=== PATIENT | female | born 1935 | race American Indian/Alaskan Native ===

== ENCOUNTER 2016-10-02 15:18 | Inpatient (IN) | payer MEDICARE ==
[2016-10-02 15:18] VITALS: BMI 16.4
--- NOTE | 2016-10-02 15:56 | ED PDOC ---
HPI: General Adult Time Seen by Provider: 10/02/16 15:35 Chief Complaint (Nursing): Trauma History Per: Patient Additional Complaint(s): Pt. presents with her daughter to ED and states she found her mother on the floor lying flat on her back at approximately 1400 today. As per pt. she fell down attempting to get out of her wheelchair at 1000. Pt. is not complaining of any pain. Denies head injury, abdominal pain, fever, back pain, neck pain, hip pain, chest pain, fever, headache. Past Medical History Vital Signs: Last Vital Signs Temp 98.1 F 10/02/16 16:28 Pulse 93 H 10/02/16 15:22 Resp 16 10/02/16 15:22 BP 127/67 10/02/16 15:22 Pulse Ox 98 10/02/16 15:58 - Medical History PMH: HTN, Hypothyroidism Denies: Arthritis, CHF, COPD, HIV, Hypercholesterolemia, Chronic Kidney Disease, Rheumatoid Arthritis - Family History Family History: States: No Known Family Hx - Immunization History Hx Tetanus Toxoid Vaccination: No Hx Influenza Vaccination: Yes Hx Pneumococcal Vaccination: No - Home Medications Home Medications: Ambulatory Orders Medication Instructions Recorded Atorvastatin Calcium [Lipitor] 20 mg PO HS #30 tab 06/04/15 Calcium Carbonate/Vitamin D 1 tab PO DAILY #30 tab 06/04/15 [Oyster Shell Calcium/Vitamin D 250 MG-125 Iu] Carvedilol [Coreg] 3.125 mg PO DAILY #0 tab 06/04/15 Ferrous Sulfate [Feosol] 325 mg PO BID #60 tab 06/04/15 Lisinopril [Zestril] 5 mg PO DAILY #0 tab 06/04/15 Alendronate [Fosamax] 70 mg PO QWK 10/02/16 Aspirin [Adult Low Dose Aspirin EC] 81 mg PO DAILY 10/02/16 Famotidine [Pepcid] 20 mg PO DAILY 10/02/16 Furosemide [Lasix] 20 mg PO DAILY 10/02/16 Levocetirizine Dihydrochloride 5 mg PO DAILY 10/02/16 [Xyzal] - Allergies Allergies/Adverse Reactions: Allergies Allergy/AdvReac Type Severity Reaction Status Date / Time sweet peas Allergy SWELLING Uncoded 05/28/15 12:44 Review of Systems ROS Statement: Except As Marked, All Systems Reviewed And Found Negative Physical Exam - Reviewed Nursing Documentation Reviewed: Yes Vital Signs Reviewed: Yes - Physical Exam Appears: Positive for: Well, Non-toxic, No Acute Distress Head Exam: Positive for: ATRAUMATIC, NORMAL INSPECTION, NORMOCEPHALIC Skin: Positive for: Normal Color, Warm. Negative for: Rash Eye Exam: Positive for: EOMI, Normal appearance, PERRL ENT: Positive for: Normal ENT Inspection Neck: Positive for: Normal, Painless ROM Cardiovascular/Chest: Positive for: Regular Rate, Rhythm Respiratory: Positive for: CNT, Normal Breath Sounds Gastrointestinal/Abdominal: Positive for: Normal Exam, Bowel Sounds, Soft. Negative for: Tenderness Back: Positive for: Normal Inspection Extremity: Positive for: Normal ROM, Other (R hip internally rotated (chronic as per pt. and pt's daughter); no hip or pelvic tenderness). Negative for: Pedal Edema, Calf Tenderness, Swelling Neurologic/Psych: Positive for: Alert, Oriented (x 2). Negative for: Aphasia, Facial Droop - Laboratory Results Result Diagrams: 10/02/16 17:15 10/02/16 17:15 - ECG ECG: Positive for: Interpreted By Me O2 Sat by Pulse Oximetry: 98 - Radiology X-Ray: Interpreted by Me (CXR) X-Ray Interpretation: Other (hardware in place; no acute fx) - Progress ED Course And Treament: Labs ordered. CT head, c-spine, and R hip/pelvic x-rays ordered. CT head and c-spine w/o contrast: negative IV NS bolus given. Kayexalate given. Case d/w Dr. Hernandez. Case d/w Dr. Quintana, pt.'s PMD is estevan juan, and arrangements made for 23 hr observation. Disposition - Clinical Impression Clinical Impression: Unwitnessed fall, Rhabdomyolysis - Patient ED Disposition Is Patient to be Admitted: Yes - Disposition Disposition Time: 19:00 Condition: STABLE
--- NOTE | 2016-10-02 16:57 | RAD ---
PROCEDURE: Right Hip Radiographs. HISTORY: trauma COMPARISON: Comparison is made to the previous study dated 05/28/2015 FINDINGS: BONES: Internal fixation at the right femur and hip are again seen. No evidence of acute fracture. JOINTS: No evidence of dislocation. SOFT TISSUES: Normal. OTHER FINDINGS: None. IMPRESSION: No evidence of acute fracture or dislocation.
--- NOTE | 2016-10-02 16:58 | RAD ---
HISTORY: fall COMPARISON: Comparison is made to the previous study dated 06/03/2015 FINDINGS: LUNGS: No evidence of focal infiltrate or consolidation in the lungs. Hyperinflation of the lungs is again noted. PLEURA: No significant pleural effusion identified, no pneumothorax apparent. CARDIOVASCULAR: Normal. OSSEOUS STRUCTURES: No significant abnormalities. VISUALIZED UPPER ABDOMEN: Normal. OTHER FINDINGS: None. IMPRESSION: No evidence of acute pulmonary disease. Hyperinflation of the lungs suspicious for COPD.
[2016-10-02 17:35] LABS: BASO % 0.4 % (0.0-2.0); EOS % 0.1 % (0.0-4.0); HEMATOCRIT 46.5 % (34.0-47.0); LYMPH # 0.4 K/uL (1.0-4.3); LYMPH % 6.1 % (20.0-40.0); MEAN CELL VOLUME 89.5 fl (81.0-99.0); MEAN CORPUSCULAR HEMOGLOBIN 29.6 pg (27.0-31.0); MEAN CORPUSCULAR HGB CONC 33.1 g/dL (33.0-37.0); MEAN PLATELET VOLUME 8.9 fl (7.2-11.7); MONO # 0.4 K/uL (0.0-0.8); MONO % 6.5 % (0.0-10.0); NEUT # 5.9 K/uL (1.8-7.0); NEUT % 86.9 % (50.0-75.0); NRBC % 0.1 % (0.0-0.0); PLATELET COUNT 161 K/uL (130-400); RED CELL DISTRIBUTION WIDTH 14.1 % (11.5-14.5); WHITE BLOOD COUNT 6.8 K/uL (4.8-10.8)
[2016-10-02 17:41] LABS: ALB/GLOB RATIO 1.2 (1.0-2.1); ALKALINE PHOSPHATASE 79 U/L (38-126); ALT/SGPT 53 U/L (9-52); AST/SGOT 70 U/L (14-36); BLOOD UREA NITROGEN 37 mg/dl (7-17); CALCIUM 9.5 mg/dL (8.4-10.2); CARBON DIOXIDE 24 mmol/L (22-30); CHLORIDE 86 mmol/L (98-107); GFR AFRICAN-AMERICAN > 60; GLUCOSE,RANDOM 102 mg/dL (65-105); SODIUM 124 mmol/l (132-148); TOTAL PROTEIN 7.4 G/DL (6.3-8.2)
[2016-10-02 17:42] LABS: POTASSIUM 5.4 MMOL/L (3.6-5.0)
[2016-10-02] MEDS ORDERED: Sodium Chloride 0.9% 1,000 ML IV STA (17:50)
--- NOTE | 2016-10-02 18:00 | CT ---
PROCEDURE: CT HEAD WITHOUT CONTRAST. HISTORY: trauma COMPARISON: None available. TECHNIQUE: Axial computed tomography images were obtained through the head/brain without intravenous contrast. Radiation dose: Total exam DLP = 816 mGy-cm. This CT exam was performed using one or more of the following dose reduction techniques: Automated exposure control, adjustment of the mA and/or kV according to patient size, and/or use of iterative reconstruction technique. FINDINGS: HEMORRHAGE: No intracranial hemorrhage. BRAIN: No mass effect or edema. Mild atrophy and chronic periventricular white matter ischemic disease. VENTRICLES: Unremarkable. No hydrocephalus. CALVARIUM: Unremarkable. PARANASAL SINUSES: Unremarkable as visualized. No significant inflammatory changes. MASTOID AIR CELLS: Unremarkable as visualized. No inflammatory changes. OTHER FINDINGS: None. IMPRESSION: No acute intracranial hemorrhage.
--- NOTE | 2016-10-02 18:06 | CT ---
PROCEDURE: CT Cervical Spine without contrast HISTORY: <trauma> COMPARISON: None available. TECHNIQUE: Axial computed tomography images were obtained of the cervical spine without the use of intravenous contrast. Coronal and sagittal reformatted images were created and reviewed. Radiation dose: Total exam DLP = 224 mGy-cm. This CT exam was performed using one or more of the following dose reduction techniques: Automated exposure control, adjustment of the mA and/or kV according to patient size, and/or use of iterative reconstruction technique. FINDINGS: VERTEBRAE: No fracture. Normal alignment. No destructive bony lesion. DISCS/SPINAL CANAL/NEURAL FORAMINA: No significant central canal or neural foraminal stenosis. Disc space narrowing at C5-6 and C6-7 with spur formation. PARASPINAL SOFT TISSUES: Unremarkable. OTHER FINDINGS: None. IMPRESSION: Disc space narrowing at C5-6 and C6-7 with spur formation. No fracture.
[2016-10-02] MEDS ORDERED: Sod Polystyrene Sulf 15 gm/60 ml Oral Susp PO ONE (18:54)
[2016-10-02 19:16] LABS: NEUTROPHIL 90 % (42-75); TOTAL CELLS COUNTED 100
[2016-10-02 19:18] LABS: LARGE PLATELETS PRESENT
[2016-10-02] MEDS ORDERED: Sod Polystyrene Sulf 15 gm/60 ml Oral Susp ONE (20:36)
[2016-10-02] MEDS: Sodium Chloride 0.9% 1,000 ML IV SCH (23:20)
[2016-10-03 06:35] LABS: HEMATOCRIT 36.1 % (34.0-47.0); MEAN CELL VOLUME 88.5 fl (81.0-99.0); MEAN CORPUSCULAR HEMOGLOBIN 29.1 pg (27.0-31.0); MEAN CORPUSCULAR HGB CONC 32.9 g/dL (33.0-37.0); RED CELL DISTRIBUTION WIDTH 13.9 % (11.5-14.5); WHITE BLOOD COUNT 6.2 K/uL (4.8-10.8)
[2016-10-03 06:54] LABS: BLOOD UREA NITROGEN 33 mg/dl (7-17); CARBON DIOXIDE 29 mmol/L (22-30); CHLORIDE 92 mmol/L (98-107); GFR AFRICAN-AMERICAN > 60; GLUCOSE,RANDOM 102 mg/dL (65-105); POTASSIUM 4.1 MMOL/L (3.6-5.0); SODIUM 127 mmol/l (132-148)
--- NOTE | 2016-10-03 07:18 | CARD ---
APPROVED REPORT EKG Measurement Heart [id number] [place] [id number] <Conclusion> Sinus rhythm with premature atrial complexes Right atrial enlargement Pulmonary disease pattern Left anterior fascicular block Abnormal ECG
--- NOTE | 2016-10-03 07:22 | CARD ---
APPROVED REPORT EKG Measurement Heart [id number] [place] [id number] <Conclusion> Normal sinus rhythm Left axis deviation Abnormal ECG
[2016-10-03] MEDS: Sodium Chloride 0.9% 1,000 ML IV SCH ×2 (08:47→13:45)
[2016-10-03] MEDS: Enoxaparin 40 mg Syringe SC SCH (08:50)
[2016-10-03] MEDS: Calcium-Vit D 250 mg-125 Units Tab UD PO SCH (08:50)
--- NOTE | 2016-10-03 10:42 | CARD ---
APPROVED REPORT EXAM: Two-dimensional and M-mode echocardiogram with Doppler and color Doppler. Other Information Quality : GoodRhythm : Atrial Fibrillation INDICATION LV Function:SystolicDiastolic 2D DIMENSIONS IVSd0.83 (0.7-1.1cm)LVDd3.89 (3.9-5.9cm) LVOT Diameter1.84 (1.8-2.4cm)PWd0.85 (0.7-1.1cm) IVSs1.37 (0.8-1.2cm)LVDs2.02 (2.5-4.0cm) FS (%) 48.0 %PWs1.64 (0.8-1.2cm) M-Mode DIMENSIONS Left Atrium (MM)3.62 (2.5-4.0cm)IVSd1.09 (0.7-1.1cm) Aortic Root3.18 (2.2-3.7cm)LVDd5.00 (4.0-5.6cm) Aortic Cusp Exc.1.68 (1.5-2.0cm)PWd1.09 (0.7-1.1cm) IVSs1.71 cmFS (%) 51 % LVDs2.47 (2.0-3.8cm)PWs1.65 cm Mitral Valve E/A ratio0.0 TDI E/Lateral E'0.0E/Medial E'0.0 Tricuspid Valve TR Peak [id number] [id number] Peak Gr.28mmHg [id number] LEFT VENTRICLE The left ventricle is normal size. There is normal left ventricular wall thickness. The left ventricular function is normal. The left ventricular ejection fraction is within the normal range. The Ejection Fraction is 60-65%. There is normal LV segmental wall motion. The left ventricular diastolic function is normal. No left ventricle thrombus noted on this study. RIGHT VENTRICLE The right ventricle is normal size. There is normal right ventricular wall thickness. The right ventricular systolic function is normal. ATRIA The left atrium size is normal. The right atrium size is normal. The interatrial septum is intact with no evidence for an atrial septal defect. AORTIC VALVE The aortic valve is normal in structure and function. No aortic regurgitation is present. There is no aortic valvular stenosis. There is no aortic valvular vegetation. MITRAL VALVE The mitral valve is normal in structure and function. There is no evidence of mitral valve prolapse. There is no mitral valve stenosis. There is no mitral valve regurgitation noted. TRICUSPID VALVE The tricuspid valve is normal in structure and function. There is mild tricuspid regurgitation. There is no tricuspid valve prolapse or vegetation. There is no tricuspid valve stenosis. PULMONIC VALVE The pulmonary valve is normal in structure and function. There is no pulmonic valvular regurgitation. There is no pulmonic valvular stenosis. GREAT VESSELS The aortic root is normal in size. The IVC is normal in size and collapses >50% with inspiration. PERICARDIAL EFFUSION The pericardium appears normal. There is no pleural effusion. <Conclusion> The left ventricle is normal size. The left ventricular function is normal. The left ventricular ejection fraction is within the normal range. The Ejection Fraction is 60-65%. There is mild tricuspid regurgitation.
[2016-10-03] MEDS: Sodium Chloride 0.9% 250 ML IV SCH ×2 (11:31→15:30)
[2016-10-03] MEDS ORDERED: Sodium Chloride 0.9% 500 ML IV ONE (14:50)
--- NOTE | 2016-10-03 14:52 | CP.PCM.PCO ---
Assessment/Plan - Assessment and Plan (Free Text) Plan: Paged by KALIE Hand for hypotension, bp 76/50 Patient seen and examined, alert awake, no complaints of dizziness. Manual bp taken 88/50 IVF started NS bolus 500ml to be given. Will check repeat bp, discussed with Dr Quintana.
--- NOTE | 2016-10-03 17:56 | CP.PCM.CON ---
History of Present Illness - History of Present Illness History of Present Illness: I was asked to see patient by Dr. Quintana. Patient is a 81 year old female with a PMH HTN, previous aortic regurgitation who presents with fall. The patient was found on the floor at her home. She had fallen out of her wheelchair. The patient had full consciousness. She denies chest pain or palpitations. Review of Systems - Constitutional Constitutional: absent: As Per HPI, Anorexia, Chills, Daytime Sleepiness, Excessive Sweating, Fatigue, Fever, Frequent Falls, Headache, Increased Appetite , Lethargy, Malaise, Night Sweats, Snoring, Sleep Apnea, Weight Gain, Weight Loss, Weakness, Other - EENT Eyes: absent: As Per HPI, Blind Spots, Blurred Vision, Change in Vision, Decreased Night Vision, Diplopia, Discharge, Dry Eye, Exophthalmos, Floaters, Irritation, Itchy Eyes, Loss of Peripheral Vision, Pain, Photophobia, Requires Corrective Lenses, Sees Flashes, Spots in Vision, Tunnel Vision, Other Visual Disturbances, Loss of Vision, Other Ears: absent: As Per HPI, Decreased Hearing, Ear Discharge, Ear Pain, Tinnitus, Abnormal Hearing, Disequilibrium, Dizziness, Other Nose/Mouth/Throat: absent: As Per HPI, Epistaxis, Nasal Congestion, Nasal Discharge, Nasal Obstruction, Nasal Trauma, Nose Pain, Post Nasal Drip, Sinus Pain, Sinus Pressure, Bleeding Gums, Change in Voice, Dental Pain, Dry Mouth, Dysphagia, Halitosis, Hoarsness, Lip Swelling, Mouth Lesions, Mouth Pain, Odynophagia, Sore Throat, Throat Swelling, Tongue Swelling, Facial Pain, Neck Pain, Neck Mass, Other - Cardiovascular Cardiovascular: absent: As Per HPI, Acrocyanosis, Chest Pain, Chest Pain at Rest , Chest Pain with Activity, Claudication, Diaphoresis, Dyspnea, Dyspnea on Exertion, Edema, Irregular Heart Rhythm, Pain Radiating to Arm/Neck/Jaw, Leg Edema, Leg Ulcers, Lightheadedness, Orthopnea, Palpitations, Paroxysmal Nocturnal Dyspnea, Pedal Edema, Radiating Pain, Rapid Heart Rate, Slow Heart Rate, Syncope, Other - Respiratory Respiratory: absent: As Per HPI, Cough, Dyspnea, Hemoptysis, Dyspnea on Exertion , Wheezing, Snoring, Stridor, Pain on Inspiration, Chest Congestion, Excessive Mucous Production, Change in Mucous Color, Pain with Coughing, Other - Gastrointestinal Gastrointestinal: absent: As Per HPI, Abdominal Pain, Belching, Bloating, Change in Bowel Habits, Change in Stool Character, Coffee Ground Emesis, Constipation, Cramping, Diarrhea, Dyspepsia, Dysphagia, Early Satiety, Excessive Flatus, Fecal Incontinence, Heartburn, Hematemesis, Hematochezia, Loose Stools, Melena, Nausea, Odynophagia, Temesmus, Vomiting, Other - Genitourinary Genitourinary: absent: As Per HPI, Change in Urinary Stream, Difficulty Urinating, Dysuria, Flank Pain, Hematuria, Pyuria, Nocturia, Urinary Incontinence, Urinary Frequency, Urinary Hesitance, Urinary Urgency, Voiding Freq/Small Amts, Freq UTI, Hx Renal/Bladder Calculi, Hx /Renal Surgery, Bladder Distension, Other - Musculoskeletal Musculoskeletal: absent: As Per HPI, Abnormal Gait, Arthralgias, Atrophy, Back Pain, Deformity, Joint Swelling, Limited Range of Motion, Loss of Height, Muscle Cramps, Muscle Weakness, Myalgias, Neck Pain, Numbness, Radiating Pain into Limb, Stiffness, Tingling, Other - Integumentary Integumentary: absent: As Per HPI, Acne, Alopecia, Bleeding Lesions, Change in Hair, Change in Nails, Change in Pigmentation, Changing Lesions, Dry Skin, Erythema, Furuncle, Hirsutism, Lesions, New Lesions, Non-Healing Lesions, Photosensitivity, Pruritus, Rash, Skin Pain, Skin Ulcer, Sores, Striae, Swelling , Unusual Bruising, Wounds, Jaundice, Other - Neurological Neurological: absent: As Per HPI, Abnormal Gait, Abnormal Hearing, Abnormal Movements, Abnormal Speech, Behavioral Changes, Burning Sensations, Confusion, Convulsions, Disequilibrium, Dizziness, Numbness, Focal Weakness, Frequent Falls , Headaches, Lack of Coordination, Loss of Vision, Memory Loss, Paresthesias, Radicular Pain, Restless Legs, Sensory Deficit, Syncope, Tingling, Tremor, Vertigo, Weakness, Other Visual Disturbances, Other - Psychiatric Psychiatric: absent: As Per HPI, Abnormal Sleep Pattern, Anhedonia, Anxiety, Auditory Hallucinations, Behavioral Changes, Change in Appetite, Change in Libido, Confusion, Depression, Difficulty Concentrating, Hallucinations, Homicidal Ideation, Hopelessness, Irritability, Memory Loss, Mood Swings, Panic Attacks, Paranoia, Suicidal Ideation, Visual Hallucinations, Tactile Hallucinations, Other - Endocrine Endocrine: absent: As Per HPI, Change in Body Appearance, Change in Libido, Cold Intolorance, Deepening of Voice, Excessive Sweating, Fatigue, Flushing, Heat Intolorance, Increase in Ring/Shoe/Hat Size, Palpitations, Polydipsia, Polyphagia, Polyuria, Other - Hematologic/Lymphatic Hematologic: absent: As Per HPI, Easy Bleeding, Easy Bruising, Lymphadenopathy, Other Past Patient History - Infectious Disease Hx of Infectious Diseases: None - Tetanus Immunizations Tetanus Immunization: Unknown - Past Medical History & Family History Past Medical History?: Yes - Past Social History Smoking Status: Never Smoked - CARDIAC Hx Cardiac Disorders: Yes Hx Hypercholesterolemia: Yes Hx Hypertension: Yes - PULMONARY Hx Respiratory Disorders: No - NEUROLOGICAL Hx Neurological Disorder: No - HEENT Hx HEENT Problems: No - RENAL Hx Chronic Kidney Disease: No - ENDOCRINE/METABOLIC Hx Endocrine Disorders: No - HEMATOLOGICAL/ONCOLOGICAL Hx Blood Disorders: No - INTEGUMENTARY Hx Dermatological Problems: No - MUSCULOSKELETAL/RHEUMATOLOGICAL Hx Musculoskeletal Disorders: Yes Hx Falls: Yes Hx Osteoporosis: Yes - GASTROINTESTINAL Hx Gastrointestinal Disorders: No - GENITOURINARY/GYNECOLOGICAL Hx Genitourinary Disorders: Yes Hx Incontinence: Yes - PSYCHIATRIC Hx Psychophysiologic Disorder: No Hx Substance Use: No - SURGICAL HISTORY Hx Surgeries: Yes Hx Orthopedic Surgery: Yes (Right THR, 2012) Hx Thyroidectomy: Yes (1989) - ANESTHESIA Hx Anesthesia: Yes Hx Anesthesia Reactions: No Meds Allergies/Adverse Reactions: Allergies Allergy/AdvReac Type Severity Reaction Status Date / Time sweet peas Allergy SWELLING Uncoded 05/28/15 12:44 - Medications Medications: Current Medications Acetaminophen (Tylenol 325mg Tab) 650 mg PO Q6 PRN PRN Reason: Pain, Mild (1-3) Aspirin (Ecotrin) 81 mg PO DAILY [facility] Last Admin: 10/03/16 08:49 Dose: 81 mg Atorvastatin Calcium (Lipitor) 20 mg PO HS [facility] Last Admin: 10/02/16 23:19 Dose: 20 mg Calcium/Vitamin D (Oscal-D 250 Mg-125 Units Tab) 1 tab PO DAILY [facility] Last Admin: 10/03/16 08:50 Dose: 1 tab Carvedilol (Coreg) 3.125 mg PO DAILY [facility] Last Admin: 10/03/16 08:49 Dose: 3.125 mg Enoxaparin Sodium (Lovenox) 40 mg SC DAILY [facility] PRN Reason: Protocol Last Admin: 10/03/16 08:50 Dose: 40 mg Famotidine (Pepcid) 20 mg PO DAILY [facility] Last Admin: 10/03/16 08:50 Dose: 20 mg Ferrous Sulfate (Feosol) 325 mg PO BID [facility] Last Admin: 10/03/16 17:32 Dose: 325 mg Home Med (Levocetirizine Dihydrochloride [Xyzal]) 5 mg PO DAILY [facility] Sodium Chloride (Sodium Chloride 0.9%) 1,000 mls @ 100 mls/hr IV .Q10H [facility] Stop: 10/04/16 13:45 Last Admin: 10/03/16 13:45 Dose: 100 mls/hr Lisinopril (Zestril) 2.5 mg PO DAILY [facility] Physical Exam - Constitutional Appears: Non-toxic - Head Exam Head Exam: NORMAL INSPECTION - Eye Exam Eye Exam: Normal appearance - ENT Exam ENT Exam: Mucous Membranes Moist - Neck Exam Neck exam: Positive for: Full Rom - Respiratory Exam Respiratory Exam: Decreased Breath Sounds - Cardiovascular Exam Cardiovascular Exam: REGULAR RHYTHM - GI/Abdominal Exam GI & Abdominal Exam: Normal Bowel Sounds - Rectal Exam Rectal Exam: Deferred - Extremities Exam Extremities exam: Negative for: pedal edema - Back Exam Back exam: NORMAL INSPECTION - Neurological Exam Neurological exam: Alert, Oriented x3 - Psychiatric Exam Psychiatric exam: Normal Affect - Skin Skin Exam: Normal Color Results - Vital Signs Recent Vital Signs: Last Vital Signs Temp 98.4 F 10/03/16 17:00 Pulse 85 10/03/16 17:00 Resp 18 10/03/16 17:00 BP 100/38 L 10/03/16 17:00 Pulse Ox 98 10/03/16 17:00 - Labs Result Diagrams: 10/03/16 05:10 10/03/16 05:10 Labs: Laboratory Results - last 24 hr 10/02/16 10/03/16 10/03/16 23:40 05:10 05:10 WBC 6.2 RBC 4.07 Hgb 11.9 L D Hct 36.1 MCV 88.5 MCH 29.1 MCHC 32.9 L RDW 13.9 Plt Count 135 Sodium 127 L Potassium 4.1 Chloride 92 L Carbon Dioxide 29 Anion Gap 10 BUN 33 H Creatinine 0.6 L Est GFR ( Amer) > 60 Est GFR (Non-Af Amer) > 60 Random Glucose 102 Calcium 8.0 L Total Creatine Kinase Troponin I 0.0670 0.0610 Vitamin B12 > 1000 H TSH 3rd Generation 1.40 RPR 10/03/16 10/03/16 05:10 12:20 WBC RBC Hgb Hct MCV MCH MCHC RDW Plt Count Sodium Potassium Chloride Carbon Dioxide Anion Gap BUN Creatinine Est GFR ( Amer) Est GFR (Non-Af Amer) Random Glucose Calcium Total Creatine Kinase 384 H Troponin I Vitamin B12 TSH 3rd Generation RPR Nonreactive - EKG Data EKG Interpreted by: Myself EKG shows normal: Sinus rhythm Assessment & Plan (1) Hypercholesterolemia Assessment and Plan: recommend statin therapy Status: Acute (2) Unwitnessed fall Assessment and Plan: patient has normal left ventricular function and previous no signifcant CAD. Unlikely cardiac cause of the patient's symptoms. telemetry monitoring for 24 hrs. Status: Acute (3) HTN (hypertension) Assessment and Plan: had an episode of hypotension, receiving IV fluids Status: Acute
[2016-10-03 20:42] LABS: RBC URINE 3 /hpf (0-3); URINE BACTERIA MANY (<OCC); URINE BILIRUBIN NEGATIVE (NEGATIVE); URINE BLOOD MODERATE (NEGATIVE); URINE COLOR YELLOW (YELLOW); URINE GLUCOSE (UA) NEG (Normal); URINE KETONE NEGATIVE (NEGATIVE); URINE LEUKOCYTE ESTERASE SMALL Leu/uL (Negative); URINE PROTEIN NEGATIVE (NEGATIVE); URINE UROBILINOGEN 0.2-1.0 mg/dL (0.2-1.0); WBC URINE 18 /hpf (0-5)
--- NOTE | 2016-10-03 23:50 | CP.PCM.HP ---
History of Present Illness - History of Present Illness History of Present Illness: CC: Fall History of Present Illness: 81yoF with H/O HTN,, Dyslipidemia and on Antidiuretic ?Etiology was found on the floor by her daughter.Pt. presents with her daughter to ED and states she found her mother on the floor lying flat on her back at approximately 1400 today. As per pt. she fell down attempting to get out of her wheelchair at 1000. Pt. is not complaining of any pain. Denies head injury, abdominal pain, fever, back pain, neck pain, hip pain, chest pain, fever, headache. Then patient became Hypotensive requiring IVF Bolus nd responded well. Present on Admission - Present on Admission Any Indicators Present on Admission: No History of DVT/PE: No History of Uncontrolled Diabetes: No Urinary Catheter: No Decubitus Ulcer Present: No Review of Systems - Review of Systems All systems: reviewed and no additional remarkable complaints except Past Patient History - Infectious Disease Hx of Infectious Diseases: None - Tetanus Immunizations Tetanus Immunization: Unknown - Past Medical History & Family History Past Medical History?: Yes Past Family History: Reviewed and not pertinent - Past Social History Smoking Status: Never Smoked Alcohol: None Drugs: Denies - CARDIAC Hx Cardiac Disorders: Yes Hx Hypercholesterolemia: Yes Hx Hypertension: Yes - PULMONARY Hx Respiratory Disorders: No - NEUROLOGICAL Hx Neurological Disorder: No - HEENT Hx HEENT Problems: No - RENAL Hx Chronic Kidney Disease: No - ENDOCRINE/METABOLIC Hx Endocrine Disorders: No - HEMATOLOGICAL/ONCOLOGICAL Hx Blood Disorders: No - INTEGUMENTARY Hx Dermatological Problems: No - MUSCULOSKELETAL/RHEUMATOLOGICAL Hx Musculoskeletal Disorders: Yes Hx Falls: Yes Hx Osteoporosis: Yes - GASTROINTESTINAL Hx Gastrointestinal Disorders: No - GENITOURINARY/GYNECOLOGICAL Hx Genitourinary Disorders: Yes Hx Incontinence: Yes - PSYCHIATRIC Hx Psychophysiologic Disorder: No Hx Substance Use: No - SURGICAL HISTORY Hx Surgeries: Yes Hx Orthopedic Surgery: Yes (Right THR, 2012) Hx Thyroidectomy: Yes (1989) - ANESTHESIA Hx Anesthesia: Yes Hx Anesthesia Reactions: No Meds Allergies/Adverse Reactions: Allergies Allergy/AdvReac Type Severity Reaction Status Date / Time sweet peas Allergy SWELLING Uncoded 05/28/15 12:44 Physical Exam - Constitutional Appears: Well, No Acute Distress - Head Exam Head Exam: ATRAUMATIC, NORMAL INSPECTION, NORMOCEPHALIC - Eye Exam Eye Exam: EOMI, Normal appearance, PERRL Pupil Exam: NORMAL ACCOMODATION, PERRL - ENT Exam ENT Exam: Mucous Membranes Moist, Normal Exam - Neck Exam Neck exam: Positive for: Full Rom, Normal Inspection - Respiratory Exam Respiratory Exam: Clear to Auscultation Bilateral, NORMAL BREATHING PATTERN - Cardiovascular Exam Cardiovascular Exam: REGULAR RHYTHM, +S1, +S2 - GI/Abdominal Exam GI & Abdominal Exam: Normal Bowel Sounds, Soft. absent: Tenderness - Extremities Exam Extremities exam: Positive for: normal inspection - Back Exam Back exam: NORMAL INSPECTION - Neurological Exam Neurological exam: Alert, CN II-XII Intact, Normal Gait, Oriented x3, Reflexes Normal - Psychiatric Exam Psychiatric exam: Normal Affect, Normal Mood - Skin Skin Exam: Dry, Intact, Normal Color, Warm Results - Vital Signs Recent Vital Signs: Last Vital Signs Temp 98.9 F 10/03/16 20:00 Pulse 87 10/03/16 20:00 Resp 20 10/03/16 20:00 BP 103/50 L 10/03/16 20:00 Pulse Ox 99 10/03/16 20:00 - Labs Result Diagrams: 10/03/16 05:10 10/04/16 09:40 Labs: Laboratory Results - last 24 hr 10/02/16 10/03/16 10/03/16 23:40 05:10 05:10 WBC 6.2 RBC 4.07 Hgb 11.9 L D Hct 36.1 MCV 88.5 MCH 29.1 MCHC 32.9 L RDW 13.9 Plt Count 135 Sodium 127 L Potassium 4.1 Chloride 92 L Carbon Dioxide 29 Anion Gap 10 BUN 33 H Creatinine 0.6 L Est GFR ( Amer) > 60 Est GFR (Non-Af Amer) > 60 Random Glucose 102 Calcium 8.0 L Total Creatine Kinase Troponin I 0.0670 0.0610 Vitamin B12 > 1000 H TSH 3rd Generation 1.40 Urine Color Urine Clarity Urine pH Ur Specific [place] Urine Protein Urine Glucose (UA) Urine Ketones Urine Blood Urine Nitrate Urine Bilirubin Urine Urobilinogen Ur Leukocyte Esterase Urine RBC (Auto) Urine Microscopic WBC Ur Squamous Epith Cells Urine Bacteria RPR 10/03/16 10/03/16 10/03/16 05:10 12:20 20:00 WBC RBC Hgb Hct MCV MCH MCHC RDW Plt Count Sodium Potassium Chloride Carbon Dioxide Anion Gap BUN Creatinine Est GFR ( Amer) Est GFR (Non-Af Amer) Random Glucose Calcium Total Creatine Kinase 384 H Troponin I Vitamin B12 TSH 3rd Generation Urine Color Yellow Urine Clarity Slighty-cloudy Urine pH 6.0 Ur Specific [place] 1.018 Urine Protein Negative Urine Glucose (UA) Neg Urine Ketones Negative Urine Blood Moderate Urine Nitrate Negative Urine Bilirubin Negative Urine Urobilinogen 0.2-1.0 Ur Leukocyte Esterase Small Urine RBC (Auto) 3 Urine Microscopic WBC 18 H Ur Squamous Epith Cells 18 H Urine Bacteria Many H RPR Nonreactive - Imaging and Cardiology CT scan - head Status: Report reviewed by me Additional comment: IMPRESSION: No acute intracranial hemorrhage CT C-spine: Status: Report reviewed by me Additional comment: IMPRESSION: Disc space narrowing at C5-6 and C6-7 with spur formation. No fracture. Assessment & Plan (1) Fall Assessment and Plan: Mechanical Vs Hypotension sec to Dehydration Vs Hyponatremia R/O Cardiac Arrhythmia Rhabdomyelysis H/O NSTEMI IVF 0.9NS Serum and Urine Osmolality Fall Precation Status: Acute (2) Hyponatremia Assessment and Plan: IVF 0.9NS Slow correction Status: Acute (3) HTN (hypertension) Status: Chronic
[2016-10-04] MEDS: Sodium Chloride 0.9% 1,000 ML IV SCH (03:03)
[2016-10-04] MEDS: Enoxaparin 40 mg Syringe SC SCH (10:03)
[2016-10-04] MEDS: Calcium-Vit D 250 mg-125 Units Tab UD PO SCH (10:04)
[2016-10-04 10:20] LABS: BLOOD UREA NITROGEN 16 mg/dl (7-17); CALCIUM 7.4 mg/dL (8.4-10.2); CARBON DIOXIDE 29 mmol/L (22-30); CHLORIDE 96 mmol/L (98-107); GFR AFRICAN-AMERICAN > 60; GLUCOSE,RANDOM 128 mg/dL (65-105); POTASSIUM 3.5 MMOL/L (3.6-5.0); SODIUM 130 mmol/l (132-148)
--- NOTE | 2016-10-04 11:06 | CP.PCM.PN ---
Subjective - Date & Time of Evaluation Date of Evaluation: 10/04/16 Time of Evaluation: 11:00 - Subjective Subjective: Seen and examined at the bed side. Still feeling weak. Denies fever or chills PT evaluated the patient and recommended SLY. Objective - Vital Signs/Intake and Output Vital Signs (last 24 hours): Temp Pulse Resp BP Pulse Ox 97.8 F 90 20 116/62 98 10/04/16 08:20 10/04/16 10:44 10/04/16 08:20 10/04/16 08:20 10/04/16 10:44 - Medications Medications: Current Medications Acetaminophen (Tylenol 325mg Tab) 650 mg PO Q6 PRN PRN Reason: Pain, Mild (1-3) Aspirin (Ecotrin) 81 mg PO DAILY [facility] Last Admin: 10/04/16 10:03 Dose: 81 mg Atorvastatin Calcium (Lipitor) 20 mg PO HS [facility] Last Admin: 10/03/16 21:32 Dose: Not Given Calcium/Vitamin D (Oscal-D 250 Mg-125 Units Tab) 1 tab PO DAILY [facility] Last Admin: 10/04/16 10:04 Dose: 1 tab Carvedilol (Coreg) 3.125 mg PO DAILY [facility] Last Admin: 10/04/16 10:02 Dose: 3.125 mg Enoxaparin Sodium (Lovenox) 40 mg SC DAILY [facility] PRN Reason: Protocol Last Admin: 10/04/16 10:03 Dose: 40 mg Famotidine (Pepcid) 20 mg PO DAILY [facility] Last Admin: 10/04/16 10:05 Dose: 20 mg Ferrous Sulfate (Feosol) 325 mg PO BID [facility] Last Admin: 10/04/16 10:03 Dose: 325 mg Home Med (Levocetirizine Dihydrochloride [Xyzal]) 5 mg PO DAILY [facility] Sodium Chloride (Sodium Chloride 0.9%) 1,000 mls @ 100 mls/hr IV .Q10H [facility] Stop: 10/04/16 13:45 Last Admin: 10/04/16 03:03 Dose: 100 mls/hr Lisinopril (Zestril) 2.5 mg PO DAILY [facility] Last Admin: 10/04/16 10:04 Dose: 2.5 mg Potassium Chloride (K-Dur 20 Meq Er Tab) 20 meq PO ONCE ONE Stop: 10/04/16 11:31 - Labs Labs: 05/02/17 05:10 10/04/16 09:40 - Constitutional Appears: No Acute Distress, Chronically Ill - Head Exam Head Exam: ATRAUMATIC, NORMAL INSPECTION, NORMOCEPHALIC - Eye Exam Eye Exam: EOMI, Normal appearance, PERRL Pupil Exam: NORMAL ACCOMODATION, PERRL - ENT Exam ENT Exam: Mucous Membranes Moist, Normal Exam - Neck Exam Neck Exam: Full ROM, Normal Inspection. absent: Lymphadenopathy - Respiratory Exam Respiratory Exam: Clear to Ausculation Bilateral, NORMAL BREATHING PATTERN - Cardiovascular Exam Cardiovascular Exam: REGULAR RHYTHM, +S1, +S2. absent: Murmur - GI/Abdominal Exam GI & Abdominal Exam: Soft, Normal Bowel Sounds. absent: Tenderness - Extremities Exam Extremities Exam: Full ROM, Normal Capillary Refill, Normal Inspection. absent : Joint Swelling, Pedal Edema - Back Exam Back Exam: NORMAL INSPECTION. absent: CVA tenderness (L), CVA tenderness (R) - Neurological Exam Neurological Exam: Abnormal Gait, Alert, Awake, CN II-XII Intact - Psychiatric Exam Psychiatric exam: Normal Affect, Normal Mood - Skin Skin Exam: Dry, Intact, Normal Color, Warm Assessment and Plan (1) Fall Assessment & Plan: Fall Precaution PT/OT Will need Rehab Status: Acute (2) Hyponatremia Assessment & Plan: Improving IVF 0.9NS@100cc/hr Repeat BMP Status: Acute (3) HTN (hypertension) Assessment & Plan: Continue Carvidelol and Lisinopril Status: Chronic (4) UTI (urinary tract infection) Assessment & Plan: Urine Cultures Ciprofloxacin 500mg BID X5days Status: Acute
[2016-10-04] MEDS ORDERED: Potassium Chloride 20 mEq ER Tab PO ONE ×2 (11:30→18:25)
--- NOTE | 2016-10-04 14:54 | PQF GENQUE ---
Dr. Quintana, 2 (two) queries as follows: (1)Agree with BMI 15.2? listed in the EMR :if agreed please include the BMI in your progress note or discharge summary (2) If agreed: Please provide an associated diagnosis, if known, related to the BMI:15.2 (5 ft 8in 100lb): i.e. Underweight, or Small frame etc. OR: Disagree OR: Unable to determine OR: Other explanation of clinical findings ER note: POA Present On Arrival: Pressure Ulcer (sacral) H and P:81 year old: was found on the floor by her daughter: lying flat on her back. As per pt. she fell down attempting to get out of her wheelchair. Assessment Plan : (1) Fall :Assessment and Plan: Mechanical Vs Hypotension sec to Dehydration Vs Hyponatremia R/O Cardiac Arrhythmia Rhabdomyolysis H/O NSTEMI IVF 0.9NS Serum and Urine Osmolality Fall Precation Status: Acute (2) Hyponatremia ;Assessment and Plan: IVF 0.9NS Slow correction Status: Acute (3) HTN (hypertension) Status: Chronic This form is a permanent part of the medical record Clarification of your documentation is requested to better reflect the severity of illness and intensity of treatment of your patient. Indicators present [] Specify: [X) Sacral decubitus Stage II [] Specify: [] [] Specify: [] [] Specify: [] Location in the medical record that reflects the above clinical findings: [] Treatment Provided: [X] Wound Care and Repositioning PHYSICIAN'S RESPONSE Based on your medical judgment of the clinical indicators outlined above please clarify the following: [X] Practitioner response Underweight [] If unable to determine, please check the box, sign and date. Present On Admission (POA) Indicator: [X] Present at the time of admission [] Not present at the time of admission [] Clinically Undetermined In responding to this query, please exercise your independent professional judgment. The fact that a question is asked does not imply that any particular answer is desired or expected. Thank you for your clarification on this documentation. If you have any questions please call. * Thank you, Jory Cisneros RN BSN ext. #[phone] MTDD
[2016-10-05 07:13] LABS: BASO % 0.3 % (0.0-2.0); EOS % 0.1 % (0.0-4.0); HEMATOCRIT 29.7 % (34.0-47.0); LYMPH % 19.9 % (20.0-40.0); MEAN CELL VOLUME 88.5 fl (81.0-99.0); MEAN CORPUSCULAR HGB CONC 33.8 g/dL (33.0-37.0); MEAN PLATELET VOLUME 9.2 fl (7.2-11.7); MONO # 0.4 K/uL (0.0-0.8); MONO % 8.7 % (0.0-10.0); NEUT # 3.6 K/uL (1.8-7.0); NRBC % 0.1 % (0.0-0.0); RED CELL DISTRIBUTION WIDTH 13.9 % (11.5-14.5)
[2016-10-05 07:23] LABS: BLOOD UREA NITROGEN 11 mg/dl (7-17); CALCIUM 7.5 mg/dL (8.4-10.2); CARBON DIOXIDE 30 mmol/L (22-30); CHLORIDE 97 mmol/L (98-107); GFR AFRICAN-AMERICAN > 60; GLUCOSE,RANDOM 71 mg/dL (65-105); POTASSIUM 3.7 MMOL/L (3.6-5.0); SODIUM 130 mmol/l (132-148)
--- NOTE | 2016-10-05 07:34 | PQF GENQUE ---
Dr. Quintana, In agreement with Pressure Ulcer(s): Present on Admission? If in agreement please list the following: --- (A) the site of the Pressure Ulcer(s) --- (B) the Stage(s) of the Pressure Ulcer(s) ---(C) if the Pressure Ulcer(s) are:Present on Admission ER note: Patient presents with her daughter to ED and states she found her mother on the floor lying flat on her back at approximately 1400 today. As per pt. she fell down attempting to get out of her wheelchair at 1000. Clinical Impression: Unwitnessed fall, Rhabdomyolysis Addendum note: Present On Arrival: Pressure Ulcer (sacral) Nursing Pressure Ulcer Assessment: Right Sacrum;partial thickness Loss of dermis presenting as a shallow ulcer and right heel purple or maroon localized area of discolored intact skin or blood 5/2: Wound RN:Patient Care tab in the EMR : Sacrum: DTI 5/2: Wound RN Notes tab in the EMR: Heels are clean and dry; Sacrum DTI This form is a permanent part of the medical record Clarification of your documentation is requested to better reflect the severity of illness and intensity of treatment of your patient. Indicators present [] Specify: [] [] Specify: [] [] Specify: [] [] Specify: [] Location in the medical record that reflects the above clinical findings: [] Treatment Provided: [] PHYSICIAN'S RESPONSE Based on your medical judgment of the clinical indicators outlined above please clarify the following: [X] Practitioner response stage II Scaral Decubitus Ulcer [] If unable to determine, please check the box, sign and date. Present On Admission (POA) Indicator: [X] Present at the time of admission [] Not present at the time of admission [] Clinically Undetermined In responding to this query, please exercise your independent professional judgment. The fact that a question is asked does not imply that any particular answer is desired or expected. Thank you for your clarification on this documentation. If you have any questions please call:[ ] * Thank you, [ ] tnt line supervisor DAVID
[2016-10-05] MEDS: Enoxaparin 40 mg Syringe SC SCH (08:26)
[2016-10-05] MEDS: Calcium-Vit D 250 mg-125 Units Tab UD PO SCH (08:30)
[2016-10-05 12:13] VITALS: RESP 20; O2SAT 95
[2016-10-05 15:47] VITALS: BP 151/71; PULSE 94; TEMP 97.8
--- NOTE | 2016-10-06 00:38 | CP.PCM.DIS ---
Provider - Provider Date of Admission: 10/02/16 18:37 Attending physician: Dewayne Quintana MD Time Spent in preparation of Discharge (in minutes): 28 Diagnosis - Discharge Diagnosis (1) Fall Status: Acute (2) Hyponatremia Status: Acute (3) HTN (hypertension) Status: Chronic (4) UTI (urinary tract infection) Status: Acute Hospital Course - Lab Results Lab Results: Micro Results 10/03/16 20:00 Urine,Catheterized Urine Culture - Preliminary Gram Negative Kiran Most Recent Lab Values WBC 5.0 K/uL (4.8-10.8) 10/05/16 05:15 RBC 3.35 Mil/uL (3.80-5.20) L 10/05/16 05:15 Hgb 10.0 g/dL (12.0-16.0) L 10/05/16 05:15 Hct 29.7 % (34.0-47.0) L 10/05/16 05:15 MCV 88.5 fl (81.0-99.0) 10/05/16 05:15 MCH 30.0 pg (27.0-31.0) 10/05/16 05:15 MCHC 33.8 g/dL (33.0-37.0) 10/05/16 05:15 RDW 13.9 % (11.5-14.5) 10/05/16 05:15 Plt Count 114 K/uL (130-400) L D 10/05/16 05:15 MPV 9.2 fl (7.2-11.7) 10/05/16 05:15 Neut % (Auto) 71.0 % (50.0-75.0) 10/05/16 05:15 Lymph % (Auto) 19.9 % (20.0-40.0) L 10/05/16 05:15 [place] % (Auto) 8.7 % (0.0-10.0) 10/05/16 05:15 Eos % (Auto) 0.1 % (0.0-4.0) 10/05/16 05:15 Baso % (Auto) 0.3 % (0.0-2.0) 10/05/16 05:15 Neut # 3.6 K/uL (1.8-7.0) 10/05/16 05:15 Lymph # 1.0 K/uL (1.0-4.3) 10/05/16 05:15 [place] # 0.4 K/uL (0.0-0.8) 10/05/16 05:15 Eos # 0.0 K/uL (0.0-0.7) 10/05/16 05:15 Baso # 0.0 K/uL (0.0-0.2) 10/05/16 05:15 Neutrophils % (Manual) 90 % (42-75) H 10/02/16 17:15 Lymphocytes % (Manual) 6 % (20-50) L 10/02/16 17:15 Monocytes % (Manual) 4 % (0-10) 10/02/16 17:15 Platelet Estimate Normal (NORMAL) 10/02/16 17:15 Large Platelets Present 10/02/16 17:15 Hypochromasia (manual) Slight 10/02/16 17:15 Anisocytosis (manual) Slight 10/02/16 17:15 Macrocytosis (manual) Slight 10/02/16 17:15 Tear Drop Cells Slight 10/02/16 17:15 Ovalocytes Moderate 10/02/16 17:15 Jessica Cells Slight 10/02/16 17:15 Sodium 130 mmol/l (132-148) L 10/05/16 05:15 Potassium 3.7 MMOL/L (3.6-5.0) 10/05/16 05:15 Chloride 97 mmol/L (98-107) L 10/05/16 05:15 Carbon Dioxide 30 mmol/L (22-30) 10/05/16 05:15 Anion Gap 7 (10-20) L 10/05/16 05:15 BUN 11 mg/dl (7-17) 10/05/16 05:15 Creatinine 0.5 mg/dL (0.7-1.2) L 10/05/16 05:15 Est GFR ( Amer) > 60 10/05/16 05:15 Est GFR (Non-Af Amer) > 60 10/05/16 05:15 Random Glucose 71 mg/dL (65-105) 10/05/16 05:15 Calcium 7.5 mg/dL (8.4-10.2) L 10/05/16 05:15 Total Bilirubin 1.0 mg/dl (0.2-1.3) 10/02/16 17:15 AST 70 U/L (14-36) H D 10/02/16 17:15 ALT 53 U/L (9-52) H 10/02/16 17:15 Alkaline Phosphatase 79 U/L (38-126) 10/02/16 17:15 Total Creatine Kinase 308 U/L (30-135) H 10/04/16 09:40 Troponin I 0.0610 ng/mL (0.00-0.120) 10/03/16 05:10 Total Protein 7.4 G/DL (6.3-8.2) 10/02/16 17:15 Albumin 4.1 g/dL (3.5-5.0) 10/02/16 17:15 Globulin 3.3 gm/dL (2.2-3.9) 10/02/16 17:15 Albumin/Globulin Ratio 1.2 (1.0-2.1) 10/02/16 17:15 Vitamin B12 > 1000 pg/mL (239-931) H 10/03/16 05:10 TSH 3rd Generation 1.40 mIU/ML (0.46-4.68) 10/03/16 05:10 Urine Color Yellow (YELLOW) 10/03/16 20:00 Urine Clarity Slighty-cloudy (Clear) 10/03/16 20:00 Urine pH 6.0 (5.0-8.0) 10/03/16 20:00 Ur Specific [place] 1.018 (1.003-1.030) 10/03/16 20:00 Urine Protein Negative mg/dL (NEGATIVE) 10/03/16 20:00 Urine Glucose (UA) Neg mg/dL (Normal) 10/03/16 20:00 Urine Ketones Negative mg/dL (NEGATIVE) 10/03/16 20:00 Urine Blood Moderate (NEGATIVE) 10/03/16 20:00 Urine Nitrate Negative (NEGATIVE) 10/03/16 20:00 Urine Bilirubin Negative (NEGATIVE) 10/03/16 20:00 Urine Urobilinogen 0.2-1.0 mg/dL (0.2-1.0) 10/03/16 20:00 Ur Leukocyte Esterase Small [place]/uL (Negative) 10/03/16 20:00 Urine RBC (Auto) 3 /hpf (0-3) 10/03/16 20:00 Urine Microscopic WBC 18 /hpf (0-5) H 10/03/16 20:00 Ur Squamous Epith Cells 18 /hpf (0-5) H 10/03/16 20:00 Urine Bacteria Many (<OCC) H 10/03/16 20:00 RPR Nonreactive (NONREACTIVE) 10/03/16 05:10 Discharge Exam - Head Exam Head Exam: ATRAUMATIC, NORMAL INSPECTION, NORMOCEPHALIC Discharge Plan - Discharge Medications Prescriptions: cefTRIAXone 1 gm [Rocephin 1 gram IVPB] 1 gm IVPB DAILY #7 bag - Follow Up Plan Condition: STABLE Disposition: REHAB FACILITY/REHAB UNIT Instructions: Rhabdomyolysis (DC), Fall Prevention (DC)
--- NOTE | 2016-10-06 12:12 | PQF GENQUE ---
Dr. Quintana was diagnosis of rhabdomyolysis ruled in or out? This form is a permanent part of the medical record Clarification of your documentation is requested to better reflect the severity of illness and intensity of treatment of your patient. Indicators present [] Specify: [] [] Specify: [] [] Specify: [] [] Specify: [] Location in the medical record that reflects the above clinical findings: [] Treatment Provided: [] PHYSICIAN'S RESPONSE Based on your medical judgment of the clinical indicators outlined above please clarify the following: [] Practitioner response [] If unable to determine, please check the box, sign and date. Present On Admission (POA) Indicator: [] Present at the time of admission [] Not present at the time of admission [] Clinically Undetermined In responding to this query, please exercise your independent professional judgment. The fact that a question is asked does not imply that any particular answer is desired or expected. Thank you for your clarification on this documentation. If you have any questions please call:[ ] * Thank you, [ ]Blanca PABON Coder DAVID
== END 2016-10-05 18:18 | DRG 565 ==
LOC: H.ER 15:18 → H.ERHOLD 18:37 → H.TEL 21:25
PROVIDERS: ADMIT Internal Medicine; ATTEND Internal Medicine
DX: T79.6XXA Traumatic ischemia of muscle, initial encounter (principal); N39.0 Urinary tract infection, site not specified; L89.152 Pressure ulcer of sacral region, stage 2; I95.9 Hypotension, unspecified; E87.1 Hypo-osmolality and hyponatremia; Z68.1 Body mass index [BMI] 19.9 or less, adult; W05.0XXA Fall from non-moving wheelchair, initial encounter; W19.XXXA Unspecified fall, initial encounter; I10 Essential (primary) hypertension; E03.9 Hypothyroidism, unspecified; E78.00 Pure hypercholesterolemia, unspecified; E78.5 Hyperlipidemia, unspecified; I25.2 Old myocardial infarction; Z91.018 Allergy to other foods; Z96.641 Presence of right artificial hip joint; R63.6 Underweight; Y93.9 Activity, unspecified; Y92.009 Unspecified place in unspecified non-institutional (private) residence as the place of occurrence of the external cause

== ENCOUNTER 2017-01-17 12:49 | Inpatient (IN) | payer MEDICARE ==
--- NOTE | 2017-01-17 13:34 | ED PDOC ---
HPI: General Adult Time Seen by Provider: 01/17/17 12:56 Chief Complaint (Nursing): Lower Extremity Problem/Injury History Per: Patient Additional Complaint(s): Pt. presents with daughter to ED and states yesterday she fell down trying to get to her wheelchair. As per daughter pt. lives on her own and when she came to visit her this morning at approximately 1130am she found pt. sitting up on the bathroom floor. She states pt. usually gets up from bed at approximately 1000am. Pt. currently c/o R knee pain. Denies head injury, neck pain, numbness, tingling, chest pain, abdominal pain, fever, hip pain. As per daughter pt. had hip fx and surgical repair 5 years ago and that she is wheelchair bound and normally does have her R hip internally rotated. Denies alteration in behavior. Past Medical History Reviewed: Historical Data, Nursing Documentation, Vital Signs Vital Signs: Last Vital Signs Temp 99.0 F 01/19/17 21:06 Pulse 97 H 01/19/17 19:11 Resp 18 01/19/17 19:11 BP 102/60 01/19/17 19:11 Pulse Ox 100 01/19/17 22:05 - Medical History PMH: HTN, Hypercholesterolemia, Hypothyroidism, Osteoporosis Denies: Arthritis, CHF, COPD, HIV, Chronic Kidney Disease, Rheumatoid Arthritis - Surgical History Other surgeries: R hip surgery (4-5 years ago) - Family History Family History: States: No Known Family Hx - Immunization History Hx Tetanus Toxoid Vaccination: No Hx Influenza Vaccination: Yes Hx Pneumococcal Vaccination: No - Home Medications Home Medications: Ambulatory Orders Medication Instructions Recorded Atorvastatin Calcium [Lipitor] 20 mg PO HS #30 tab 06/04/15 Ferrous Sulfate [Feosol] 325 mg PO BID #60 tab 06/04/15 Lisinopril [Zestril] 5 mg PO DAILY #0 tab 06/04/15 Aspirin [Adult Low Dose Aspirin EC] 81 mg PO DAILY 10/02/16 Famotidine [Pepcid] 20 mg PO DAILY 10/02/16 Furosemide [Lasix] 20 mg PO DAILY 10/02/16 Levocetirizine Dihydrochloride 5 mg PO DAILY 10/02/16 [Xyzal] Calcium Carbonate/Vitamin D3 1 tab PO DAILY 01/17/17 [Calcium 250+D Tablet] Carvedilol [Coreg] 3.125 mg PO DAILY 01/17/17 - Allergies Allergies/Adverse Reactions: Allergies Allergy/AdvReac Type Severity Reaction Status Date / Time banana Allergy RASH Verified 01/18/17 15:50 Penicillins Allergy RASH Verified 01/17/17 12:51 sweet peas Allergy SWELLING Uncoded 05/28/15 12:44 Review of Systems ROS Statement: Except As Marked, All Systems Reviewed And Found Negative Physical Exam - Reviewed Nursing Documentation Reviewed: Yes Vital Signs Reviewed: Yes - Physical Exam Appears: Positive for: Well, Non-toxic, No Acute Distress Head Exam: Positive for: ATRAUMATIC, NORMAL INSPECTION, NORMOCEPHALIC Skin: Positive for: Normal Color, Warm. Negative for: Rash Eye Exam: Positive for: EOMI, Normal appearance, PERRL ENT: Positive for: Normal ENT Inspection Neck: Positive for: Normal, Painless ROM Cardiovascular/Chest: Positive for: Regular Rate, Rhythm Respiratory: Positive for: CNT, Normal Breath Sounds Pulses-Dorsalis Pedis (L): 2+ Pulses-Dorsalis Pedis (R): 2+ Gastrointestinal/Abdominal: Positive for: Normal Exam, Soft. Negative for: Tenderness Back: Positive for: Normal Inspection. Negative for: L CVA Tenderness, R CVA Tenderness, Vertebral Tenderness (including cervical and LS spine x-ray) Extremity: Positive for: Normal ROM, Other (R hip internally rotated; no hip or pelvic tenderness; no knee tenderness or swelling). Negative for: Pedal Edema ( b/l), Calf Tenderness (b/l) Neurologic/Psych: Positive for: Alert, Oriented - Laboratory Results Result Diagrams: 01/18/17 05:00 01/18/17 05:00 - ECG O2 Sat by Pulse Oximetry: 100 ED OBSERVATION Date of observation admission: 01/17/17 Time of observation admission: 13:36 - Observation admission statement Patient is being placed in observation because:: s/p fall - Progress Note Progress Note: 01/17/17 13:36 Tylenol 650mg PO given. Labs ordered. EKG ordered. R hip/pelvic x-ray, CT head w/o contrast, CT cervical spine w/o contrast ordered. 01/17/17 15:22 No distress. Resting comfortably. 01/17/17 17:33 CT R hip w/o contrast: Soft tissue swelling (primarily gluteal muscles) without acute articular or osseous abnormality. No evidence of acute fracture, hardware failure. No evidence of subluxation, dislocation or protrusio. CT cervical spine w/o contrast: 1. No acute fracture or traumatic anterior listhesis. 2. Straightening of the cervical spine may be positional or related to muscle spasm. CT head w/o contrast: 1. No acute intracranial abnormality. 2. Mild chronic microangiopathic changes and moderate age-related global parenchymal volume loss. R Knee x-ray: no fx. 01/17/17 18:46 Case d/w Dr. Quintana, covering for Dr. Nicole Pizarro, and arrangements made for 23 hr observation. Repeat HR: 98. 01/17/17 18:59 CXR: small pneumo in L lung Case d/w Dr. Grover who viewed x-ray as well. CT chest w/o contrast ordered. Disposition - Clinical Impression Clinical Impression: Unwitnessed fall, Hip pain, Pneumothorax - Patient ED Disposition Is Patient to be Admitted: Transfer of Care (Signed out to Tom HUBER pending CT chest) - Disposition Disposition: Routine/Home Disposition Time: 20:00 Condition: FAIR - POA Present On Arrival: Pressure Ulcer (coccyx healing ulcer)
[2017-01-17 14:12] LABS: BASO % 0.4 % (0.0-2.0); EOS # 0.1 K/uL (0.0-0.7); EOS % 0.5 % (0.0-4.0); LYMPH # 0.7 K/uL (1.0-4.3); LYMPH % 5.4 % (20.0-40.0); MEAN CORPUSCULAR HEMOGLOBIN 28.9 pg (27.0-31.0); MEAN CORPUSCULAR HGB CONC 31.8 g/dL (33.0-37.0); MEAN PLATELET VOLUME 9.6 fl (7.2-11.7); MONO # 0.6 K/uL (0.0-0.8); MONO % 4.9 % (0.0-10.0); NEUT # 10.7 K/uL (1.8-7.0); NEUT % 88.8 % (50.0-75.0); PLATELET COUNT 156 K/uL (130-400); RBC 4.44 Mil/uL (3.80-5.20)
[2017-01-17 14:18] LABS: HEMOGLOBIN 12.8 g/dL (12.0-16.0); MEAN CELL VOLUME 90.9 fl (81.0-99.0)
[2017-01-17 14:21] LABS: ALB/GLOB RATIO 1.2 (1.0-2.1); ALBUMIN 4.6 g/dL (3.5-5.0); ALT/SGPT 44 U/L (9-52); AST/SGOT 41 U/L (14-36); BLOOD UREA NITROGEN 25 mg/dl (7-17); CALCIUM 9.8 mg/dL (8.4-10.2); GFR AFRICAN-AMERICAN > 60; GFR NON-AFRICAN AMERICAN > 60
[2017-01-17 14:31] LABS: INR 1.2 (0.9-1.2); PROTHROMBIN TIME 12.5 Seconds (9.8-13.1)
[2017-01-17 14:32] LABS: PARTIAL THROMBOPLASTIN TIME 27.7 Seconds (25.6-37.1)
--- NOTE | 2017-01-17 14:58 | RAD ---
PROCEDURE: Right Hip Radiographs. HISTORY: trauma COMPARISON: 10/02/2016. FINDINGS: BONES: Stable position of major fracture fragments, healed proximal right femoral fracture. No evidence of hardware migration or failure. Stable internal rotation. This was seen previously JOINTS: Degenerative changes, unchanged compared the prior study 10/02/2016 SOFT TISSUES: Normal. OTHER FINDINGS: None. IMPRESSION: No acute findings related to/accounting for the clinical presentation. No significant interval change compared to the prior examination(s).
--- NOTE | 2017-01-17 15:05 | CARD ---
APPROVED REPORT EKG Measurement Heart [id number] <Conclusion> Sinus tachycardia with premature atrial complexes Left axis deviation Nonspecific ST abnormality Abnormal ECG
[2017-01-17 15:18] LABS: EOSINOPHIL 1 % (0-7); LYMPHOCYTE 7 % (20-50); MONOCYTE 6 % (0-10); NEUTROPHIL 86 % (42-75); TOTAL CELLS COUNTED 100
[2017-01-17 15:19] LABS: PLATELET ESTIMATE NORMAL (NORMAL)
[2017-01-17] MEDS ORDERED: Sodium Chloride 0.9% 500 ML IV ONE (15:21)
--- NOTE | 2017-01-17 15:25 | RAD ---
HISTORY: fall COMPARISON: 10/02/2016 FINDINGS: LUNGS: The lungs are well inflated and clear. There is an artifact from fold in the left lung. PLEURA: No significant pleural effusion identified, no right pneumothorax apparent. CARDIOVASCULAR: There is mild cardiomegaly. Atherosclerotic aortic arch calcifications are present. OSSEOUS STRUCTURES: No significant abnormalities. VISUALIZED UPPER ABDOMEN: Normal. OTHER FINDINGS: None. IMPRESSION: Artifact from fold in the left lung limits evaluation of pneumothorax. Repeat chest PA and lateral radiographs are recommended.
--- NOTE | 2017-01-17 15:33 | CT ---
PROCEDURE: CT HEAD WITHOUT CONTRAST. HISTORY: Trauma COMPARISON: None available. TECHNIQUE: Axial computed tomography images were obtained through the head/brain without intravenous contrast. Radiation dose: Total exam DLP = 866.43 mGy-cm. This CT exam was performed using one or more of the following dose reduction techniques: Automated exposure control, adjustment of the mA and/or kV according to patient size, and/or use of iterative reconstruction technique. FINDINGS: HEMORRHAGE: No intracranial hemorrhage. BRAIN: There are mild chronic microangiopathic changes. There is no mass, mass effect or abnormal extra-axial fluid collection. VENTRICLES: There is moderate age-related global parenchymal volume loss and proportionate enlargement of the ventricles and cortical sulci. CALVARIUM: The skull base and calvarium are normal. PARANASAL SINUSES: Predominantly clear. MASTOID AIR CELLS: Predominantly clear. OTHER FINDINGS: None. IMPRESSION: 1. No acute intracranial abnormality. 2. Mild chronic microangiopathic changes and moderate age-related global parenchymal volume loss.
--- NOTE | 2017-01-17 15:40 | CT ---
PROCEDURE: CT Cervical Spine without contrast HISTORY: Trauma COMPARISON: None available. TECHNIQUE: Axial computed tomography images were obtained of the cervical spine without the use of intravenous contrast. Coronal and sagittal reformatted images were created and reviewed. Radiation dose: Total exam DLP = 262.40 mGy-cm. This CT exam was performed using one or more of the following dose reduction techniques: Automated exposure control, adjustment of the mA and/or kV according to patient size, and/or use of iterative reconstruction technique. FINDINGS: VERTEBRAE: There is normal alignment of the cervical vertebral bodies. There is straightening of the cervical spine with loss of normal cervical lordosis. There is diffuse bone demineralization. There is no acute fracture or traumatic anterior listhesis. DISCS/SPINAL CANAL/NEURAL FORAMINA: There is moderate degenerative disc disease at C5-6 and C6-7 with anterior osteophytes, reduced disc heights and mild facet arthropathy. The remaining disc heights are preserved. The spinal canal is patent. PARASPINAL SOFT TISSUES: There is no prevertebral soft tissue thickening. The paraspinous soft tissues are normal. OTHER FINDINGS: No apical pneumothorax. IMPRESSION: 1. No acute fracture or traumatic anterior listhesis. 2. Straightening of the cervical spine may be positional or related to muscle spasm.
--- NOTE | 2017-01-17 17:19 | RAD ---
PROCEDURE: Right Knee Radiographs. HISTORY: trauma COMPARISON: None. FINDINGS: BONES: There is no acute displaced fracture or bone destruction. Bone alignment is normal. There is diffuse bone demineralization. JOINTS: Normal. No osteoarthritis. JOINT EFFUSION: None. OTHER FINDINGS: None. IMPRESSION: No acute displaced fracture or dislocation.Please note occult fractures cannot be excluded on plain radiographs. If there is a persistent clinical concern, an MRI of the knee may be performed for further evaluation.
--- NOTE | 2017-01-17 17:19 | CT ---
PROCEDURE: CT right lower extremity. HISTORY: Trauma. COMPARISON: January 17, 2017. Plain film radiographs. This includes right hip and right knee. 10/12/2016 plain film radiographs right hip TECHNIQUE: 2.5 mm axial acquisition and display. Coronal and sagittal reconstructions. Dose report (mGy-cm): To 01.46 FINDINGS: Negative study for acute fracture. No evidence of subluxation or dislocation. No evidence of protrusio. Intact pelvic ring on the right. No abnormalities pubic symphysis. Soft tissue injury, soft tissue swelling primarily right gluteal muscles consistent with a recent traumatic event. IMPRESSION: Soft tissue swelling (primarily gluteal muscles) without acute articular or osseous abnormality. No evidence of acute fracture, hardware failure. No evidence of subluxation, dislocation or protrusio.
--- NOTE | 2017-01-17 21:05 | CT ---
EXAM: CT Chest Without Intravenous Contrast CLINICAL HISTORY: 81 years old, female; Injury or trauma; Fall; Initial encounter; Blunt trauma (contusions or hematomas); Additional info: S/P fall, l lung possible ptx. Sent phy. Doc. With request. Sent cxr from today with report TECHNIQUE: Axial computed tomography images of the chest without intravenous contrast. All CT scans at this facility use one or more dose reduction techniques, viz.: automated exposure control; ma/kV adjustment per patient size (including targeted exams where dose is matched to indication; i.e. head); or iterative reconstruction technique. Coronal and sagittal reformatted images were created and reviewed. COMPARISON: CT - CHEST W/CONTRAST 06/02/2015 1:06:56 PM FINDINGS: Limitations: Lack of intravenous contrast. Motion artifact - mild. Lungs: Mild peripheral atelectasis/scarring. No consolidation. Few scattered reticulonodular opacities within periphery of lungs, grossly stable. Pleural space: No pneumothorax. No significant effusion. Heart: No cardiomegaly. No significant pericardial effusion. Bones/joints: Probable misregistration of sternum related to motion. No displaced fracture. Soft tissues: Unremarkable. Vasculature: Moderate atherosclerotic disease of aorta. No aneurysm. Lymph nodes: No pathologically enlarged lymph nodes. IMPRESSION: 1. No definite noncontrast CT evidence of visceral injury. 2. Incidental/non-acute findings are described above.
--- NOTE | 2017-01-17 21:55 | ED PDOC ---
- Laboratory Results Result Diagrams: 01/17/17 13:40 01/17/17 13:40 - ECG O2 Sat by Pulse Oximetry: 99 - Progress ED Course And Treament: Case endorsed to chief underwriter from Selvin HUBER pending CT chest to rule out possible pneumothorax seen on chest xray EXAM: CT Chest Without Intravenous Contrast CLINICAL HISTORY: 81 years old, female; Injury or trauma; Fall; Initial encounter; Blunt trauma ( contusions or hematomas); Additional info: S/P fall, l lung possible ptx. Sent phy. Doc. With request. Sent cxr from today with report TECHNIQUE: Axial computed tomography images of the chest without intravenous contrast. All CT scans at this facility use one or more dose reduction techniques, viz.: automated exposure control; ma/kV adjustment per patient size (including targeted exams where dose is matched to indication; i.e. head); or iterative reconstruction technique. Coronal and sagittal reformatted images were created and reviewed. COMPARISON: CT - CHEST W/CONTRAST 06/02/2015 1:06:56 PM FINDINGS: Limitations: Lack of intravenous contrast. Motion artifact - mild. Lungs: Mild peripheral atelectasis/scarring. No consolidation. Few scattered reticulonodular opacities within periphery of lungs, grossly stable. Pleural space: No pneumothorax. No significant effusion. Heart: No cardiomegaly. No significant pericardial effusion. Bones/joints: Probable misregistration of sternum related to motion. No displaced fracture. Soft tissues: Unremarkable. Vasculature: Moderate atherosclerotic disease of aorta. No aneurysm. Lymph nodes: No pathologically enlarged lymph nodes. IMPRESSION: 1. No definite noncontrast CT evidence of visceral injury. 2. Incidental/non-acute findings are described above. Patient to be admitted to [facility] as per previously arranged Disposition - Clinical Impression Clinical Impression: Unwitnessed fall, Hip pain - POA Present On Arrival: Falls Or Trauma - Disposition Disposition: Hospitalized as Observation Patient Disposition Time: 21:55 Condition: FAIR
[2017-01-18 06:40] LABS: BASO % 0.5 % (0.0-2.0); EOS # 0.1 K/uL (0.0-0.7); EOS % 1.2 % (0.0-4.0); HEMOGLOBIN 11.7 g/dL (12.0-16.0); LYMPH # 0.7 K/uL (1.0-4.3); LYMPH % 7.9 % (20.0-40.0); MEAN CELL VOLUME 89.2 fl (81.0-99.0); MEAN CORPUSCULAR HEMOGLOBIN 29.6 pg (27.0-31.0); MEAN CORPUSCULAR HGB CONC 33.2 g/dL (33.0-37.0); MEAN PLATELET VOLUME 9.5 fl (7.2-11.7); MONO # 0.5 K/uL (0.0-0.8); NEUT # 7.8 K/uL (1.8-7.0); NEUT % 85.4 % (50.0-75.0); NRBC % 0.1 % (0.0-0.0); RBC 3.95 Mil/uL (3.80-5.20); RED CELL DISTRIBUTION WIDTH 13.7 % (11.5-14.5); WHITE BLOOD COUNT 9.1 K/uL (4.8-10.8)
[2017-01-18 06:44] LABS: BLOOD UREA NITROGEN 23 mg/dl (7-17); GFR AFRICAN-AMERICAN > 60; GFR NON-AFRICAN AMERICAN > 60
[2017-01-18] MEDS: Calcium-Vit D 250 mg-125 Units Tab UD PO SCH (10:08)
[2017-01-18] MEDS: Enoxaparin 40 mg Syringe SC SCH (10:10)
--- NOTE | 2017-01-18 15:20 | CP.PCM.HP ---
History of Present Illness - History of Present Illness History of Present Illness: CC: Fall and Unable to Move the Lower Extremities History of Present Illness: 82yoF known to me from prior hospitalization presented with daughter to ED and states she fell down trying to get to her wheelchair. As per daughter pt. lives on her own and when she came to visit her yesterday morning at approximately 1130am she found pt. sitting up on the bathroom floor. She states pt. usually gets up from bed at approximately 1000am. Pt. currently c/o R knee pain and unable to move the right Lower extremities.. Denies head injury, neck pain, numbness, tingling, chest pain, abdominal pain, fever, hip pain. As per daughter pt. had hip fx and surgical repair 5 years ago and that she is wheelchair bound. Hip and Knee X-Ray, CT of Head, C-spine, Chest and Lower Extremities were done in the ER with no acute finding. Present on Admission - Present on Admission Any Indicators Present on Admission: No History of DVT/PE: No History of Uncontrolled Diabetes: No Urinary Catheter: No Decubitus Ulcer Present: No Review of Systems - Review of Systems All systems: reviewed and no additional remarkable complaints except - Integumentary Integumentary: As Per HPI Past Patient History - Infectious Disease Hx of Infectious Diseases: None - Tetanus Immunizations Tetanus Immunization: Unknown - Past Medical History & Family History Past Medical History?: Yes Past Family History: Reviewed and not pertinent - Past Social History Smoking Status: Never Smoked Alcohol: None Drugs: Denies - CARDIAC Hx Cardiac Disorders: Yes Hx Hypercholesterolemia: Yes Hx Hypertension: Yes - PULMONARY Hx Chronic Obstructive Pulmonary Disease (COPD): No - NEUROLOGICAL Hx Neurological Disorder: No - HEENT Hx HEENT Problems: No - RENAL Hx Chronic Kidney Disease: No - ENDOCRINE/METABOLIC Hx Hypothyroidism: Yes - HEMATOLOGICAL/ONCOLOGICAL Hx Blood Disorders: No Hx AIDS: No Hx Human Immunodeficiency Virus (HIV): No - INTEGUMENTARY Hx Dermatological Problems: No - MUSCULOSKELETAL/RHEUMATOLOGICAL Hx Arthritis: No Hx Falls: Yes Hx Osteoporosis: Yes Hx Rheumatoid Arthritis: No - GASTROINTESTINAL Hx Gastrointestinal Disorders: No - GENITOURINARY/GYNECOLOGICAL Hx Genitourinary Disorders: Yes Hx Incontinence: Yes - PSYCHIATRIC Hx Psychophysiologic Disorder: No Hx Substance Use: No - SURGICAL HISTORY Hx Surgeries: Yes Hx Orthopedic Surgery: Yes (Right THR, 2012) Hx Thyroidectomy: Yes (1989) - ANESTHESIA Hx Anesthesia: Yes Hx Anesthesia Reactions: No Hx Malignant Hyperthermia: No Has any member of the family had a problem w/ anesthesia?: No Meds Allergies/Adverse Reactions: Allergies Allergy/AdvReac Type Severity Reaction Status Date / Time banana Allergy RASH Verified 01/18/17 15:50 Penicillins Allergy RASH Verified 01/17/17 12:51 sweet peas Allergy SWELLING Uncoded 05/28/15 12:44 Physical Exam - Constitutional Appears: No Acute Distress, Chronically Ill - Head Exam Head Exam: ATRAUMATIC, NORMAL INSPECTION, NORMOCEPHALIC - Eye Exam Eye Exam: EOMI, Normal appearance, PERRL Pupil Exam: NORMAL ACCOMODATION, PERRL - ENT Exam ENT Exam: Mucous Membranes Moist, Normal Exam - Neck Exam Neck exam: Positive for: Full Rom, Normal Inspection - Respiratory Exam Respiratory Exam: Clear to Auscultation Bilateral, NORMAL BREATHING PATTERN. absent: Rales, Wheezes - Cardiovascular Exam Cardiovascular Exam: REGULAR RHYTHM, +S1, +S2 - GI/Abdominal Exam GI & Abdominal Exam: Normal Bowel Sounds, Soft. absent: Tenderness - Extremities Exam Extremities exam: Positive for: normal capillary refill, pedal pulses present. Negative for: pedal edema - Back Exam Back exam: NORMAL INSPECTION. absent: CVA tenderness (L), CVA tenderness (R) - Neurological Exam Neurological exam: Alert, CN II-XII Intact, Normal Gait, Oriented x3, Reflexes Normal - Psychiatric Exam Psychiatric exam: Normal Affect, Normal Mood - Skin Skin Exam: Dry, Intact, Normal Color, Warm Results - Vital Signs Recent Vital Signs: Last Vital Signs Temp 98.9 F 01/18/17 13:59 Pulse 107 H 01/18/17 13:59 Resp 20 01/18/17 13:59 BP 112/61 01/18/17 13:59 Pulse Ox 100 01/18/17 13:59 - Labs Result Diagrams: 05/08/17 05:55 05/08/17 05:55 Labs: Laboratory Results - last 24 hr 01/18/17 01/18/17 05:00 05:00 WBC 9.1 RBC 3.95 Hgb 11.7 L Hct 35.2 MCV 89.2 MCH 29.6 MCHC 33.2 RDW 13.7 Plt Count 134 MPV 9.5 Neut % (Auto) 85.4 H Lymph % (Auto) 7.9 L Mcculloch % (Auto) 5.0 Eos % (Auto) 1.2 Baso % (Auto) 0.5 Neut # 7.8 H Lymph # 0.7 L Mcculloch # 0.5 Eos # 0.1 Baso # 0.0 Sodium 142 Potassium 4.4 Chloride 106 Carbon Dioxide 28 Anion Gap 13 BUN 23 H Creatinine 0.6 L Est GFR ( Amer) > 60 Est GFR (Non-Af Amer) > 60 Random Glucose 114 H Calcium 9.0 - Imaging and Cardiology CT scan - head Status: Report reviewed by me Additional comment: NO Acute finding X-ray of the Hip: Status: Report reviewed by me Additional comment: No Acute finding Assessment & Plan (1) Unwitnessed fall Assessment and Plan: Back Pain Ambulation Problem Right Foot Droop Frail Elderly Wheelchair Dependent Continue Pain Management MRI of L-SPine Status: Acute Priority: High (2) DVT prophylaxis Status: Acute (3) Hypercholesterolemia Status: Acute (4) Anemia Assessment and Plan: Normocytic Status: Chronic (5) HTN (hypertension) Status: Chronic (6) Hypothyroid Status: Chronic Priority: Low (7) CAD (coronary artery disease) Status: Chronic Priority: Low
--- NOTE | 2017-01-18 20:25 | CT ---
EXAM: CT Pelvis Without Intravenous Contrast CLINICAL HISTORY: 81 years old, female; Injury or trauma; Fall; Initial encounter; Blunt trauma (contusions or hematomas); Right; Pelvic region; Prior surgery; Surgery date: 6+ months; Surgery type: Prosthesis rt hip; Additional info: Unable to move the right le TECHNIQUE: Axial computed tomography images of the pelvis without intravenous contrast. All CT scans at this facility use one or more dose reduction techniques, viz.: automated exposure control; ma/kV adjustment per patient size (including targeted exams where dose is matched to indication; i.e. head); or iterative reconstruction technique. Coronal and sagittal reformatted images were created and reviewed. COMPARISON: CR - HIP RIGHT 2 VIEW 05/28/2015 2:18:26 PM FINDINGS: Atherosclerosis. Uterine calcifications. Rectal/perineal soft tissue prominence. Correlate clinically. Degenerative changes. Kiran and screw stabilizing the right femur. No acute fracture or subluxation noted. Evidence of osteoporosis. Right posterior soft tissue swelling/injury primarily involving the gluteal muscles. IMPRESSION: No acute fracture visualized. Right posterior soft tissue swelling/injury primarily involving the gluteal muscles. Kiran and screw stabilizing the right femur. Degenerative changes. Rectal/perineal soft tissue prominence. Correlate clinically. Additional details/findings as above. Correlate clinically. Followup as warranted.
--- NOTE | 2017-01-18 21:16 | CT ---
EXAM: CT Lumbar Spine Without Intravenous Contrast CLINICAL HISTORY: 81 years old, female; Injury or trauma; Fall; Initial encounter; Blunt trauma (contusions or hematomas); Additional info: S/P fall R/O FX TECHNIQUE: Axial computed tomography images of the lumbar spine without intravenous contrast. All CT scans at this facility use one or more dose reduction techniques, viz.: automated exposure control; ma/kV adjustment per patient size (including targeted exams where dose is matched to indication; i.e. head); or iterative reconstruction technique. Coronal and sagittal reformatted images were created and reviewed. COMPARISON: US - CAROTID VERTEBRAL DUPLEX 05/30/2015 11:15:32 AM FINDINGS: Degenerative changes. Mild vertebral body height loss, most notably involving L5 and superior endplate of L3. Evidence of acute fracture of the L5 vertebral body. Grade 1 anterolisthesis of L4 on L5. Facet arthropathy. Some associated impression on the central canal and neural foraminal narrowing. No severe spinal canal stenosis. Atherosclerosis. IMPRESSION: Evidence of acute fracture of the L5 vertebral body. Mild vertebral body height loss, most notably involving L5 and superior endplate of L3, age indeterminate. Additional details as above.
[2017-01-19 03:47] LABS: SQUAMOUS EPITHIAL 1 /hpf (0-5); URINE BILIRUBIN NEGATIVE (NEGATIVE); URINE BLOOD NEGATIVE (NEGATIVE); URINE CLARITY CLEAR (Clear); URINE COLOR YELLOW (YELLOW); URINE GLUCOSE (UA) NEG (Normal); URINE LEUKOCYTE ESTERASE NEG Leu/uL (Negative); URINE NITRATE NEGATIVE (NEGATIVE); URINE PROTEIN 30 mg/dL (NEGATIVE); URINE UROBILINOGEN 0.2-1.0 mg/dL (0.2-1.0)
[2017-01-19] MEDS: Enoxaparin 40 mg Syringe SC SCH (10:07)
--- NOTE | 2017-01-19 10:35 | CP.PCM.PN ---
Subjective - Date & Time of Evaluation Date of Evaluation: 01/19/17 Time of Evaluation: 10:35 - Subjective Subjective: Seen and examined at the bed side. +Lower back pain. Still unable to ambulate without assistance Objective - Vital Signs/Intake and Output Vital Signs (last 24 hours): Temp Pulse Resp BP Pulse Ox 98 F 81 20 111/65 97 01/19/17 08:00 01/19/17 10:08 01/19/17 08:00 01/19/17 10:08 01/19/17 08:00 - Medications Medications: Current Medications Acetaminophen (Tylenol 325mg Tab) 650 mg PO Q6 PRN PRN Reason: Pain, moderate (4-7) Last Admin: 01/18/17 16:17 Dose: 650 mg Aspirin (Ecotrin) 81 mg PO DAILY [facility] Last Admin: 01/19/17 10:07 Dose: 81 mg Atorvastatin Calcium (Lipitor) 20 mg PO HS [facility] Last Admin: 01/18/17 22:18 Dose: 20 mg Calcium/Vitamin D (Oscal-D 250 Mg-125 Units Tab) 1 tab PO DAILY [facility] Last Admin: 01/18/17 10:08 Dose: 1 tab Carvedilol (Coreg) 3.125 mg PO DAILY [facility] Last Admin: 01/19/17 10:08 Dose: 3.125 mg Docusate Sodium (Colace) 100 mg PO BID [facility] Last Admin: 01/19/17 10:07 Dose: 100 mg Enoxaparin Sodium (Lovenox) 40 mg SC DAILY [facility] PRN Reason: Protocol Last Admin: 01/19/17 10:07 Dose: 40 mg Famotidine (Pepcid) 20 mg PO DAILY [facility] Last Admin: 01/19/17 10:07 Dose: 20 mg Ferrous Sulfate (Feosol) 325 mg PO BID [facility] Last Admin: 01/19/17 10:08 Dose: 325 mg Furosemide (Lasix) 20 mg PO DAILY [facility] Last Admin: 01/19/17 10:07 Dose: 20 mg Sodium Chloride (Sodium Chloride 0.45%) 500 mls @ 50 mls/hr IV .Q10H [facility] Stop: 01/19/17 11:53 Last Admin: 01/19/17 10:09 Dose: 50 mls/hr Lisinopril (Zestril) 5 mg PO DAILY [facility] Last Admin: 01/19/17 10:08 Dose: 5 mg Loratadine (Claritin) 10 mg PO DAILY [facility] Last Admin: 01/19/17 10:09 Dose: 10 mg - Labs Labs: PT 12.5 Seconds (9.8-13.1) 01/17/17 13:40 INR 1.2 (0.9-1.2) 01/17/17 13:40 APTT 27.7 Seconds (25.6-37.1) 01/17/17 13:40 Assessment and Plan (1) Unwitnessed fall Assessment & Plan: Back Pain Ambulation Problem Right Foot Droop Frail Elderly Wheelchair Dependent Continue Pain Management MRI of L-SPine Status: Acute Priority: High (2) DVT prophylaxis Status: Acute (3) Hypercholesterolemia Status: Acute (4) Anemia Assessment and Plan: Normocytic Status: Chronic (5) HTN (hypertension) Status: Chronic (6) Hypothyroid Status: Chronic Priority: Low (7) CAD (coronary artery disease) Status: Chronic Priority: Low Status: Chronic
[2017-01-19] MEDS: Calcium-Vit D 250 mg-125 Units Tab UD PO SCH (13:40)
--- NOTE | 2017-01-19 16:06 | CP.PCM.CON ---
History of Present Illness - History of Present Illness History of Present Illness: SPINE CONSULT Pt seen and examined. Full consult dictated. Pt w apparent fx L5. Has some L5 root involvement. Don't know if either/both of these findings are new vs old. MRI of lumbar spine ordered, and scheduled for tomorrow morning. Will f/u after test. Thanks. Past Patient History - Infectious Disease Hx of Infectious Diseases: None - Tetanus Immunizations Tetanus Immunization: Unknown - Past Medical History & Family History Past Medical History?: Yes - Past Social History Smoking Status: Never Smoked - CARDIAC Hx Cardiac Disorders: Yes Hx Hypercholesterolemia: Yes Hx Hypertension: Yes - PULMONARY Hx Chronic Obstructive Pulmonary Disease (COPD): No - NEUROLOGICAL Hx Neurological Disorder: No - HEENT Hx HEENT Problems: No - RENAL Hx Chronic Kidney Disease: No - ENDOCRINE/METABOLIC Hx Hypothyroidism: Yes - HEMATOLOGICAL/ONCOLOGICAL Hx Blood Disorders: No Hx AIDS: No Hx Human Immunodeficiency Virus (HIV): No - INTEGUMENTARY Hx Dermatological Problems: No - MUSCULOSKELETAL/RHEUMATOLOGICAL Hx Arthritis: No Hx Falls: Yes Hx Osteoporosis: Yes Hx Rheumatoid Arthritis: No - GASTROINTESTINAL Hx Gastrointestinal Disorders: No - GENITOURINARY/GYNECOLOGICAL Hx Genitourinary Disorders: Yes Hx Incontinence: Yes - PSYCHIATRIC Hx Psychophysiologic Disorder: No Hx Substance Use: No - SURGICAL HISTORY Hx Surgeries: Yes Hx Orthopedic Surgery: Yes (Right THR, 2012) Hx Thyroidectomy: Yes (1989) - ANESTHESIA Hx Anesthesia: Yes Hx Anesthesia Reactions: No Hx Malignant Hyperthermia: No Has any member of the family had a problem w/ anesthesia?: No Meds Allergies/Adverse Reactions: Allergies Allergy/AdvReac Type Severity Reaction Status Date / Time banana Allergy RASH Verified 01/18/17 15:50 Penicillins Allergy RASH Verified 01/17/17 12:51 sweet peas Allergy SWELLING Uncoded 05/28/15 12:44 - Medications Medications: Current Medications Acetaminophen (Tylenol 325mg Tab) 650 mg PO Q6 PRN PRN Reason: Pain, moderate (4-7) Last Admin: 01/18/17 16:17 Dose: 650 mg Aspirin (Ecotrin) 81 mg PO DAILY [facility] Last Admin: 01/19/17 10:07 Dose: 81 mg Atorvastatin Calcium (Lipitor) 20 mg PO HS [facility] Last Admin: 01/18/17 22:18 Dose: 20 mg Calcium/Vitamin D (Oscal-D 250 Mg-125 Units Tab) 1 tab PO DAILY [facility] Last Admin: 01/19/17 13:40 Dose: Not Given Carvedilol (Coreg) 3.125 mg PO DAILY [facility] Last Admin: 01/19/17 10:08 Dose: 3.125 mg Docusate Sodium (Colace) 100 mg PO BID [facility] Last Admin: 01/19/17 10:07 Dose: 100 mg Enoxaparin Sodium (Lovenox) 40 mg SC DAILY [facility] PRN Reason: Protocol Last Admin: 01/19/17 10:07 Dose: 40 mg Famotidine (Pepcid) 20 mg PO DAILY [facility] Last Admin: 01/19/17 10:07 Dose: 20 mg Ferrous Sulfate (Feosol) 325 mg PO BID [facility] Last Admin: 01/19/17 10:08 Dose: 325 mg Furosemide (Lasix) 20 mg PO DAILY [facility] Last Admin: 01/19/17 10:07 Dose: 20 mg Lisinopril (Zestril) 5 mg PO DAILY [facility] Last Admin: 01/19/17 10:08 Dose: 5 mg Loratadine (Claritin) 10 mg PO DAILY [facility] Last Admin: 01/19/17 10:09 Dose: 10 mg Results - Vital Signs Recent Vital Signs: Last Vital Signs Temp 98.4 F 01/19/17 12:00 Pulse 90 01/19/17 12:00 Resp 18 01/19/17 12:00 BP 111/58 L 01/19/17 12:00 Pulse Ox 100 01/19/17 12:00 - Labs Result Diagrams: 01/18/17 05:00 01/18/17 05:00 Labs: Laboratory Results - last 24 hr 01/19/17 03:32 Urine Color Yellow Urine Clarity Clear Urine pH 6.0 Ur Specific [place] 1.017 Urine Protein 30 Urine Glucose (UA) Neg Urine Ketones Negative Urine Blood Negative Urine Nitrate Negative Urine Bilirubin Negative Urine Urobilinogen 0.2-1.0 Ur Leukocyte Esterase Neg Urine RBC (Auto) 2 Urine Microscopic WBC 3 Ur Squamous Epith Cells 1
--- NOTE | 2017-01-20 01:40 | CON ---
DATE: 01/19/2017 REASON FOR CONSULTATION: Fracture of L5. HISTORY OF PRESENT ILLNESS: The patient is an 81-year-old female apparently was just discharged from the rehab center last Sunday. She state she was on the toilet and trying to slide over on to her wheelchair yesterday when she fell in some manner, and she states she was stuck sitting on the floor for 24 hours. Evidently, the daughter mentioned that the her mother usually gets out of bed at 10 in the morning, and she came by 11:30 and found her on the floor. The patient denies any type of head injury or loss of consciousness. The patient has a walker, but after hip surgery 5 years ago, was essentially wheelchair bound. She denies any radicular type symptoms, but just keeps complaining about pain around the right knee. 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 MEDICATIONS: As listed on the medical chart. ALLERGIES: INCLUDE SWELLING IF SHE EATS SWEET PEAS AND A RASH FROM [place]. SURGICAL HISTORY: Again includes the right hip surgery done 4 years ago. PHYSICAL EXAMINATION: EXTREMITIES: She has some tenderness to palpation on the spinous process in the lower lumbar region. Her right lower extremity held internal rotation, but even according to the notes that is the way she normally has it. She is able to move both her ankles and her feet, although it appears much more so on the left side. Her sensory is intact to light touch throughout, although she states she feels better on the left foot than the right foot. She has some mild weakness of her anterior tib and EHL on the right ankle compared to the left side. I do not know if that is longstanding following her hip surgery, etc., or if that is something acute from this fall. She has excellent distal pulses. Babinski shows toes are downgoing bilaterally. She had a lumbar spine CAT scan done yesterday, which reportedly demonstrated superior endplate compression to L3, and a fracture in the body of L5. The axial section in the CAT scan when taken parallel to the endplate, so little did go to interpret for what appears to be a fracture across the body horizontally. No significant loss of height. No obvious retropulsion into the canal. IMPRESSION: Fracture of L5 as per CAT scan reading. I think it would be good to get an MRI of her lumbar spine to date this and make sure this is an acute injury. Clinically, it would seem to be given the L5 root involvement on her right leg as well as the area of tenderness to palpation. However, again, there is no bony retropulsion, so it was difficult to say why just the right L5 root was affected again unless this is something longer standing. A CAT scan of her right hip demonstrates a subtrochanteric fracture and short intramedullary device with a cross pin into the femoral neck and head and a locking screw distally that appears to be in good position. Again, we will await the MRI to date this fracture and make sure there is nothing in the canal or anything else that would be leading to her findings on exam of the right lower extremity. Otherwise, on the first glance, this appears to be a stable fracture and would just be a matter of mobilizing her as her pain allows. If she truly is wheelchair bound and is not really ambulatory, then we could get her a lower back brace such as ha brace to help support her lumbar region and just start working on right away getting her from bed to chair. I will followup once the MRI is done tomorrow morning. Thank you for allowing me to participate in the care of your patient. Melecio Guevara MD
[2017-01-20] MEDS: Calcium-Vit D 250 mg-125 Units Tab UD PO SCH (10:03)
[2017-01-20] MEDS: Enoxaparin 40 mg Syringe SC SCH (10:03)
--- NOTE | 2017-01-20 13:00 | CP.PCM.PN ---
Subjective - Date & Time of Evaluation Date of Evaluation: 01/20/17 Time of Evaluation: 12:57 - Subjective Subjective: SPINE Reviewed MRI. No official report available yet. Appears to show acute fx L5. No obvious root compression on R side. Will order Arnold brace and mobilize pt as pain allows. Would get re-check xray weekly for next few weeks to be certain no signif collapse occurs. Objective - Vital Signs/Intake and Output Vital Signs (last 24 hours): Temp Pulse Resp BP Pulse Ox 98.5 F 99 H 20 151/89 H 96 01/20/17 08:44 01/20/17 10:04 01/20/17 08:44 01/20/17 10:04 01/20/17 08:44 - Medications Medications: Current Medications Acetaminophen (Tylenol 325mg Tab) 650 mg PO Q6 PRN PRN Reason: Pain, moderate (4-7) Last Admin: 01/18/17 16:17 Dose: 650 mg Aspirin (Ecotrin) 81 mg PO DAILY [facility] Last Admin: 01/20/17 10:02 Dose: 81 mg Atorvastatin Calcium (Lipitor) 20 mg PO HS [facility] Last Admin: 01/19/17 21:29 Dose: 20 mg Calcium/Vitamin D (Oscal-D 250 Mg-125 Units Tab) 1 tab PO DAILY [facility] Last Admin: 01/20/17 10:03 Dose: 1 tab Carvedilol (Coreg) 3.125 mg PO DAILY [facility] Last Admin: 01/20/17 10:01 Dose: 3.125 mg Docusate Sodium (Colace) 100 mg PO BID [facility] Last Admin: 01/20/17 10:01 Dose: 100 mg Enoxaparin Sodium (Lovenox) 40 mg SC DAILY [facility] PRN Reason: Protocol Last Admin: 01/20/17 10:03 Dose: 40 mg Famotidine (Pepcid) 20 mg PO DAILY [facility] Last Admin: 01/20/17 10:03 Dose: 20 mg Ferrous Sulfate (Feosol) 325 mg PO BID [facility] Last Admin: 01/20/17 10:02 Dose: 325 mg Furosemide (Lasix) 20 mg PO DAILY [facility] Last Admin: 01/20/17 10:02 Dose: 20 mg Lisinopril (Zestril) 5 mg PO DAILY [facility] Last Admin: 01/20/17 10:04 Dose: 5 mg Loratadine (Claritin) 10 mg PO DAILY [facility] Last Admin: 01/20/17 10:01 Dose: 10 mg - Labs Labs: PT 12.5 Seconds (9.8-13.1) 01/17/17 13:40 INR 1.2 (0.9-1.2) 01/17/17 13:40 APTT 27.7 Seconds (25.6-37.1) 01/17/17 13:40
--- NOTE | 2017-01-20 19:04 | MRI ---
PROCEDURE: MRI of the lumbar spine 01/20/2017 HISTORY: L5 fx/ f/u. COMPARISON: Comparison made with prior CT scan lumbar spine 01/18/2017 TECHNIQUE: Multiecho multiplanar sequences were performed through the lumbar spine without the use of intravenous contrast. FINDINGS: Current study re- demonstrates mild anterior wedged deformity of the L5 vertebral body segment. Some minor residual edema acute/chronic compression fracture. No evidence of any significant retropulsed fragments. 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 Disc space heights maintained. Mild multilevel disc desiccation changes again noted. Minimal broad-based bulge of the posterior annulus noted at the L4-L5 level. Facets also hypertrophic and flavum buckled. There is resultant mild flattening of the ventral surface of the thecal sac and mild left lateral recess narrowing. The proximal exit foramina are narrowed bilaterally. . Proximal bilateral foraminal disc bulging changes seen at the L2-L3, L3-L4 as well as L5-S1 levels. Facets also hypertrophic. Central canal appears adequate at the L2-L3 level and mildly narrowed at the L3-L4 level on and adequate at the L5-S1 level. Exit foramina appear narrowed at the L5-S1 level and to a lesser degree remaining levels. Impression: Subacute chronic compression fracture L5 segment with no signet retropulsion of fragments. 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 Multilevel degenerative spondylosis as above
--- NOTE | 2017-01-20 23:30 | CP.PCM.PN ---
Subjective - Date & Time of Evaluation Date of Evaluation: 01/20/17 Time of Evaluation: 12:20 - Subjective Subjective: Seen and examined at the bed side. still unable to ambulate without assistance Objective - Vital Signs/Intake and Output Vital Signs (last 24 hours): Temp Pulse Resp BP Pulse Ox 99.1 F 110 H 20 139/69 100 01/20/17 21:38 01/20/17 21:38 01/20/17 21:38 01/20/17 21:38 01/20/17 21:38 Intake and Output: 01/20/17 01/21/17 18:59 06:59 Intake Total 400 Balance 400 - Medications Medications: Current Medications Acetaminophen (Tylenol 325mg Tab) 650 mg PO Q6 PRN PRN Reason: Pain, moderate (4-7) Last Admin: 01/18/17 16:17 Dose: 650 mg Aspirin (Ecotrin) 81 mg PO DAILY [facility] Last Admin: 01/20/17 10:02 Dose: 81 mg Atorvastatin Calcium (Lipitor) 20 mg PO [facility] Last Admin: 01/20/17 22:03 Dose: 20 mg Calcium/Vitamin D (Oscal-D 250 Mg-125 Units Tab) 1 tab PO DAILY [facility] Last Admin: 01/20/17 10:03 Dose: 1 tab Carvedilol (Coreg) 3.125 mg PO DAILY [facility] Last Admin: 01/20/17 10:01 Dose: 3.125 mg Docusate Sodium (Colace) 100 mg PO BID [facility] Last Admin: 01/20/17 17:47 Dose: 100 mg Enoxaparin Sodium (Lovenox) 40 mg SC DAILY [facility] PRN Reason: Protocol Last Admin: 01/20/17 10:03 Dose: 40 mg Famotidine (Pepcid) 20 mg PO DAILY [facility] Last Admin: 01/20/17 10:03 Dose: 20 mg Ferrous Sulfate (Feosol) 325 mg PO BID [facility] Last Admin: 01/20/17 17:47 Dose: 325 mg Furosemide (Lasix) 20 mg PO DAILY [facility] Last Admin: 01/20/17 10:02 Dose: 20 mg Lisinopril (Zestril) 5 mg PO DAILY [facility] Last Admin: 01/20/17 10:04 Dose: 5 mg Loratadine (Claritin) 10 mg PO DAILY [facility] Last Admin: 01/20/17 10:01 Dose: 10 mg - Labs Labs: PT 12.5 Seconds (9.8-13.1) 01/17/17 13:40 INR 1.2 (0.9-1.2) 01/17/17 13:40 APTT 27.7 Seconds (25.6-37.1) 01/17/17 13:40 Assessment and Plan (1) Unwitnessed fall Assessment & Plan: Back Pain Ambulation Problem Right Foot Droop Frail Elderly Wheelchair Dependent Continue Pain Management MRI of L-SPine Status: Acute Priority: High (2) DVT prophylaxis Status: Acute (3) Hypercholesterolemia Status: Acute (4) Anemia Assessment and Plan: Normocytic Status: Chronic (5) HTN (hypertension) Status: Chronic (6) Hypothyroid Status: Chronic Priority: Low (7) CAD (coronary artery disease) Status: Chronic Priority: Low Status: Chronic
[2017-01-21] MEDS: Enoxaparin 40 mg Syringe SC SCH (09:45)
[2017-01-21] MEDS: Calcium-Vit D 250 mg-125 Units Tab UD PO SCH (09:45)
--- NOTE | 2017-01-21 22:02 | CP.PCM.PN ---
Subjective - Date & Time of Evaluation Date of Evaluation: 01/21/17 Time of Evaluation: 22:05 - Subjective Subjective: Seen and examined at the bed side. still unable to ambulate without assistance Objective - Vital Signs/Intake and Output Vital Signs (last 24 hours): Temp Pulse Resp BP Pulse Ox 98.1 F 87 18 108/65 100 01/21/17 20:10 01/21/17 21:00 01/21/17 20:10 01/21/17 20:10 01/21/17 20:10 Intake and Output: 01/21/17 01/22/17 18:59 06:59 Intake Total 1600 Balance 1600 - Medications Medications: Current Medications Acetaminophen (Tylenol 325mg Tab) 650 mg PO Q6 PRN PRN Reason: Pain, moderate (4-7) Last Admin: 01/21/17 15:10 Dose: 650 mg Aspirin (Ecotrin) 81 mg PO DAILY [facility] Last Admin: 01/21/17 09:44 Dose: 81 mg Atorvastatin Calcium (Lipitor) 20 mg PO HS [facility] Last Admin: 01/21/17 21:37 Dose: 20 mg Calcium/Vitamin D (Oscal-D 250 Mg-125 Units Tab) 1 tab PO DAILY [facility] Last Admin: 01/21/17 09:45 Dose: 1 tab Carvedilol (Coreg) 3.125 mg PO DAILY [facility] Last Admin: 01/21/17 09:43 Dose: 3.125 mg Docusate Sodium (Colace) 100 mg PO BID [facility] Last Admin: 01/21/17 18:01 Dose: 100 mg Famotidine (Pepcid) 20 mg PO DAILY [facility] Last Admin: 01/21/17 09:46 Dose: 20 mg Ferrous Sulfate (Feosol) 325 mg PO BID [facility] Last Admin: 01/21/17 18:01 Dose: 325 mg Furosemide (Lasix) 20 mg PO DAILY [facility] Last Admin: 01/21/17 09:44 Dose: 20 mg Lisinopril (Zestril) 5 mg PO DAILY [facility] Last Admin: 01/21/17 09:46 Dose: 5 mg Loratadine (Claritin) 10 mg PO DAILY [facility] Last Admin: 01/21/17 09:43 Dose: 10 mg - Labs Labs: PT 12.5 Seconds (9.8-13.1) 01/17/17 13:40 INR 1.2 (0.9-1.2) 01/17/17 13:40 APTT 27.7 Seconds (25.6-37.1) 01/17/17 13:40 Assessment and Plan (1) Unwitnessed fall Assessment & Plan: Back Pain Ambulation Problem Right Foot Droop Frail Elderly Wheelchair Dependent Continue Pain Management MRI of L-SPine Status: Acute Priority: High (2) DVT prophylaxis Status: Acute (3) Hypercholesterolemia Status: Acute (4) Anemia Assessment and Plan: Normocytic Status: Chronic (5) HTN (hypertension) Status: Chronic (6) Hypothyroid Status: Chronic Priority: Low (7) CAD (coronary artery disease) Status: Chronic Priority: Low Status: Chronic
--- NOTE | 2017-01-21 22:02 | CP.PCM.PN ---
Subjective - Date & Time of Evaluation Date of Evaluation: 01/21/17 Time of Evaluation: 20:35 - Subjective Subjective: Seen and examined at the bed side. still unable to ambulate without assistance Objective - Vital Signs/Intake and Output Vital Signs (last 24 hours): Temp Pulse Resp BP Pulse Ox 98.1 F 87 18 108/65 100 01/21/17 20:10 01/21/17 21:00 01/21/17 20:10 01/21/17 20:10 01/21/17 20:10 Intake and Output: 01/21/17 01/22/17 18:59 06:59 Intake Total 1600 Balance 1600 - Medications Medications: Current Medications Acetaminophen (Tylenol 325mg Tab) 650 mg PO Q6 PRN PRN Reason: Pain, moderate (4-7) Last Admin: 01/21/17 15:10 Dose: 650 mg Aspirin (Ecotrin) 81 mg PO DAILY [facility] Last Admin: 01/21/17 09:44 Dose: 81 mg Atorvastatin Calcium (Lipitor) 20 mg PO HS [facility] Last Admin: 01/21/17 21:37 Dose: 20 mg Calcium/Vitamin D (Oscal-D 250 Mg-125 Units Tab) 1 tab PO DAILY [facility] Last Admin: 01/21/17 09:45 Dose: 1 tab Carvedilol (Coreg) 3.125 mg PO DAILY [facility] Last Admin: 01/21/17 09:43 Dose: 3.125 mg Docusate Sodium (Colace) 100 mg PO BID [facility] Last Admin: 01/21/17 18:01 Dose: 100 mg Famotidine (Pepcid) 20 mg PO DAILY [facility] Last Admin: 01/21/17 09:46 Dose: 20 mg Ferrous Sulfate (Feosol) 325 mg PO BID [facility] Last Admin: 01/21/17 18:01 Dose: 325 mg Furosemide (Lasix) 20 mg PO DAILY [facility] Last Admin: 01/21/17 09:44 Dose: 20 mg Lisinopril (Zestril) 5 mg PO DAILY [facility] Last Admin: 01/21/17 09:46 Dose: 5 mg Loratadine (Claritin) 10 mg PO DAILY [facility] Last Admin: 01/21/17 09:43 Dose: 10 mg - Labs Labs: PT 12.5 Seconds (9.8-13.1) 01/17/17 13:40 INR 1.2 (0.9-1.2) 01/17/17 13:40 APTT 27.7 Seconds (25.6-37.1) 01/17/17 13:40 Assessment and Plan (1) Unwitnessed fall Assessment & Plan: Back Pain Ambulation Problem Right Foot Droop Frail Elderly Wheelchair Dependent Continue Pain Management MRI of L-SPine Status: Acute Priority: High (2) DVT prophylaxis Status: Acute (3) Hypercholesterolemia Status: Acute (4) Anemia Assessment and Plan: Normocytic Status: Chronic (5) HTN (hypertension) Status: Chronic (6) Hypothyroid Status: Chronic Priority: Low (7) CAD (coronary artery disease) Status: Chronic Priority: Low Status: Chronic
[2017-01-22] MEDS: Calcium-Vit D 250 mg-125 Units Tab UD PO SCH (10:11)
--- NOTE | 2017-01-22 23:30 | CP.PCM.PN ---
Subjective - Date & Time of Evaluation Date of Evaluation: 01/22/17 Time of Evaluation: 07:15 - Subjective Subjective: Back Pain Ambulation Problem Right Foot Droop Frail Elderly Wheelchair Dependent Continue Pain Management Continue PT/OT, and Out of bed to Chair daily Waiting Medicaid Application approval [place] and her daughter with POA processing the Medicaid Application. 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 (5) DVT prophylaxis Status: Acute (6) Hypercholesterolemia Status: Chronic (7) Hypothyroid Status: Chronic (8) Pulmonary hypertension Status: Chronic (9) HTN (hypertension) Objective - Vital Signs/Intake and Output Vital Signs (last 24 hours): Temp Pulse Resp BP Pulse Ox 99.5 F 110 H 14 98/55 L 99 01/22/17 20:25 01/22/17 20:27 01/22/17 20:25 01/22/17 20:25 01/22/17 20:25 Intake and Output: 01/22/17 01/23/17 18:59 06:59 Intake Total 1200 Balance 1200 - Medications Medications: Current Medications Acetaminophen (Tylenol 325mg Tab) 650 mg PO Q6 PRN PRN Reason: Pain, moderate (4-7) Last Admin: 01/21/17 15:10 Dose: 650 mg Aspirin (Ecotrin) 81 mg PO DAILY [facility] Last Admin: 01/22/17 10:10 Dose: 81 mg Atorvastatin Calcium (Lipitor) 20 mg PO HS [facility] Last Admin: 01/22/17 21:38 Dose: 20 mg Calcium/Vitamin D (Oscal-D 250 Mg-125 Units Tab) 1 tab PO DAILY [facility] Last Admin: 01/22/17 10:11 Dose: 1 tab Carvedilol (Coreg) 3.125 mg PO DAILY [facility] Last Admin: 01/22/17 10:11 Dose: 3.125 mg Docusate Sodium (Colace) 100 mg PO BID [facility] Last Admin: 01/22/17 16:51 Dose: 100 mg Famotidine (Pepcid) 20 mg PO DAILY [facility] Last Admin: 01/22/17 10:10 Dose: 20 mg Ferrous Sulfate (Feosol) 325 mg PO BID [facility] Last Admin: 01/22/17 16:51 Dose: 325 mg Furosemide (Lasix) 20 mg PO DAILY [facility] Last Admin: 01/22/17 10:09 Dose: 20 mg Lisinopril (Zestril) 5 mg PO DAILY [facility] Last Admin: 01/22/17 10:10 Dose: 5 mg Loratadine (Claritin) 10 mg PO DAILY [facility] Last Admin: 01/22/17 10:10 Dose: 10 mg - Labs Labs: PT 12.5 Seconds (9.8-13.1) 01/17/17 13:40 INR 1.2 (0.9-1.2) 01/17/17 13:40 APTT 27.7 Seconds (25.6-37.1) 01/17/17 13:40 Assessment and Plan (1) Unwitnessed fall Assessment & Plan: Back Pain Ambulation Problem Right Foot Droop Frail Elderly Wheelchair Dependent Continue Pain Management MRI of L-SPine Status: Acute Priority: High (2) DVT prophylaxis Status: Acute (3) Hypercholesterolemia Status: Acute (4) Anemia Assessment and Plan: Normocytic Status: Chronic (5) HTN (hypertension) Status: Chronic (6) Hypothyroid Status: Chronic Priority: Low (7) CAD (coronary artery disease) Status: Chronic Priority: Low Status: Chronic
[2017-01-23] MEDS: Calcium-Vit D 250 mg-125 Units Tab UD PO SCH (09:05)
[2017-01-24] MEDS: Calcium-Vit D 250 mg-125 Units Tab UD PO SCH (10:01)
--- NOTE | 2017-01-24 11:02 | CP.PCM.PN ---
Subjective - Date & Time of Evaluation Date of Evaluation: 01/24/17 Time of Evaluation: 10:59 - Subjective Subjective: SPINE Pt resting in bed. Was OOB to chair with brace yesterday. States she feels better. Neuro remains grossly intact. Plan: Will get recheck xray of L spine to be certain fx does not show signs of collapse. Mobilize as tolerated with brace on when OOB. OK from our viewpoint for rehab transfer. Objective - Vital Signs/Intake and Output Vital Signs (last 24 hours): Temp Pulse Resp BP Pulse Ox 98.5 F 89 18 130/63 97 01/24/17 08:07 01/24/17 10:02 01/24/17 08:07 01/24/17 10:02 01/24/17 08:07 - Medications Medications: Current Medications Acetaminophen (Tylenol 325mg Tab) 650 mg PO Q6 PRN PRN Reason: Pain, moderate (4-7) Last Admin: 01/23/17 09:13 Dose: 650 mg Aspirin (Ecotrin) 81 mg PO DAILY [facility] Last Admin: 01/24/17 10:01 Dose: 81 mg Atorvastatin Calcium (Lipitor) 20 mg PO HS [facility] Last Admin: 01/23/17 21:28 Dose: 20 mg Calcium/Vitamin D (Oscal-D 250 Mg-125 Units Tab) 1 tab PO DAILY [facility] Last Admin: 01/24/17 10:01 Dose: 1 tab Carvedilol (Coreg) 3.125 mg PO DAILY [facility] Last Admin: 01/24/17 10:00 Dose: 3.125 mg Docusate Sodium (Colace) 100 mg PO BID [facility] Last Admin: 01/24/17 10:00 Dose: 100 mg Famotidine (Pepcid) 20 mg PO DAILY [facility] Last Admin: 01/24/17 10:02 Dose: 20 mg Ferrous Sulfate (Feosol) 325 mg PO BID [facility] Last Admin: 01/24/17 10:01 Dose: 325 mg Furosemide (Lasix) 20 mg PO DAILY [facility] Last Admin: 01/24/17 10:01 Dose: 20 mg Lisinopril (Zestril) 5 mg PO DAILY [facility] Last Admin: 01/24/17 10:02 Dose: 5 mg Loratadine (Claritin) 10 mg PO DAILY [facility] Last Admin: 01/24/17 10:00 Dose: 10 mg - Labs Labs: PT 12.5 Seconds (9.8-13.1) 01/17/17 13:40 INR 1.2 (0.9-1.2) 01/17/17 13:40 APTT 27.7 Seconds (25.6-37.1) 01/17/17 13:40
[2017-01-25] MEDS: Calcium-Vit D 250 mg-125 Units Tab UD PO SCH (09:39)
[2017-01-25] MEDS: Enoxaparin 40 mg Syringe SC SCH (14:04)
[2017-01-26] MEDS ORDERED: Iohexol 240 (50 ml) PO ONE (07:21)
[2017-01-26] MEDS: Enoxaparin 40 mg Syringe SC SCH (09:00)
[2017-01-26] MEDS: Calcium-Vit D 250 mg-125 Units Tab UD PO SCH (09:01)
[2017-01-27] MEDS: Enoxaparin 40 mg Syringe SC SCH (09:27)
[2017-01-27] MEDS: Calcium-Vit D 250 mg-125 Units Tab UD PO SCH (09:28)
[2017-01-27 19:25] LABS: URINE BACTERIA RARE (<OCC); URINE BILIRUBIN NEGATIVE (NEGATIVE); URINE BLOOD SMALL (NEGATIVE); URINE CLARITY CLEAR (Clear); URINE COLOR YELLOW (YELLOW); URINE GLUCOSE (UA) NEG (Normal); URINE LEUKOCYTE ESTERASE NEG Leu/uL (Negative); URINE NITRATE POSITIVE (NEGATIVE); URINE PROTEIN NEGATIVE (NEGATIVE); URINE UROBILINOGEN 0.2-1.0 mg/dL (0.2-1.0)
--- NOTE | 2017-01-28 08:01 | CP.PCM.PN ---
Subjective - Date & Time of Evaluation Date of Evaluation: 01/28/17 Time of Evaluation: 07:00 - Subjective Subjective: Seen and examined at the bed side. still unable to ambulate without assistance. PT/OT recommended SLY. Objective - Vital Signs/Intake and Output Vital Signs (last 24 hours): Temp Pulse Resp BP Pulse Ox 98.9 F 74 20 108/66 98 01/28/17 00:19 01/28/17 00:19 01/28/17 00:19 01/28/17 00:19 01/28/17 00:19 - Medications Medications: Current Medications Acetaminophen (Tylenol 325mg Tab) 650 mg PO Q6 PRN PRN Reason: Pain, moderate (4-7) Last Admin: 01/23/17 09:13 Dose: 650 mg Aspirin (Ecotrin) 81 mg PO DAILY [facility] Last Admin: 01/27/17 09:27 Dose: 81 mg Atorvastatin Calcium (Lipitor) 20 mg PO HS [facility] Last Admin: 01/27/17 21:07 Dose: 20 mg Calcium/Vitamin D (Oscal-D 250 Mg-125 Units Tab) 1 tab PO DAILY [facility] Last Admin: 01/27/17 09:28 Dose: 1 tab Carvedilol (Coreg) 3.125 mg PO DAILY [facility] Last Admin: 01/27/17 10:45 Dose: Not Given Docusate Sodium (Colace) 100 mg PO BID [facility] Last Admin: 01/27/17 16:51 Dose: 100 mg Enoxaparin Sodium (Lovenox) 40 mg SC DAILY [facility] PRN Reason: Protocol Last Admin: 01/27/17 09:27 Dose: 40 mg Famotidine (Pepcid) 20 mg PO DAILY [facility] Last Admin: 01/27/17 09:29 Dose: 20 mg Ferrous Sulfate (Feosol) 325 mg PO BID [facility] Last Admin: 01/27/17 16:50 Dose: 325 mg Furosemide (Lasix) 20 mg PO DAILY [facility] Last Admin: 01/27/17 10:46 Dose: Not Given Lisinopril (Zestril) 5 mg PO DAILY [facility] Last Admin: 01/27/17 10:46 Dose: Not Given Loratadine (Claritin) 10 mg PO DAILY [facility] Last Admin: 01/27/17 09:26 Dose: 10 mg - Labs Labs: PT 12.5 Seconds (9.8-13.1) 01/17/17 13:40 INR 1.2 (0.9-1.2) 01/17/17 13:40 APTT 27.7 Seconds (25.6-37.1) 01/17/17 13:40 - Constitutional Appears: Chronically Ill - Head Exam Head Exam: ATRAUMATIC, NORMAL INSPECTION, NORMOCEPHALIC - Eye Exam Eye Exam: EOMI, Normal appearance, PERRL Pupil Exam: NORMAL ACCOMODATION, PERRL - ENT Exam ENT Exam: Mucous Membranes Moist, Normal Exam - Neck Exam Neck Exam: Full ROM, Normal Inspection. absent: Lymphadenopathy - Respiratory Exam Respiratory Exam: Clear to Ausculation Bilateral, NORMAL BREATHING PATTERN - Cardiovascular Exam Cardiovascular Exam: REGULAR RHYTHM, +S1, +S2. absent: Murmur - GI/Abdominal Exam GI & Abdominal Exam: Soft, Normal Bowel Sounds. absent: Tenderness - Extremities Exam Extremities Exam: Full ROM, Normal Capillary Refill, Normal Inspection. absent : Joint Swelling, Pedal Edema - Back Exam Back Exam: NORMAL INSPECTION - Neurological Exam Neurological Exam: Abnormal Gait, Alert, Awake, CN II-XII Intact - Psychiatric Exam Psychiatric exam: Normal Affect, Normal Mood - Additional Findings Additional findings: MRI L-s spine: Impression: Subacute chronic compression fracture L5 segment with no signet retropulsion of fragments. 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 Multilevel degenerative spondylosis as above Assessment and Plan (1) Fall Assessment & Plan: L5 Fracture S/P Brace Generalized weakness HIP Pain Rhabdomyolysis Continue PT/OT Will need SLY Status: Acute
[2017-01-28] MEDS: Calcium-Vit D 250 mg-125 Units Tab UD PO SCH (10:21)
[2017-01-28] MEDS: Enoxaparin 40 mg Syringe SC SCH (10:22)
--- NOTE | 2017-01-28 10:56 | CP.PCM.PN ---
Subjective - Date & Time of Evaluation Date of Evaluation: 01/23/17 Time of Evaluation: 09:40 - Subjective Subjective: Patient remains stable Has no chest pain or SOB Afebrile Has improved appetite. Has minimal pain on the hip. Objective - Vital Signs/Intake and Output Vital Signs (last 24 hours): Temp Pulse Resp BP Pulse Ox 97.9 F 85 18 106/65 98 01/28/17 08:42 01/28/17 10:21 01/28/17 08:42 01/28/17 10:21 01/28/17 08:42 - Medications Medications: Current Medications Acetaminophen (Tylenol 325mg Tab) 650 mg PO Q6 PRN PRN Reason: Pain, moderate (4-7) Last Admin: 01/23/17 09:13 Dose: 650 mg Aspirin (Ecotrin) 81 mg PO DAILY [facility] Last Admin: 01/28/17 10:20 Dose: 81 mg Atorvastatin Calcium (Lipitor) 20 mg PO HS [facility] Last Admin: 01/27/17 21:07 Dose: 20 mg Calcium/Vitamin D (Oscal-D 250 Mg-125 Units Tab) 1 tab PO DAILY [facility] Last Admin: 01/28/17 10:21 Dose: 1 tab Carvedilol (Coreg) 3.125 mg PO DAILY [facility] Last Admin: 01/28/17 10:20 Dose: 3.125 mg Docusate Sodium (Colace) 100 mg PO BID [facility] Last Admin: 01/28/17 10:20 Dose: 100 mg Enoxaparin Sodium (Lovenox) 40 mg SC DAILY [facility] PRN Reason: Protocol Last Admin: 01/28/17 10:22 Dose: 40 mg Famotidine (Pepcid) 20 mg PO DAILY [facility] Last Admin: 01/28/17 10:21 Dose: 20 mg Ferrous Sulfate (Feosol) 325 mg PO BID [facility] Last Admin: 01/28/17 10:21 Dose: 325 mg Furosemide (Lasix) 20 mg PO DAILY [facility] Last Admin: 01/28/17 10:21 Dose: 20 mg Lisinopril (Zestril) 5 mg PO DAILY [facility] Last Admin: 01/28/17 10:21 Dose: 5 mg Loratadine (Claritin) 10 mg PO DAILY [facility] Last Admin: 01/28/17 10:20 Dose: 10 mg - Labs Labs: PT 12.5 Seconds (9.8-13.1) 01/17/17 13:40 INR 1.2 (0.9-1.2) 01/17/17 13:40 APTT 27.7 Seconds (25.6-37.1) 01/17/17 13:40 - Head Exam Head Exam: NORMAL INSPECTION - Eye Exam Eye Exam: Normal appearance - ENT Exam ENT Exam: Mucous Membranes Moist - Respiratory Exam Respiratory Exam: Clear to Ausculation Bilateral - Cardiovascular Exam Cardiovascular Exam: REGULAR RHYTHM - GI/Abdominal Exam GI & Abdominal Exam: Normal Bowel Sounds - Neurological Exam Neurological Exam: Awake, CN II-XII Intact - Psychiatric Exam Psychiatric exam: Normal Mood Assessment and Plan (1) Hip pain Status: Acute (2) Unwitnessed fall Status: Acute (3) Anemia Status: Acute (4) Hypercholesterolemia Status: Acute (5) HTN (hypertension) Status: Chronic - Assessment and Plan (Free Text) Plan: Cont meds Cont PT cont nursing care awaiting for further placement or rehab.
--- NOTE | 2017-01-28 11:00 | CP.PCM.PN ---
Subjective - Date & Time of Evaluation Date of Evaluation: 01/24/17 Time of Evaluation: 10:00 - Subjective Subjective: Patient remains stable Has no fever Noted improved appetite Has no chest pain or SOB. Objective - Vital Signs/Intake and Output Vital Signs (last 24 hours): Temp Pulse Resp BP Pulse Ox 97.9 F 85 18 106/65 98 01/28/17 08:42 01/28/17 10:21 01/28/17 08:42 01/28/17 10:21 01/28/17 08:42 - Medications Medications: Current Medications Acetaminophen (Tylenol 325mg Tab) 650 mg PO Q6 PRN PRN Reason: Pain, moderate (4-7) Last Admin: 01/23/17 09:13 Dose: 650 mg Aspirin (Ecotrin) 81 mg PO DAILY [facility] Last Admin: 01/28/17 10:20 Dose: 81 mg Atorvastatin Calcium (Lipitor) 20 mg PO HS [facility] Last Admin: 01/27/17 21:07 Dose: 20 mg Calcium/Vitamin D (Oscal-D 250 Mg-125 Units Tab) 1 tab PO DAILY [facility] Last Admin: 01/28/17 10:21 Dose: 1 tab Carvedilol (Coreg) 3.125 mg PO DAILY [facility] Last Admin: 01/28/17 10:20 Dose: 3.125 mg Docusate Sodium (Colace) 100 mg PO BID [facility] Last Admin: 01/28/17 10:20 Dose: 100 mg Enoxaparin Sodium (Lovenox) 40 mg SC DAILY [facility] PRN Reason: Protocol Last Admin: 01/28/17 10:22 Dose: 40 mg Famotidine (Pepcid) 20 mg PO DAILY [facility] Last Admin: 01/28/17 10:21 Dose: 20 mg Ferrous Sulfate (Feosol) 325 mg PO BID [facility] Last Admin: 01/28/17 10:21 Dose: 325 mg Furosemide (Lasix) 20 mg PO DAILY [facility] Last Admin: 01/28/17 10:21 Dose: 20 mg Lisinopril (Zestril) 5 mg PO DAILY [facility] Last Admin: 01/28/17 10:21 Dose: 5 mg Loratadine (Claritin) 10 mg PO DAILY [facility] Last Admin: 01/28/17 10:20 Dose: 10 mg - Labs Labs: PT 12.5 Seconds (9.8-13.1) 01/17/17 13:40 INR 1.2 (0.9-1.2) 01/17/17 13:40 APTT 27.7 Seconds (25.6-37.1) 01/17/17 13:40 - Head Exam Head Exam: NORMAL INSPECTION - Eye Exam Eye Exam: Normal appearance - ENT Exam ENT Exam: Mucous Membranes Moist - Respiratory Exam Respiratory Exam: Clear to Ausculation Bilateral - Cardiovascular Exam Cardiovascular Exam: REGULAR RHYTHM - GI/Abdominal Exam GI & Abdominal Exam: Normal Bowel Sounds - Neurological Exam Neurological Exam: Awake Assessment and Plan (1) Hip pain Status: Acute (2) Unwitnessed fall Status: Acute (3) Anemia Status: Acute (4) Hypercholesterolemia Status: Acute (5) HTN (hypertension) Status: Chronic - Assessment and Plan (Free Text) Plan: Cont meds Con ttx Cont PT regular floor.
--- NOTE | 2017-01-28 11:02 | CP.PCM.PN ---
Subjective - Date & Time of Evaluation Date of Evaluation: 01/25/17 Time of Evaluation: 09:30 - Subjective Subjective: Patient continues to do well Has no chest pain or SOB Afebrile. Denies any pain in the hip area. Objective - Vital Signs/Intake and Output Vital Signs (last 24 hours): Temp Pulse Resp BP Pulse Ox 97.9 F 85 18 106/65 98 01/28/17 08:42 01/28/17 10:21 01/28/17 08:42 01/28/17 10:21 01/28/17 08:42 - Medications Medications: Current Medications Acetaminophen (Tylenol 325mg Tab) 650 mg PO Q6 PRN PRN Reason: Pain, moderate (4-7) Last Admin: 01/23/17 09:13 Dose: 650 mg Aspirin (Ecotrin) 81 mg PO DAILY [facility] Last Admin: 01/28/17 10:20 Dose: 81 mg Atorvastatin Calcium (Lipitor) 20 mg PO HS [facility] Last Admin: 01/27/17 21:07 Dose: 20 mg Calcium/Vitamin D (Oscal-D 250 Mg-125 Units Tab) 1 tab PO DAILY [facility] Last Admin: 01/28/17 10:21 Dose: 1 tab Carvedilol (Coreg) 3.125 mg PO DAILY [facility] Last Admin: 01/28/17 10:20 Dose: 3.125 mg Docusate Sodium (Colace) 100 mg PO BID [facility] Last Admin: 01/28/17 10:20 Dose: 100 mg Enoxaparin Sodium (Lovenox) 40 mg SC DAILY [facility] PRN Reason: Protocol Last Admin: 01/28/17 10:22 Dose: 40 mg Famotidine (Pepcid) 20 mg PO DAILY [facility] Last Admin: 01/28/17 10:21 Dose: 20 mg Ferrous Sulfate (Feosol) 325 mg PO BID [facility] Last Admin: 01/28/17 10:21 Dose: 325 mg Furosemide (Lasix) 20 mg PO DAILY [facility] Last Admin: 01/28/17 10:21 Dose: 20 mg Lisinopril (Zestril) 5 mg PO DAILY [facility] Last Admin: 01/28/17 10:21 Dose: 5 mg Loratadine (Claritin) 10 mg PO DAILY [facility] Last Admin: 01/28/17 10:20 Dose: 10 mg - Labs Labs: PT 12.5 Seconds (9.8-13.1) 01/17/17 13:40 INR 1.2 (0.9-1.2) 01/17/17 13:40 APTT 27.7 Seconds (25.6-37.1) 01/17/17 13:40 - Head Exam Head Exam: NORMAL INSPECTION - Eye Exam Eye Exam: Normal appearance - ENT Exam ENT Exam: Mucous Membranes Moist - Respiratory Exam Respiratory Exam: Clear to Ausculation Bilateral - Cardiovascular Exam Cardiovascular Exam: REGULAR RHYTHM - GI/Abdominal Exam GI & Abdominal Exam: Normal Bowel Sounds - Neurological Exam Neurological Exam: Awake Assessment and Plan (1) Hip pain Status: Acute (2) Unwitnessed fall Status: Acute (3) Anemia Status: Acute (4) Hypercholesterolemia Status: Acute (5) HTN (hypertension) Status: Chronic - Assessment and Plan (Free Text) Plan: Cont meds Cont tx Cont PT Pain meds prn
--- NOTE | 2017-01-28 11:03 | CP.PCM.PN ---
Subjective - Date & Time of Evaluation Date of Evaluation: 01/26/17 Time of Evaluation: 10:00 - Subjective Subjective: Patient remains stable Has no fever Has good appetite Objective - Vital Signs/Intake and Output Vital Signs (last 24 hours): Temp Pulse Resp BP Pulse Ox 97.9 F 85 18 106/65 98 01/28/17 08:42 01/28/17 10:21 01/28/17 08:42 01/28/17 10:21 01/28/17 08:42 - Medications Medications: Current Medications Acetaminophen (Tylenol 325mg Tab) 650 mg PO Q6 PRN PRN Reason: Pain, moderate (4-7) Last Admin: 01/23/17 09:13 Dose: 650 mg Aspirin (Ecotrin) 81 mg PO DAILY [facility] Last Admin: 01/28/17 10:20 Dose: 81 mg Atorvastatin Calcium (Lipitor) 20 mg PO HS [facility] Last Admin: 01/27/17 21:07 Dose: 20 mg Calcium/Vitamin D (Oscal-D 250 Mg-125 Units Tab) 1 tab PO DAILY [facility] Last Admin: 01/28/17 10:21 Dose: 1 tab Carvedilol (Coreg) 3.125 mg PO DAILY [facility] Last Admin: 01/28/17 10:20 Dose: 3.125 mg Docusate Sodium (Colace) 100 mg PO BID [facility] Last Admin: 01/28/17 10:20 Dose: 100 mg Enoxaparin Sodium (Lovenox) 40 mg SC DAILY [facility] PRN Reason: Protocol Last Admin: 01/28/17 10:22 Dose: 40 mg Famotidine (Pepcid) 20 mg PO DAILY [facility] Last Admin: 01/28/17 10:21 Dose: 20 mg Ferrous Sulfate (Feosol) 325 mg PO BID [facility] Last Admin: 01/28/17 10:21 Dose: 325 mg Furosemide (Lasix) 20 mg PO DAILY [facility] Last Admin: 01/28/17 10:21 Dose: 20 mg Lisinopril (Zestril) 5 mg PO DAILY [facility] Last Admin: 01/28/17 10:21 Dose: 5 mg Loratadine (Claritin) 10 mg PO DAILY [facility] Last Admin: 01/28/17 10:20 Dose: 10 mg - Labs Labs: PT 12.5 Seconds (9.8-13.1) 01/17/17 13:40 INR 1.2 (0.9-1.2) 01/17/17 13:40 APTT 27.7 Seconds (25.6-37.1) 01/17/17 13:40 - Head Exam Head Exam: NORMAL INSPECTION - Eye Exam Eye Exam: Normal appearance - ENT Exam ENT Exam: Mucous Membranes Moist - Respiratory Exam Respiratory Exam: Clear to Ausculation Bilateral - Cardiovascular Exam Cardiovascular Exam: REGULAR RHYTHM - GI/Abdominal Exam GI & Abdominal Exam: Normal Bowel Sounds Assessment and Plan (1) Hip pain Status: Acute (2) Unwitnessed fall Status: Acute (3) Anemia Status: Acute (4) Hypercholesterolemia Status: Acute (5) HTN (hypertension) Status: Chronic - Assessment and Plan (Free Text) Plan: Con tmeds Cont tx Cont PT discharge plans.
--- NOTE | 2017-01-28 11:06 | CP.PCM.PN ---
Subjective - Date & Time of Evaluation Date of Evaluation: 01/27/17 Time of Evaluation: 09:40 - Subjective Subjective: Patient remains stable Has no fever Has no chest pain or SOB Objective - Vital Signs/Intake and Output Vital Signs (last 24 hours): Temp Pulse Resp BP Pulse Ox 97.9 F 85 18 106/65 98 01/28/17 08:42 01/28/17 10:21 01/28/17 08:42 01/28/17 10:21 01/28/17 08:42 - Medications Medications: Current Medications Acetaminophen (Tylenol 325mg Tab) 650 mg PO Q6 PRN PRN Reason: Pain, moderate (4-7) Last Admin: 01/23/17 09:13 Dose: 650 mg Aspirin (Ecotrin) 81 mg PO DAILY [facility] Last Admin: 01/28/17 10:20 Dose: 81 mg Atorvastatin Calcium (Lipitor) 20 mg PO HS [facility] Last Admin: 01/27/17 21:07 Dose: 20 mg Calcium/Vitamin D (Oscal-D 250 Mg-125 Units Tab) 1 tab PO DAILY [facility] Last Admin: 01/28/17 10:21 Dose: 1 tab Carvedilol (Coreg) 3.125 mg PO DAILY [facility] Last Admin: 01/28/17 10:20 Dose: 3.125 mg Docusate Sodium (Colace) 100 mg PO BID [facility] Last Admin: 01/28/17 10:20 Dose: 100 mg Enoxaparin Sodium (Lovenox) 40 mg SC DAILY [facility] PRN Reason: Protocol Last Admin: 01/28/17 10:22 Dose: 40 mg Famotidine (Pepcid) 20 mg PO DAILY [facility] Last Admin: 01/28/17 10:21 Dose: 20 mg Ferrous Sulfate (Feosol) 325 mg PO BID [facility] Last Admin: 01/28/17 10:21 Dose: 325 mg Furosemide (Lasix) 20 mg PO DAILY [facility] Last Admin: 01/28/17 10:21 Dose: 20 mg Lisinopril (Zestril) 5 mg PO DAILY [facility] Last Admin: 01/28/17 10:21 Dose: 5 mg Loratadine (Claritin) 10 mg PO DAILY [facility] Last Admin: 01/28/17 10:20 Dose: 10 mg - Labs Labs: PT 12.5 Seconds (9.8-13.1) 01/17/17 13:40 INR 1.2 (0.9-1.2) 01/17/17 13:40 APTT 27.7 Seconds (25.6-37.1) 01/17/17 13:40 - Head Exam Head Exam: NORMAL INSPECTION - Eye Exam Eye Exam: Normal appearance - ENT Exam ENT Exam: Mucous Membranes Moist - Respiratory Exam Respiratory Exam: Clear to Ausculation Bilateral - Cardiovascular Exam Cardiovascular Exam: REGULAR RHYTHM - GI/Abdominal Exam GI & Abdominal Exam: Normal Bowel Sounds - Neurological Exam Neurological Exam: Awake - Psychiatric Exam Psychiatric exam: Normal Mood Assessment and Plan (1) Hip pain Status: Acute (2) Unwitnessed fall Status: Acute (3) Anemia Status: Acute (4) Hypercholesterolemia Status: Acute (5) HTN (hypertension) Status: Chronic - Assessment and Plan (Free Text) Plan: Cont meds cont tx awaiting for discharge disposition. cont PT.
[2017-01-29 07:17] LABS: BASO # 0.1 K/uL (0.0-0.2); BASO % 0.9 % (0.0-2.0); EOS # 0.1 K/uL (0.0-0.7); EOS % 1.2 % (0.0-4.0); HEMOGLOBIN 10.4 g/dL (12.0-16.0); LYMPH # 1.3 K/uL (1.0-4.3); LYMPH % 21.3 % (20.0-40.0); MEAN CORPUSCULAR HEMOGLOBIN 28.8 pg (27.0-31.0); MEAN PLATELET VOLUME 8.8 fl (7.2-11.7); MONO # 0.6 K/uL (0.0-0.8); MONO % 9.1 % (0.0-10.0); NEUT # 4.1 K/uL (1.8-7.0); NEUT % 67.5 % (50.0-75.0); RBC 3.62 Mil/uL (3.80-5.20); RED CELL DISTRIBUTION WIDTH 14.1 % (11.5-14.5); WHITE BLOOD COUNT 6.1 K/uL (4.8-10.8)
[2017-01-29 07:33] LABS: BLOOD UREA NITROGEN 27 mg/dl (7-17); CALCIUM 8.8 mg/dL (8.4-10.2); GFR AFRICAN-AMERICAN > 60; GFR NON-AFRICAN AMERICAN > 60
[2017-01-29] MEDS: Calcium-Vit D 250 mg-125 Units Tab UD PO SCH (08:52)
--- NOTE | 2017-01-29 21:21 | CP.PCM.PN ---
Subjective - Date & Time of Evaluation Date of Evaluation: 01/29/17 Time of Evaluation: 12:00 - Subjective Subjective: Patient is seen and examined at the bed side. Patient states she is feeling better, and would like to go home. Marta the PT/OT recommended SLY but patient do not have Medicare time left for SLY. Objective - Vital Signs/Intake and Output Vital Signs (last 24 hours): Temp Pulse Resp BP Pulse Ox 98.7 F 115 H 18 103/64 100 01/29/17 15:56 01/29/17 15:56 01/29/17 15:56 01/29/17 15:56 01/29/17 15:56 - Medications Medications: Current Medications Acetaminophen (Tylenol 325mg Tab) 650 mg PO Q6 PRN PRN Reason: Pain, moderate (4-7) Last Admin: 01/23/17 09:13 Dose: 650 mg Aspirin (Ecotrin) 81 mg PO DAILY [facility] Last Admin: 01/29/17 08:50 Dose: 81 mg Atorvastatin Calcium (Lipitor) 20 mg PO HS [facility] Last Admin: 01/28/17 21:10 Dose: 20 mg Calcium/Vitamin D (Oscal-D 250 Mg-125 Units Tab) 1 tab PO DAILY [facility] Last Admin: 01/29/17 08:52 Dose: 1 tab Carvedilol (Coreg) 3.125 mg PO DAILY [facility] Last Admin: 01/29/17 08:50 Dose: Not Given Docusate Sodium (Colace) 100 mg PO BID [facility] Last Admin: 01/29/17 16:44 Dose: 100 mg Famotidine (Pepcid) 20 mg PO DAILY [facility] Last Admin: 01/29/17 08:52 Dose: 20 mg Ferrous Sulfate (Feosol) 325 mg PO BID [facility] Last Admin: 01/29/17 16:45 Dose: 325 mg Furosemide (Lasix) 20 mg PO DAILY [facility] Last Admin: 01/29/17 12:32 Dose: 20 mg Lisinopril (Zestril) 5 mg PO DAILY [facility] Last Admin: 01/29/17 08:52 Dose: Not Given Loratadine (Claritin) 10 mg PO DAILY [facility] Last Admin: 01/29/17 08:49 Dose: 10 mg - Labs Labs: 01/29/17 06:35 01/29/17 06:35 PT 12.5 Seconds (9.8-13.1) 01/17/17 13:40 INR 1.2 (0.9-1.2) 01/17/17 13:40 APTT 27.7 Seconds (25.6-37.1) 01/17/17 13:40 - Constitutional Appears: Well, Chronically Ill - Head Exam Head Exam: ATRAUMATIC, NORMAL INSPECTION, NORMOCEPHALIC - Eye Exam Eye Exam: EOMI, Normal appearance, PERRL Pupil Exam: NORMAL ACCOMODATION, PERRL - ENT Exam ENT Exam: Mucous Membranes Moist, Normal Exam - Neck Exam Neck Exam: Full ROM, Normal Inspection. absent: Lymphadenopathy - Respiratory Exam Respiratory Exam: Clear to Ausculation Bilateral, NORMAL BREATHING PATTERN - Cardiovascular Exam Cardiovascular Exam: REGULAR RHYTHM, +S1, +S2, Murmur - GI/Abdominal Exam GI & Abdominal Exam: Soft, Normal Bowel Sounds. absent: Tenderness - Extremities Exam Additional comments: unable to ambulate due to Limited ROM at the Right Hip and Knee. - Back Exam Back Exam: vertebral tenderness - Neurological Exam Neurological Exam: Abnormal Gait, Alert, Awake - Psychiatric Exam Psychiatric exam: Normal Affect, Normal Mood - Skin Skin Exam: Dry, Intact, Normal Color, Warm Assessment and Plan (1) Fall Assessment & Plan: L5 Fracture S/P Brace Generalized weakness HIP Pain Rhabdomyolysis-resolved Continue PT/OT Will need SLY Status: Acute
[2017-01-30] MEDS ORDERED: Ciprofloxacin 400mg/200ml D5W 400 MG/200 ML BAG IVPB SCH (09:00)
[2017-01-30] MEDS: Calcium-Vit D 250 mg-125 Units Tab UD PO SCH (09:54)
--- NOTE | 2017-01-30 11:36 | CP.PCM.CON ---
History of Present Illness - History of Present Illness History of Present Illness: s/p fall from wheelchair L 5 fx rx in progress ESBL + urine- contaminant ? will repeat Review of Systems - Review of Systems Systems not reviewed;Unavailable: Altered Mental Status All systems: reviewed and no additional remarkable complaints except - Constitutional Constitutional: As Per HPI - EENT Eyes: absent: As Per HPI, Blind Spots, Blurred Vision, Change in Vision, Decreased Night Vision, Diplopia, Discharge, Dry Eye, Exophthalmos, Floaters, Irritation, Itchy Eyes, Loss of Peripheral Vision, Pain, Photophobia, Requires Corrective Lenses, Sees Flashes, Spots in Vision, Tunnel Vision, Other Visual Disturbances, Loss of Vision, Other Ears: absent: As Per HPI, Decreased Hearing, Ear Discharge, Ear Pain, Tinnitus, Abnormal Hearing, Disequilibrium, Dizziness, Other Nose/Mouth/Throat: absent: As Per HPI, Epistaxis, Nasal Congestion, Nasal Discharge, Nasal Obstruction, Nasal Trauma, Nose Pain, Post Nasal Drip, Sinus Pain, Sinus Pressure, Bleeding Gums, Change in Voice, Dental Pain, Dry Mouth, Dysphagia, Halitosis, Hoarsness, Lip Swelling, Mouth Lesions, Mouth Pain, Odynophagia, Sore Throat, Throat Swelling, Tongue Swelling, Facial Pain, Neck Pain, Neck Mass, Other - Breasts Breasts: absent: As Per HPI, Change in Shape, Mass, Pain, Nipple Discharge, Nipple Inversion, Skin Changes, Swelling, Other - Cardiovascular Cardiovascular: absent: As Per HPI, Acrocyanosis, Chest Pain, Chest Pain at Rest , Chest Pain with Activity, Claudication, Diaphoresis, Dyspnea, Dyspnea on Exertion, Edema, Irregular Heart Rhythm, Pain Radiating to Arm/Neck/Jaw, Leg Edema, Leg Ulcers, Lightheadedness, Orthopnea, Palpitations, Paroxysmal Nocturnal Dyspnea, Pedal Edema, Radiating Pain, Rapid Heart Rate, Slow Heart Rate, Syncope, Other - Respiratory Respiratory: absent: As Per HPI, Cough, Dyspnea, Hemoptysis, Dyspnea on Exertion , Wheezing, Snoring, Stridor, Pain on Inspiration, Chest Congestion, Excessive Mucous Production, Change in Mucous Color, Pain with Coughing, Other - Gastrointestinal Gastrointestinal: absent: As Per HPI, Abdominal Pain, Belching, Bloating, Change in Bowel Habits, Change in Stool Character, Coffee Ground Emesis, Constipation, Cramping, Diarrhea, Dyspepsia, Dysphagia, Early Satiety, Excessive Flatus, Fecal Incontinence, Heartburn, Hematemesis, Hematochezia, Loose Stools, Melena, Nausea, Odynophagia, Temesmus, Vomiting, Other - Genitourinary Genitourinary: absent: As Per HPI, Change in Urinary Stream, Difficulty Urinating, Dysuria, Flank Pain, Hematuria, Pyuria, Nocturia, Urinary Incontinence, Urinary Frequency, Urinary Hesitance, Urinary Urgency, Voiding Freq/Small Amts, Freq UTI, Hx Renal/Bladder Calculi, Hx /Renal Surgery, Bladder Distension, Other - Reproductive: Female Reproductive:Female: absent: As Per HPI, Amenorrhea, Amenorrhea/ Control, Currently Menstual, Cycle <21 Days, Cycle >35 Days, Cycle Variable, Menses 1-7 Days, Menses >/= 8 Days, Menses Variable, Cycle > 4 Weeks Between, No Menses for 6 Months, Heavy Menses, Light Menses, Normal Menses, Spotting Between Cycles , S/P Hysterectomy, Menopausal, Post Menopausal, Premenarche, Abnormal Vaginal Bleeding, Dysmenorrhea, Dyspareunia, Genital Lesions, Genital Pruritis, Pelvic Pain, Prolapse Symptoms, Sexual Dysfunction, Vaginal Discharge, Vaginal Dryness , Vaginal Odor, Vaginal Pruritis, Other - Menstruation Menstruation: absent: As Per HPI, Amenorrhea, Amenorrhea/ Control, Currently Menstual, Cycle <21 Days, Cycle >35 Days, Cycle Variable, Menses 1-7 Days, Menses >/= 8 Days, Menses Variable, Cycle > 4 Weeks Between, No Menses for 6 Months, Heavy Menses, Light Menses, Normal Menses, Spotting Between Cycles , S/P Hysterectomy, Menopausal, Post Menopausal, Premenarche, Abnormal Vaginal Bleeding, Dysmenorrhea, Other Past Patient History - Infectious Disease Hx of Infectious Diseases: None - Tetanus Immunizations Tetanus Immunization: Unknown - Past Medical History & Family History Past Medical History?: Yes - Past Social History Smoking Status: Never Smoked - CARDIAC Hx Congestive Heart Failure: No Hx Hypercholesterolemia: Yes Hx Hypertension: Yes - PULMONARY Hx Chronic Obstructive Pulmonary Disease (COPD): No - NEUROLOGICAL Hx Neurological Disorder: No - HEENT Hx HEENT Problems: No - RENAL Hx Chronic Kidney Disease: No - ENDOCRINE/METABOLIC Hx Hypothyroidism: Yes - HEMATOLOGICAL/ONCOLOGICAL Hx Human Immunodeficiency Virus (HIV): No - INTEGUMENTARY Hx Dermatological Problems: No - MUSCULOSKELETAL/RHEUMATOLOGICAL Hx Arthritis: No Hx Osteoporosis: Yes Hx Rheumatoid Arthritis: No - GASTROINTESTINAL Hx Gastrointestinal Disorders: No - GENITOURINARY/GYNECOLOGICAL Hx Genitourinary Disorders: Yes Hx Incontinence: Yes - PSYCHIATRIC Hx Psychophysiologic Disorder: No Hx Substance Use: No - SURGICAL HISTORY Hx Surgeries: Yes Hx Orthopedic Surgery: Yes (Right THR, 2013) Hx Thyroidectomy: Yes (1989) - ANESTHESIA Hx Anesthesia: Yes Hx Anesthesia Reactions: No Hx Malignant Hyperthermia: No Has any member of the family had a problem w/ anesthesia?: No Meds Allergies/Adverse Reactions: Allergies Allergy/AdvReac Type Severity Reaction Status Date / Time banana Allergy RASH Verified 01/18/17 15:50 Penicillins Allergy RASH Verified 01/17/17 12:51 sweet peas Allergy SWELLING Uncoded 05/28/15 12:44 - Medications Medications: Current Medications Acetaminophen (Tylenol 325mg Tab) 650 mg PO Q6 PRN PRN Reason: Pain, moderate (4-7) Last Admin: 01/23/17 09:13 Dose: 650 mg Aspirin (Ecotrin) 81 mg PO DAILY [facility] Last Admin: 01/30/17 09:53 Dose: 81 mg Atorvastatin Calcium (Lipitor) 20 mg PO HS [facility] Last Admin: 01/29/17 22:01 Dose: 20 mg Calcium/Vitamin D (Oscal-D 250 Mg-125 Units Tab) 1 tab PO DAILY [facility] Last Admin: 01/30/17 09:54 Dose: 1 tab Carvedilol (Coreg) 3.125 mg PO DAILY [facility] Last Admin: 01/30/17 09:53 Dose: 3.125 mg Docusate Sodium (Colace) 100 mg PO BID [facility] Last Admin: 01/30/17 09:53 Dose: 100 mg Famotidine (Pepcid) 20 mg PO DAILY [facility] Last Admin: 01/30/17 09:54 Dose: 20 mg Ferrous Sulfate (Feosol) 325 mg PO BID [facility] Last Admin: 01/30/17 09:54 Dose: 325 mg Furosemide (Lasix) 20 mg PO DAILY [facility] Last Admin: 01/30/17 09:54 Dose: 20 mg Lisinopril (Zestril) 5 mg PO DAILY [facility] Last Admin: 01/30/17 09:55 Dose: 5 mg Loratadine (Claritin) 10 mg PO DAILY [facility] Last Admin: 01/30/17 09:52 Dose: 10 mg Physical Exam - Constitutional Appears: Non-toxic, Cachectic, Chronically Ill - Head Exam Head Exam: NORMOCEPHALIC - Eye Exam Eye Exam: PERRL. absent: Scleral icterus - ENT Exam ENT Exam: Mucous Membranes Dry, Normal External Ear Exam - Neck Exam Neck exam: Negative for: Lymphadenopathy - Respiratory Exam Respiratory Exam: Decreased Breath Sounds, Rhonchi - Cardiovascular Exam Cardiovascular Exam: REGULAR RHYTHM, +S1, +S2 - GI/Abdominal Exam GI & Abdominal Exam: Diminished Bowel Sounds, Soft. absent: Tenderness - Rectal Exam Rectal Exam: Deferred - Exam Exam: NORMAL INSPECTION - Extremities Exam Extremities exam: Positive for: pedal pulses present. Negative for: calf tenderness, pedal edema, tenderness - Back Exam Back exam: absent: CVA tenderness (L), CVA tenderness (R) - Neurological Exam Neurological exam: Alert, Altered, CN II-XII Intact, Reflexes Normal - Psychiatric Exam Psychiatric exam: Depressed - Skin Skin Exam: Dry, Intact Results - Vital Signs Recent Vital Signs: Last Vital Signs Temp 97.8 F 01/30/17 08:33 Pulse 80 01/30/17 09:55 Resp 20 01/30/17 08:33 BP 125/79 01/30/17 09:55 Pulse Ox 97 01/30/17 08:33 - Labs Result Diagrams: 01/29/17 06:35 01/31/17 08:00 Assessment & Plan (1) Hip pain Status: Acute (2) Anemia Status: Acute (3) Fall Status: Acute (4) UTI (urinary tract infection) Status: Acute - Assessment and Plan (Free Text) Assessment: check cultures of blood r/o bacteremia icv antibiotics ordered
[2017-01-30 15:48] LABS: SQUAMOUS EPITHIAL 3 /hpf (0-5); URINE BACTERIA MANY (<OCC); URINE BILIRUBIN NEGATIVE (NEGATIVE); URINE BLOOD SMALL (NEGATIVE); URINE CLARITY SLIGHTY-CLOUDY (Clear); URINE COLOR YELLOW (YELLOW); URINE GLUCOSE (UA) NEG (Normal); URINE LEUKOCYTE ESTERASE SMALL Leu/uL (Negative); URINE NITRATE POSITIVE (NEGATIVE); URINE PROTEIN NEGATIVE (NEGATIVE); URINE UROBILINOGEN 0.2-1.0 mg/dL (0.2-1.0)
[2017-01-30] MEDS: Tmp-Smz 800 mg-160 mg DS Tab PO SCH ×2 (16:52→21:36)
[2017-01-31 09:01] LABS: BLOOD UREA NITROGEN 24 mg/dl (7-17); CALCIUM 8.9 mg/dL (8.4-10.2); GFR AFRICAN-AMERICAN > 60; GFR NON-AFRICAN AMERICAN > 60
[2017-01-31] MEDS: Tmp-Smz 800 mg-160 mg DS Tab PO SCH ×2 (09:45→21:33)
[2017-01-31] MEDS: Calcium-Vit D 250 mg-125 Units Tab UD PO SCH (09:47)
--- NOTE | 2017-01-31 12:35 | CP.PCM.PN ---
Subjective - Date & Time of Evaluation Date of Evaluation: 01/31/17 Time of Evaluation: 08:00 - Subjective Subjective: no fever on bactrim Objective - Vital Signs/Intake and Output Vital Signs (last 24 hours): Temp Pulse Resp BP Pulse Ox 97.4 F L 75 18 125/75 98 01/31/17 07:39 01/31/17 07:39 01/31/17 07:39 01/31/17 09:46 01/31/17 07:39 - Medications Medications: Current Medications Acetaminophen (Tylenol 325mg Tab) 650 mg PO Q6 PRN PRN Reason: Pain, moderate (4-7) Last Admin: 01/23/17 09:13 Dose: 650 mg Aspirin (Ecotrin) 81 mg PO DAILY [facility] Last Admin: 01/31/17 09:46 Dose: 81 mg Atorvastatin Calcium (Lipitor) 20 mg PO HS [facility] Last Admin: 01/30/17 21:36 Dose: 20 mg Calcium/Vitamin D (Oscal-D 250 Mg-125 Units Tab) 1 tab PO DAILY [facility] Last Admin: 01/31/17 09:47 Dose: 1 tab Carvedilol (Coreg) 3.125 mg PO DAILY [facility] Last Admin: 01/31/17 09:45 Dose: 3.125 mg Docusate Sodium (Colace) 100 mg PO BID [facility] Last Admin: 01/31/17 09:45 Dose: 100 mg Famotidine (Pepcid) 20 mg PO DAILY [facility] Last Admin: 01/31/17 09:47 Dose: 20 mg Ferrous Sulfate (Feosol) 325 mg PO BID [facility] Last Admin: 01/31/17 09:46 Dose: 325 mg Furosemide (Lasix) 20 mg PO DAILY [facility] Last Admin: 01/31/17 09:46 Dose: 20 mg Lisinopril (Zestril) 5 mg PO DAILY [facility] Last Admin: 01/31/17 09:47 Dose: 5 mg Loratadine (Claritin) 10 mg PO DAILY [facility] Last Admin: 01/31/17 09:45 Dose: 10 mg Trimethoprim/Sulfamethoxazole (Bactrim Ds Tab) 1 tab PO Q12 [facility] Stop: 02/05/17 21:00 Last Admin: 01/31/17 09:45 Dose: 1 tab - Labs Labs: 01/29/17 06:35 01/31/17 08:00 PT 12.5 Seconds (9.8-13.1) 01/17/17 13:40 INR 1.2 (0.9-1.2) 01/17/17 13:40 APTT 27.7 Seconds (25.6-37.1) 01/17/17 13:40 - Constitutional Appears: Non-toxic, Chronically Ill - Head Exam Head Exam: NORMOCEPHALIC - Eye Exam Eye Exam: PERRL - ENT Exam ENT Exam: Mucous Membranes Dry - Neck Exam Neck Exam: absent: Lymphadenopathy - Respiratory Exam Respiratory Exam: Decreased Breath Sounds - Cardiovascular Exam Cardiovascular Exam: REGULAR RHYTHM - GI/Abdominal Exam GI & Abdominal Exam: Distended Assessment and Plan - Assessment and Plan (Free Text) Plan: cont rx 7 days
--- NOTE | 2017-01-31 19:21 | CP.PCM.PN ---
Subjective - Date & Time of Evaluation Date of Evaluation: 01/31/17 Time of Evaluation: 19:10 - Subjective Subjective: Patient is seen and examined at the bed side. Patient states she is feeling better, and would like to go home. Marta the PT/OT recommended SLY but patient do not have Medicare time left for SLY. Objective - Vital Signs/Intake and Output Vital Signs (last 24 hours): Temp Pulse Resp BP Pulse Ox 98.4 F 73 20 112/63 98 01/31/17 16:17 01/31/17 16:17 01/31/17 16:17 01/31/17 16:17 01/31/17 16:17 - Medications Medications: Current Medications Acetaminophen (Tylenol 325mg Tab) 650 mg PO Q6 PRN PRN Reason: Pain, moderate (4-7) Last Admin: 01/23/17 09:13 Dose: 650 mg Aspirin (Ecotrin) 81 mg PO DAILY [facility] Last Admin: 01/31/17 09:46 Dose: 81 mg Atorvastatin Calcium (Lipitor) 20 mg PO HS [facility] Last Admin: 01/30/17 21:36 Dose: 20 mg Calcium/Vitamin D (Oscal-D 250 Mg-125 Units Tab) 1 tab PO DAILY [facility] Last Admin: 01/31/17 09:47 Dose: 1 tab Carvedilol (Coreg) 3.125 mg PO DAILY [facility] Last Admin: 01/31/17 09:45 Dose: 3.125 mg Docusate Sodium (Colace) 100 mg PO BID [facility] Last Admin: 01/31/17 16:11 Dose: 100 mg Famotidine (Pepcid) 20 mg PO DAILY [facility] Last Admin: 01/31/17 09:47 Dose: 20 mg Ferrous Sulfate (Feosol) 325 mg PO BID [facility] Last Admin: 01/31/17 16:11 Dose: 325 mg Furosemide (Lasix) 20 mg PO DAILY [facility] Last Admin: 01/31/17 09:46 Dose: 20 mg Lisinopril (Zestril) 5 mg PO DAILY [facility] Last Admin: 01/31/17 09:47 Dose: 5 mg Loratadine (Claritin) 10 mg PO DAILY [facility] Last Admin: 01/31/17 09:45 Dose: 10 mg Trimethoprim/Sulfamethoxazole (Bactrim Ds Tab) 1 tab PO Q12 [facility] Stop: 02/05/17 21:00 Last Admin: 01/31/17 09:45 Dose: 1 tab - Labs Labs: 01/29/17 06:35 01/31/17 08:00 PT 12.5 Seconds (9.8-13.1) 01/17/17 13:40 INR 1.2 (0.9-1.2) 01/17/17 13:40 APTT 27.7 Seconds (25.6-37.1) 01/17/17 13:40 Assessment and Plan (1) Fall Assessment & Plan: L5 Fracture S/P Brace Generalized weakness HIP Pain Rhabdomyolysis Continue PT/OT Will need SLY 2. Social Hold due to Placement issues Status: Acute
[2017-02-01] MEDS: Tmp-Smz 800 mg-160 mg DS Tab PO SCH ×2 (09:35→20:08)
[2017-02-01] MEDS: Calcium-Vit D 250 mg-125 Units Tab UD PO SCH (09:37)
--- NOTE | 2017-02-01 11:38 | CP.PCM.PN ---
Subjective - Date & Time of Evaluation Date of Evaluation: 02/01/17 Time of Evaluation: 11:15 - Subjective Subjective: Patient is seen and examined at the bed side. Patient states she is feeling better, and would like to go home. Marta the PT/OT recommended SLY but patient do not have Medicare time left for SLY. 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 Will not be able to pay privately. Objective - Vital Signs/Intake and Output Vital Signs (last 24 hours): Temp Pulse Resp BP Pulse Ox 97.6 F 74 20 109/60 99 02/01/17 08:15 02/01/17 08:15 02/01/17 08:15 02/01/17 09:36 02/01/17 08:15 - Medications Medications: Current Medications Acetaminophen (Tylenol 325mg Tab) 650 mg PO Q6 PRN PRN Reason: Pain, moderate (4-7) Last Admin: 01/23/17 09:13 Dose: 650 mg Aspirin (Ecotrin) 81 mg PO DAILY [facility] Last Admin: 02/01/17 09:36 Dose: 81 mg Atorvastatin Calcium (Lipitor) 20 mg PO HS [facility] Last Admin: 01/31/17 21:33 Dose: 20 mg Calcium/Vitamin D (Oscal-D 250 Mg-125 Units Tab) 1 tab PO DAILY [facility] Last Admin: 02/01/17 09:37 Dose: 1 tab Carvedilol (Coreg) 3.125 mg PO DAILY [facility] Last Admin: 02/01/17 09:36 Dose: 3.125 mg Docusate Sodium (Colace) 100 mg PO BID [facility] Last Admin: 02/01/17 09:35 Dose: 100 mg Famotidine (Pepcid) 20 mg PO DAILY [facility] Last Admin: 02/01/17 09:38 Dose: 20 mg Ferrous Sulfate (Feosol) 325 mg PO BID [facility] Last Admin: 02/01/17 09:36 Dose: 325 mg Furosemide (Lasix) 20 mg PO DAILY [facility] Last Admin: 02/01/17 09:36 Dose: 20 mg Lisinopril (Zestril) 5 mg PO DAILY [facility] Last Admin: 02/01/17 09:38 Dose: 5 mg Loratadine (Claritin) 10 mg PO DAILY [facility] Last Admin: 02/01/17 09:35 Dose: 10 mg Trimethoprim/Sulfamethoxazole (Bactrim Ds Tab) 1 tab PO Q12 [facility] Stop: 02/05/17 21:00 Last Admin: 02/01/17 09:35 Dose: 1 tab - Labs Labs: 01/29/17 06:35 01/31/17 08:00 PT 12.5 Seconds (9.8-13.1) 01/17/17 13:40 INR 1.2 (0.9-1.2) 01/17/17 13:40 APTT 27.7 Seconds (25.6-37.1) 01/17/17 13:40 Assessment and Plan (1) Fall Assessment & Plan: L5 Fracture S/P Brace Generalized weakness HIP Pain Rhabdomyolysis Continue PT/OT Will need SLY 2. Social Hold due to Placement issues Status: Acute
[2017-02-02] MEDS: Tmp-Smz 800 mg-160 mg DS Tab PO SCH ×2 (09:33→21:22)
[2017-02-02] MEDS: Calcium-Vit D 250 mg-125 Units Tab UD PO SCH (09:35)
--- NOTE | 2017-02-02 11:49 | CP.PCM.PN ---
Subjective - Date & Time of Evaluation Date of Evaluation: 02/02/17 Time of Evaluation: 09:00 - Subjective Subjective: afebrile alert iv rx renewed cont rx Objective - Vital Signs/Intake and Output Vital Signs (last 24 hours): Temp Pulse Resp BP Pulse Ox 97.7 F 77 20 99/52 L 99 02/02/17 09:00 02/02/17 09:35 02/02/17 09:00 02/02/17 09:35 02/02/17 09:00 - Medications Medications: Current Medications Acetaminophen (Tylenol 325mg Tab) 650 mg PO Q6 PRN PRN Reason: Pain, moderate (4-7) Last Admin: 01/23/17 09:13 Dose: 650 mg Aspirin (Ecotrin) 81 mg PO DAILY [facility] Last Admin: 02/02/17 09:34 Dose: 81 mg Atorvastatin Calcium (Lipitor) 20 mg PO HS [facility] Last Admin: 02/01/17 21:17 Dose: 20 mg Calcium/Vitamin D (Oscal-D 250 Mg-125 Units Tab) 1 tab PO DAILY [facility] Last Admin: 02/02/17 09:35 Dose: 1 tab Carvedilol (Coreg) 3.125 mg PO DAILY [facility] Last Admin: 02/02/17 09:34 Dose: Not Given Docusate Sodium (Colace) 100 mg PO BID [facility] Last Admin: 02/02/17 09:34 Dose: 100 mg Famotidine (Pepcid) 20 mg PO DAILY [facility] Last Admin: 02/02/17 09:35 Dose: 20 mg Ferrous Sulfate (Feosol) 325 mg PO BID [facility] Last Admin: 02/02/17 09:34 Dose: 325 mg Furosemide (Lasix) 20 mg PO DAILY [facility] Last Admin: 02/02/17 09:35 Dose: Not Given Lisinopril (Zestril) 5 mg PO DAILY [facility] Last Admin: 02/02/17 09:35 Dose: Not Given Loratadine (Claritin) 10 mg PO DAILY [facility] Last Admin: 02/02/17 09:34 Dose: 10 mg Trimethoprim/Sulfamethoxazole (Bactrim Ds Tab) 1 tab PO Q12 [facility] Stop: 02/05/17 21:00 Last Admin: 02/02/17 09:33 Dose: 1 tab - Labs Labs: 01/29/17 06:35 01/31/17 08:00 PT 12.5 Seconds (9.8-13.1) 01/17/17 13:40 INR 1.2 (0.9-1.2) 01/17/17 13:40 APTT 27.7 Seconds (25.6-37.1) 01/17/17 13:40 - Constitutional Appears: Non-toxic, Cachectic, Chronically Ill - Head Exam Head Exam: NORMOCEPHALIC - Eye Exam Eye Exam: PERRL. absent: Scleral icterus - ENT Exam ENT Exam: Mucous Membranes Dry, Normal External Ear Exam - Neck Exam Neck Exam: absent: Lymphadenopathy - Respiratory Exam Respiratory Exam: Decreased Breath Sounds - Cardiovascular Exam Cardiovascular Exam: REGULAR RHYTHM, +S1, +S2 - GI/Abdominal Exam GI & Abdominal Exam: Distended, Soft. absent: Tenderness - Rectal Exam Rectal Exam: Deferred - Exam Exam: NORMAL INSPECTION - Extremities Exam Extremities Exam: absent: Pedal Edema - Back Exam Back Exam: absent: CVA tenderness (L), CVA tenderness (R) - Neurological Exam Neurological Exam: Alert, Awake, Oriented x3 - Psychiatric Exam Psychiatric exam: Normal Mood - Skin Skin Exam: Dry Assessment and Plan (1) Hip pain Status: Acute (2) Anemia Status: Acute (3) Fall Status: Acute (4) UTI (urinary tract infection) Status: Acute
--- NOTE | 2017-02-02 23:45 | CP.PCM.PN ---
Subjective - Date & Time of Evaluation Date of Evaluation: 02/02/17 Time of Evaluation: 18:45 - Subjective Subjective: Patient is seen and examined at the bed side. Patient states she is feeling better, and would like to go home. Marta the PT/OT recommended SLY but patient do not have Medicare time left for SLY. 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 Social hold until placement arranged. Objective - Vital Signs/Intake and Output Vital Signs (last 24 hours): Temp Pulse Resp BP Pulse Ox 98.2 F 60 20 114/63 97 02/02/17 17:00 02/02/17 17:00 02/02/17 17:00 02/02/17 17:00 02/02/17 17:00 - Medications Medications: Current Medications Acetaminophen (Tylenol 325mg Tab) 650 mg PO Q6 PRN PRN Reason: Pain, moderate (4-7) Last Admin: 01/23/17 09:13 Dose: 650 mg Aspirin (Ecotrin) 81 mg PO DAILY [facility] Last Admin: 02/02/17 09:34 Dose: 81 mg Atorvastatin Calcium (Lipitor) 20 mg PO HS [facility] Last Admin: 02/02/17 21:22 Dose: 20 mg Calcium/Vitamin D (Oscal-D 250 Mg-125 Units Tab) 1 tab PO DAILY [facility] Last Admin: 02/02/17 09:35 Dose: 1 tab Carvedilol (Coreg) 3.125 mg PO DAILY [facility] Last Admin: 02/02/17 09:34 Dose: Not Given Docusate Sodium (Colace) 100 mg PO BID [facility] Last Admin: 02/02/17 17:36 Dose: 100 mg Famotidine (Pepcid) 20 mg PO DAILY [facility] Last Admin: 02/02/17 09:35 Dose: 20 mg Ferrous Sulfate (Feosol) 325 mg PO BID [facility] Last Admin: 02/02/17 17:36 Dose: 325 mg Furosemide (Lasix) 20 mg PO DAILY [facility] Last Admin: 02/02/17 09:35 Dose: Not Given Lisinopril (Zestril) 5 mg PO DAILY [facility] Last Admin: 02/02/17 09:35 Dose: Not Given Loratadine (Claritin) 10 mg PO DAILY [facility] Last Admin: 02/02/17 09:34 Dose: 10 mg Trimethoprim/Sulfamethoxazole (Bactrim Ds Tab) 1 tab PO Q12 [facility] Stop: 02/05/17 21:00 Last Admin: 02/02/17 21:22 Dose: 1 tab - Labs Labs: 01/29/17 06:35 01/31/17 08:00 PT 12.5 Seconds (9.8-13.1) 01/17/17 13:40 INR 1.2 (0.9-1.2) 01/17/17 13:40 APTT 27.7 Seconds (25.6-37.1) 01/17/17 13:40 Assessment and Plan (1) Fall Assessment & Plan: L5 Fracture S/P Brace Generalized weakness HIP Pain Rhabdomyolysis Continue PT/OT Will need SLY 2. Social Hold due to Placement issues Status: Acute
[2017-02-03 07:50] LABS: HEMOGLOBIN 11.3 g/dL (12.0-16.0); MEAN CELL VOLUME 89.4 fl (81.0-99.0); MEAN CORPUSCULAR HEMOGLOBIN 29.4 pg (27.0-31.0); MEAN CORPUSCULAR HGB CONC 32.9 g/dL (33.0-37.0); RBC 3.85 Mil/uL (3.80-5.20); RED CELL DISTRIBUTION WIDTH 13.8 % (11.5-14.5); WHITE BLOOD COUNT 5.2 K/uL (4.8-10.8)
[2017-02-03 07:58] LABS: BLOOD UREA NITROGEN 25 mg/dl (7-17); CALCIUM 9.2 mg/dL (8.4-10.2); GFR AFRICAN-AMERICAN > 60; GFR NON-AFRICAN AMERICAN 60
[2017-02-03] MEDS: Tmp-Smz 800 mg-160 mg DS Tab PO SCH ×2 (08:46→21:25)
[2017-02-03] MEDS: Calcium-Vit D 250 mg-125 Units Tab UD PO SCH (08:48)
--- NOTE | 2017-02-03 14:54 | CP.PCM.PN ---
Subjective - Date & Time of Evaluation Date of Evaluation: 02/03/17 Time of Evaluation: 14:53 - Subjective Subjective: SPINE Pt not seen. Xray of lumbar spine ordered 01/24. Apparently not done yet? Will phone in. Objective - Vital Signs/Intake and Output Vital Signs (last 24 hours): Temp Pulse Resp BP Pulse Ox 98.4 F 73 17 113/67 96 02/03/17 07:52 02/03/17 08:48 02/03/17 07:52 02/03/17 08:48 02/03/17 07:52 - Medications Medications: Current Medications Acetaminophen (Tylenol 325mg Tab) 650 mg PO Q6 PRN PRN Reason: Pain, moderate (4-7) Last Admin: 01/23/17 09:13 Dose: 650 mg Aspirin (Ecotrin) 81 mg PO DAILY [facility] Last Admin: 02/03/17 08:47 Dose: 81 mg Atorvastatin Calcium (Lipitor) 20 mg PO HS [facility] Last Admin: 02/02/17 21:22 Dose: 20 mg Calcium/Vitamin D (Oscal-D 250 Mg-125 Units Tab) 1 tab PO DAILY [facility] Last Admin: 02/03/17 08:48 Dose: 1 tab Carvedilol (Coreg) 3.125 mg PO DAILY [facility] Last Admin: 02/03/17 08:47 Dose: 3.125 mg Docusate Sodium (Colace) 100 mg PO BID [facility] Last Admin: 02/03/17 08:46 Dose: 100 mg Famotidine (Pepcid) 20 mg PO DAILY [facility] Last Admin: 02/03/17 08:48 Dose: 20 mg Ferrous Sulfate (Feosol) 325 mg PO BID [facility] Last Admin: 02/03/17 08:47 Dose: 325 mg Furosemide (Lasix) 20 mg PO DAILY [facility] Last Admin: 02/03/17 08:48 Dose: 20 mg Lisinopril (Zestril) 5 mg PO DAILY [facility] Last Admin: 02/03/17 08:48 Dose: 5 mg Loratadine (Claritin) 10 mg PO DAILY [facility] Last Admin: 02/03/17 08:46 Dose: 10 mg Trimethoprim/Sulfamethoxazole (Bactrim Ds Tab) 1 tab PO Q12 [facility] Stop: 02/05/17 21:00 Last Admin: 02/03/17 08:46 Dose: 1 tab - Labs Labs: 02/03/17 05:30 02/03/17 05:30 PT 12.5 Seconds (9.8-13.1) 01/17/17 13:40 INR 1.2 (0.9-1.2) 01/17/17 13:40 APTT 27.7 Seconds (25.6-37.1) 01/17/17 13:40
--- NOTE | 2017-02-03 15:38 | CP.PCM.PN ---
Subjective - Date & Time of Evaluation Date of Evaluation: 02/03/17 Time of Evaluation: 15:10 - Subjective Subjective: States feeling better. Unable to ambulate, and social Hold pending placement from [facility] to jail. Objective - Vital Signs/Intake and Output Vital Signs (last 24 hours): Temp Pulse Resp BP Pulse Ox 98.4 F 76 18 97/51 L 97 02/03/17 15:35 02/03/17 15:35 02/03/17 15:35 02/03/17 15:35 02/03/17 15:35 - Medications Medications: Current Medications Acetaminophen (Tylenol 325mg Tab) 650 mg PO Q6 PRN PRN Reason: Pain, moderate (4-7) Last Admin: 01/23/17 09:13 Dose: 650 mg Aspirin (Ecotrin) 81 mg PO DAILY [facility] Last Admin: 02/03/17 08:47 Dose: 81 mg Atorvastatin Calcium (Lipitor) 20 mg PO HS [facility] Last Admin: 02/02/17 21:22 Dose: 20 mg Calcium/Vitamin D (Oscal-D 250 Mg-125 Units Tab) 1 tab PO DAILY [facility] Last Admin: 02/03/17 08:48 Dose: 1 tab Carvedilol (Coreg) 3.125 mg PO DAILY [facility] Last Admin: 02/03/17 08:47 Dose: 3.125 mg Docusate Sodium (Colace) 100 mg PO BID [facility] Last Admin: 02/03/17 08:46 Dose: 100 mg Famotidine (Pepcid) 20 mg PO DAILY [facility] Last Admin: 02/03/17 08:48 Dose: 20 mg Ferrous Sulfate (Feosol) 325 mg PO BID [facility] Last Admin: 02/03/17 08:47 Dose: 325 mg Furosemide (Lasix) 20 mg PO DAILY [facility] Last Admin: 02/03/17 08:48 Dose: 20 mg Lisinopril (Zestril) 5 mg PO DAILY [facility] Last Admin: 02/03/17 08:48 Dose: 5 mg Loratadine (Claritin) 10 mg PO DAILY [facility] Last Admin: 02/03/17 08:46 Dose: 10 mg Trimethoprim/Sulfamethoxazole (Bactrim Ds Tab) 1 tab PO Q12 [facility] Stop: 02/05/17 21:00 Last Admin: 02/03/17 08:46 Dose: 1 tab - Labs Labs: 02/03/17 05:30 02/03/17 05:30 PT 12.5 Seconds (9.8-13.1) 01/17/17 13:40 INR 1.2 (0.9-1.2) 01/17/17 13:40 APTT 27.7 Seconds (25.6-37.1) 01/17/17 13:40 - Constitutional Appears: In Acute Distress - Head Exam Head Exam: ATRAUMATIC, NORMAL INSPECTION, NORMOCEPHALIC - Eye Exam Eye Exam: EOMI, Normal appearance, PERRL Pupil Exam: NORMAL ACCOMODATION, PERRL - ENT Exam ENT Exam: Mucous Membranes Moist, Normal Exam - Neck Exam Neck Exam: Full ROM, Normal Inspection. absent: Lymphadenopathy - Respiratory Exam Respiratory Exam: Clear to Ausculation Bilateral, NORMAL BREATHING PATTERN - Cardiovascular Exam Cardiovascular Exam: REGULAR RHYTHM, +S1, +S2. absent: Murmur - GI/Abdominal Exam GI & Abdominal Exam: Soft, Normal Bowel Sounds. absent: Tenderness - Extremities Exam Extremities Exam: absent: Joint Swelling, Pedal Edema - Neurological Exam Neurological Exam: Abnormal Gait, Alert, Awake, CN II-XII Intact - Psychiatric Exam Psychiatric exam: Normal Affect, Normal Mood - Skin Skin Exam: Dry, Intact, Normal Color, Warm Assessment and Plan (1) Fall Assessment & Plan: L5 Fracture S/P Brace Generalized weakness HIP Pain Rhabdomyolysis-resolved Continue PT/OT Will need SLY Status: Acute (2) UTI due to extended-spectrum beta lactamase (ESBL) producing Escherichia coli Assessment & Plan: IV Merem Status: Acute (3) Anemia Status: Chronic
--- NOTE | 2017-02-03 18:01 | RAD ---
PROCEDURE: Lumbar spine radiographs dated 02/03/2017 Multiple views of the lumbar spine performed. Note that the examination is somewhat limited due to large amount of bowel related artifact partially obscuring detail. HISTORY: order COMPARISON: Comparison made with plain film MRI of the lumbar spine dated 01/20/2017. FINDINGS: BONES: Current study re- demonstrates a subacute-chronic compression fracture of the L5 segment. There may also be early anterior compression fracture of the L3 segment new since prior study. No significant retropulsion of fragments seen on this study. . There is mild dextroscoliosis centered at the L2-L3 level. DISC SPACES: Disc space heights are relatively maintained. Multilevel facet arthropathy. OTHER FINDINGS: None. IMPRESSION: Subacute to chronic compression fracture L5 segment. Acute or subacute compression fracture L3 segment. No significant retropulsion of fragments into the canal. . Note that these findings were discussed with Neil Cuenca at approximately 5 50 p.m. with written down and read back
[2017-02-04] MEDS: Tmp-Smz 800 mg-160 mg DS Tab PO SCH ×2 (10:44→21:58)
[2017-02-04] MEDS: Calcium-Vit D 250 mg-125 Units Tab UD PO SCH (10:44)
--- NOTE | 2017-02-04 12:57 | CP.PCM.PN ---
Subjective - Date & Time of Evaluation Date of Evaluation: 02/04/17 Time of Evaluation: 09:00 - Subjective Subjective: afebrile rx for esbl in progress Objective - Vital Signs/Intake and Output Vital Signs (last 24 hours): Temp Pulse Resp BP Pulse Ox 98.3 F 88 18 94/61 L 97 02/04/17 07:44 02/04/17 07:44 02/04/17 07:44 02/04/17 10:45 02/04/17 07:44 - Medications Medications: Current Medications Acetaminophen (Tylenol 325mg Tab) 650 mg PO Q6 PRN PRN Reason: Pain, moderate (4-7) Last Admin: 01/23/17 09:13 Dose: 650 mg Aspirin (Ecotrin) 81 mg PO DAILY [facility] Last Admin: 02/04/17 10:45 Dose: 81 mg Atorvastatin Calcium (Lipitor) 20 mg PO HS [facility] Last Admin: 02/03/17 21:25 Dose: 20 mg Calcium/Vitamin D (Oscal-D 250 Mg-125 Units Tab) 1 tab PO DAILY [facility] Last Admin: 02/04/17 10:44 Dose: 1 tab Carvedilol (Coreg) 3.125 mg PO DAILY [facility] Last Admin: 02/04/17 10:45 Dose: Not Given Docusate Sodium (Colace) 100 mg PO BID [facility] Last Admin: 02/04/17 10:42 Dose: 100 mg Famotidine (Pepcid) 20 mg PO DAILY [facility] Last Admin: 02/04/17 10:45 Dose: 20 mg Ferrous Sulfate (Feosol) 325 mg PO BID [facility] Last Admin: 02/04/17 10:43 Dose: 325 mg Furosemide (Lasix) 20 mg PO DAILY [facility] Last Admin: 02/04/17 10:44 Dose: Not Given Lisinopril (Zestril) 5 mg PO DAILY [facility] Last Admin: 02/04/17 10:42 Dose: Not Given Loratadine (Claritin) 10 mg PO DAILY [facility] Last Admin: 02/04/17 10:44 Dose: 10 mg Trimethoprim/Sulfamethoxazole (Bactrim Ds Tab) 1 tab PO Q12 [facility] Stop: 02/05/17 21:00 Last Admin: 02/04/17 10:44 Dose: 1 tab - Labs Labs: 02/03/17 05:30 02/03/17 05:30 PT 12.5 Seconds (9.8-13.1) 01/17/17 13:40 INR 1.2 (0.9-1.2) 01/17/17 13:40 APTT 27.7 Seconds (25.6-37.1) 01/17/17 13:40 - Constitutional Appears: Non-toxic, Chronically Ill - Head Exam Head Exam: NORMOCEPHALIC - Eye Exam Eye Exam: PERRL - ENT Exam ENT Exam: Mucous Membranes Dry - Neck Exam Neck Exam: absent: Lymphadenopathy - Respiratory Exam Respiratory Exam: Decreased Breath Sounds - Cardiovascular Exam Cardiovascular Exam: Clicks - GI/Abdominal Exam GI & Abdominal Exam: Distended Assessment and Plan (1) Hip pain Status: Acute (2) Anemia Status: Chronic (3) Fall Status: Acute (4) UTI (urinary tract infection) Status: Acute
--- NOTE | 2017-02-04 23:50 | CP.PCM.PN ---
Subjective - Date & Time of Evaluation Date of Evaluation: 02/04/17 Time of Evaluation: 10:10 - Subjective Subjective: States feeling better. Unable to ambulate, and social Hold pending placement from [facility] to halfway. Objective - Vital Signs/Intake and Output Vital Signs (last 24 hours): Temp Pulse Resp BP Pulse Ox 98.6 F 78 18 100/52 L 99 02/04/17 16:33 02/04/17 16:33 02/04/17 16:33 02/04/17 16:33 02/04/17 16:33 - Medications Medications: Current Medications Acetaminophen (Tylenol 325mg Tab) 650 mg PO Q6 PRN PRN Reason: Pain, moderate (4-7) Last Admin: 01/23/17 09:13 Dose: 650 mg Aspirin (Ecotrin) 81 mg PO DAILY [facility] Last Admin: 02/04/17 10:45 Dose: 81 mg Atorvastatin Calcium (Lipitor) 20 mg PO HS [facility] Last Admin: 02/04/17 21:58 Dose: 20 mg Calcium/Vitamin D (Oscal-D 250 Mg-125 Units Tab) 1 tab PO DAILY [facility] Last Admin: 02/04/17 10:44 Dose: 1 tab Carvedilol (Coreg) 3.125 mg PO DAILY [facility] Last Admin: 02/04/17 10:45 Dose: Not Given Docusate Sodium (Colace) 100 mg PO BID [facility] Last Admin: 02/04/17 16:45 Dose: 100 mg Famotidine (Pepcid) 20 mg PO DAILY [facility] Last Admin: 02/04/17 10:45 Dose: 20 mg Ferrous Sulfate (Feosol) 325 mg PO BID [facility] Last Admin: 02/04/17 16:45 Dose: 325 mg Furosemide (Lasix) 20 mg PO DAILY [facility] Last Admin: 02/04/17 10:44 Dose: Not Given Lisinopril (Zestril) 5 mg PO DAILY [facility] Last Admin: 02/04/17 10:42 Dose: Not Given Loratadine (Claritin) 10 mg PO DAILY [facility] Last Admin: 02/04/17 10:44 Dose: 10 mg Trimethoprim/Sulfamethoxazole (Bactrim Ds Tab) 1 tab PO Q12 [facility] Stop: 02/05/17 21:00 Last Admin: 02/04/17 21:58 Dose: 1 tab - Labs Labs: 02/03/17 05:30 02/03/17 05:30 PT 12.5 Seconds (9.8-13.1) 01/17/17 13:40 INR 1.2 (0.9-1.2) 01/17/17 13:40 APTT 27.7 Seconds (25.6-37.1) 01/17/17 13:40 Assessment and Plan (1) Fall Assessment & Plan: L5 Fracture S/P Brace Generalized weakness HIP Pain Rhabdomyolysis-resolved Continue PT/OT Will need SLY Status: Acute (2) UTI due to extended-spectrum beta lactamase (ESBL) producing Escherichia coli Assessment & Plan: IV Merem Status: Acute (3) Anemia Status: Acute
[2017-02-05] MEDS: Tmp-Smz 800 mg-160 mg DS Tab PO SCH ×2 (08:17→08:22)
[2017-02-05] MEDS: Calcium-Vit D 250 mg-125 Units Tab UD PO SCH ×2 (08:19→10:18)
--- NOTE | 2017-02-05 11:01 | CP.PCM.PN ---
Subjective - Date & Time of Evaluation Date of Evaluation: 02/05/17 Time of Evaluation: 10:00 - Subjective Subjective: Seen and examined at the bed side. No Complaint. Waiting the daughter to provide documents required to process her Insurance [facility]. Patient is dependent for ADL/IADL and Fallls, and Unsafe to discharge home without continued supervision at home by a family member or alternative person. Objective - Vital Signs/Intake and Output Vital Signs (last 24 hours): Temp Pulse Resp BP Pulse Ox 98.6 F 78 18 100/52 L 99 02/04/17 16:33 02/05/17 08:18 02/04/17 16:33 02/05/17 08:18 02/04/17 16:33 - Medications Medications: Current Medications Acetaminophen (Tylenol 325mg Tab) 650 mg PO Q6 PRN PRN Reason: Pain, moderate (4-7) Last Admin: 01/23/17 09:13 Dose: 650 mg Aspirin (Ecotrin) 81 mg PO DAILY [facility] Last Admin: 02/05/17 10:17 Dose: 81 mg Atorvastatin Calcium (Lipitor) 20 mg PO HS [facility] Last Admin: 02/04/17 21:58 Dose: 20 mg Calcium/Vitamin D (Oscal-D 250 Mg-125 Units Tab) 1 tab PO DAILY [facility] Last Admin: 02/05/17 10:18 Dose: 1 tab Carvedilol (Coreg) 3.125 mg PO DAILY [facility] Last Admin: 02/05/17 08:17 Dose: Not Given Docusate Sodium (Colace) 100 mg PO BID [facility] Last Admin: 02/05/17 10:17 Dose: 100 mg Famotidine (Pepcid) 20 mg PO DAILY [facility] Last Admin: 02/05/17 10:18 Dose: 20 mg Ferrous Sulfate (Feosol) 325 mg PO BID [facility] Last Admin: 02/05/17 10:17 Dose: 325 mg Furosemide (Lasix) 20 mg PO DAILY [facility] Last Admin: 02/05/17 08:19 Dose: Not Given Lisinopril (Zestril) 5 mg PO DAILY [facility] Last Admin: 02/05/17 08:18 Dose: Not Given Loratadine (Claritin) 10 mg PO DAILY [facility] Last Admin: 02/05/17 10:17 Dose: 10 mg Trimethoprim/Sulfamethoxazole (Bactrim Ds Tab) 1 tab PO Q12 [facility] Stop: 02/05/17 21:00 Last Admin: 02/05/17 08:22 Dose: Not Given - Labs Labs: 02/03/17 05:30 02/03/17 05:30 PT 12.5 Seconds (9.8-13.1) 01/17/17 13:40 INR 1.2 (0.9-1.2) 01/17/17 13:40 APTT 27.7 Seconds (25.6-37.1) 01/17/17 13:40 Assessment and Plan (1) Unwitnessed fall Assessment & Plan: L5 Fracture S/P Brace Generalized weakness HIP Pain Rhabdomyolysis-resolved Continue PT/OT Will need SLY Status: Acute (2) UTI due to extended-spectrum beta lactamase (ESBL) producing Escherichia coli Assessment & Plan: IV Merem Status: Acute (3) Anemia Status: Chronic
[2017-02-06] MEDS: Calcium-Vit D 250 mg-125 Units Tab UD PO SCH (10:06)
--- NOTE | 2017-02-06 11:21 | CP.PCM.PN ---
Subjective - Date & Time of Evaluation Date of Evaluation: 02/06/17 Time of Evaluation: 11:19 - Subjective Subjective: SPINE Pt resting in bed. States her back is feeling better. Has brace and reportedly is being seen by PT. Xray shows no signif change compared to prev MRI. Question raised of new compression of L3 but treatment plan doesn't change. Would repeat xray of lumbar spine (AP/Lat) in 2 weeks. Objective - Vital Signs/Intake and Output Vital Signs (last 24 hours): Temp Pulse Resp BP Pulse Ox 98.4 F 76 20 100/60 97 02/06/17 08:05 02/06/17 08:05 02/06/17 08:05 02/06/17 10:08 02/06/17 08:05 - Medications Medications: Current Medications Acetaminophen (Tylenol 325mg Tab) 650 mg PO Q6 PRN PRN Reason: Pain, moderate (4-7) Last Admin: 01/23/17 09:13 Dose: 650 mg Aspirin (Ecotrin) 81 mg PO DAILY [facility] Last Admin: 02/06/17 10:09 Dose: 81 mg Atorvastatin Calcium (Lipitor) 20 mg PO HS [facility] Last Admin: 02/05/17 22:23 Dose: 20 mg Calcium/Vitamin D (Oscal-D 250 Mg-125 Units Tab) 1 tab PO DAILY [facility] Last Admin: 02/06/17 10:06 Dose: 1 tab Carvedilol (Coreg) 3.125 mg PO DAILY [facility] Last Admin: 02/06/17 10:08 Dose: Not Given Docusate Sodium (Colace) 100 mg PO BID [facility] Last Admin: 02/06/17 10:06 Dose: 100 mg Famotidine (Pepcid) 20 mg PO DAILY [facility] Last Admin: 02/06/17 10:08 Dose: 20 mg Ferrous Sulfate (Feosol) 325 mg PO BID [facility] Last Admin: 02/06/17 10:06 Dose: 325 mg Furosemide (Lasix) 20 mg PO DAILY [facility] Last Admin: 02/06/17 10:07 Dose: Not Given Lisinopril (Zestril) 5 mg PO DAILY [facility] Last Admin: 02/06/17 10:08 Dose: Not Given Loratadine (Claritin) 10 mg PO DAILY [facility] Last Admin: 02/06/17 10:08 Dose: 10 mg - Labs Labs: 02/03/17 05:30 02/03/17 05:30 PT 12.5 Seconds (9.8-13.1) 01/17/17 13:40 INR 1.2 (0.9-1.2) 01/17/17 13:40 APTT 27.7 Seconds (25.6-37.1) 01/17/17 13:40
--- NOTE | 2017-02-06 19:27 | CP.PCM.PN ---
Subjective - Date & Time of Evaluation Date of Evaluation: 02/06/17 Time of Evaluation: 07:40 - Subjective Subjective: Seen and examined at the bed side. No Complaint. Waiting the daughter to provide documents required to process her Insurance for group home placement. Patient is dependent for ADL/IADL and Fallls, and Unsafe to discharge home without continued supervision at home by a family member or alternative person. Objective - Vital Signs/Intake and Output Vital Signs (last 24 hours): Temp Pulse Resp BP Pulse Ox 98.2 F 93 H 20 96/59 L 95 02/06/17 16:37 02/06/17 16:37 02/06/17 16:37 02/06/17 16:37 02/06/17 16:37 - Medications Medications: Current Medications Acetaminophen (Tylenol 325mg Tab) 650 mg PO Q6 PRN PRN Reason: Pain, moderate (4-7) Last Admin: 01/23/17 09:13 Dose: 650 mg Aspirin (Ecotrin) 81 mg PO DAILY [facility] Last Admin: 02/06/17 10:09 Dose: 81 mg Atorvastatin Calcium (Lipitor) 20 mg PO HS [facility] Last Admin: 02/05/17 22:23 Dose: 20 mg Calcium/Vitamin D (Oscal-D 250 Mg-125 Units Tab) 1 tab PO DAILY [facility] Last Admin: 02/06/17 10:06 Dose: 1 tab Carvedilol (Coreg) 3.125 mg PO DAILY [facility] Last Admin: 02/06/17 10:08 Dose: Not Given Docusate Sodium (Colace) 100 mg PO BID [facility] Last Admin: 02/06/17 16:27 Dose: 100 mg Famotidine (Pepcid) 20 mg PO DAILY [facility] Last Admin: 02/06/17 10:08 Dose: 20 mg Ferrous Sulfate (Feosol) 325 mg PO BID [facility] Last Admin: 02/06/17 16:27 Dose: 325 mg Furosemide (Lasix) 20 mg PO DAILY [facility] Last Admin: 02/06/17 10:07 Dose: Not Given Lisinopril (Zestril) 5 mg PO DAILY [facility] Last Admin: 02/06/17 10:08 Dose: Not Given Loratadine (Claritin) 10 mg PO DAILY [facility] Last Admin: 02/06/17 10:08 Dose: 10 mg - Labs Labs: 02/03/17 05:30 02/03/17 05:30 PT 12.5 Seconds (9.8-13.1) 01/17/17 13:40 INR 1.2 (0.9-1.2) 01/17/17 13:40 APTT 27.7 Seconds (25.6-37.1) 01/17/17 13:40 Assessment and Plan (1) Unwitnessed fall Assessment & Plan: Back Pain Ambulation Problem Right Foot Droop Frail Elderly Wheelchair Dependent Continue Pain Management Continue PT/OT, and Out of bed to Chair daily Waiting Medicaid Application approval SW and her daughter with POA processing the Medicaid Application. 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 (5) DVT prophylaxis Status: Acute (6) Hypercholesterolemia Status: Chronic (7) Hypothyroid Status: Chronic (8) Pulmonary hypertension Status: Chronic (9) HTN (hypertension) Status: Resolved
[2017-02-07 07:29] LABS: BASO # 0.1 K/uL (0.0-0.2); BASO % 1.3 % (0.0-2.0); EOS # 0.1 K/uL (0.0-0.7); EOS % 1.1 % (0.0-4.0); HEMOGLOBIN 10.1 g/dL (12.0-16.0); LYMPH # 1.9 K/uL (1.0-4.3); LYMPH % 26.5 % (20.0-40.0); MEAN CELL VOLUME 89.8 fl (81.0-99.0); MEAN CORPUSCULAR HEMOGLOBIN 28.8 pg (27.0-31.0); MEAN CORPUSCULAR HGB CONC 32.1 g/dL (33.0-37.0); MEAN PLATELET VOLUME 9.9 fl (7.2-11.7); MONO % 14.6 % (0.0-10.0); NEUT % 56.5 % (50.0-75.0); NRBC % 0.2 % (0.0-0.0); RBC 3.5 Mil/uL (3.80-5.20); RED CELL DISTRIBUTION WIDTH 13.7 % (11.5-14.5); WHITE BLOOD COUNT 7.1 K/uL (4.8-10.8)
[2017-02-07 07:36] LABS: CALCIUM 8.7 mg/dL (8.4-10.2)
[2017-02-07] MEDS: Calcium-Vit D 250 mg-125 Units Tab UD PO SCH (10:06)
--- NOTE | 2017-02-07 21:49 | CP.PCM.PN ---
Subjective - Date & Time of Evaluation Date of Evaluation: 02/07/17 Time of Evaluation: 22:30 - Subjective Subjective: Seen and examined at the bed side. No Complaint. Waiting the daughter to provide documents required to process her Insurance for [facility] placement. Patient is dependent for ADL/IADL and Fallls, and Unsafe to discharge home without continued supervision at home by a family member or alternative person. Objective - Vital Signs/Intake and Output Vital Signs (last 24 hours): Temp Pulse Resp BP Pulse Ox 98.2 F 89 18 101/59 L 96 02/07/17 17:00 02/07/17 17:00 02/07/17 17:00 02/07/17 17:00 02/07/17 17:00 - Medications Medications: Current Medications Acetaminophen (Tylenol 325mg Tab) 650 mg PO Q6 PRN PRN Reason: Pain, moderate (4-7) Last Admin: 01/23/17 09:13 Dose: 650 mg Aspirin (Ecotrin) 81 mg PO DAILY [facility] Last Admin: 02/07/17 10:05 Dose: 81 mg Atorvastatin Calcium (Lipitor) 20 mg PO HS [facility] Last Admin: 02/06/17 22:11 Dose: 20 mg Calcium/Vitamin D (Oscal-D 250 Mg-125 Units Tab) 1 tab PO DAILY [facility] Last Admin: 02/07/17 10:06 Dose: 1 tab Carvedilol (Coreg) 3.125 mg PO DAILY [facility] Last Admin: 02/07/17 10:05 Dose: Not Given Docusate Sodium (Colace) 100 mg PO BID [facility] Last Admin: 02/07/17 17:03 Dose: 100 mg Famotidine (Pepcid) 20 mg PO DAILY [facility] Last Admin: 02/07/17 10:06 Dose: 20 mg Ferrous Sulfate (Feosol) 325 mg PO BID [facility] Last Admin: 02/07/17 17:03 Dose: 325 mg Furosemide (Lasix) 20 mg PO DAILY [facility] Last Admin: 02/07/17 10:06 Dose: Not Given Lisinopril (Zestril) 5 mg PO DAILY [facility] Last Admin: 02/07/17 10:07 Dose: Not Given Loratadine (Claritin) 10 mg PO DAILY [facility] Last Admin: 02/07/17 10:04 Dose: 10 mg - Labs Labs: 02/07/17 06:50 02/07/17 06:50 PT 12.5 Seconds (9.8-13.1) 01/17/17 13:40 INR 1.2 (0.9-1.2) 01/17/17 13:40 APTT 27.7 Seconds (25.6-37.1) 01/17/17 13:40 Assessment and Plan (1) Unwitnessed fall Assessment & Plan: L5 Fracture S/P Brace Generalized weakness HIP Pain Rhabdomyolysis-resolved Continue PT/OT Will need SLY Status: Acute (2) UTI due to extended-spectrum beta lactamase (ESBL) producing Escherichia coli Assessment & Plan: IV Merem Status: Acute (3) Anemia Status: Resolved
[2017-02-08] MEDS: Calcium-Vit D 250 mg-125 Units Tab UD PO SCH (09:14)
--- NOTE | 2017-02-08 17:05 | CP.PCM.PN ---
Subjective - Date & Time of Evaluation Date of Evaluation: 02/08/17 Time of Evaluation: 09:00 - Subjective Subjective: no fever or white count less pain seen by neurosurgery Objective - Vital Signs/Intake and Output Vital Signs (last 24 hours): Temp Pulse Resp BP Pulse Ox 98.1 F 71 18 93/52 L 96 02/08/17 16:07 02/08/17 16:07 02/08/17 16:07 02/08/17 16:07 02/08/17 16:07 - Medications Medications: Current Medications Acetaminophen (Tylenol 325mg Tab) 650 mg PO Q6 PRN PRN Reason: Pain, moderate (4-7) Last Admin: 01/23/17 09:13 Dose: 650 mg Aspirin (Ecotrin) 81 mg PO DAILY [facility] Last Admin: 02/08/17 09:12 Dose: 81 mg Atorvastatin Calcium (Lipitor) 20 mg PO HS [facility] Last Admin: 02/07/17 22:17 Dose: 20 mg Calcium/Vitamin D (Oscal-D 250 Mg-125 Units Tab) 1 tab PO DAILY [facility] Last Admin: 02/08/17 09:14 Dose: 1 tab Carvedilol (Coreg) 3.125 mg PO DAILY [facility] Last Admin: 02/08/17 09:11 Dose: 3.125 mg Docusate Sodium (Colace) 100 mg PO BID [facility] Last Admin: 02/08/17 16:38 Dose: Not Given Famotidine (Pepcid) 20 mg PO DAILY [facility] Last Admin: 02/08/17 09:14 Dose: 20 mg Ferrous Sulfate (Feosol) 325 mg PO BID [facility] Last Admin: 02/08/17 16:38 Dose: 325 mg Furosemide (Lasix) 20 mg PO DAILY [facility] Last Admin: 02/08/17 09:13 Dose: 20 mg Lisinopril (Zestril) 5 mg PO DAILY [facility] Last Admin: 02/08/17 09:15 Dose: 5 mg Loratadine (Claritin) 10 mg PO DAILY [facility] Last Admin: 02/08/17 09:10 Dose: 10 mg - Labs Labs: 02/07/17 06:50 02/07/17 06:50 PT 12.5 Seconds (9.8-13.1) 01/17/17 13:40 INR 1.2 (0.9-1.2) 01/17/17 13:40 APTT 27.7 Seconds (25.6-37.1) 01/17/17 13:40 - Constitutional Appears: Non-toxic, Chronically Ill - Head Exam Head Exam: NORMOCEPHALIC - Eye Exam Eye Exam: PERRL. absent: Scleral icterus - ENT Exam ENT Exam: Mucous Membranes Dry - Neck Exam Neck Exam: absent: Lymphadenopathy - Respiratory Exam Respiratory Exam: Decreased Breath Sounds, Rhonchi - Cardiovascular Exam Cardiovascular Exam: REGULAR RHYTHM, +S1, +S2 - GI/Abdominal Exam GI & Abdominal Exam: Distended, Soft Assessment and Plan (1) Hip pain Status: Acute (2) Anemia Status: Chronic (3) Fall Status: Acute (4) UTI (urinary tract infection) Status: Acute
--- NOTE | 2017-02-09 00:07 | CP.PCM.PN ---
Subjective - Date & Time of Evaluation Date of Evaluation: 02/08/17 Time of Evaluation: 23:35 - Subjective Subjective: Seen and examined at the bed side. No Complaint. Waiting the daughter to provide documents required to process her Insurance for alf placement. Patient is dependent for ADL/IADL and Fallls, and Unsafe to discharge home without continued supervision at home by a family member or alternative person. Objective - Vital Signs/Intake and Output Vital Signs (last 24 hours): Temp Pulse Resp BP Pulse Ox 98.1 F 71 18 93/52 L 96 02/08/17 16:07 02/08/17 16:07 02/08/17 16:07 02/08/17 16:07 02/08/17 16:07 - Medications Medications: Current Medications Acetaminophen (Tylenol 325mg Tab) 650 mg PO Q6 PRN PRN Reason: Pain, moderate (4-7) Last Admin: 01/23/17 09:13 Dose: 650 mg Aspirin (Ecotrin) 81 mg PO DAILY [facility] Last Admin: 02/08/17 09:12 Dose: 81 mg Atorvastatin Calcium (Lipitor) 20 mg PO HS [facility] Last Admin: 02/08/17 20:59 Dose: 20 mg Calcium/Vitamin D (Oscal-D 250 Mg-125 Units Tab) 1 tab PO DAILY [facility] Last Admin: 02/08/17 09:14 Dose: 1 tab Carvedilol (Coreg) 3.125 mg PO DAILY [facility] Last Admin: 02/08/17 09:11 Dose: 3.125 mg Docusate Sodium (Colace) 100 mg PO BID [facility] Last Admin: 02/08/17 16:38 Dose: Not Given Famotidine (Pepcid) 20 mg PO DAILY [facility] Last Admin: 02/08/17 09:14 Dose: 20 mg Ferrous Sulfate (Feosol) 325 mg PO BID [facility] Last Admin: 02/08/17 16:38 Dose: 325 mg Furosemide (Lasix) 20 mg PO DAILY [facility] Last Admin: 02/08/17 09:13 Dose: 20 mg Lisinopril (Zestril) 5 mg PO DAILY [facility] Last Admin: 02/08/17 09:15 Dose: 5 mg Loratadine (Claritin) 10 mg PO DAILY [facility] Last Admin: 02/08/17 09:10 Dose: 10 mg - Labs Labs: 02/07/17 06:50 02/07/17 06:50 PT 12.5 Seconds (9.8-13.1) 01/17/17 13:40 INR 1.2 (0.9-1.2) 01/17/17 13:40 APTT 27.7 Seconds (25.6-37.1) 01/17/17 13:40 Assessment and Plan (1) Unwitnessed fall Assessment & Plan: Back Pain Ambulation Problem Right Foot Droop Frail Elderly Wheelchair Dependent Continue Pain Management Continue PT/OT, and Out of bed to Chair daily Waiting Medicaid Application approval SW and her daughter with POA processing the Medicaid Application. Continue all Current Medication and Care (2) Frail elderly Status: Chronic (3) Hip pain Status: Resolved (4) UTI due to extended-spectrum beta lactamase (ESBL) producing Escherichia coli Status: Resolved (5) Adult idiopathic generalized osteoporosis Status: Chronic (6) DVT prophylaxis Status: Resolved
--- NOTE | 2017-02-09 08:28 | CP.PCM.PN ---
Subjective - Date & Time of Evaluation Date of Evaluation: 02/09/17 Time of Evaluation: 08:40 - Subjective Subjective: Seen and examined at the bed side. No Complaint. Waiting the daughter to provide documents required to process her Insurance for snf placement. Patient is dependent for ADL/IADL and Fallls, and Unsafe to discharge home without continued supervision at home by a family member or alternative person. Objective - Vital Signs/Intake and Output Vital Signs (last 24 hours): Temp Pulse Resp BP Pulse Ox 98.1 F 82 19 100/61 97 02/09/17 00:32 02/09/17 00:32 02/09/17 00:32 02/09/17 00:32 02/09/17 00:32 - Medications Medications: Current Medications Acetaminophen (Tylenol 325mg Tab) 650 mg PO Q6 PRN PRN Reason: Pain, moderate (4-7) Last Admin: 01/23/17 09:13 Dose: 650 mg Aspirin (Ecotrin) 81 mg PO DAILY [facility] Last Admin: 02/08/17 09:12 Dose: 81 mg Atorvastatin Calcium (Lipitor) 20 mg PO [facility] Last Admin: 02/08/17 20:59 Dose: 20 mg Calcium/Vitamin D (Oscal-D 250 Mg-125 Units Tab) 1 tab PO DAILY [facility] Last Admin: 02/08/17 09:14 Dose: 1 tab Carvedilol (Coreg) 3.125 mg PO DAILY [facility] Last Admin: 02/08/17 09:11 Dose: 3.125 mg Docusate Sodium (Colace) 100 mg PO BID [facility] Last Admin: 02/08/17 16:38 Dose: Not Given Famotidine (Pepcid) 20 mg PO DAILY [facility] Last Admin: 02/08/17 09:14 Dose: 20 mg Ferrous Sulfate (Feosol) 325 mg PO BID [facility] Last Admin: 02/08/17 16:38 Dose: 325 mg Furosemide (Lasix) 20 mg PO DAILY [facility] Last Admin: 02/08/17 09:13 Dose: 20 mg Lisinopril (Zestril) 5 mg PO DAILY [facility] Last Admin: 02/08/17 09:15 Dose: 5 mg Loratadine (Claritin) 10 mg PO DAILY [facility] Last Admin: 02/08/17 09:10 Dose: 10 mg - Labs Labs: 02/07/17 06:50 02/07/17 06:50 PT 12.5 Seconds (9.8-13.1) 01/17/17 13:40 INR 1.2 (0.9-1.2) 01/17/17 13:40 APTT 27.7 Seconds (25.6-37.1) 01/17/17 13:40 Assessment and Plan (1) Unwitnessed fall Assessment & Plan: Back Pain Ambulation Problem Right Foot Droop Frail Elderly Wheelchair Dependent Continue Pain Management Continue PT/OT, and Out of bed to Chair daily Waiting Medicaid Application approval SW and her daughter with POA processing the Medicaid Application. Continue all Current Medication and Care (2) Frail elderly Status: Chronic (3) Hip pain Status: Resolved (4) UTI due to extended-spectrum beta lactamase (ESBL) producing Escherichia coli Status: Resolved (5) Adult idiopathic generalized osteoporosis Status: Chronic (6) DVT prophylaxis Status: Acute Status: Resolved
[2017-02-09] MEDS: Calcium-Vit D 250 mg-125 Units Tab UD PO SCH (08:39)
--- NOTE | 2017-02-10 07:14 | CP.PCM.PN ---
Subjective - Date & Time of Evaluation Date of Evaluation: 02/10/17 Time of Evaluation: 07:05 - Subjective Subjective: Seen and examined at the bed side. No Complaint. Waiting the daughter to provide documents required to process her Insurance for custodial placement. Patient is dependent for ADL/IADL and Fallls, and Unsafe to discharge home without continued supervision at home by a family member or alternative person. Objective - Vital Signs/Intake and Output Vital Signs (last 24 hours): Temp Pulse Resp BP Pulse Ox 98.8 F 69 19 92/53 L 100 02/09/17 23:45 02/09/17 23:45 02/09/17 23:45 02/09/17 23:45 02/09/17 23:45 - Medications Medications: Current Medications Acetaminophen (Tylenol 325mg Tab) 650 mg PO Q6 PRN PRN Reason: Pain, moderate (4-7) Last Admin: 01/23/17 09:13 Dose: 650 mg Aspirin (Ecotrin) 81 mg PO DAILY [facility] Last Admin: 02/09/17 08:40 Dose: 81 mg Atorvastatin Calcium (Lipitor) 20 mg PO HS [facility] Last Admin: 02/09/17 21:38 Dose: 20 mg Calcium/Vitamin D (Oscal-D 250 Mg-125 Units Tab) 1 tab PO DAILY [facility] Last Admin: 02/09/17 08:39 Dose: 1 tab Carvedilol (Coreg) 3.125 mg PO DAILY [facility] Last Admin: 02/09/17 08:40 Dose: 3.125 mg Docusate Sodium (Colace) 100 mg PO BID [facility] Last Admin: 02/09/17 18:14 Dose: 100 mg Famotidine (Pepcid) 20 mg PO DAILY [facility] Last Admin: 02/09/17 08:39 Dose: 20 mg Ferrous Sulfate (Feosol) 325 mg PO BID [facility] Last Admin: 02/09/17 18:14 Dose: 325 mg Furosemide (Lasix) 20 mg PO DAILY [facility] Last Admin: 02/09/17 08:40 Dose: 20 mg Lisinopril (Zestril) 5 mg PO DAILY [facility] Last Admin: 02/09/17 08:38 Dose: 5 mg Loratadine (Claritin) 10 mg PO DAILY [facility] Last Admin: 02/09/17 08:40 Dose: 10 mg - Labs Labs: 02/07/17 06:50 02/07/17 06:50 PT 12.5 Seconds (9.8-13.1) 01/17/17 13:40 INR 1.2 (0.9-1.2) 01/17/17 13:40 APTT 27.7 Seconds (25.6-37.1) 01/17/17 13:40 Assessment and Plan (1) Unwitnessed fall Assessment & Plan: Back Pain Ambulation Problem Right Foot Droop Frail Elderly Wheelchair Dependent Continue Pain Management Continue PT/OT, and Out of bed to Chair daily Waiting Medicaid Application approval SW and her daughter with POA processing the Medicaid Application. Continue all Current Medication and Care (2) Frail elderly Status: Chronic (3) Hip pain Status: Resolved (4) UTI due to extended-spectrum beta lactamase (ESBL) producing Escherichia coli Status: Resolved (5) Adult idiopathic generalized osteoporosis Status: Chronic (6) DVT prophylaxis Status: Acute Status: Resolved
[2017-02-10] MEDS: Calcium-Vit D 250 mg-125 Units Tab UD PO SCH (08:10)
[2017-02-11] MEDS: Calcium-Vit D 250 mg-125 Units Tab UD PO SCH (09:07)
[2017-02-11] MEDS ORDERED: Enoxaparin 30 mg Syringe SC SCH (11:15)
--- NOTE | 2017-02-11 12:38 | CP.PCM.PN ---
Subjective - Date & Time of Evaluation Date of Evaluation: 02/11/17 Time of Evaluation: 12:20 - Subjective Subjective: Seen and examined at the bed side. No Complaint. Waiting the daughter to provide documents required to process her Insurance for senior care placement. Patient is dependent for ADL/IADL and Fallls, and Unsafe to discharge home without continued supervision at home by a family member or alternative person. Objective - Vital Signs/Intake and Output Vital Signs (last 24 hours): Temp Pulse Resp BP Pulse Ox 98.5 F 70 20 108/58 L 100 02/11/17 08:30 02/11/17 09:07 02/11/17 08:30 02/11/17 09:07 02/11/17 08:30 - Medications Medications: Current Medications Acetaminophen (Tylenol 325mg Tab) 650 mg PO Q6 PRN PRN Reason: Pain, moderate (4-7) Last Admin: 01/23/17 09:13 Dose: 650 mg Aspirin (Ecotrin) 81 mg PO DAILY [facility] Last Admin: 02/11/17 09:05 Dose: 81 mg Atorvastatin Calcium (Lipitor) 20 mg PO HS [facility] Last Admin: 02/10/17 21:11 Dose: 20 mg Calcium/Vitamin D (Oscal-D 250 Mg-125 Units Tab) 1 tab PO DAILY [facility] Last Admin: 02/11/17 09:07 Dose: 1 tab Carvedilol (Coreg) 3.125 mg PO DAILY [facility] Last Admin: 02/11/17 09:05 Dose: 3.125 mg Docusate Sodium (Colace) 100 mg PO BID [facility] Last Admin: 02/11/17 09:04 Dose: 100 mg Enoxaparin Sodium (Lovenox) 40 mg SC DAILY [facility] PRN Reason: Protocol Famotidine (Pepcid) 20 mg PO DAILY [facility] Last Admin: 02/11/17 09:07 Dose: 20 mg Ferrous Sulfate (Feosol) 325 mg PO BID [facility] Last Admin: 02/11/17 09:06 Dose: 325 mg Furosemide (Lasix) 20 mg PO DAILY [facility] Last Admin: 02/11/17 09:06 Dose: 20 mg Lisinopril (Zestril) 5 mg PO DAILY [facility] Last Admin: 02/11/17 09:07 Dose: 5 mg Loratadine (Claritin) 10 mg PO DAILY [facility] Last Admin: 02/11/17 09:04 Dose: 10 mg - Labs Labs: 02/07/17 06:50 02/07/17 06:50 PT 12.5 Seconds (9.8-13.1) 01/17/17 13:40 INR 1.2 (0.9-1.2) 01/17/17 13:40 APTT 27.7 Seconds (25.6-37.1) 01/17/17 13:40 Assessment and Plan (1) Unwitnessed fall Assessment & Plan: Back Pain Ambulation Problem Right Foot Droop Frail Elderly Wheelchair Dependent Continue Pain Management Continue PT/OT, and Out of bed to Chair daily Waiting Medicaid Application approval SW and her daughter with POA processing the Medicaid Application. Continue all Current Medication and Care (2) Frail elderly Status: Chronic (3) Hip pain Status: Resolved (4) UTI due to extended-spectrum beta lactamase (ESBL) producing Escherichia coli Status: Resolved (5) Adult idiopathic generalized osteoporosis Status: Chronic (6) DVT prophylaxis Status: Acute Status: Resolved
[2017-02-12 07:43] LABS: HEMOGLOBIN 10.4 g/dL (12.0-16.0); MEAN CORPUSCULAR HEMOGLOBIN 28.9 pg (27.0-31.0); MEAN CORPUSCULAR HGB CONC 32.1 g/dL (33.0-37.0); RBC 3.59 Mil/uL (3.80-5.20); RED CELL DISTRIBUTION WIDTH 13.9 % (11.5-14.5); WHITE BLOOD COUNT 3.5 K/uL (4.8-10.8)
[2017-02-12] MEDS: Calcium-Vit D 250 mg-125 Units Tab UD PO SCH (08:59)
[2017-02-12 09:49] LABS: BLOOD UREA NITROGEN 18 mg/dl (7-17); CALCIUM 8.7 mg/dL (8.4-10.2); GFR AFRICAN-AMERICAN > 60; GFR NON-AFRICAN AMERICAN > 60
[2017-02-12] MEDS: Enoxaparin 40 mg Syringe SC SCH (18:31)
--- NOTE | 2017-02-12 23:30 | CP.PCM.PN ---
Subjective - Date & Time of Evaluation Date of Evaluation: 02/12/17 Time of Evaluation: 08:00 - Subjective Subjective: Seen and examined at the bed side. No Complaint. Waiting the daughter to provide documents required to process her Insurance for nursing home placement. Patient is dependent for ADL/IADL and Fallls, and Unsafe to discharge home without continued supervision at home by a family member or alternative person. Objective - Vital Signs/Intake and Output Vital Signs (last 24 hours): Temp Pulse Resp BP Pulse Ox 98.9 F 92 H 20 109/63 94 L 02/12/17 17:00 02/12/17 15:57 02/12/17 15:57 02/12/17 15:57 02/12/17 15:57 - Medications Medications: Current Medications Acetaminophen (Tylenol 325mg Tab) 650 mg PO Q6 PRN PRN Reason: Pain, moderate (4-7) Last Admin: 01/23/17 09:13 Dose: 650 mg Aspirin (Ecotrin) 81 mg PO DAILY [facility] Last Admin: 02/12/17 08:59 Dose: 81 mg Atorvastatin Calcium (Lipitor) 20 mg PO HS [facility] Last Admin: 02/12/17 21:33 Dose: 20 mg Calcium/Vitamin D (Oscal-D 250 Mg-125 Units Tab) 1 tab PO DAILY [facility] Last Admin: 02/12/17 08:59 Dose: 1 tab Carvedilol (Coreg) 3.125 mg PO DAILY [facility] Last Admin: 02/12/17 08:58 Dose: Not Given Docusate Sodium (Colace) 100 mg PO BID [facility] Last Admin: 02/12/17 18:30 Dose: 100 mg Enoxaparin Sodium (Lovenox) 40 mg SC DAILY [facility] PRN Reason: Protocol Last Admin: 02/12/17 18:31 Dose: 40 mg Famotidine (Pepcid) 20 mg PO DAILY [facility] Last Admin: 02/12/17 09:00 Dose: 20 mg Ferrous Sulfate (Feosol) 325 mg PO BID [facility] Last Admin: 02/12/17 18:31 Dose: 325 mg Furosemide (Lasix) 20 mg PO DAILY [facility] Last Admin: 02/12/17 08:59 Dose: Not Given Lisinopril (Zestril) 5 mg PO DAILY [facility] Last Admin: 02/12/17 09:00 Dose: Not Given Loratadine (Claritin) 10 mg PO DAILY [facility] Last Admin: 02/12/17 08:58 Dose: 10 mg - Labs Labs: 02/12/17 06:40 02/12/17 09:15 PT 12.5 Seconds (9.8-13.1) 01/17/17 13:40 INR 1.2 (0.9-1.2) 01/17/17 13:40 APTT 27.7 Seconds (25.6-37.1) 01/17/17 13:40 Assessment and Plan (1) Unwitnessed fall Assessment & Plan: Back Pain Ambulation Problem Right Foot Droop Frail Elderly Wheelchair Dependent Continue Pain Management Continue PT/OT, and Out of bed to Chair daily Waiting Medicaid Application approval SW and her daughter with POA processing the Medicaid Application. Continue all Current Medication and Care (2) Frail elderly Status: Chronic (3) Hip pain Status: Resolved (4) UTI due to extended-spectrum beta lactamase (ESBL) producing Escherichia coli Status: Resolved (5) Adult idiopathic generalized osteoporosis Status: Chronic (6) DVT prophylaxis Status: Acute Status: Resolved
[2017-02-13] MEDS: Calcium-Vit D 250 mg-125 Units Tab UD PO SCH (08:27)
[2017-02-13] MEDS: Enoxaparin 40 mg Syringe SC SCH (08:28)
--- NOTE | 2017-02-13 13:04 | CP.PCM.PN ---
Subjective - Date & Time of Evaluation Date of Evaluation: 02/13/17 Time of Evaluation: 13:00 - Subjective Subjective: Seen and examined at the bed side. No Complaint. Waiting the daughter to provide documents required to process her Insurance for detention placement. Patient is dependent for ADL/IADL and Fallls, and Unsafe to discharge home without continued supervision at home by a family member or alternative person. Objective - Vital Signs/Intake and Output Vital Signs (last 24 hours): Temp Pulse Resp BP Pulse Ox 98.1 F 61 20 113/70 99 02/13/17 07:25 02/13/17 08:28 02/13/17 07:25 02/13/17 08:28 02/13/17 07:25 - Medications Medications: Current Medications Acetaminophen (Tylenol 325mg Tab) 650 mg PO Q6 PRN PRN Reason: Pain, moderate (4-7) Last Admin: 01/23/17 09:13 Dose: 650 mg Aspirin (Ecotrin) 81 mg PO DAILY [facility] Last Admin: 02/13/17 08:27 Dose: 81 mg Atorvastatin Calcium (Lipitor) 20 mg PO HS [facility] Last Admin: 02/12/17 21:33 Dose: 20 mg Calcium/Vitamin D (Oscal-D 250 Mg-125 Units Tab) 1 tab PO DAILY [facility] Last Admin: 02/13/17 08:27 Dose: 1 tab Carvedilol (Coreg) 3.125 mg PO DAILY [facility] Last Admin: 02/13/17 08:27 Dose: 3.125 mg Docusate Sodium (Colace) 100 mg PO BID [facility] Last Admin: 02/13/17 08:28 Dose: 100 mg Enoxaparin Sodium (Lovenox) 40 mg SC DAILY [facility] PRN Reason: Protocol Last Admin: 02/13/17 08:28 Dose: 40 mg Famotidine (Pepcid) 20 mg PO DAILY [facility] Last Admin: 02/13/17 08:27 Dose: 20 mg Ferrous Sulfate (Feosol) 325 mg PO BID [facility] Last Admin: 02/13/17 08:27 Dose: 325 mg Furosemide (Lasix) 20 mg PO DAILY [facility] Last Admin: 02/13/17 08:28 Dose: 20 mg Lisinopril (Zestril) 5 mg PO DAILY [facility] Last Admin: 02/13/17 08:28 Dose: 5 mg Loratadine (Claritin) 10 mg PO DAILY [facility] Last Admin: 02/13/17 08:28 Dose: 10 mg - Labs Labs: 02/12/17 06:40 02/12/17 09:15 PT 12.5 Seconds (9.8-13.1) 01/17/17 13:40 INR 1.2 (0.9-1.2) 01/17/17 13:40 APTT 27.7 Seconds (25.6-37.1) 01/17/17 13:40 Assessment and Plan (1) Unwitnessed fall Assessment & Plan: Back Pain Ambulation Problem Right Foot Droop Frail Elderly Wheelchair Dependent Continue Pain Management Continue PT/OT, and Out of bed to Chair daily Waiting Medicaid Application approval SW and her daughter with POA processing the Medicaid Application. Continue all Current Medication and Care (2) Frail elderly Status: Chronic (3) Hip pain Status: Resolved (4) UTI due to extended-spectrum beta lactamase (ESBL) producing Escherichia coli Status: Resolved (5) Adult idiopathic generalized osteoporosis Status: Chronic (6) DVT prophylaxis Status: Acute Status: Resolved
[2017-02-14] MEDS: Enoxaparin 40 mg Syringe SC SCH (09:02)
[2017-02-14] MEDS: Calcium-Vit D 250 mg-125 Units Tab UD PO SCH (09:03)
--- NOTE | 2017-02-14 21:38 | CP.PCM.PN ---
Subjective - Date & Time of Evaluation Date of Evaluation: 02/14/17 Time of Evaluation: 06:45 - Subjective Subjective: Seen and examined at the bed side. She states feeling better. Physical therapist walk her around with unsteady gait. Objective - Vital Signs/Intake and Output Vital Signs (last 24 hours): Temp Pulse Resp BP Pulse Ox 98.9 F 53 L 20 89/45 L 96 02/14/17 16:09 02/14/17 16:09 02/14/17 16:09 02/14/17 16:09 02/14/17 16:09 - Medications Medications: Current Medications Acetaminophen (Tylenol 325mg Tab) 650 mg PO Q6 PRN PRN Reason: Pain, moderate (4-7) Last Admin: 01/23/17 09:13 Dose: 650 mg Aspirin (Ecotrin) 81 mg PO DAILY [facility] Last Admin: 02/14/17 09:01 Dose: 81 mg Atorvastatin Calcium (Lipitor) 20 mg PO HS [facility] Last Admin: 02/14/17 21:13 Dose: 20 mg Calcium/Vitamin D (Oscal-D 250 Mg-125 Units Tab) 1 tab PO DAILY [facility] Last Admin: 02/14/17 09:03 Dose: 1 tab Carvedilol (Coreg) 3.125 mg PO DAILY [facility] Last Admin: 02/14/17 09:01 Dose: 3.125 mg Docusate Sodium (Colace) 100 mg PO BID [facility] Last Admin: 02/14/17 16:53 Dose: 100 mg Enoxaparin Sodium (Lovenox) 40 mg SC DAILY [facility] PRN Reason: Protocol Last Admin: 02/14/17 09:02 Dose: 40 mg Famotidine (Pepcid) 20 mg PO DAILY [facility] Last Admin: 02/14/17 09:03 Dose: 20 mg Ferrous Sulfate (Feosol) 325 mg PO BID [facility] Last Admin: 02/14/17 16:53 Dose: 325 mg Furosemide (Lasix) 20 mg PO DAILY [facility] Last Admin: 02/14/17 09:02 Dose: 20 mg Lisinopril (Zestril) 5 mg PO DAILY [facility] Last Admin: 02/14/17 09:04 Dose: 5 mg Loratadine (Claritin) 10 mg PO DAILY [facility] Last Admin: 02/14/17 09:00 Dose: 10 mg - Labs Labs: 02/12/17 06:40 02/12/17 09:15 PT 12.5 Seconds (9.8-13.1) 01/17/17 13:40 INR 1.2 (0.9-1.2) 01/17/17 13:40 APTT 27.7 Seconds (25.6-37.1) 01/17/17 13:40 Assessment and Plan (1) Unwitnessed fall Assessment & Plan: Back Pain Ambulation Problem Right Foot Droop Frail Elderly Wheelchair Dependent Continue Pain Management Continue PT/OT, and Out of bed to Chair daily Waiting Medicaid Application approval SW and her daughter with POA processing the Medicaid Application. Continue all Current Medication and Care (2) Frail elderly Status: Chronic (3) Hip pain Status: Resolved (4) UTI due to extended-spectrum beta lactamase (ESBL) producing Escherichia coli Status: Resolved (5) Adult idiopathic generalized osteoporosis Status: Chronic (6) DVT prophylaxis Status: Acute Status: Resolved
[2017-02-15] MEDS: Enoxaparin 40 mg Syringe SC SCH (09:38)
[2017-02-15] MEDS: Calcium-Vit D 250 mg-125 Units Tab UD PO SCH (09:38)
[2017-02-16] MEDS: Enoxaparin 40 mg Syringe SC SCH (09:44)
[2017-02-16] MEDS: Calcium-Vit D 250 mg-125 Units Tab UD PO SCH (09:44)
--- NOTE | 2017-02-16 23:45 | CP.PCM.PN ---
Subjective - Date & Time of Evaluation Date of Evaluation: 02/16/17 Time of Evaluation: 23:45 - Subjective Subjective: Seen and examined at the bed side. Still unable to ambulate without assistance. Objective - Vital Signs/Intake and Output Vital Signs (last 24 hours): Temp Pulse Resp BP Pulse Ox 98.4 F 83 17 103/83 100 02/16/17 16:18 02/16/17 16:58 02/16/17 16:18 02/16/17 16:58 02/16/17 16:18 - Medications Medications: Current Medications Acetaminophen (Tylenol 325mg Tab) 650 mg PO Q6 PRN PRN Reason: Pain, moderate (4-7) Last Admin: 01/23/17 09:13 Dose: 650 mg Aspirin (Ecotrin) 81 mg PO DAILY [facility] Last Admin: 02/16/17 09:43 Dose: 81 mg Atorvastatin Calcium (Lipitor) 20 mg PO HS [facility] Last Admin: 02/16/17 21:56 Dose: 20 mg Calcium/Vitamin D (Oscal-D 250 Mg-125 Units Tab) 1 tab PO DAILY [facility] Last Admin: 02/16/17 09:44 Dose: 1 tab Carvedilol (Coreg) 3.125 mg PO DAILY [facility] Last Admin: 02/16/17 09:43 Dose: 3.125 mg Docusate Sodium (Colace) 100 mg PO BID [facility] Last Admin: 02/16/17 16:57 Dose: 100 mg Enoxaparin Sodium (Lovenox) 40 mg SC DAILY [facility] PRN Reason: Protocol Last Admin: 02/16/17 09:44 Dose: 40 mg Famotidine (Pepcid) 20 mg PO DAILY [facility] Last Admin: 02/16/17 09:44 Dose: 20 mg Ferrous Sulfate (Feosol) 325 mg PO BID [facility] Last Admin: 02/16/17 16:57 Dose: 325 mg Furosemide (Lasix) 20 mg PO DAILY [facility] Last Admin: 02/16/17 09:44 Dose: 20 mg Lisinopril (Zestril) 5 mg PO DAILY [facility] Last Admin: 02/16/17 16:58 Dose: 5 mg Loratadine (Claritin) 10 mg PO DAILY [facility] Last Admin: 02/16/17 09:42 Dose: 10 mg - Labs Labs: 02/12/17 06:40 02/12/17 09:15 PT 12.5 Seconds (9.8-13.1) 01/17/17 13:40 INR 1.2 (0.9-1.2) 01/17/17 13:40 APTT 27.7 Seconds (25.6-37.1) 01/17/17 13:40 Assessment and Plan (1) Unwitnessed fall Assessment & Plan: Back Pain Ambulation Problem Right Foot Droop Frail Elderly Wheelchair Dependent Continue Pain Management Continue PT/OT, and Out of bed to Chair daily Waiting Medicaid Application approval SW and her Daughter with POA processing the Medicaid Application. Continue all Current Medication and Care (2) Frail elderly Status: Chronic (3) Hip pain Status: Resolved (4) UTI due to extended-spectrum beta lactamase (ESBL) producing Escherichia coli Status: Resolved (5) Adult idiopathic generalized osteoporosis Status: Chronic (6) DVT prophylaxis Status: Acute Status: Resolved
[2017-02-17] MEDS: Calcium-Vit D 250 mg-125 Units Tab UD PO SCH (08:46)
[2017-02-17] MEDS: Enoxaparin 40 mg Syringe SC SCH (08:46)
[2017-02-18] MEDS: Calcium-Vit D 250 mg-125 Units Tab UD PO SCH (08:52)
--- NOTE | 2017-02-18 22:41 | CP.PCM.PN ---
Subjective - Date & Time of Evaluation Date of Evaluation: 02/17/17 Time of Evaluation: 14:20 - Subjective Subjective: Seen and examined at the bed side. No Complaint. Waiting the daughter to provide documents required to process her Insurance for custodial placement. Patient is dependent for ADL/IADL and Fallls, and Unsafe to discharge home without continued supervision at home by a family member or alternative person. Objective - Vital Signs/Intake and Output Vital Signs (last 24 hours): Temp Pulse Resp BP Pulse Ox 98.3 F 65 20 121/60 100 02/18/17 17:01 02/18/17 17:01 02/18/17 17:01 02/18/17 17:01 02/18/17 17:01 - Medications Medications: Current Medications Acetaminophen (Tylenol 325mg Tab) 650 mg PO Q6 PRN PRN Reason: Pain, moderate (4-7) Last Admin: 01/23/17 09:13 Dose: 650 mg Aspirin (Ecotrin) 81 mg PO DAILY [facility] Last Admin: 02/18/17 08:52 Dose: 81 mg Atorvastatin Calcium (Lipitor) 20 mg PO [facility] Last Admin: 02/18/17 21:30 Dose: 20 mg Calcium/Vitamin D (Oscal-D 250 Mg-125 Units Tab) 1 tab PO DAILY [facility] Last Admin: 02/18/17 08:52 Dose: 1 tab Carvedilol (Coreg) 3.125 mg PO DAILY [facility] Last Admin: 02/18/17 08:50 Dose: 3.125 mg Docusate Sodium (Colace) 100 mg PO BID [facility] Last Admin: 02/18/17 16:11 Dose: 100 mg Famotidine (Pepcid) 20 mg PO DAILY [facility] Last Admin: 02/18/17 08:50 Dose: 20 mg Ferrous Sulfate (Feosol) 325 mg PO BID [facility] Last Admin: 02/18/17 16:11 Dose: 325 mg Furosemide (Lasix) 20 mg PO DAILY [facility] Last Admin: 02/18/17 08:52 Dose: 20 mg Lisinopril (Zestril) 5 mg PO DAILY [facility] Last Admin: 02/18/17 08:52 Dose: 5 mg Loratadine (Claritin) 10 mg PO DAILY [facility] Last Admin: 02/18/17 08:49 Dose: 10 mg - Labs Labs: 02/12/17 06:40 02/12/17 09:15 PT 12.5 Seconds (9.8-13.1) 01/17/17 13:40 INR 1.2 (0.9-1.2) 01/17/17 13:40 APTT 27.7 Seconds (25.6-37.1) 01/17/17 13:40 - Constitutional Appears: Well, No Acute Distress, Chronically Ill - Head Exam Head Exam: ATRAUMATIC, NORMAL INSPECTION, NORMOCEPHALIC - Eye Exam Eye Exam: EOMI, Normal appearance, PERRL Pupil Exam: NORMAL ACCOMODATION, PERRL - ENT Exam ENT Exam: Mucous Membranes Moist, Normal Exam - Neck Exam Neck Exam: Full ROM, Normal Inspection. absent: Lymphadenopathy - Respiratory Exam Respiratory Exam: Clear to Ausculation Bilateral, NORMAL BREATHING PATTERN - Cardiovascular Exam Cardiovascular Exam: REGULAR RHYTHM, +S1, +S2. absent: Murmur - GI/Abdominal Exam GI & Abdominal Exam: Soft, Normal Bowel Sounds. absent: Tenderness - Extremities Exam Extremities Exam: Normal Capillary Refill, Pedal Edema - Neurological Exam Neurological Exam: Abnormal Gait, Alert, Awake, CN II-XII Intact, Motor Sensory Deficit - Psychiatric Exam Psychiatric exam: Normal Affect, Normal Mood - Skin Skin Exam: Dry, Intact, Normal Color, Warm Assessment and Plan (1) Unwitnessed fall Assessment & Plan: L5 Fracture S/P Brace Generalized weakness HIP Pain Rhabdomyolysis-resolved Continue PT/OT Status: Acute (2) Frail elderly Assessment & Plan: Unsafe discharge due to dependence for ADL/IADL and Multiple Falls with Fractures Waiting for Placement Status: Acute (3) UTI due to extended-spectrum beta lactamase (ESBL) producing Escherichia coli Status: Resolved
--- NOTE | 2017-02-18 22:58 | CP.PCM.PN ---
Subjective - Date & Time of Evaluation Date of Evaluation: 02/18/17 Time of Evaluation: 07:15 - Subjective Subjective: Seen and examined at the bed side. No Complaint. Waiting the daughter to provide documents required to process her Insurance for halfway placement. Patient is dependent for ADL/IADL and Fallls, and Unsafe to discharge home without continued supervision at home by a family member or alternative person. Objective - Vital Signs/Intake and Output Vital Signs (last 24 hours): Temp Pulse Resp BP Pulse Ox 98.3 F 65 20 121/60 100 02/18/17 17:01 02/18/17 17:01 02/18/17 17:01 02/18/17 17:01 02/18/17 17:01 - Medications Medications: Current Medications Acetaminophen (Tylenol 325mg Tab) 650 mg PO Q6 PRN PRN Reason: Pain, moderate (4-7) Last Admin: 01/23/17 09:13 Dose: 650 mg Aspirin (Ecotrin) 81 mg PO DAILY [facility] Last Admin: 02/18/17 08:52 Dose: 81 mg Atorvastatin Calcium (Lipitor) 20 mg PO [facility] Last Admin: 02/18/17 21:30 Dose: 20 mg Calcium/Vitamin D (Oscal-D 250 Mg-125 Units Tab) 1 tab PO DAILY [facility] Last Admin: 02/18/17 08:52 Dose: 1 tab Carvedilol (Coreg) 3.125 mg PO DAILY [facility] Last Admin: 02/18/17 08:50 Dose: 3.125 mg Docusate Sodium (Colace) 100 mg PO BID [facility] Last Admin: 02/18/17 16:11 Dose: 100 mg Famotidine (Pepcid) 20 mg PO DAILY [facility] Last Admin: 02/18/17 08:50 Dose: 20 mg Ferrous Sulfate (Feosol) 325 mg PO BID [facility] Last Admin: 02/18/17 16:11 Dose: 325 mg Furosemide (Lasix) 20 mg PO DAILY [facility] Last Admin: 02/18/17 08:52 Dose: 20 mg Lisinopril (Zestril) 5 mg PO DAILY [facility] Last Admin: 02/18/17 08:52 Dose: 5 mg Loratadine (Claritin) 10 mg PO DAILY [facility] Last Admin: 02/18/17 08:49 Dose: 10 mg - Labs Labs: 02/12/17 06:40 02/12/17 09:15 PT 12.5 Seconds (9.8-13.1) 01/17/17 13:40 INR 1.2 (0.9-1.2) 01/17/17 13:40 APTT 27.7 Seconds (25.6-37.1) 01/17/17 13:40 Assessment and Plan (1) Unwitnessed fall Assessment & Plan: L5 Fracture S/P Brace Generalized weakness HIP Pain Rhabdomyolysis-resolved Continue PT/OT Status: Acute (2) Frail elderly Assessment & Plan: Unsafe discharge due to dependence for ADL/IADL and Multiple Falls with Fractures Waiting for Placement Status: Acute (3) UTI due to extended-spectrum beta lactamase (ESBL) producing Escherichia coli Status: Resolved Status: Acute
[2017-02-19] MEDS: Calcium-Vit D 250 mg-125 Units Tab UD PO SCH (08:51)
[2017-02-19 12:24] LABS: HEMOGLOBIN 10.5 g/dL (12.0-16.0); MEAN CELL VOLUME 89.2 fl (81.0-99.0); MEAN CORPUSCULAR HEMOGLOBIN 29.4 pg (27.0-31.0); RBC 3.57 Mil/uL (3.80-5.20); RED CELL DISTRIBUTION WIDTH 14.2 % (11.5-14.5); WHITE BLOOD COUNT 5.5 K/uL (4.8-10.8)
[2017-02-19 12:26] LABS: BLOOD UREA NITROGEN 24 mg/dl (7-17); GFR AFRICAN-AMERICAN > 60; GFR NON-AFRICAN AMERICAN > 60
[2017-02-19] MEDS: Enoxaparin 40 mg Syringe SC SCH (12:35)
--- NOTE | 2017-02-19 22:20 | CP.PCM.PN ---
Subjective - Date & Time of Evaluation Date of Evaluation: 02/19/17 Time of Evaluation: 16:25 - Subjective Subjective: Seen and examined at the bed side. No Complaint. Waiting the daughter to provide documents required to process her Insurance for penitentiary placement. Patient is dependent for ADL/IADL and Fallls, and Unsafe to discharge home without continued supervision at home by a family member or alternative person. Objective - Vital Signs/Intake and Output Vital Signs (last 24 hours): Temp Pulse Resp BP Pulse Ox 98.2 F 88 18 93/60 L 95 02/19/17 16:41 02/19/17 16:41 02/19/17 16:41 02/19/17 16:41 02/19/17 16:41 - Medications Medications: Current Medications Acetaminophen (Tylenol 325mg Tab) 650 mg PO Q6 PRN PRN Reason: Pain, moderate (4-7) Last Admin: 01/23/17 09:13 Dose: 650 mg Aspirin (Ecotrin) 81 mg PO DAILY [facility] Last Admin: 02/19/17 08:50 Dose: 81 mg Atorvastatin Calcium (Lipitor) 20 mg PO HS [facility] Last Admin: 02/19/17 21:36 Dose: 20 mg Calcium/Vitamin D (Oscal-D 250 Mg-125 Units Tab) 1 tab PO DAILY [facility] Last Admin: 02/19/17 08:51 Dose: 1 tab Carvedilol (Coreg) 3.125 mg PO DAILY [facility] Last Admin: 02/19/17 08:50 Dose: 3.125 mg Docusate Sodium (Colace) 100 mg PO BID [facility] Last Admin: 02/19/17 16:19 Dose: 100 mg Enoxaparin Sodium (Lovenox) 40 mg SC DAILY [facility] PRN Reason: Protocol Last Admin: 02/19/17 12:35 Dose: 40 mg Famotidine (Pepcid) 20 mg PO DAILY [facility] Last Admin: 02/19/17 08:51 Dose: 20 mg Ferrous Sulfate (Feosol) 325 mg PO BID [facility] Last Admin: 02/19/17 16:19 Dose: 325 mg Furosemide (Lasix) 20 mg PO DAILY [facility] Last Admin: 02/19/17 08:50 Dose: 20 mg Lisinopril (Zestril) 5 mg PO DAILY [facility] Last Admin: 02/19/17 08:49 Dose: 5 mg Loratadine (Claritin) 10 mg PO DAILY [facility] Last Admin: 02/19/17 08:49 Dose: 10 mg - Labs Labs: 02/19/17 11:45 02/19/17 11:45 PT 12.5 Seconds (9.8-13.1) 01/17/17 13:40 INR 1.2 (0.9-1.2) 01/17/17 13:40 APTT 27.7 Seconds (25.6-37.1) 01/17/17 13:40 Assessment and Plan (1) Unwitnessed fall Assessment & Plan: L5 Fracture S/P Brace Generalized weakness HIP Pain Rhabdomyolysis-resolved Continue PT/OT Status: Acute (2) Frail elderly Assessment & Plan: Unsafe discharge due to dependence for ADL/IADL and Multiple Falls with Fractures Waiting for Placement Status: Acute (3) UTI due to extended-spectrum beta lactamase (ESBL) producing Escherichia coli Status: Resolved Status: Acute Status: Resolved
[2017-02-20] MEDS: Enoxaparin 40 mg Syringe SC SCH (09:12)
[2017-02-20] MEDS: Calcium-Vit D 250 mg-125 Units Tab UD PO SCH (09:12)
--- NOTE | 2017-02-20 23:07 | CP.PCM.PN ---
Subjective - Date & Time of Evaluation Date of Evaluation: 02/20/17 Time of Evaluation: 18:50 - Subjective Subjective: Seen and examined at the bed side. No Complaint. Waiting the daughter to provide documents required to process her Insurance for intermediate placement. Patient is dependent for ADL/IADL and Fallls, and Unsafe to discharge home without continued supervision at home by a family member or alternative person. Objective - Vital Signs/Intake and Output Vital Signs (last 24 hours): Temp Pulse Resp BP Pulse Ox 98.9 F 82 20 108/63 99 02/20/17 16:15 02/20/17 16:15 02/20/17 16:15 02/20/17 16:15 02/20/17 16:15 - Medications Medications: Current Medications Acetaminophen (Tylenol 325mg Tab) 650 mg PO Q6 PRN PRN Reason: Pain, moderate (4-7) Last Admin: 01/23/17 09:13 Dose: 650 mg Aspirin (Ecotrin) 81 mg PO DAILY [facility] Last Admin: 02/20/17 09:10 Dose: 81 mg Atorvastatin Calcium (Lipitor) 20 mg PO HS [facility] Last Admin: 02/20/17 22:07 Dose: 20 mg Calcium/Vitamin D (Oscal-D 250 Mg-125 Units Tab) 1 tab PO DAILY [facility] Last Admin: 02/20/17 09:12 Dose: 1 tab Carvedilol (Coreg) 3.125 mg PO DAILY [facility] Last Admin: 02/20/17 09:10 Dose: Not Given Docusate Sodium (Colace) 100 mg PO BID [facility] Last Admin: 02/20/17 16:16 Dose: 100 mg Enoxaparin Sodium (Lovenox) 40 mg SC DAILY [facility] PRN Reason: Protocol Last Admin: 02/20/17 09:12 Dose: 40 mg Famotidine (Pepcid) 20 mg PO DAILY [facility] Last Admin: 02/20/17 09:12 Dose: 20 mg Ferrous Sulfate (Feosol) 325 mg PO BID [facility] Last Admin: 02/20/17 16:16 Dose: 325 mg Furosemide (Lasix) 20 mg PO DAILY [facility] Last Admin: 02/20/17 09:11 Dose: Not Given Lisinopril (Zestril) 5 mg PO DAILY [facility] Last Admin: 02/20/17 09:13 Dose: Not Given Loratadine (Claritin) 10 mg PO DAILY [facility] Last Admin: 02/20/17 09:09 Dose: 10 mg - Labs Labs: 02/19/17 11:45 02/19/17 11:45 PT 12.5 Seconds (9.8-13.1) 01/17/17 13:40 INR 1.2 (0.9-1.2) 01/17/17 13:40 APTT 27.7 Seconds (25.6-37.1) 01/17/17 13:40 Assessment and Plan (1) Unwitnessed fall Assessment & Plan: L5 Fracture S/P Brace Generalized weakness HIP Pain Rhabdomyolysis-resolved Continue PT/OT Status: Acute (2) Frail elderly Assessment & Plan: Unsafe discharge due to dependence for ADL/IADL and Multiple Falls with Fractures Waiting for Placement Status: Acute (3) UTI due to extended-spectrum beta lactamase (ESBL) producing Escherichia coli Status: Resolved Status: Acute Status: Resolved
[2017-02-21] MEDS: Enoxaparin 40 mg Syringe SC SCH (08:54)
[2017-02-21] MEDS: Calcium-Vit D 250 mg-125 Units Tab UD PO SCH (08:54)
--- NOTE | 2017-02-21 13:25 | CP.PCM.PN ---
Subjective - Date & Time of Evaluation Date of Evaluation: 02/21/17 Time of Evaluation: 13:10 - Subjective Subjective: Seen and examined at the bed side. No Complaint. Waiting the daughter to provide documents required to process her Insurance for intermediate placement. Patient is dependent for ADL/IADL and Fallls, and Unsafe to discharge home without continued supervision at home by a family member or alternative person. Objective - Vital Signs/Intake and Output Vital Signs (last 24 hours): Temp Pulse Resp BP Pulse Ox 98.3 F 64 18 106/58 L 100 02/21/17 07:40 02/21/17 07:40 02/21/17 07:40 02/21/17 08:53 02/21/17 07:40 - Medications Medications: Current Medications Acetaminophen (Tylenol 325mg Tab) 650 mg PO Q6 PRN PRN Reason: Pain, moderate (4-7) Last Admin: 01/23/17 09:13 Dose: 650 mg Aspirin (Ecotrin) 81 mg PO DAILY [facility] Last Admin: 02/21/17 08:55 Dose: 81 mg Atorvastatin Calcium (Lipitor) 20 mg PO HS [facility] Last Admin: 02/20/17 22:07 Dose: 20 mg Calcium/Vitamin D (Oscal-D 250 Mg-125 Units Tab) 1 tab PO DAILY [facility] Last Admin: 02/21/17 08:54 Dose: 1 tab Carvedilol (Coreg) 3.125 mg PO DAILY [facility] Last Admin: 02/21/17 08:54 Dose: 3.125 mg Docusate Sodium (Colace) 100 mg PO BID [facility] Last Admin: 02/21/17 08:53 Dose: 100 mg Enoxaparin Sodium (Lovenox) 40 mg SC DAILY [facility] PRN Reason: Protocol Last Admin: 02/21/17 08:54 Dose: 40 mg Famotidine (Pepcid) 20 mg PO DAILY [facility] Last Admin: 02/21/17 08:55 Dose: 20 mg Ferrous Sulfate (Feosol) 325 mg PO BID [facility] Last Admin: 02/21/17 08:55 Dose: 325 mg Furosemide (Lasix) 20 mg PO DAILY [facility] Last Admin: 02/21/17 08:53 Dose: 20 mg Lisinopril (Zestril) 5 mg PO DAILY [facility] Last Admin: 02/21/17 08:54 Dose: 5 mg Loratadine (Claritin) 10 mg PO DAILY [facility] Last Admin: 02/21/17 08:54 Dose: 10 mg - Labs Labs: 02/19/17 11:45 02/19/17 11:45 PT 12.5 Seconds (9.8-13.1) 01/17/17 13:40 INR 1.2 (0.9-1.2) 01/17/17 13:40 APTT 27.7 Seconds (25.6-37.1) 01/17/17 13:40 Assessment and Plan (1) Unwitnessed fall Assessment & Plan: L5 Fracture S/P Brace Generalized weakness HIP Pain Rhabdomyolysis-resolved Continue PT/OT Status: Acute (2) Frail elderly Assessment & Plan: Unsafe discharge due to dependence for ADL/IADL and Multiple Falls with Fractures Waiting for Placement Status: Acute (3) UTI due to extended-spectrum beta lactamase (ESBL) producing Escherichia coli Status: Resolved Status: Acute Status: Resolved
[2017-02-22] MEDS: Enoxaparin 40 mg Syringe SC SCH (09:31)
[2017-02-22] MEDS: Calcium-Vit D 250 mg-125 Units Tab UD PO SCH (09:34)
--- NOTE | 2017-02-22 23:40 | CP.PCM.PN ---
Subjective - Date & Time of Evaluation Date of Evaluation: 02/22/17 Time of Evaluation: 11:00 - Subjective Subjective: Seen and examined at the bed side. No Complaint. Waiting the daughter to provide documents required to process her Insurance for care home placement. Patient is dependent for ADL/IADL and Fallls, and Unsafe to discharge home without continued supervision at home by a family member or alternative person. Objective - Vital Signs/Intake and Output Vital Signs (last 24 hours): Temp Pulse Resp BP Pulse Ox 98.5 F 74 20 96/59 L 99 02/22/17 15:58 02/22/17 15:58 02/22/17 15:58 02/22/17 15:58 02/22/17 15:58 - Medications Medications: Current Medications Acetaminophen (Tylenol 325mg Tab) 650 mg PO Q6 PRN PRN Reason: Pain, moderate (4-7) Last Admin: 01/23/17 09:13 Dose: 650 mg Aspirin (Ecotrin) 81 mg PO DAILY [facility] Last Admin: 02/22/17 09:33 Dose: 81 mg Atorvastatin Calcium (Lipitor) 20 mg PO HS [facility] Last Admin: 02/22/17 21:53 Dose: 20 mg Calcium/Vitamin D (Oscal-D 250 Mg-125 Units Tab) 1 tab PO DAILY [facility] Last Admin: 02/22/17 09:34 Dose: 1 tab Carvedilol (Coreg) 3.125 mg PO DAILY [facility] Last Admin: 02/22/17 09:34 Dose: 3.125 mg Docusate Sodium (Colace) 100 mg PO BID [facility] Last Admin: 02/22/17 18:27 Dose: 100 mg Enoxaparin Sodium (Lovenox) 40 mg SC DAILY [facility] PRN Reason: Protocol Last Admin: 02/22/17 09:31 Dose: 40 mg Famotidine (Pepcid) 20 mg PO DAILY [facility] Last Admin: 02/22/17 09:33 Dose: 20 mg Ferrous Sulfate (Feosol) 325 mg PO BID [facility] Last Admin: 02/22/17 18:27 Dose: 325 mg Furosemide (Lasix) 20 mg PO DAILY [facility] Last Admin: 02/22/17 09:33 Dose: 20 mg Lisinopril (Zestril) 5 mg PO DAILY [facility] Last Admin: 02/22/17 09:34 Dose: 5 mg Loratadine (Claritin) 10 mg PO DAILY [facility] Last Admin: 02/22/17 09:32 Dose: 10 mg - Labs Labs: 02/19/17 11:45 02/19/17 11:45 PT 12.5 Seconds (9.8-13.1) 01/17/17 13:40 INR 1.2 (0.9-1.2) 01/17/17 13:40 APTT 27.7 Seconds (25.6-37.1) 01/17/17 13:40 Assessment and Plan (1) Unwitnessed fall Assessment & Plan: L5 Fracture S/P Brace Generalized weakness HIP Pain Rhabdomyolysis-resolved Continue PT/OT Status: Acute (2) Frail elderly Assessment & Plan: Unsafe discharge due to dependence for ADL/IADL and Multiple Falls with Fractures Waiting for Placement Status: Acute (3) UTI due to extended-spectrum beta lactamase (ESBL) producing Escherichia coli Status: Resolved Status: Acute Status: Resolved
[2017-02-23] MEDS: Enoxaparin 40 mg Syringe SC SCH (09:35)
[2017-02-23] MEDS: Calcium-Vit D 250 mg-125 Units Tab UD PO SCH (09:37)
--- NOTE | 2017-02-23 16:41 | CP.PCM.DIS ---
Provider - Provider Date of Admission: 01/18/17 14:31 Attending physician: Dewayne Quintana MD Time Spent in preparation of Discharge (in minutes): 25 Diagnosis - Discharge Diagnosis (1) Unwitnessed fall Status: Acute Hospital Course - Lab Results Lab Results: Micro Results 01/30/17 15:00 Urine,Catheterized Urine Culture - Final Escherichia Coli Proteus Mirabilis 01/27/17 18:56 Urine,Catheterized Urine Culture - Final Escherichia Coli Most Recent Lab Values WBC 5.5 K/uL (4.8-10.8) D 02/19/17 11:45 RBC 3.57 Mil/uL (3.80-5.20) L 02/19/17 11:45 Hgb 10.5 g/dL (12.0-16.0) L 02/19/17 11:45 Hct 31.8 % (34.0-47.0) L 02/19/17 11:45 MCV 89.2 fl (81.0-99.0) 02/19/17 11:45 MCH 29.4 pg (27.0-31.0) 02/19/17 11:45 MCHC 33.0 g/dL (33.0-37.0) 02/19/17 11:45 RDW 14.2 % (11.5-14.5) 02/19/17 11:45 Plt Count 142 K/uL (130-400) 02/19/17 11:45 MPV 9.9 fl (7.2-11.7) 02/07/17 06:50 Neut % (Auto) 56.5 % (50.0-75.0) 02/07/17 06:50 Lymph % (Auto) 26.5 % (20.0-40.0) 02/07/17 06:50 [place] % (Auto) 14.6 % (0.0-10.0) H 02/07/17 06:50 Eos % (Auto) 1.1 % (0.0-4.0) 02/07/17 06:50 Baso % (Auto) 1.3 % (0.0-2.0) 02/07/17 06:50 Neut # 4.0 K/uL (1.8-7.0) 02/07/17 06:50 Lymph # 1.9 K/uL (1.0-4.3) 02/07/17 06:50 [place] # 1.0 K/uL (0.0-0.8) H 02/07/17 06:50 Eos # 0.1 K/uL (0.0-0.7) 02/07/17 06:50 Baso # 0.1 K/uL (0.0-0.2) 02/07/17 06:50 Neutrophils % (Manual) 86 % (42-75) H 01/17/17 13:40 Lymphocytes % (Manual) 7 % (20-50) L 01/17/17 13:40 Monocytes % (Manual) 6 % (0-10) 01/17/17 13:40 Eosinophils % (Manual) 1 % (0-7) 01/17/17 13:40 Platelet Estimate Normal (NORMAL) 01/17/17 13:40 PT 12.5 Seconds (9.8-13.1) 01/17/17 13:40 INR 1.2 (0.9-1.2) 01/17/17 13:40 APTT 27.7 Seconds (25.6-37.1) 01/17/17 13:40 Sodium 136 mmol/l (132-148) 02/19/17 11:45 Potassium 3.9 MMOL/L (3.6-5.0) 02/19/17 11:45 Chloride 99 mmol/L (98-107) 02/19/17 11:45 Carbon Dioxide 31 mmol/L (22-30) H 02/19/17 11:45 Anion Gap 10 (10-20) 02/19/17 11:45 BUN 24 mg/dl (7-17) H 02/19/17 11:45 Creatinine 0.7 mg/dL (0.7-1.2) 02/19/17 11:45 Est GFR ( Amer) > 60 02/19/17 11:45 Est GFR (Non-Af Amer) > 60 02/19/17 11:45 Random Glucose 80 mg/dL (65-105) 02/19/17 11:45 Calcium 9.0 mg/dL (8.4-10.2) 02/19/17 11:45 Total Bilirubin 1.0 mg/dl (0.2-1.3) 01/17/17 13:40 AST 41 U/L (14-36) H D 01/17/17 13:40 ALT 44 U/L (9-52) 01/17/17 13:40 Alkaline Phosphatase 99 U/L (38-126) 01/17/17 13:40 Total Creatine Kinase 441 U/L (30-135) H 01/17/17 13:40 Troponin I 0.0360 ng/mL (0.00-0.120) 01/17/17 13:40 Total Protein 8.3 G/DL (6.3-8.2) H 01/17/17 13:40 Albumin 4.6 g/dL (3.5-5.0) 01/17/17 13:40 Globulin 3.8 gm/dL (2.2-3.9) 01/17/17 13:40 Albumin/Globulin Ratio 1.2 (1.0-2.1) 01/17/17 13:40 TSH 3rd Generation 2.45 mIU/ML (0.46-4.68) 02/07/17 06:50 Urine Color Yellow (YELLOW) 01/30/17 15:00 Urine Clarity Slighty-cloudy (Clear) 01/30/17 15:00 Urine pH 6.0 (5.0-8.0) 01/30/17 15:00 Ur Specific [place] 1.010 (1.003-1.030) 01/30/17 15:00 Urine Protein Negative mg/dL (NEGATIVE) 01/30/17 15:00 Urine Glucose (UA) Neg mg/dL (Normal) 01/30/17 15:00 Urine Ketones Negative mg/dL (NEGATIVE) 01/30/17 15:00 Urine Blood Small (NEGATIVE) 01/30/17 15:00 Urine Nitrate Positive (NEGATIVE) H 01/30/17 15:00 Urine Bilirubin Negative (NEGATIVE) 01/30/17 15:00 Urine Urobilinogen 0.2-1.0 mg/dL (0.2-1.0) 01/30/17 15:00 Ur Leukocyte Esterase Small [place]/uL (Negative) 01/30/17 15:00 Urine RBC (Auto) 1 /hpf (0-3) 01/30/17 15:00 Urine Microscopic WBC 39 /hpf (0-5) H 01/30/17 15:00 Ur Squamous Epith Cells 3 /hpf (0-5) 01/30/17 15:00 Urine Bacteria Many (<OCC) H 01/30/17 15:00 Blood Type Cancelled 01/17/17 13:40 Antibody Screen Cancelled 01/17/17 13:40 BBK History Checked Cancelled 01/17/17 13:40 Discharge Exam - Head Exam Head Exam: ATRAUMATIC, NORMAL INSPECTION, NORMOCEPHALIC Discharge Plan - Follow Up Plan Condition: FAIR Disposition: HOME/ ROUTINE
[2017-02-24 08:03] LABS: BASO % 0.6 % (0.0-2.0); EOS % 1.1 % (0.0-4.0); HEMOGLOBIN 10.6 g/dL (12.0-16.0); LYMPH % 23.2 % (20.0-40.0); MEAN CORPUSCULAR HEMOGLOBIN 28.6 pg (27.0-31.0); MEAN CORPUSCULAR HGB CONC 31.8 g/dL (33.0-37.0); MONO # 0.5 K/uL (0.0-0.8); MONO % 12.3 % (0.0-10.0); NEUT # 2.7 K/uL (1.8-7.0); NEUT % 62.8 % (50.0-75.0); NRBC % 0.1 % (0.0-0.0); RBC 3.7 Mil/uL (3.80-5.20); RED CELL DISTRIBUTION WIDTH 14.9 % (11.5-14.5); WHITE BLOOD COUNT 4.3 K/uL (4.8-10.8)
[2017-02-24 08:24] LABS: ALB/GLOB RATIO 1.2 (1.0-2.1); BLOOD UREA NITROGEN 27 mg/dl (7-17); GFR AFRICAN-AMERICAN > 60; GFR NON-AFRICAN AMERICAN > 60
[2017-02-24 08:48] LABS: ALBUMIN 3.4 g/dL (3.5-5.0); ALT/SGPT 42 U/L (9-52); AST/SGOT 36 U/L (14-36)
[2017-02-24] MEDS: Enoxaparin 40 mg Syringe SC SCH (09:07)
[2017-02-24] MEDS: Calcium-Vit D 250 mg-125 Units Tab UD PO SCH (09:08)
[2017-02-25] MEDS: Calcium-Vit D 250 mg-125 Units Tab UD PO SCH (09:45)
[2017-02-26] MEDS: Calcium-Vit D 250 mg-125 Units Tab UD PO SCH (08:21)
[2017-02-27] MEDS: Calcium-Vit D 250 mg-125 Units Tab UD PO SCH (09:47)
[2017-02-27] MEDS: Enoxaparin 40 mg Syringe SC SCH (13:35)
--- NOTE | 2017-02-28 10:09 | CP.PCM.PN ---
Subjective - Date & Time of Evaluation Date of Evaluation: 02/28/17 Time of Evaluation: 10:07 - Subjective Subjective: SPINE Pt resting in bed. Repeatedly refuses to get OOB according to PT notes/nursing. States her back is "much better." No more radicular sx's. Will order AP/Lat x-ray of lumbar spine to assess. Pt now approx 6 weeks post injury. Objective - Vital Signs/Intake and Output Vital Signs (last 24 hours): Temp Pulse Resp BP Pulse Ox 98.0 F 74 18 124/70 97 02/28/17 08:02 02/28/17 08:02 02/28/17 08:02 02/28/17 08:02 02/28/17 08:02 - Medications Medications: Current Medications Acetaminophen (Tylenol 325mg Tab) 650 mg PO Q6 PRN PRN Reason: Pain, moderate (4-7) Last Admin: 01/23/17 09:13 Dose: 650 mg Aspirin (Ecotrin) 81 mg PO DAILY [facility] Last Admin: 02/27/17 09:42 Dose: 81 mg Atorvastatin Calcium (Lipitor) 20 mg PO [facility] Last Admin: 02/27/17 21:11 Dose: 20 mg Calcium/Vitamin D (Oscal-D 250 Mg-125 Units Tab) 1 tab PO DAILY [facility] Last Admin: 02/27/17 09:47 Dose: 1 tab Carvedilol (Coreg) 3.125 mg PO DAILY [facility] Last Admin: 02/27/17 09:45 Dose: Not Given Docusate Sodium (Colace) 100 mg PO BID [facility] Last Admin: 02/27/17 18:00 Dose: 100 mg Enoxaparin Sodium (Lovenox) 40 mg SC DAILY [facility] PRN Reason: Protocol Last Admin: 02/27/17 13:35 Dose: 40 mg Famotidine (Pepcid) 20 mg PO DAILY [facility] Last Admin: 02/27/17 09:44 Dose: 20 mg Ferrous Sulfate (Feosol) 325 mg PO BID [facility] Last Admin: 02/27/17 17:00 Dose: 325 mg Furosemide (Lasix) 20 mg PO DAILY [facility] Last Admin: 02/27/17 09:43 Dose: 20 mg Lisinopril (Zestril) 5 mg PO DAILY [facility] Last Admin: 02/27/17 09:45 Dose: Not Given Loratadine (Claritin) 10 mg PO DAILY [facility] Last Admin: 02/27/17 13:38 Dose: 10 mg - Labs Labs: 02/24/17 07:30 02/24/17 06:30 PT 12.5 Seconds (9.8-13.1) 01/17/17 13:40 INR 1.2 (0.9-1.2) 01/17/17 13:40 APTT 27.7 Seconds (25.6-37.1) 01/17/17 13:40
[2017-02-28] MEDS: Calcium-Vit D 250 mg-125 Units Tab UD PO SCH (11:24)
[2017-02-28] MEDS: Enoxaparin 40 mg Syringe SC SCH (11:26)
--- NOTE | 2017-02-28 11:51 | RAD ---
PROCEDURE: Radiographs of the Lumbar Spine. HISTORY: Fracture L5 COMPARISON: 02/03/2015 lumbar spine radiographs. 01/20/2017 MRI lumbar spine. Summary of findings on the comparison examination: Subacute chronic compression fracture L5 segment with no signet retropulsion of fragments. 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 FINDINGS: BONES: Stable wedge deformity L5 vertebral body. Loss of height L3 vertebral body stable. Profound osteopenia DISC SPACES: . OTHER FINDINGS: Calcified nonaneurysmal abdominal aorta. IMPRESSION: No significant interval change compared to the prior examination(s).
--- NOTE | 2017-03-01 01:04 | CP.PCM.PN ---
Subjective - Date & Time of Evaluation Date of Evaluation: 02/23/17 Time of Evaluation: 16:15 - Subjective Subjective: Seen and examined at the bed side. No Complaint. Waiting the daughter to provide documents required to process her Insurance for [facility] placement. Patient is dependent for ADL/IADL and Fallls, and Unsafe to discharge home without continued supervision at home by a family member or alternative person. Objective - Vital Signs/Intake and Output Vital Signs (last 24 hours): Temp Pulse Resp BP Pulse Ox 98.2 F 89 20 110/76 96 03/01/17 00:07 03/01/17 00:07 03/01/17 00:07 03/01/17 00:07 03/01/17 00:07 - Medications Medications: Current Medications Acetaminophen (Tylenol 325mg Tab) 650 mg PO Q6 PRN PRN Reason: Pain, moderate (4-7) Last Admin: 01/23/17 09:13 Dose: 650 mg Aspirin (Ecotrin) 81 mg PO DAILY [facility] Last Admin: 02/28/17 11:25 Dose: 81 mg Atorvastatin Calcium (Lipitor) 20 mg PO [facility] Last Admin: 02/28/17 21:02 Dose: 20 mg Calcium/Vitamin D (Oscal-D 250 Mg-125 Units Tab) 1 tab PO DAILY [facility] Last Admin: 02/28/17 11:24 Dose: 1 tab Carvedilol (Coreg) 3.125 mg PO DAILY [facility] Last Admin: 02/28/17 11:25 Dose: 3.125 mg Docusate Sodium (Colace) 100 mg PO BID [facility] Last Admin: 02/28/17 17:49 Dose: 100 mg Enoxaparin Sodium (Lovenox) 40 mg SC DAILY [facility] PRN Reason: Protocol Last Admin: 02/28/17 11:26 Dose: 40 mg Famotidine (Pepcid) 20 mg PO DAILY [facility] Last Admin: 02/28/17 11:25 Dose: 20 mg Ferrous Sulfate (Feosol) 325 mg PO BID [facility] Last Admin: 02/28/17 17:49 Dose: 325 mg Furosemide (Lasix) 20 mg PO DAILY [facility] Last Admin: 02/28/17 11:24 Dose: 20 mg Lisinopril (Zestril) 5 mg PO DAILY [facility] Last Admin: 02/28/17 13:04 Dose: 5 mg Loratadine (Claritin) 10 mg PO DAILY [facility] Last Admin: 02/28/17 11:26 Dose: 10 mg - Labs Labs: 02/24/17 07:30 02/24/17 06:30 PT 12.5 Seconds (9.8-13.1) 01/17/17 13:40 INR 1.2 (0.9-1.2) 01/17/17 13:40 APTT 27.7 Seconds (25.6-37.1) 01/17/17 13:40 Assessment and Plan (1) Unwitnessed fall Assessment & Plan: L5 Fracture S/P Brace Generalized weakness HIP Pain Rhabdomyolysis-resolved Continue PT/OT Status: Acute (2) Frail elderly Assessment & Plan: Unsafe discharge due to dependence for ADL/IADL and Multiple Falls with Fractures Waiting for Placement Status: Acute (3) UTI due to extended-spectrum beta lactamase (ESBL) producing Escherichia coli Status: Resolved Status: Acute Status: Resolved
--- NOTE | 2017-03-01 01:06 | CP.PCM.PN ---
Subjective - Date & Time of Evaluation Date of Evaluation: 02/24/17 Time of Evaluation: 07:15 - Subjective Subjective: Seen and examined at the bed side. No Complaint. Waiting the daughter to provide documents required to process her Insurance for group home placement. Patient is dependent for ADL/IADL and Fallls, and Unsafe to discharge home without continued supervision at home by a family member or alternative person. Objective - Vital Signs/Intake and Output Vital Signs (last 24 hours): Temp Pulse Resp BP Pulse Ox 98.2 F 89 20 110/76 96 03/01/17 00:07 03/01/17 00:07 03/01/17 00:07 03/01/17 00:07 03/01/17 00:07 - Medications Medications: Current Medications Acetaminophen (Tylenol 325mg Tab) 650 mg PO Q6 PRN PRN Reason: Pain, moderate (4-7) Last Admin: 01/23/17 09:13 Dose: 650 mg Aspirin (Ecotrin) 81 mg PO DAILY [facility] Last Admin: 02/28/17 11:25 Dose: 81 mg Atorvastatin Calcium (Lipitor) 20 mg PO [facility] Last Admin: 02/28/17 21:02 Dose: 20 mg Calcium/Vitamin D (Oscal-D 250 Mg-125 Units Tab) 1 tab PO DAILY [facility] Last Admin: 02/28/17 11:24 Dose: 1 tab Carvedilol (Coreg) 3.125 mg PO DAILY [facility] Last Admin: 02/28/17 11:25 Dose: 3.125 mg Docusate Sodium (Colace) 100 mg PO BID [facility] Last Admin: 02/28/17 17:49 Dose: 100 mg Enoxaparin Sodium (Lovenox) 40 mg SC DAILY [facility] PRN Reason: Protocol Last Admin: 02/28/17 11:26 Dose: 40 mg Famotidine (Pepcid) 20 mg PO DAILY [facility] Last Admin: 02/28/17 11:25 Dose: 20 mg Ferrous Sulfate (Feosol) 325 mg PO BID [facility] Last Admin: 02/28/17 17:49 Dose: 325 mg Furosemide (Lasix) 20 mg PO DAILY [facility] Last Admin: 02/28/17 11:24 Dose: 20 mg Lisinopril (Zestril) 5 mg PO DAILY [facility] Last Admin: 02/28/17 13:04 Dose: 5 mg Loratadine (Claritin) 10 mg PO DAILY [facility] Last Admin: 02/28/17 11:26 Dose: 10 mg - Labs Labs: 02/24/17 07:30 02/24/17 06:30 PT 12.5 Seconds (9.8-13.1) 01/17/17 13:40 INR 1.2 (0.9-1.2) 01/17/17 13:40 APTT 27.7 Seconds (25.6-37.1) 01/17/17 13:40 Assessment and Plan (1) Unwitnessed fall Assessment & Plan: L5 Fracture S/P Brace Generalized weakness HIP Pain Rhabdomyolysis-resolved Continue PT/OT Status: Acute (2) Frail elderly Assessment & Plan: Unsafe discharge due to dependence for ADL/IADL and Multiple Falls with Fractures Waiting for Placement Status: Acute (3) UTI due to extended-spectrum beta lactamase (ESBL) producing Escherichia coli Status: Resolved Status: Acute Status: Resolved
--- NOTE | 2017-03-01 01:08 | CP.PCM.PN ---
Subjective - Date & Time of Evaluation Date of Evaluation: 02/25/17 Time of Evaluation: 19:20 - Subjective Subjective: Seen and examined at the bed side. No Complaint. Waiting the daughter to provide documents required to process her Insurance for care home placement. Patient is dependent for ADL/IADL and Fallls, and Unsafe to discharge home without continued supervision at home by a family member or alternative person. Objective - Vital Signs/Intake and Output Vital Signs (last 24 hours): Temp Pulse Resp BP Pulse Ox 98.2 F 89 20 110/76 96 03/01/17 00:07 03/01/17 00:07 03/01/17 00:07 03/01/17 00:07 03/01/17 00:07 - Medications Medications: Current Medications Acetaminophen (Tylenol 325mg Tab) 650 mg PO Q6 PRN PRN Reason: Pain, moderate (4-7) Last Admin: 01/23/17 09:13 Dose: 650 mg Aspirin (Ecotrin) 81 mg PO DAILY [facility] Last Admin: 02/28/17 11:25 Dose: 81 mg Atorvastatin Calcium (Lipitor) 20 mg PO [facility] Last Admin: 02/28/17 21:02 Dose: 20 mg Calcium/Vitamin D (Oscal-D 250 Mg-125 Units Tab) 1 tab PO DAILY [facility] Last Admin: 02/28/17 11:24 Dose: 1 tab Carvedilol (Coreg) 3.125 mg PO DAILY [facility] Last Admin: 02/28/17 11:25 Dose: 3.125 mg Docusate Sodium (Colace) 100 mg PO BID [facility] Last Admin: 02/28/17 17:49 Dose: 100 mg Enoxaparin Sodium (Lovenox) 40 mg SC DAILY [facility] PRN Reason: Protocol Last Admin: 02/28/17 11:26 Dose: 40 mg Famotidine (Pepcid) 20 mg PO DAILY [facility] Last Admin: 02/28/17 11:25 Dose: 20 mg Ferrous Sulfate (Feosol) 325 mg PO BID [facility] Last Admin: 02/28/17 17:49 Dose: 325 mg Furosemide (Lasix) 20 mg PO DAILY [facility] Last Admin: 02/28/17 11:24 Dose: 20 mg Lisinopril (Zestril) 5 mg PO DAILY [facility] Last Admin: 02/28/17 13:04 Dose: 5 mg Loratadine (Claritin) 10 mg PO DAILY [facility] Last Admin: 02/28/17 11:26 Dose: 10 mg - Labs Labs: 02/24/17 07:30 02/24/17 06:30 PT 12.5 Seconds (9.8-13.1) 01/17/17 13:40 INR 1.2 (0.9-1.2) 01/17/17 13:40 APTT 27.7 Seconds (25.6-37.1) 01/17/17 13:40 Assessment and Plan (1) Unwitnessed fall Assessment & Plan: L5 Fracture S/P Brace Generalized weakness HIP Pain Rhabdomyolysis-resolved Continue PT/OT Status: Acute (2) Frail elderly Assessment & Plan: Unsafe discharge due to dependence for ADL/IADL and Multiple Falls with Fractures Waiting for Placement Status: Acute (3) UTI due to extended-spectrum beta lactamase (ESBL) producing Escherichia coli Status: Resolved Status: Acute Status: Resolved
--- NOTE | 2017-03-01 01:10 | CP.PCM.PN ---
Subjective - Date & Time of Evaluation Date of Evaluation: 02/26/17 Time of Evaluation: 19:35 - Subjective Subjective: Seen and examined at the bed side. No Complaint. Waiting the daughter to provide documents required to process her Insurance for [facility]. Patient is dependent for ADL/IADL and Fallls, and Unsafe to discharge home without continued supervision at home by a family member or alternative person. Objective - Vital Signs/Intake and Output Vital Signs (last 24 hours): Temp Pulse Resp BP Pulse Ox 98.2 F 89 20 110/76 96 03/01/17 00:07 03/01/17 00:07 03/01/17 00:07 03/01/17 00:07 03/01/17 00:07 - Medications Medications: Current Medications Acetaminophen (Tylenol 325mg Tab) 650 mg PO Q6 PRN PRN Reason: Pain, moderate (4-7) Last Admin: 01/23/17 09:13 Dose: 650 mg Aspirin (Ecotrin) 81 mg PO DAILY [facility] Last Admin: 02/28/17 11:25 Dose: 81 mg Atorvastatin Calcium (Lipitor) 20 mg PO [facility] Last Admin: 02/28/17 21:02 Dose: 20 mg Calcium/Vitamin D (Oscal-D 250 Mg-125 Units Tab) 1 tab PO DAILY [facility] Last Admin: 02/28/17 11:24 Dose: 1 tab Carvedilol (Coreg) 3.125 mg PO DAILY [facility] Last Admin: 02/28/17 11:25 Dose: 3.125 mg Docusate Sodium (Colace) 100 mg PO BID [facility] Last Admin: 02/28/17 17:49 Dose: 100 mg Enoxaparin Sodium (Lovenox) 40 mg SC DAILY [facility] PRN Reason: Protocol Last Admin: 02/28/17 11:26 Dose: 40 mg Famotidine (Pepcid) 20 mg PO DAILY [facility] Last Admin: 02/28/17 11:25 Dose: 20 mg Ferrous Sulfate (Feosol) 325 mg PO BID [facility] Last Admin: 02/28/17 17:49 Dose: 325 mg Furosemide (Lasix) 20 mg PO DAILY [facility] Last Admin: 02/28/17 11:24 Dose: 20 mg Lisinopril (Zestril) 5 mg PO DAILY [facility] Last Admin: 02/28/17 13:04 Dose: 5 mg Loratadine (Claritin) 10 mg PO DAILY [facility] Last Admin: 02/28/17 11:26 Dose: 10 mg - Labs Labs: 02/24/17 07:30 02/24/17 06:30 PT 12.5 Seconds (9.8-13.1) 01/17/17 13:40 INR 1.2 (0.9-1.2) 01/17/17 13:40 APTT 27.7 Seconds (25.6-37.1) 01/17/17 13:40 Assessment and Plan (1) Unwitnessed fall Assessment & Plan: L5 Fracture S/P Brace Generalized weakness HIP Pain Rhabdomyolysis-resolved Continue PT/OT Status: Acute (2) Frail elderly Assessment & Plan: Unsafe discharge due to dependence for ADL/IADL and Multiple Falls with Fractures Waiting for Placement Status: Acute (3) UTI due to extended-spectrum beta lactamase (ESBL) producing Escherichia coli Status: Resolved Status: Acute Status: Resolved
--- NOTE | 2017-03-01 01:11 | CP.PCM.PN ---
Subjective - Date & Time of Evaluation Date of Evaluation: 02/27/17 Time of Evaluation: 18:25 - Subjective Subjective: Seen and examined at the bed side. No Complaint. Waiting the daughter to provide documents required to process her Insurance for residential placement. Patient is dependent for ADL/IADL and Fallls, and Unsafe to discharge home without continued supervision at home by a family member or alternative person. Objective - Vital Signs/Intake and Output Vital Signs (last 24 hours): Temp Pulse Resp BP Pulse Ox 98.2 F 89 20 110/76 96 03/01/17 00:07 03/01/17 00:07 03/01/17 00:07 03/01/17 00:07 03/01/17 00:07 - Medications Medications: Current Medications Acetaminophen (Tylenol 325mg Tab) 650 mg PO Q6 PRN PRN Reason: Pain, moderate (4-7) Last Admin: 01/23/17 09:13 Dose: 650 mg Aspirin (Ecotrin) 81 mg PO DAILY [facility] Last Admin: 02/28/17 11:25 Dose: 81 mg Atorvastatin Calcium (Lipitor) 20 mg PO [facility] Last Admin: 02/28/17 21:02 Dose: 20 mg Calcium/Vitamin D (Oscal-D 250 Mg-125 Units Tab) 1 tab PO DAILY [facility] Last Admin: 02/28/17 11:24 Dose: 1 tab Carvedilol (Coreg) 3.125 mg PO DAILY [facility] Last Admin: 02/28/17 11:25 Dose: 3.125 mg Docusate Sodium (Colace) 100 mg PO BID [facility] Last Admin: 02/28/17 17:49 Dose: 100 mg Enoxaparin Sodium (Lovenox) 40 mg SC DAILY [facility] PRN Reason: Protocol Last Admin: 02/28/17 11:26 Dose: 40 mg Famotidine (Pepcid) 20 mg PO DAILY [facility] Last Admin: 02/28/17 11:25 Dose: 20 mg Ferrous Sulfate (Feosol) 325 mg PO BID [facility] Last Admin: 02/28/17 17:49 Dose: 325 mg Furosemide (Lasix) 20 mg PO DAILY [facility] Last Admin: 02/28/17 11:24 Dose: 20 mg Lisinopril (Zestril) 5 mg PO DAILY [facility] Last Admin: 02/28/17 13:04 Dose: 5 mg Loratadine (Claritin) 10 mg PO DAILY [facility] Last Admin: 02/28/17 11:26 Dose: 10 mg - Labs Labs: 02/24/17 07:30 02/24/17 06:30 PT 12.5 Seconds (9.8-13.1) 01/17/17 13:40 INR 1.2 (0.9-1.2) 01/17/17 13:40 APTT 27.7 Seconds (25.6-37.1) 01/17/17 13:40 Assessment and Plan (1) Unwitnessed fall Assessment & Plan: L5 Fracture S/P Brace Generalized weakness HIP Pain Rhabdomyolysis-resolved Continue PT/OT Status: Acute (2) Frail elderly Assessment & Plan: Unsafe discharge due to dependence for ADL/IADL and Multiple Falls with Fractures Waiting for Placement Status: Acute (3) UTI due to extended-spectrum beta lactamase (ESBL) producing Escherichia coli Status: Resolved Status: Acute Status: Resolved
--- NOTE | 2017-03-01 01:12 | CP.PCM.PN ---
Subjective - Date & Time of Evaluation Date of Evaluation: 02/28/17 Time of Evaluation: 19:15 - Subjective Subjective: Seen and examined at the bed side. No Complaint. Waiting the daughter to provide documents required to process her Insurance for [facility] placement. Patient is dependent for ADL/IADL and Fallls, and Unsafe to discharge home without continued supervision at home by a family member or alternative person. Objective - Vital Signs/Intake and Output Vital Signs (last 24 hours): Temp Pulse Resp BP Pulse Ox 98.2 F 89 20 110/76 96 03/01/17 00:07 03/01/17 00:07 03/01/17 00:07 03/01/17 00:07 03/01/17 00:07 - Medications Medications: Current Medications Acetaminophen (Tylenol 325mg Tab) 650 mg PO Q6 PRN PRN Reason: Pain, moderate (4-7) Last Admin: 01/23/17 09:13 Dose: 650 mg Aspirin (Ecotrin) 81 mg PO DAILY [facility] Last Admin: 02/28/17 11:25 Dose: 81 mg Atorvastatin Calcium (Lipitor) 20 mg PO [facility] Last Admin: 02/28/17 21:02 Dose: 20 mg Calcium/Vitamin D (Oscal-D 250 Mg-125 Units Tab) 1 tab PO DAILY [facility] Last Admin: 02/28/17 11:24 Dose: 1 tab Carvedilol (Coreg) 3.125 mg PO DAILY [facility] Last Admin: 02/28/17 11:25 Dose: 3.125 mg Docusate Sodium (Colace) 100 mg PO BID [facility] Last Admin: 02/28/17 17:49 Dose: 100 mg Enoxaparin Sodium (Lovenox) 40 mg SC DAILY [facility] PRN Reason: Protocol Last Admin: 02/28/17 11:26 Dose: 40 mg Famotidine (Pepcid) 20 mg PO DAILY [facility] Last Admin: 02/28/17 11:25 Dose: 20 mg Ferrous Sulfate (Feosol) 325 mg PO BID [facility] Last Admin: 02/28/17 17:49 Dose: 325 mg Furosemide (Lasix) 20 mg PO DAILY [facility] Last Admin: 02/28/17 11:24 Dose: 20 mg Lisinopril (Zestril) 5 mg PO DAILY [facility] Last Admin: 02/28/17 13:04 Dose: 5 mg Loratadine (Claritin) 10 mg PO DAILY [facility] Last Admin: 02/28/17 11:26 Dose: 10 mg - Labs Labs: 02/24/17 07:30 02/24/17 06:30 PT 12.5 Seconds (9.8-13.1) 01/17/17 13:40 INR 1.2 (0.9-1.2) 01/17/17 13:40 APTT 27.7 Seconds (25.6-37.1) 01/17/17 13:40 Assessment and Plan (1) Unwitnessed fall Assessment & Plan: Back Pain Ambulation Problem Right Foot Droop Frail Elderly Wheelchair Dependent Continue Pain Management Continue PT/OT, and Out of bed to Chair daily Waiting Medicaid Application approval SW and her daughter with POA processing the Medicaid Application. Continue all Current Medication and Care (2) Frail elderly Status: Chronic (3) Hip pain Status: Resolved (4) UTI due to extended-spectrum beta lactamase (ESBL) producing Escherichia coli Status: Resolved (5) Adult idiopathic generalized osteoporosis Status: Chronic (6) DVT prophylaxis Status: Acute (7) Hypercholesterolemia Status: Chronic (8) Hypothyroid Status: Chronic (9) Pulmonary hypertension Status: Chronic (10) HTN (hypertension) Status: Chronic Status: Resolved
[2017-03-01 07:37] LABS: BASO % 0.6 % (0.0-2.0); EOS # 0.1 K/uL (0.0-0.7); EOS % 1.6 % (0.0-4.0); LYMPH # 1.3 K/uL (1.0-4.3); LYMPH % 30.8 % (20.0-40.0); MEAN CELL VOLUME 89.7 fl (81.0-99.0); MEAN CORPUSCULAR HEMOGLOBIN 28.8 pg (27.0-31.0); MEAN CORPUSCULAR HGB CONC 32.1 g/dL (33.0-37.0); MEAN PLATELET VOLUME 9.5 fl (7.2-11.7); MONO # 0.6 K/uL (0.0-0.8); MONO % 14.2 % (0.0-10.0); NEUT # 2.3 K/uL (1.8-7.0); NEUT % 52.8 % (50.0-75.0); NRBC % 0.2 % (0.0-0.0); RBC 3.47 Mil/uL (3.80-5.20); WHITE BLOOD COUNT 4.3 K/uL (4.8-10.8)
[2017-03-01 07:52] LABS: BLOOD UREA NITROGEN 26 mg/dl (7-17); GFR AFRICAN-AMERICAN > 60; GFR NON-AFRICAN AMERICAN > 60
[2017-03-01] MEDS: Enoxaparin 40 mg Syringe SC SCH (08:35)
[2017-03-01] MEDS: Calcium-Vit D 250 mg-125 Units Tab UD PO SCH (08:36)
--- NOTE | 2017-03-01 13:03 | CP.PCM.PN ---
Subjective - Date & Time of Evaluation Date of Evaluation: 03/01/17 Time of Evaluation: 13:01 - Subjective Subjective: SPINE X-rays reviewed. No apparent change from previous studies. Therefore continue to mobilize pt (as she allows). No further intervention needed as pt states she is asymptomatic. Thanks. Objective - Vital Signs/Intake and Output Vital Signs (last 24 hours): Temp Pulse Resp BP Pulse Ox 97.9 F 66 18 94/57 L 99 03/01/17 07:31 03/01/17 07:31 03/01/17 07:31 03/01/17 08:37 03/01/17 07:31 - Medications Medications: Current Medications Acetaminophen (Tylenol 325mg Tab) 650 mg PO Q6 PRN PRN Reason: Pain, moderate (4-7) Last Admin: 01/23/17 09:13 Dose: 650 mg Aspirin (Ecotrin) 81 mg PO DAILY [facility] Last Admin: 03/01/17 08:35 Dose: 81 mg Atorvastatin Calcium (Lipitor) 20 mg PO HS [facility] Last Admin: 02/28/17 21:02 Dose: 20 mg Calcium/Vitamin D (Oscal-D 250 Mg-125 Units Tab) 1 tab PO DAILY [facility] Last Admin: 03/01/17 08:36 Dose: 1 tab Carvedilol (Coreg) 3.125 mg PO DAILY [facility] Last Admin: 03/01/17 08:37 Dose: Not Given Docusate Sodium (Colace) 100 mg PO BID [facility] Last Admin: 03/01/17 08:34 Dose: 100 mg Enoxaparin Sodium (Lovenox) 40 mg SC DAILY [facility] PRN Reason: Protocol Last Admin: 03/01/17 08:35 Dose: 40 mg Famotidine (Pepcid) 20 mg PO DAILY [facility] Last Admin: 03/01/17 08:35 Dose: 20 mg Ferrous Sulfate (Feosol) 325 mg PO BID [facility] Last Admin: 03/01/17 08:35 Dose: 325 mg Furosemide (Lasix) 20 mg PO DAILY [facility] Last Admin: 03/01/17 08:37 Dose: Not Given Lisinopril (Zestril) 5 mg PO DAILY [facility] Last Admin: 03/01/17 08:36 Dose: Not Given Loratadine (Claritin) 10 mg PO DAILY [facility] Last Admin: 03/01/17 08:35 Dose: 10 mg - Labs Labs: 03/01/17 07:00 03/01/17 07:00 PT 12.5 Seconds (9.8-13.1) 01/17/17 13:40 INR 1.2 (0.9-1.2) 01/17/17 13:40 APTT 27.7 Seconds (25.6-37.1) 01/17/17 13:40
[2017-03-02] MEDS: Calcium-Vit D 250 mg-125 Units Tab UD PO SCH (09:40)
[2017-03-02] MEDS: Enoxaparin 40 mg Syringe SC SCH (09:40)
[2017-03-03] MEDS: Calcium-Vit D 250 mg-125 Units Tab UD PO SCH (08:44)
[2017-03-03] MEDS: Enoxaparin 40 mg Syringe SC SCH (08:46)
[2017-03-04] MEDS: Calcium-Vit D 250 mg-125 Units Tab UD PO SCH (09:13)
[2017-03-04] MEDS: Enoxaparin 40 mg Syringe SC SCH (09:14)
[2017-03-05] MEDS: Enoxaparin 40 mg Syringe SC SCH (10:27)
[2017-03-05] MEDS: Calcium-Vit D 250 mg-125 Units Tab UD PO SCH (10:30)
--- NOTE | 2017-03-05 23:21 | CP.PCM.PN ---
Subjective - Date & Time of Evaluation Date of Evaluation: 03/01/17 Time of Evaluation: 07:15 - Subjective Subjective: Seen and examined at the bed side. No Complaint. Waiting the daughter to provide documents required to process her Insurance for group home placement. Patient is dependent for ADL/IADL and Fallls, and Unsafe to discharge home without continued supervision at home by a family member or alternative person. Objective - Vital Signs/Intake and Output Vital Signs (last 24 hours): Temp Pulse Resp BP Pulse Ox 98.6 F 90 18 94/53 L 100 03/05/17 16:53 03/05/17 16:53 03/05/17 16:53 03/05/17 16:53 03/05/17 16:53 - Medications Medications: Current Medications Acetaminophen (Tylenol 325mg Tab) 650 mg PO Q6 PRN PRN Reason: Pain, moderate (4-7) Last Admin: 01/23/17 09:13 Dose: 650 mg Aspirin (Ecotrin) 81 mg PO DAILY [facility] Last Admin: 03/05/17 10:30 Dose: 81 mg Atorvastatin Calcium (Lipitor) 20 mg PO HS [facility] Last Admin: 03/05/17 21:17 Dose: 20 mg Calcium/Vitamin D (Oscal-D 250 Mg-125 Units Tab) 1 tab PO DAILY [facility] Last Admin: 03/05/17 10:30 Dose: 1 tab Carvedilol (Coreg) 3.125 mg PO DAILY [facility] Last Admin: 03/05/17 10:36 Dose: Not Given Docusate Sodium (Colace) 100 mg PO BID [facility] Last Admin: 03/05/17 16:51 Dose: 100 mg Enoxaparin Sodium (Lovenox) 40 mg SC DAILY [facility] PRN Reason: Protocol Last Admin: 03/05/17 10:27 Dose: 40 mg Famotidine (Pepcid) 20 mg PO DAILY [facility] Last Admin: 03/05/17 10:31 Dose: 20 mg Ferrous Sulfate (Feosol) 325 mg PO BID [facility] Last Admin: 03/05/17 16:51 Dose: 325 mg Furosemide (Lasix) 20 mg PO DAILY [facility] Last Admin: 03/05/17 10:31 Dose: Not Given Lisinopril (Zestril) 5 mg PO DAILY [facility] Last Admin: 03/05/17 10:37 Dose: Not Given Loratadine (Claritin) 10 mg PO DAILY [facility] Last Admin: 03/05/17 10:32 Dose: 10 mg - Labs Labs: 03/01/17 07:00 03/01/17 07:00 PT 12.5 Seconds (9.8-13.1) 01/17/17 13:40 INR 1.2 (0.9-1.2) 01/17/17 13:40 APTT 27.7 Seconds (25.6-37.1) 01/17/17 13:40 Assessment and Plan (1) Unwitnessed fall Assessment & Plan: Back Pain Ambulation Problem Right Foot Droop Frail Elderly Wheelchair Dependent Continue Pain Management Continue PT/OT, and Out of bed to Chair daily Waiting Medicaid Application approval SW and her daughter with POA processing the Medicaid Application. Continue all Current Medication and Care (2) Frail elderly Status: Chronic (3) Hip pain Status: Resolved (4) UTI due to extended-spectrum beta lactamase (ESBL) producing Escherichia coli Status: Resolved (5) Adult idiopathic generalized osteoporosis Status: Chronic (6) DVT prophylaxis Status: Acute (7) Hypercholesterolemia Status: Chronic (8) Hypothyroid Status: Chronic (9) Pulmonary hypertension Status: Chronic (10) HTN (hypertension) Status: Chronic Status: Resolved
--- NOTE | 2017-03-05 23:23 | CP.PCM.PN ---
Subjective - Date & Time of Evaluation Date of Evaluation: 03/02/17 Time of Evaluation: 08:00 - Subjective Subjective: Seen and examined at the bed side. No Complaint. Waiting the daughter to provide documents required to process her Insurance for senior care placement. Patient is dependent for ADL/IADL and Fallls, and Unsafe to discharge home without continued supervision at home by a family member or alternative person. Objective - Vital Signs/Intake and Output Vital Signs (last 24 hours): Temp Pulse Resp BP Pulse Ox 98.6 F 90 18 94/53 L 100 03/05/17 16:53 03/05/17 16:53 03/05/17 16:53 03/05/17 16:53 03/05/17 16:53 - Medications Medications: Current Medications Acetaminophen (Tylenol 325mg Tab) 650 mg PO Q6 PRN PRN Reason: Pain, moderate (4-7) Last Admin: 01/23/17 09:13 Dose: 650 mg Aspirin (Ecotrin) 81 mg PO DAILY [facility] Last Admin: 03/05/17 10:30 Dose: 81 mg Atorvastatin Calcium (Lipitor) 20 mg PO HS [facility] Last Admin: 03/05/17 21:17 Dose: 20 mg Calcium/Vitamin D (Oscal-D 250 Mg-125 Units Tab) 1 tab PO DAILY [facility] Last Admin: 03/05/17 10:30 Dose: 1 tab Carvedilol (Coreg) 3.125 mg PO DAILY [facility] Last Admin: 03/05/17 10:36 Dose: Not Given Docusate Sodium (Colace) 100 mg PO BID [facility] Last Admin: 03/05/17 16:51 Dose: 100 mg Enoxaparin Sodium (Lovenox) 40 mg SC DAILY [facility] PRN Reason: Protocol Last Admin: 03/05/17 10:27 Dose: 40 mg Famotidine (Pepcid) 20 mg PO DAILY [facility] Last Admin: 03/05/17 10:31 Dose: 20 mg Ferrous Sulfate (Feosol) 325 mg PO BID [facility] Last Admin: 03/05/17 16:51 Dose: 325 mg Furosemide (Lasix) 20 mg PO DAILY [facility] Last Admin: 03/05/17 10:31 Dose: Not Given Lisinopril (Zestril) 5 mg PO DAILY [facility] Last Admin: 03/05/17 10:37 Dose: Not Given Loratadine (Claritin) 10 mg PO DAILY [facility] Last Admin: 03/05/17 10:32 Dose: 10 mg - Labs Labs: 03/01/17 07:00 03/01/17 07:00 PT 12.5 Seconds (9.8-13.1) 01/17/17 13:40 INR 1.2 (0.9-1.2) 01/17/17 13:40 APTT 27.7 Seconds (25.6-37.1) 01/17/17 13:40 Assessment and Plan (1) Unwitnessed fall Assessment & Plan: Back Pain Ambulation Problem Right Foot Droop Frail Elderly Wheelchair Dependent Continue Pain Management Continue PT/OT, and Out of bed to Chair daily Waiting Medicaid Application approval SW and her daughter with POA processing the Medicaid Application. Continue all Current Medication and Care (2) Frail elderly Status: Chronic (3) Hip pain Status: Resolved (4) UTI due to extended-spectrum beta lactamase (ESBL) producing Escherichia coli Status: Resolved (5) Adult idiopathic generalized osteoporosis Status: Chronic (6) DVT prophylaxis Status: Acute (7) Hypercholesterolemia Status: Chronic (8) Hypothyroid Status: Chronic (9) Pulmonary hypertension Status: Chronic (10) HTN (hypertension) Status: Chronic Status: Resolved
--- NOTE | 2017-03-05 23:24 | CP.PCM.PN ---
Subjective - Date & Time of Evaluation Date of Evaluation: 03/03/17 Time of Evaluation: 07:45 - Subjective Subjective: Seen and examined at the bed side. No Complaint. Waiting the daughter to provide documents required to process her Insurance for alf placement. Patient is dependent for ADL/IADL and Fallls, and Unsafe to discharge home without continued supervision at home by a family member or alternative person. Objective - Vital Signs/Intake and Output Vital Signs (last 24 hours): Temp Pulse Resp BP Pulse Ox 98.6 F 90 18 94/53 L 100 03/05/17 16:53 03/05/17 16:53 03/05/17 16:53 03/05/17 16:53 03/05/17 16:53 - Medications Medications: Current Medications Acetaminophen (Tylenol 325mg Tab) 650 mg PO Q6 PRN PRN Reason: Pain, moderate (4-7) Last Admin: 01/23/17 09:13 Dose: 650 mg Aspirin (Ecotrin) 81 mg PO DAILY [facility] Last Admin: 03/05/17 10:30 Dose: 81 mg Atorvastatin Calcium (Lipitor) 20 mg PO HS [facility] Last Admin: 03/05/17 21:17 Dose: 20 mg Calcium/Vitamin D (Oscal-D 250 Mg-125 Units Tab) 1 tab PO DAILY [facility] Last Admin: 03/05/17 10:30 Dose: 1 tab Carvedilol (Coreg) 3.125 mg PO DAILY [facility] Last Admin: 03/05/17 10:36 Dose: Not Given Docusate Sodium (Colace) 100 mg PO BID [facility] [place] Last Admin: 03/05/17 16:51 Dose: 100 mg Enoxaparin Sodium (Lovenox) 40 mg SC DAILY [facility] PRN Reason: Protocol Last Admin: 03/05/17 10:27 Dose: 40 mg Famotidine (Pepcid) 20 mg PO DAILY [facility] [place] Last Admin: 03/05/17 10:31 Dose: 20 mg Ferrous Sulfate (Feosol) 325 mg PO BID [facility] [place] Last Admin: 03/05/17 16:51 Dose: 325 mg Furosemide (Lasix) 20 mg PO DAILY [facility] Last Admin: 03/05/17 10:31 Dose: Not Given Lisinopril (Zestril) 5 mg PO DAILY [facility] [place] Last Admin: 03/05/17 10:37 Dose: Not Given Loratadine (Claritin) 10 mg PO DAILY [facility] Last Admin: 03/05/17 10:32 Dose: 10 mg - Labs Labs: 03/01/17 07:00 03/01/17 07:00 PT 12.5 Seconds (9.8-13.1) 01/17/17 13:40 INR 1.2 (0.9-1.2) 01/17/17 13:40 APTT 27.7 Seconds (25.6-37.1) 01/17/17 13:40 Assessment and Plan (1) Unwitnessed fall Assessment & Plan: Back Pain Ambulation Problem Right Foot Droop Frail Elderly Wheelchair Dependent Continue Pain Management Continue PT/OT, and Out of bed to Chair daily Waiting Medicaid Application approval SW and her daughter with POA processing the Medicaid Application. Continue all Current Medication and Care (2) Frail elderly Status: Chronic (3) Hip pain Status: Resolved (4) UTI due to extended-spectrum beta lactamase (ESBL) producing Escherichia coli Status: Resolved (5) Adult idiopathic generalized osteoporosis Status: Chronic (6) DVT prophylaxis Status: Acute (7) Hypercholesterolemia Status: Chronic (8) Hypothyroid Status: Chronic (9) Pulmonary hypertension Status: Chronic (10) HTN (hypertension) Status: Chronic Status: Resolved
--- NOTE | 2017-03-05 23:25 | CP.PCM.PN ---
Subjective - Date & Time of Evaluation Date of Evaluation: 03/04/17 Time of Evaluation: 07:45 - Subjective Subjective: Seen and examined at the bed side. No Complaint. Waiting the daughter to provide documents required to process her Insurance for halfway placement. Patient is dependent for ADL/IADL and Fallls, and Unsafe to discharge home without continued supervision at home by a family member or alternative person. Objective - Vital Signs/Intake and Output Vital Signs (last 24 hours): Temp Pulse Resp BP Pulse Ox 98.6 F 90 18 94/53 L 100 03/05/17 16:53 03/05/17 16:53 03/05/17 16:53 03/05/17 16:53 03/05/17 16:53 - Medications Medications: Current Medications Acetaminophen (Tylenol 325mg Tab) 650 mg PO Q6 PRN PRN Reason: Pain, moderate (4-7) Last Admin: 01/23/17 09:13 Dose: 650 mg Aspirin (Ecotrin) 81 mg PO DAILY [facility] Last Admin: 03/05/17 10:30 Dose: 81 mg Atorvastatin Calcium (Lipitor) 20 mg PO HS [facility] Last Admin: 03/05/17 21:17 Dose: 20 mg Calcium/Vitamin D (Oscal-D 250 Mg-125 Units Tab) 1 tab PO DAILY [facility] Last Admin: 03/05/17 10:30 Dose: 1 tab Carvedilol (Coreg) 3.125 mg PO DAILY [facility] Last Admin: 03/05/17 10:36 Dose: Not Given Docusate Sodium (Colace) 100 mg PO BID [facility] Last Admin: 03/05/17 16:51 Dose: 100 mg Enoxaparin Sodium (Lovenox) 40 mg SC DAILY [facility] PRN Reason: Protocol Last Admin: 03/05/17 10:27 Dose: 40 mg Famotidine (Pepcid) 20 mg PO DAILY [facility] Last Admin: 03/05/17 10:31 Dose: 20 mg Ferrous Sulfate (Feosol) 325 mg PO BID [facility] Last Admin: 03/05/17 16:51 Dose: 325 mg Furosemide (Lasix) 20 mg PO DAILY [facility] Last Admin: 03/05/17 10:31 Dose: Not Given Lisinopril (Zestril) 5 mg PO DAILY [facility] Last Admin: 03/05/17 10:37 Dose: Not Given Loratadine (Claritin) 10 mg PO DAILY [facility] Last Admin: 03/05/17 10:32 Dose: 10 mg - Labs Labs: 03/01/17 07:00 03/01/17 07:00 PT 12.5 Seconds (9.8-13.1) 01/17/17 13:40 INR 1.2 (0.9-1.2) 01/17/17 13:40 APTT 27.7 Seconds (25.6-37.1) 01/17/17 13:40 Assessment and Plan (1) Unwitnessed fall Assessment & Plan: Back Pain Ambulation Problem Right Foot Droop Frail Elderly Wheelchair Dependent Continue Pain Management Continue PT/OT, and Out of bed to Chair daily Waiting Medicaid Application approval SW and her daughter with POA processing the Medicaid Application. Continue all Current Medication and Care (2) Frail elderly Status: Chronic (3) Hip pain Status: Resolved (4) UTI due to extended-spectrum beta lactamase (ESBL) producing Escherichia coli Status: Resolved (5) Adult idiopathic generalized osteoporosis Status: Chronic (6) DVT prophylaxis Status: Acute (7) Hypercholesterolemia Status: Chronic (8) Hypothyroid Status: Chronic (9) Pulmonary hypertension Status: Chronic (10) HTN (hypertension) Status: Chronic Status: Resolved
--- NOTE | 2017-03-05 23:26 | CP.PCM.PN ---
Subjective - Date & Time of Evaluation Date of Evaluation: 03/05/17 Time of Evaluation: 19:45 - Subjective Subjective: Seen and examined at the bed side. No Complaint. Waiting the daughter to provide documents required to process her Insurance for residential placement. Patient is dependent for ADL/IADL and Fallls, and Unsafe to discharge home without continued supervision at home by a family member or alternative person. Objective - Vital Signs/Intake and Output Vital Signs (last 24 hours): Temp Pulse Resp BP Pulse Ox 98.6 F 90 18 94/53 L 100 03/05/17 16:53 03/05/17 16:53 03/05/17 16:53 03/05/17 16:53 03/05/17 16:53 - Medications Medications: Current Medications Acetaminophen (Tylenol 325mg Tab) 650 mg PO Q6 PRN PRN Reason: Pain, moderate (4-7) Last Admin: 01/23/17 09:13 Dose: 650 mg Aspirin (Ecotrin) 81 mg PO DAILY [facility] Last Admin: 03/05/17 10:30 Dose: 81 mg Atorvastatin Calcium (Lipitor) 20 mg PO HS [facility] Last Admin: 03/05/17 21:17 Dose: 20 mg Calcium/Vitamin D (Oscal-D 250 Mg-125 Units Tab) 1 tab PO DAILY [facility] Last Admin: 03/05/17 10:30 Dose: 1 tab Carvedilol (Coreg) 3.125 mg PO DAILY [facility] Last Admin: 03/05/17 10:36 Dose: Not Given Docusate Sodium (Colace) 100 mg PO BID [facility] Last Admin: 03/05/17 16:51 Dose: 100 mg Enoxaparin Sodium (Lovenox) 40 mg SC DAILY [facility] PRN Reason: Protocol Last Admin: 03/05/17 10:27 Dose: 40 mg Famotidine (Pepcid) 20 mg PO DAILY [facility] Last Admin: 03/05/17 10:31 Dose: 20 mg Ferrous Sulfate (Feosol) 325 mg PO BID [facility] Last Admin: 03/05/17 16:51 Dose: 325 mg Furosemide (Lasix) 20 mg PO DAILY [facility] Last Admin: 03/05/17 10:31 Dose: Not Given Lisinopril (Zestril) 5 mg PO DAILY [facility] Last Admin: 03/05/17 10:37 Dose: Not Given Loratadine (Claritin) 10 mg PO DAILY [facility] Last Admin: 03/05/17 10:32 Dose: 10 mg - Labs Labs: 03/01/17 07:00 03/01/17 07:00 PT 12.5 Seconds (9.8-13.1) 01/17/17 13:40 INR 1.2 (0.9-1.2) 01/17/17 13:40 APTT 27.7 Seconds (25.6-37.1) 01/17/17 13:40 Assessment and Plan (1) Unwitnessed fall Assessment & Plan: Back Pain Ambulation Problem Right Foot Droop Frail Elderly Wheelchair Dependent Continue Pain Management Continue PT/OT, and Out of bed to Chair daily Waiting Medicaid Application approval SW and her daughter with POA processing the Medicaid Application. Continue all Current Medication and Care (2) Frail elderly Status: Chronic (3) Hip pain Status: Resolved (4) UTI due to extended-spectrum beta lactamase (ESBL) producing Escherichia coli Status: Resolved (5) Adult idiopathic generalized osteoporosis Status: Chronic (6) DVT prophylaxis Status: Acute (7) Hypercholesterolemia Status: Chronic (8) Hypothyroid Status: Chronic (9) Pulmonary hypertension Status: Chronic (10) HTN (hypertension) Status: Chronic Status: Resolved
[2017-03-06] MEDS: Enoxaparin 40 mg Syringe SC SCH (08:30)
[2017-03-06] MEDS: Calcium-Vit D 250 mg-125 Units Tab UD PO SCH (08:30)
[2017-03-07] MEDS: Calcium-Vit D 250 mg-125 Units Tab UD PO SCH (09:44)
[2017-03-07] MEDS: Enoxaparin 40 mg Syringe SC SCH (09:46)
[2017-03-08] MEDS: Enoxaparin 40 mg Syringe SC SCH (09:46)
[2017-03-08] MEDS: Calcium-Vit D 250 mg-125 Units Tab UD PO SCH (09:47)
[2017-03-09] MEDS: Enoxaparin 40 mg Syringe SC SCH (10:34)
[2017-03-09] MEDS: Calcium-Vit D 250 mg-125 Units Tab UD PO SCH (10:34)
[2017-03-10] MEDS: Enoxaparin 40 mg Syringe SC SCH (09:32)
[2017-03-10] MEDS: Calcium-Vit D 250 mg-125 Units Tab UD PO SCH (09:32)
[2017-03-11] MEDS: Calcium-Vit D 250 mg-125 Units Tab UD PO SCH (10:10)
--- NOTE | 2017-03-11 22:43 | CP.PCM.PN ---
Subjective - Date & Time of Evaluation Date of Evaluation: 03/06/17 Time of Evaluation: 07:10 - Subjective Subjective: Seen and examined at the bed side. No Complaint. Waiting the daughter to provide documents required to process her Insurance for [facility] placement. Patient is dependent for ADL/IADL and Fallls, and Unsafe to discharge home without continued supervision at home by a family member or alternative person. Objective - Vital Signs/Intake and Output Vital Signs (last 24 hours): Temp Pulse Resp BP Pulse Ox 98.4 F 90 20 108/60 97 03/11/17 17:33 03/11/17 17:33 03/11/17 17:33 03/11/17 17:33 03/11/17 17:33 - Medications Medications: Current Medications Acetaminophen (Tylenol 325mg Tab) 650 mg PO Q6 PRN PRN Reason: Pain, moderate (4-7) Last Admin: 01/23/17 09:13 Dose: 650 mg Aspirin (Ecotrin) 81 mg PO DAILY [facility] Last Admin: 03/11/17 10:09 Dose: 81 mg Atorvastatin Calcium (Lipitor) 20 mg PO HS [facility] Last Admin: 03/11/17 21:37 Dose: 20 mg Calcium/Vitamin D (Oscal-D 250 Mg-125 Units Tab) 1 tab PO DAILY [facility] Last Admin: 03/11/17 10:10 Dose: 1 tab Carvedilol (Coreg) 3.125 mg PO DAILY [facility] Last Admin: 03/11/17 10:09 Dose: 3.125 mg Docusate Sodium (Colace) 100 mg PO BID [facility] Last Admin: 03/11/17 16:21 Dose: 100 mg Famotidine (Pepcid) 20 mg PO DAILY [facility] Last Admin: 03/11/17 10:10 Dose: 20 mg Ferrous Sulfate (Feosol) 325 mg PO BID [facility] Last Admin: 03/11/17 16:21 Dose: 325 mg Furosemide (Lasix) 20 mg PO DAILY [facility] Last Admin: 03/11/17 10:10 Dose: 20 mg Lisinopril (Zestril) 5 mg PO DAILY [facility] Last Admin: 03/11/17 10:10 Dose: 5 mg Loratadine (Claritin) 10 mg PO DAILY [facility] Last Admin: 03/11/17 10:09 Dose: 10 mg - Labs Labs: 03/01/17 07:00 03/01/17 07:00 PT 12.5 Seconds (9.8-13.1) 01/17/17 13:40 INR 1.2 (0.9-1.2) 01/17/17 13:40 APTT 27.7 Seconds (25.6-37.1) 01/17/17 13:40 Assessment and Plan (1) Unwitnessed fall Assessment & Plan: Back Pain Ambulation Problem Right Foot Droop Frail Elderly Wheelchair Dependent Continue Pain Management Continue PT/OT, and Out of bed to Chair daily Waiting Medicaid Application approval SW and her daughter with POA processing the Medicaid Application. Continue all Current Medication and Care (2) Frail elderly Status: Chronic (3) Hip pain Status: Resolved (4) UTI due to extended-spectrum beta lactamase (ESBL) producing Escherichia coli Status: Resolved (5) Adult idiopathic generalized osteoporosis Status: Chronic (6) DVT prophylaxis Status: Acute (7) Hypercholesterolemia Status: Chronic (8) Hypothyroid Status: Chronic (9) Pulmonary hypertension Status: Chronic (10) HTN (hypertension) Status: Chronic Status: Resolved
--- NOTE | 2017-03-11 22:44 | CP.PCM.PN ---
Subjective - Date & Time of Evaluation Date of Evaluation: 03/07/17 Time of Evaluation: 07:25 - Subjective Subjective: Seen and examined at the bed side. No Complaint. Waiting the daughter to provide documents required to process her Insurance for care home placement. Patient is dependent for ADL/IADL and Fallls, and Unsafe to discharge home without continued supervision at home by a family member or alternative person. Objective - Vital Signs/Intake and Output Vital Signs (last 24 hours): Temp Pulse Resp BP Pulse Ox 98.4 F 90 20 108/60 97 03/11/17 17:33 03/11/17 17:33 03/11/17 17:33 03/11/17 17:33 03/11/17 17:33 - Medications Medications: Current Medications Acetaminophen (Tylenol 325mg Tab) 650 mg PO Q6 PRN PRN Reason: Pain, moderate (4-7) Last Admin: 01/23/17 09:13 Dose: 650 mg Aspirin (Ecotrin) 81 mg PO DAILY [facility] Last Admin: 03/11/17 10:09 Dose: 81 mg Atorvastatin Calcium (Lipitor) 20 mg PO HS [facility] Last Admin: 03/11/17 21:37 Dose: 20 mg Calcium/Vitamin D (Oscal-D 250 Mg-125 Units Tab) 1 tab PO DAILY [facility] Last Admin: 03/11/17 10:10 Dose: 1 tab Carvedilol (Coreg) 3.125 mg PO DAILY [facility] Last Admin: 03/11/17 10:09 Dose: 3.125 mg Docusate Sodium (Colace) 100 mg PO BID [facility] Last Admin: 03/11/17 16:21 Dose: 100 mg Famotidine (Pepcid) 20 mg PO DAILY [facility] Last Admin: 03/11/17 10:10 Dose: 20 mg Ferrous Sulfate (Feosol) 325 mg PO BID [facility] Last Admin: 03/11/17 16:21 Dose: 325 mg Furosemide (Lasix) 20 mg PO DAILY [facility] Last Admin: 03/11/17 10:10 Dose: 20 mg Lisinopril (Zestril) 5 mg PO DAILY [facility] Last Admin: 03/11/17 10:10 Dose: 5 mg Loratadine (Claritin) 10 mg PO DAILY [facility] Last Admin: 03/11/17 10:09 Dose: 10 mg - Labs Labs: 03/01/17 07:00 03/01/17 07:00 PT 12.5 Seconds (9.8-13.1) 01/17/17 13:40 INR 1.2 (0.9-1.2) 01/17/17 13:40 APTT 27.7 Seconds (25.6-37.1) 01/17/17 13:40 Assessment and Plan (1) Unwitnessed fall Assessment & Plan: Back Pain Ambulation Problem Right Foot Droop Frail Elderly Wheelchair Dependent Continue Pain Management Continue PT/OT, and Out of bed to Chair daily Waiting Medicaid Application approval SW and her daughter with POA processing the Medicaid Application. Continue all Current Medication and Care (2) Frail elderly Status: Chronic (3) Hip pain Status: Resolved (4) UTI due to extended-spectrum beta lactamase (ESBL) producing Escherichia coli Status: Resolved (5) Adult idiopathic generalized osteoporosis Status: Chronic (6) DVT prophylaxis Status: Acute (7) Hypercholesterolemia Status: Chronic (8) Hypothyroid Status: Chronic (9) Pulmonary hypertension Status: Chronic (10) HTN (hypertension) Status: Chronic Status: Resolved
--- NOTE | 2017-03-11 22:45 | CP.PCM.PN ---
Subjective - Date & Time of Evaluation Date of Evaluation: 03/08/17 Time of Evaluation: 15:00 - Subjective Subjective: Seen and examined at the bed side. No Complaint. Waiting the daughter to provide documents required to process her Insurance for half-way placement. Patient is dependent for ADL/IADL and Fallls, and Unsafe to discharge home without continued supervision at home by a family member or alternative person. Objective - Vital Signs/Intake and Output Vital Signs (last 24 hours): Temp Pulse Resp BP Pulse Ox 98.4 F 90 20 108/60 97 03/11/17 17:33 03/11/17 17:33 03/11/17 17:33 03/11/17 17:33 03/11/17 17:33 - Medications Medications: Current Medications Acetaminophen (Tylenol 325mg Tab) 650 mg PO Q6 PRN PRN Reason: Pain, moderate (4-7) Last Admin: 01/23/17 09:13 Dose: 650 mg Aspirin (Ecotrin) 81 mg PO DAILY [facility] Last Admin: 03/11/17 10:09 Dose: 81 mg Atorvastatin Calcium (Lipitor) 20 mg PO HS [facility] Last Admin: 03/11/17 21:37 Dose: 20 mg Calcium/Vitamin D (Oscal-D 250 Mg-125 Units Tab) 1 tab PO DAILY [facility] Last Admin: 03/11/17 10:10 Dose: 1 tab Carvedilol (Coreg) 3.125 mg PO DAILY [facility] Last Admin: 03/11/17 10:09 Dose: 3.125 mg Docusate Sodium (Colace) 100 mg PO BID [facility] Last Admin: 03/11/17 16:21 Dose: 100 mg Famotidine (Pepcid) 20 mg PO DAILY [facility] Last Admin: 03/11/17 10:10 Dose: 20 mg Ferrous Sulfate (Feosol) 325 mg PO BID [facility] Last Admin: 03/11/17 16:21 Dose: 325 mg Furosemide (Lasix) 20 mg PO DAILY [facility] Last Admin: 03/11/17 10:10 Dose: 20 mg Lisinopril (Zestril) 5 mg PO DAILY [facility] Last Admin: 03/11/17 10:10 Dose: 5 mg Loratadine (Claritin) 10 mg PO DAILY [facility] Last Admin: 03/11/17 10:09 Dose: 10 mg - Labs Labs: 03/01/17 07:00 03/01/17 07:00 PT 12.5 Seconds (9.8-13.1) 01/17/17 13:40 INR 1.2 (0.9-1.2) 01/17/17 13:40 APTT 27.7 Seconds (25.6-37.1) 01/17/17 13:40 Assessment and Plan (1) Unwitnessed fall Assessment & Plan: Back Pain Ambulation Problem Right Foot Droop Frail Elderly Wheelchair Dependent Continue Pain Management Continue PT/OT, and Out of bed to Chair daily Waiting Medicaid Application approval SW and her daughter with POA processing the Medicaid Application. Continue all Current Medication and Care (2) Frail elderly Status: Chronic (3) Hip pain Status: Resolved (4) UTI due to extended-spectrum beta lactamase (ESBL) producing Escherichia coli Status: Resolved (5) Adult idiopathic generalized osteoporosis Status: Chronic (6) DVT prophylaxis Status: Acute (7) Hypercholesterolemia Status: Chronic (8) Hypothyroid Status: Chronic (9) Pulmonary hypertension Status: Chronic (10) HTN (hypertension) Status: Chronic ) Status: Resolved
--- NOTE | 2017-03-11 22:46 | CP.PCM.PN ---
Subjective - Date & Time of Evaluation Date of Evaluation: 03/09/17 Time of Evaluation: 07:05 - Subjective Subjective: Seen and examined at the bed side. No Complaint. Waiting the daughter to provide documents required to process her Insurance for nursing home placement. Patient is dependent for ADL/IADL and Fallls, and Unsafe to discharge home without continued supervision at home by a family member or alternative person. Objective - Vital Signs/Intake and Output Vital Signs (last 24 hours): Temp Pulse Resp BP Pulse Ox 98.4 F 90 20 108/60 97 03/11/17 17:33 03/11/17 17:33 03/11/17 17:33 03/11/17 17:33 03/11/17 17:33 - Medications Medications: Current Medications Acetaminophen (Tylenol 325mg Tab) 650 mg PO Q6 PRN PRN Reason: Pain, moderate (4-7) Last Admin: 01/23/17 09:13 Dose: 650 mg Aspirin (Ecotrin) 81 mg PO DAILY [facility] Last Admin: 03/11/17 10:09 Dose: 81 mg Atorvastatin Calcium (Lipitor) 20 mg PO HS [facility] Last Admin: 03/11/17 21:37 Dose: 20 mg Calcium/Vitamin D (Oscal-D 250 Mg-125 Units Tab) 1 tab PO DAILY [facility] Last Admin: 03/11/17 10:10 Dose: 1 tab Carvedilol (Coreg) 3.125 mg PO DAILY [facility] Last Admin: 03/11/17 10:09 Dose: 3.125 mg Docusate Sodium (Colace) 100 mg PO BID [facility] Last Admin: 03/11/17 16:21 Dose: 100 mg Famotidine (Pepcid) 20 mg PO DAILY [facility] Last Admin: 03/11/17 10:10 Dose: 20 mg Ferrous Sulfate (Feosol) 325 mg PO BID [facility] Last Admin: 03/11/17 16:21 Dose: 325 mg Furosemide (Lasix) 20 mg PO DAILY [facility] Last Admin: 03/11/17 10:10 Dose: 20 mg Lisinopril (Zestril) 5 mg PO DAILY [facility] Last Admin: 03/11/17 10:10 Dose: 5 mg Loratadine (Claritin) 10 mg PO DAILY [facility] Last Admin: 03/11/17 10:09 Dose: 10 mg - Labs Labs: 03/01/17 07:00 03/01/17 07:00 PT 12.5 Seconds (9.8-13.1) 01/17/17 13:40 INR 1.2 (0.9-1.2) 01/17/17 13:40 APTT 27.7 Seconds (25.6-37.1) 01/17/17 13:40 Assessment and Plan (1) Unwitnessed fall Assessment & Plan: Back Pain Ambulation Problem Right Foot Droop Frail Elderly Wheelchair Dependent Continue Pain Management Continue PT/OT, and Out of bed to Chair daily Waiting Medicaid Application approval SW and her daughter with POA processing the Medicaid Application. Continue all Current Medication and Care (2) Frail elderly Status: Chronic (3) Hip pain Status: Resolved (4) UTI due to extended-spectrum beta lactamase (ESBL) producing Escherichia coli Status: Resolved (5) Adult idiopathic generalized osteoporosis Status: Chronic (6) DVT prophylaxis Status: Acute (7) Hypercholesterolemia Status: Chronic (8) Hypothyroid Status: Chronic (9) Pulmonary hypertension Status: Chronic (10) HTN (hypertension) Status: Chronic Status: Resolved
--- NOTE | 2017-03-11 22:47 | CP.PCM.PN ---
Subjective - Date & Time of Evaluation Date of Evaluation: 03/10/17 Time of Evaluation: 08:15 - Subjective Subjective: Seen and examined at the bed side. No Complaint. Waiting the daughter to provide documents required to process her Insurance for senior living placement. Patient is dependent for ADL/IADL and Fallls, and Unsafe to discharge home without continued supervision at home by a family member or alternative person. Objective - Vital Signs/Intake and Output Vital Signs (last 24 hours): Temp Pulse Resp BP Pulse Ox 98.4 F 90 20 108/60 97 03/11/17 17:33 03/11/17 17:33 03/11/17 17:33 03/11/17 17:33 03/11/17 17:33 - Medications Medications: Current Medications Acetaminophen (Tylenol 325mg Tab) 650 mg PO Q6 PRN PRN Reason: Pain, moderate (4-7) Last Admin: 01/23/17 09:13 Dose: 650 mg Aspirin (Ecotrin) 81 mg PO DAILY [facility] Last Admin: 03/11/17 10:09 Dose: 81 mg Atorvastatin Calcium (Lipitor) 20 mg PO HS [facility] Last Admin: 03/11/17 21:37 Dose: 20 mg Calcium/Vitamin D (Oscal-D 250 Mg-125 Units Tab) 1 tab PO DAILY [facility] Last Admin: 03/11/17 10:10 Dose: 1 tab Carvedilol (Coreg) 3.125 mg PO DAILY [facility] Last Admin: 03/11/17 10:09 Dose: 3.125 mg Docusate Sodium (Colace) 100 mg PO BID [facility] Last Admin: 03/11/17 16:21 Dose: 100 mg Famotidine (Pepcid) 20 mg PO DAILY [facility] Last Admin: 03/11/17 10:10 Dose: 20 mg Ferrous Sulfate (Feosol) 325 mg PO BID [facility] Last Admin: 03/11/17 16:21 Dose: 325 mg Furosemide (Lasix) 20 mg PO DAILY [facility] Last Admin: 03/11/17 10:10 Dose: 20 mg Lisinopril (Zestril) 5 mg PO DAILY [facility] Last Admin: 03/11/17 10:10 Dose: 5 mg Loratadine (Claritin) 10 mg PO DAILY [facility] Last Admin: 03/11/17 10:09 Dose: 10 mg - Labs Labs: 03/01/17 07:00 03/01/17 07:00 PT 12.5 Seconds (9.8-13.1) 01/17/17 13:40 INR 1.2 (0.9-1.2) 01/17/17 13:40 APTT 27.7 Seconds (25.6-37.1) 01/17/17 13:40 Assessment and Plan (1) Unwitnessed fall Assessment & Plan: Back Pain Ambulation Problem Right Foot Droop Frail Elderly Wheelchair Dependent Continue Pain Management Continue PT/OT, and Out of bed to Chair daily Waiting Medicaid Application approval SW and her daughter with POA processing the Medicaid Application. Continue all Current Medication and Care (2) Frail elderly Status: Chronic (3) Hip pain Status: Resolved (4) UTI due to extended-spectrum beta lactamase (ESBL) producing Escherichia coli Status: Resolved (5) Adult idiopathic generalized osteoporosis Status: Chronic (6) DVT prophylaxis Status: Acute (7) Hypercholesterolemia Status: Chronic (8) Hypothyroid Status: Chronic (9) Pulmonary hypertension Status: Chronic (10) HTN (hypertension) Status: Chronic Status: Resolved
--- NOTE | 2017-03-11 22:48 | CP.PCM.PN ---
Subjective - Date & Time of Evaluation Date of Evaluation: 03/11/17 Time of Evaluation: 10:30 - Subjective Subjective: Seen and examined at the bed side. No Complaint. Waiting the daughter to provide documents required to process her Insurance for senior living placement. Patient is dependent for ADL/IADL and Fallls, and Unsafe to discharge home without continued supervision at home by a family member or alternative person. Objective - Vital Signs/Intake and Output Vital Signs (last 24 hours): Temp Pulse Resp BP Pulse Ox 98.4 F 90 20 108/60 97 03/11/17 17:33 03/11/17 17:33 03/11/17 17:33 03/11/17 17:33 03/11/17 17:33 - Medications Medications: Current Medications Acetaminophen (Tylenol 325mg Tab) 650 mg PO Q6 PRN PRN Reason: Pain, moderate (4-7) Last Admin: 01/23/17 09:13 Dose: 650 mg Aspirin (Ecotrin) 81 mg PO DAILY [facility] Last Admin: 03/11/17 10:09 Dose: 81 mg Atorvastatin Calcium (Lipitor) 20 mg PO HS [facility] Last Admin: 03/11/17 21:37 Dose: 20 mg Calcium/Vitamin D (Oscal-D 250 Mg-125 Units Tab) 1 tab PO DAILY [facility] Last Admin: 03/11/17 10:10 Dose: 1 tab Carvedilol (Coreg) 3.125 mg PO DAILY [facility] Last Admin: 03/11/17 10:09 Dose: 3.125 mg Docusate Sodium (Colace) 100 mg PO BID [facility] Last Admin: 03/11/17 16:21 Dose: 100 mg Famotidine (Pepcid) 20 mg PO DAILY [facility] Last Admin: 03/11/17 10:10 Dose: 20 mg Ferrous Sulfate (Feosol) 325 mg PO BID [facility] Last Admin: 03/11/17 16:21 Dose: 325 mg Furosemide (Lasix) 20 mg PO DAILY [facility] Last Admin: 03/11/17 10:10 Dose: 20 mg Lisinopril (Zestril) 5 mg PO DAILY [facility] Last Admin: 03/11/17 10:10 Dose: 5 mg Loratadine (Claritin) 10 mg PO DAILY [facility] Last Admin: 03/11/17 10:09 Dose: 10 mg - Labs Labs: 03/01/17 07:00 03/01/17 07:00 PT 12.5 Seconds (9.8-13.1) 01/17/17 13:40 INR 1.2 (0.9-1.2) 01/17/17 13:40 APTT 27.7 Seconds (25.6-37.1) 01/17/17 13:40 Assessment and Plan (1) Unwitnessed fall Assessment & Plan: Back Pain Ambulation Problem Right Foot Droop Frail Elderly Wheelchair Dependent Continue Pain Management Continue PT/OT, and Out of bed to Chair daily Waiting Medicaid Application approval SW and her daughter with POA processing the Medicaid Application. 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 (5) DVT prophylaxis Status: Acute (6) Hypercholesterolemia Status: Chronic (7) Hypothyroid Status: Chronic (8) Pulmonary hypertension Status: Chronic (9) HTN (hypertension) Status: Resolved
[2017-03-12] MEDS: Calcium-Vit D 250 mg-125 Units Tab UD PO SCH (10:59)
--- NOTE | 2017-03-12 23:07 | CP.PCM.PN ---
Subjective - Date & Time of Evaluation Date of Evaluation: 03/12/17 Time of Evaluation: 14:10 - Subjective Subjective: Seen and examined at the bed side. No Complaint. Waiting the daughter to provide documents required to process her Insurance for residential placement. Patient is dependent for ADL/IADL and Fallls, and Unsafe to discharge home without continued supervision at home by a family member or alternative person. Objective - Vital Signs/Intake and Output Vital Signs (last 24 hours): Temp Pulse Resp BP Pulse Ox 98.9 F 86 20 101/57 L 100 03/12/17 16:08 03/12/17 16:08 03/12/17 16:08 03/12/17 16:08 03/12/17 16:08 - Medications Medications: Current Medications Acetaminophen (Tylenol 325mg Tab) 650 mg PO Q6 PRN PRN Reason: Pain, moderate (4-7) Last Admin: 01/23/17 09:13 Dose: 650 mg Aspirin (Ecotrin) 81 mg PO DAILY [facility] Last Admin: 03/12/17 10:59 Dose: 81 mg Atorvastatin Calcium (Lipitor) 20 mg PO HS [facility] Last Admin: 03/12/17 21:59 Dose: 20 mg Calcium/Vitamin D (Oscal-D 250 Mg-125 Units Tab) 1 tab PO DAILY [facility] Last Admin: 03/12/17 10:59 Dose: 1 tab Carvedilol (Coreg) 3.125 mg PO DAILY [facility] Last Admin: 03/12/17 11:00 Dose: 3.125 mg Docusate Sodium (Colace) 100 mg PO BID [facility] Last Admin: 03/12/17 17:04 Dose: 100 mg Famotidine (Pepcid) 20 mg PO DAILY [facility] Last Admin: 03/12/17 10:59 Dose: 20 mg Ferrous Sulfate (Feosol) 325 mg PO BID [facility] Last Admin: 03/12/17 17:04 Dose: 325 mg Furosemide (Lasix) 20 mg PO DAILY [facility] Last Admin: 03/12/17 11:01 Dose: 20 mg Lisinopril (Zestril) 5 mg PO DAILY [facility] Last Admin: 03/12/17 10:58 Dose: 5 mg Loratadine (Claritin) 10 mg PO DAILY [facility] Last Admin: 03/12/17 11:01 Dose: 10 mg - Labs Labs: 03/01/17 07:00 03/01/17 07:00 PT 12.5 Seconds (9.8-13.1) 01/17/17 13:40 INR 1.2 (0.9-1.2) 01/17/17 13:40 APTT 27.7 Seconds (25.6-37.1) 01/17/17 13:40 Assessment and Plan (1) Unwitnessed fall Assessment & Plan: Back Pain Ambulation Problem Right Foot Droop Frail Elderly Wheelchair Dependent Continue Pain Management Continue PT/OT, and Out of bed to Chair daily Waiting Medicaid Application approval SW and her daughter with POA processing the Medicaid Application. 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 (5) DVT prophylaxis Status: Acute (6) Hypercholesterolemia Status: Chronic (7) Hypothyroid Status: Chronic (8) Pulmonary hypertension Status: Chronic (9) HTN (hypertension) Status: Chronic Status: Resolved
[2017-03-13 06:35] LABS: BASO % 0.4 % (0.0-2.0); EOS # 0.1 K/uL (0.0-0.7); EOS % 1.4 % (0.0-4.0); HEMOGLOBIN 10.5 g/dL (12.0-16.0); LYMPH # 1.4 K/uL (1.0-4.3); MEAN CELL VOLUME 90.5 fl (81.0-99.0); MEAN CORPUSCULAR HEMOGLOBIN 28.9 pg (27.0-31.0); MEAN PLATELET VOLUME 9.6 fl (7.2-11.7); MONO # 0.6 K/uL (0.0-0.8); MONO % 13.4 % (0.0-10.0); NEUT # 2.3 K/uL (1.8-7.0); NEUT % 52.8 % (50.0-75.0); NRBC % 0.1 % (0.0-0.0); RBC 3.62 Mil/uL (3.80-5.20); RED CELL DISTRIBUTION WIDTH 14.9 % (11.5-14.5); WHITE BLOOD COUNT 4.4 K/uL (4.8-10.8)
[2017-03-13 06:53] LABS: BLOOD UREA NITROGEN 33 mg/dl (7-17); CALCIUM 9.1 mg/dL (8.4-10.2); GFR AFRICAN-AMERICAN > 60; GFR NON-AFRICAN AMERICAN > 60
[2017-03-13] MEDS: Calcium-Vit D 250 mg-125 Units Tab UD PO SCH (08:48)
--- NOTE | 2017-03-13 23:42 | CP.PCM.PN ---
Subjective - Date & Time of Evaluation Date of Evaluation: 03/13/17 Time of Evaluation: 17:00 - Subjective Subjective: Seen and examined at the bed side. No Complaint. Waiting the daughter to provide documents required to process her Insurance for [facility] placement. Patient is dependent for ADL/IADL and Fallls, and Unsafe to discharge home without continued supervision at home by a family member or alternative person. Objective - Vital Signs/Intake and Output Vital Signs (last 24 hours): Temp Pulse Resp BP Pulse Ox 98.5 F 88 19 123/70 100 03/13/17 16:23 03/13/17 16:23 03/13/17 16:23 03/13/17 16:23 03/13/17 16:23 - Medications Medications: Current Medications Acetaminophen (Tylenol 325mg Tab) 650 mg PO Q6 PRN PRN Reason: Pain, moderate (4-7) Last Admin: 01/23/17 09:13 Dose: 650 mg Aspirin (Ecotrin) 81 mg PO DAILY [facility] Last Admin: 03/13/17 08:48 Dose: 81 mg Atorvastatin Calcium (Lipitor) 20 mg PO HS [facility] Last Admin: 03/13/17 21:04 Dose: 20 mg Calcium/Vitamin D (Oscal-D 250 Mg-125 Units Tab) 1 tab PO DAILY [facility] Last Admin: 03/13/17 08:48 Dose: 1 tab Carvedilol (Coreg) 3.125 mg PO DAILY [facility] Last Admin: 03/13/17 08:50 Dose: 3.125 mg Docusate Sodium (Colace) 100 mg PO BID [facility] Last Admin: 03/13/17 17:09 Dose: 100 mg Famotidine (Pepcid) 20 mg PO DAILY [facility] Last Admin: 03/13/17 08:48 Dose: 20 mg Ferrous Sulfate (Feosol) 325 mg PO BID [facility] Last Admin: 03/13/17 17:09 Dose: 325 mg Furosemide (Lasix) 20 mg PO DAILY [facility] Last Admin: 03/13/17 08:47 Dose: 20 mg Lisinopril (Zestril) 5 mg PO DAILY [facility] Last Admin: 03/13/17 08:48 Dose: 5 mg Loratadine (Claritin) 10 mg PO DAILY [facility] Last Admin: 03/13/17 08:48 Dose: 10 mg - Labs Labs: 03/13/17 06:10 03/13/17 06:10 PT 12.5 Seconds (9.8-13.1) 01/17/17 13:40 INR 1.2 (0.9-1.2) 01/17/17 13:40 APTT 27.7 Seconds (25.6-37.1) 01/17/17 13:40 Assessment and Plan (1) Unwitnessed fall Assessment & Plan: Back Pain Ambulation Problem Right Foot Droop Frail Elderly Wheelchair Dependent Continue Pain Management Continue PT/OT, and Out of bed to Chair daily Waiting Medicaid Application approval SW and her daughter with POA processing the Medicaid Application. 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 (5) DVT prophylaxis Status: Acute (6) Hypercholesterolemia Status: Chronic (7) Hypothyroid Status: Chronic (8) Pulmonary hypertension Status: Chronic (9) HTN (hypertension) Status: Resolved
[2017-03-14] MEDS: Calcium-Vit D 250 mg-125 Units Tab UD PO SCH (08:58)
--- NOTE | 2017-03-14 22:26 | CP.PCM.PN ---
Subjective - Date & Time of Evaluation Date of Evaluation: 03/14/17 Time of Evaluation: 14:00 - Subjective Subjective: Seen and examined at the bed side. No Complaint. Waiting the daughter to provide documents required to process her Insurance for [facility] placement. Patient is dependent for ADL/IADL and Fallls, and Unsafe to discharge home without continued supervision at home by a family member or alternative person. Objective - Vital Signs/Intake and Output Vital Signs (last 24 hours): Temp Pulse Resp BP Pulse Ox 98.1 F 89 20 98/59 L 100 03/14/17 17:00 03/14/17 17:00 03/14/17 17:00 03/14/17 17:00 03/14/17 17:00 - Medications Medications: Current Medications Acetaminophen (Tylenol 325mg Tab) 650 mg PO Q6 PRN PRN Reason: Pain, moderate (4-7) Last Admin: 01/23/17 09:13 Dose: 650 mg Aspirin (Ecotrin) 81 mg PO DAILY [facility] Last Admin: 03/14/17 08:57 Dose: 81 mg Atorvastatin Calcium (Lipitor) 20 mg PO HS [facility] Last Admin: 03/14/17 21:34 Dose: 20 mg Calcium/Vitamin D (Oscal-D 250 Mg-125 Units Tab) 1 tab PO DAILY [facility] Last Admin: 03/14/17 08:58 Dose: 1 tab Carvedilol (Coreg) 3.125 mg PO DAILY [facility] Last Admin: 03/14/17 08:57 Dose: 3.125 mg Docusate Sodium (Colace) 100 mg PO BID [facility] Last Admin: 03/14/17 16:50 Dose: 100 mg Famotidine (Pepcid) 20 mg PO DAILY [facility] Last Admin: 03/14/17 08:58 Dose: 20 mg Ferrous Sulfate (Feosol) 325 mg PO BID [facility] Last Admin: 03/14/17 16:51 Dose: 325 mg Furosemide (Lasix) 20 mg PO DAILY [facility] Last Admin: 03/14/17 08:58 Dose: 20 mg Lisinopril (Zestril) 5 mg PO DAILY [facility] Last Admin: 03/14/17 08:58 Dose: 5 mg Loratadine (Claritin) 10 mg PO DAILY [facility] Last Admin: 03/14/17 08:57 Dose: 10 mg - Labs Labs: 03/13/17 06:10 03/13/17 06:10 PT 12.5 Seconds (9.8-13.1) 01/17/17 13:40 INR 1.2 (0.9-1.2) 01/17/17 13:40 APTT 27.7 Seconds (25.6-37.1) 01/17/17 13:40 Assessment and Plan (1) Unwitnessed fall Assessment & Plan: Back Pain Ambulation Problem Right Foot Droop Frail Elderly Wheelchair Dependent Continue Pain Management Continue PT/OT, and Out of bed to Chair daily Waiting Medicaid Application approval SW and her daughter with POA processing the Medicaid Application. 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 (5) DVT prophylaxis Status: Acute (6) Hypercholesterolemia Status: Chronic (7) Hypothyroid Status: Chronic (8) Pulmonary hypertension Status: Chronic (9) HTN (hypertension) Status: Resolved
[2017-03-15] MEDS: Calcium-Vit D 250 mg-125 Units Tab UD PO SCH (08:45)
--- NOTE | 2017-03-15 23:32 | CP.PCM.PN ---
Subjective - Date & Time of Evaluation Date of Evaluation: 03/15/17 Time of Evaluation: 17:25 - Subjective Subjective: Back Pain Ambulation Problem Right Foot Droop Frail Elderly Wheelchair Dependent Continue Pain Management Continue PT/OT, and Out of bed to Chair daily Waiting Medicaid Application approval VANCE and her daughter with POA processing the Medicaid Application. 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 (5) DVT prophylaxis Status: Acute (6) Hypercholesterolemia Status: Chronic (7) Hypothyroid Status: Chronic (8) Pulmonary hypertension Status: Chronic (9) HTN (hypertension) Objective - Vital Signs/Intake and Output Vital Signs (last 24 hours): Temp Pulse Resp BP Pulse Ox 98.9 F 99 H 18 117/71 99 03/15/17 16:17 03/15/17 16:17 03/15/17 16:17 03/15/17 16:17 03/15/17 16:17 - Medications Medications: Current Medications Acetaminophen (Tylenol 325mg Tab) 650 mg PO Q6 PRN PRN Reason: Pain, moderate (4-7) Last Admin: 01/23/17 09:13 Dose: 650 mg Aspirin (Ecotrin) 81 mg PO DAILY [facility] Last Admin: 03/15/17 08:45 Dose: 81 mg Atorvastatin Calcium (Lipitor) 20 mg PO HS [facility] Last Admin: 03/15/17 21:24 Dose: 20 mg Calcium/Vitamin D (Oscal-D 250 Mg-125 Units Tab) 1 tab PO DAILY [facility] Last Admin: 03/15/17 08:45 Dose: 1 tab Carvedilol (Coreg) 3.125 mg PO DAILY [facility] Last Admin: 03/15/17 08:44 Dose: 3.125 mg Docusate Sodium (Colace) 100 mg PO BID [facility] Last Admin: 03/15/17 17:26 Dose: 100 mg Famotidine (Pepcid) 20 mg PO DAILY [facility] Last Admin: 03/15/17 08:45 Dose: 20 mg Ferrous Sulfate (Feosol) 325 mg PO BID [facility] Last Admin: 03/15/17 17:26 Dose: 325 mg Furosemide (Lasix) 20 mg PO DAILY [facility] Last Admin: 03/15/17 08:44 Dose: 20 mg Lisinopril (Zestril) 5 mg PO DAILY [facility] Last Admin: 03/15/17 17:27 Dose: 5 mg Loratadine (Claritin) 10 mg PO DAILY [facility] Last Admin: 03/15/17 08:45 Dose: 10 mg - Labs Labs: 03/13/17 06:10 03/13/17 06:10 PT 12.5 Seconds (9.8-13.1) 01/17/17 13:40 INR 1.2 (0.9-1.2) 01/17/17 13:40 APTT 27.7 Seconds (25.6-37.1) 01/17/17 13:40 Assessment and Plan (1) Unwitnessed fall Assessment & Plan: Back Pain Ambulation Problem Right Foot Droop Frail Elderly Wheelchair Dependent Continue Pain Management Continue PT/OT, and Out of bed to Chair daily Waiting Medicaid Application approval SW and her daughter with POA processing the Medicaid Application. 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 (5) DVT prophylaxis Status: Acute (6) Hypercholesterolemia Status: Chronic (7) Hypothyroid Status: Chronic (8) Pulmonary hypertension Status: Chronic (9) HTN (hypertension) Status: Resolved
[2017-03-16] MEDS: Calcium-Vit D 250 mg-125 Units Tab UD PO SCH (08:13)
--- NOTE | 2017-03-17 00:08 | CP.PCM.PN ---
Subjective - Date & Time of Evaluation Date of Evaluation: 03/16/17 Time of Evaluation: 17:30 - Subjective Subjective: Back Pain Ambulation Problem Right Foot Droop Frail Elderly Wheelchair Dependent Continue Pain Management Continue PT/OT, and Out of bed to Chair daily Waiting Medicaid Application approval VANCE and her daughter with POA processing the Medicaid Application. 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 (5) DVT prophylaxis Status: Acute (6) Hypercholesterolemia Status: Chronic (7) Hypothyroid Status: Chronic (8) Pulmonary hypertension Status: Chronic (9) HTN (hypertension) Objective - Vital Signs/Intake and Output Vital Signs (last 24 hours): Temp Pulse Resp BP Pulse Ox 97.2 F L 77 20 116/80 97 03/17/17 00:02 03/17/17 00:02 03/17/17 00:02 03/17/17 00:02 03/17/17 00:02 - Medications Medications: Current Medications Acetaminophen (Tylenol 325mg Tab) 650 mg PO Q6 PRN PRN Reason: Pain, moderate (4-7) Last Admin: 01/23/17 09:13 Dose: 650 mg Aspirin (Ecotrin) 81 mg PO DAILY [facility] Last Admin: 03/16/17 08:13 Dose: 81 mg Atorvastatin Calcium (Lipitor) 20 mg PO HS [facility] Last Admin: 03/16/17 21:49 Dose: 20 mg Calcium/Vitamin D (Oscal-D 250 Mg-125 Units Tab) 1 tab PO DAILY [facility] Last Admin: 03/16/17 08:13 Dose: 1 tab Carvedilol (Coreg) 3.125 mg PO DAILY [facility] Last Admin: 03/16/17 08:14 Dose: 3.125 mg Docusate Sodium (Colace) 100 mg PO BID [facility] Last Admin: 03/16/17 17:00 Dose: 100 mg Famotidine (Pepcid) 20 mg PO DAILY [facility] Last Admin: 03/16/17 08:14 Dose: 20 mg Ferrous Sulfate (Feosol) 325 mg PO BID [facility] Last Admin: 03/16/17 17:00 Dose: 325 mg Furosemide (Lasix) 20 mg PO DAILY [facility] Last Admin: 03/16/17 08:13 Dose: 20 mg Lisinopril (Zestril) 5 mg PO DAILY [facility] Last Admin: 03/16/17 08:13 Dose: 5 mg Loratadine (Claritin) 10 mg PO DAILY [facility] Last Admin: 03/16/17 08:14 Dose: 10 mg - Labs Labs: 03/13/17 06:10 03/13/17 06:10 PT 12.5 Seconds (9.8-13.1) 01/17/17 13:40 INR 1.2 (0.9-1.2) 01/17/17 13:40 APTT 27.7 Seconds (25.6-37.1) 01/17/17 13:40 Assessment and Plan (1) Unwitnessed fall Assessment & Plan: Back Pain Ambulation Problem Right Foot Droop Frail Elderly Wheelchair Dependent Continue Pain Management Continue PT/OT, and Out of bed to Chair daily Waiting Medicaid Application approval SW and her daughter with POA processing the Medicaid Application. 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 (5) DVT prophylaxis Status: Acute (6) Hypercholesterolemia Status: Chronic (7) Hypothyroid Status: Chronic (8) Pulmonary hypertension Status: Chronic (9) HTN (hypertension) Status: Resolved
[2017-03-17] MEDS: Calcium-Vit D 250 mg-125 Units Tab UD PO SCH (09:02)
--- NOTE | 2017-03-18 00:09 | CP.PCM.PN ---
Subjective - Date & Time of Evaluation Date of Evaluation: 03/17/17 Time of Evaluation: 18:45 - Subjective Subjective: Back Pain Ambulation Problem Right Foot Droop Frail Elderly Wheelchair Dependent Continue Pain Management Continue PT/OT, and Out of bed to Chair daily Waiting Medicaid Application approval VANCE and her daughter with POA processing the Medicaid Application. 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 (5) DVT prophylaxis Status: Acute (6) Hypercholesterolemia Status: Chronic (7) Hypothyroid Status: Chronic (8) Pulmonary hypertension Status: Chronic (9) HTN (hypertension) Objective - Vital Signs/Intake and Output Vital Signs (last 24 hours): Temp Pulse Resp BP Pulse Ox 98.4 F 92 H 20 128/68 99 03/17/17 15:54 03/17/17 15:54 03/17/17 15:54 03/17/17 15:54 03/17/17 15:54 - Medications Medications: Current Medications Acetaminophen (Tylenol 325mg Tab) 650 mg PO Q6 PRN PRN Reason: Pain, moderate (4-7) Last Admin: 01/23/17 09:13 Dose: 650 mg Aspirin (Ecotrin) 81 mg PO DAILY [facility] Last Admin: 03/17/17 09:02 Dose: 81 mg Atorvastatin Calcium (Lipitor) 20 mg PO HS [facility] Last Admin: 03/17/17 21:06 Dose: 20 mg Calcium/Vitamin D (Oscal-D 250 Mg-125 Units Tab) 1 tab PO DAILY [facility] Last Admin: 03/17/17 09:02 Dose: 1 tab Carvedilol (Coreg) 3.125 mg PO DAILY [facility] Last Admin: 03/17/17 09:03 Dose: Not Given Docusate Sodium (Colace) 100 mg PO BID [facility] Last Admin: 03/17/17 17:59 Dose: 100 mg Famotidine (Pepcid) 20 mg PO DAILY [facility] Last Admin: 03/17/17 09:02 Dose: 20 mg Ferrous Sulfate (Feosol) 325 mg PO BID [facility] Last Admin: 03/17/17 17:59 Dose: 325 mg Furosemide (Lasix) 20 mg PO DAILY [facility] Last Admin: 03/17/17 09:00 Dose: Not Given Lisinopril (Zestril) 5 mg PO DAILY [facility] Last Admin: 03/17/17 09:02 Dose: 5 mg Loratadine (Claritin) 10 mg PO DAILY [facility] Last Admin: 03/17/17 09:02 Dose: 10 mg - Labs Labs: 03/13/17 06:10 03/13/17 06:10 PT 12.5 Seconds (9.8-13.1) 01/17/17 13:40 INR 1.2 (0.9-1.2) 01/17/17 13:40 APTT 27.7 Seconds (25.6-37.1) 01/17/17 13:40 Assessment and Plan (1) Unwitnessed fall Assessment & Plan: Back Pain Ambulation Problem Right Foot Droop Frail Elderly Wheelchair Dependent Continue Pain Management Continue PT/OT, and Out of bed to Chair daily Waiting Medicaid Application approval SW and her daughter with POA processing the Medicaid Application. 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 (5) DVT prophylaxis Status: Acute (6) Hypercholesterolemia Status: Chronic (7) Hypothyroid Status: Chronic (8) Pulmonary hypertension Status: Chronic (9) HTN (hypertension) Status: Resolved
[2017-03-18] MEDS: Calcium-Vit D 250 mg-125 Units Tab UD PO SCH (10:06)
[2017-03-19] MEDS: Calcium-Vit D 250 mg-125 Units Tab UD PO SCH (09:47)
--- NOTE | 2017-03-20 00:27 | CP.PCM.PN ---
Subjective - Date & Time of Evaluation Date of Evaluation: 03/19/17 Time of Evaluation: 07:30 - Subjective Subjective: Back Pain Ambulation Problem Right Foot Droop Frail Elderly Wheelchair Dependent Continue Pain Management Continue PT/OT, and Out of bed to Chair daily Waiting Medicaid Application approval VANCE and her daughter with POA processing the Medicaid Application. 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 (5) DVT prophylaxis Status: Acute (6) Hypercholesterolemia Status: Chronic (7) Hypothyroid Status: Chronic (8) Pulmonary hypertension Status: Chronic (9) HTN (hypertension) Objective - Vital Signs/Intake and Output Vital Signs (last 24 hours): Temp Pulse Resp BP Pulse Ox 98.0 F 82 19 101/63 100 03/20/17 00:00 03/20/17 00:00 03/20/17 00:00 03/20/17 00:00 03/20/17 00:00 - Medications Medications: Current Medications Acetaminophen (Tylenol 325mg Tab) 650 mg PO Q6 PRN PRN Reason: Pain, moderate (4-7) Last Admin: 01/23/17 09:13 Dose: 650 mg Aspirin (Ecotrin) 81 mg PO DAILY [facility] Last Admin: 03/19/17 09:47 Dose: 81 mg Atorvastatin Calcium (Lipitor) 20 mg PO HS [facility] Last Admin: 03/19/17 21:26 Dose: 20 mg Calcium/Vitamin D (Oscal-D 250 Mg-125 Units Tab) 1 tab PO DAILY [facility] Last Admin: 03/19/17 09:47 Dose: 1 tab Carvedilol (Coreg) 3.125 mg PO DAILY [facility] Last Admin: 03/19/17 09:51 Dose: 3.125 mg Docusate Sodium (Colace) 100 mg PO BID [facility] Last Admin: 03/19/17 17:31 Dose: 100 mg Famotidine (Pepcid) 20 mg PO DAILY [facility] Last Admin: 03/19/17 09:47 Dose: 20 mg Ferrous Sulfate (Feosol) 325 mg PO BID [facility] Last Admin: 03/19/17 17:31 Dose: 325 mg Furosemide (Lasix) 20 mg PO DAILY [facility] Last Admin: 03/19/17 09:46 Dose: 20 mg Lisinopril (Zestril) 5 mg PO DAILY [facility] Last Admin: 03/19/17 09:46 Dose: 5 mg Loratadine (Claritin) 10 mg PO DAILY [facility] Last Admin: 03/19/17 09:45 Dose: 10 mg - Labs Labs: 03/13/17 06:10 03/13/17 06:10 PT 12.5 Seconds (9.8-13.1) 01/17/17 13:40 INR 1.2 (0.9-1.2) 01/17/17 13:40 APTT 27.7 Seconds (25.6-37.1) 01/17/17 13:40 Assessment and Plan (1) Unwitnessed fall Assessment & Plan: Back Pain Ambulation Problem Right Foot Droop Frail Elderly Wheelchair Dependent Continue Pain Management Continue PT/OT, and Out of bed to Chair daily Waiting Medicaid Application approval SW and her daughter with POA processing the Medicaid Application. 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 (5) DVT prophylaxis Status: Acute (6) Hypercholesterolemia Status: Chronic (7) Hypothyroid Status: Chronic (8) Pulmonary hypertension Status: Chronic (9) HTN (hypertension) Status: Resolved
[2017-03-20] MEDS: Calcium-Vit D 250 mg-125 Units Tab UD PO SCH (09:09)
--- NOTE | 2017-03-20 17:01 | CP.PCM.PN ---
Subjective - Date & Time of Evaluation Date of Evaluation: 03/20/17 Time of Evaluation: 16:40 - Subjective Subjective: Back Pain Ambulation Problem Right Foot Droop Frail Elderly Wheelchair Dependent Continue Pain Management Continue PT/OT, and Out of bed to Chair daily Waiting Medicaid Application approval VANCE and her daughter with POA processing the Medicaid Application. 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 (5) DVT prophylaxis Status: Acute (6) Hypercholesterolemia Status: Chronic (7) Hypothyroid Status: Chronic (8) Pulmonary hypertension Status: Chronic (9) HTN (hypertension) Objective - Vital Signs/Intake and Output Vital Signs (last 24 hours): Temp Pulse Resp BP Pulse Ox 98.5 F 84 20 90/50 L 100 03/20/17 16:43 03/20/17 16:43 03/20/17 16:43 03/20/17 16:43 03/20/17 16:43 - Medications Medications: Current Medications Acetaminophen (Tylenol 325mg Tab) 650 mg PO Q6 PRN PRN Reason: Pain, moderate (4-7) Last Admin: 01/23/17 09:13 Dose: 650 mg Aspirin (Ecotrin) 81 mg PO DAILY [facility] Last Admin: 03/20/17 09:08 Dose: 81 mg Atorvastatin Calcium (Lipitor) 20 mg PO HS [facility] Last Admin: 03/19/17 21:26 Dose: 20 mg Calcium/Vitamin D (Oscal-D 250 Mg-125 Units Tab) 1 tab PO DAILY [facility] Last Admin: 03/20/17 09:09 Dose: 1 tab Carvedilol (Coreg) 3.125 mg PO DAILY [facility] Last Admin: 03/20/17 10:30 Dose: 3.125 mg Docusate Sodium (Colace) 100 mg PO BID [facility] Last Admin: 03/20/17 16:11 Dose: 100 mg Famotidine (Pepcid) 20 mg PO DAILY [facility] Last Admin: 03/20/17 09:09 Dose: 20 mg Ferrous Sulfate (Feosol) 325 mg PO BID [facility] Last Admin: 03/20/17 16:10 Dose: 325 mg Furosemide (Lasix) 20 mg PO DAILY [facility] Last Admin: 03/20/17 09:08 Dose: 20 mg Lisinopril (Zestril) 5 mg PO DAILY [facility] Last Admin: 03/20/17 09:09 Dose: 5 mg Loratadine (Claritin) 10 mg PO DAILY [facility] Last Admin: 03/20/17 09:08 Dose: 10 mg - Labs Labs: 03/13/17 06:10 03/13/17 06:10 PT 12.5 Seconds (9.8-13.1) 01/17/17 13:40 INR 1.2 (0.9-1.2) 01/17/17 13:40 APTT 27.7 Seconds (25.6-37.1) 01/17/17 13:40 Assessment and Plan (1) Unwitnessed fall Assessment & Plan: Back Pain Ambulation Problem Right Foot Droop Frail Elderly Wheelchair Dependent Continue Pain Management Continue PT/OT, and Out of bed to Chair daily Waiting Medicaid Application approval SW and her daughter with POA processing the Medicaid Application. 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 (5) DVT prophylaxis Status: Acute (6) Hypercholesterolemia Status: Chronic (7) Hypothyroid Status: Chronic (8) Pulmonary hypertension Status: Chronic (9) HTN (hypertension) Status: Resolved
[2017-03-21] MEDS: Calcium-Vit D 250 mg-125 Units Tab UD PO SCH (09:39)
--- NOTE | 2017-03-21 17:08 | CP.PCM.PN ---
Subjective - Date & Time of Evaluation Date of Evaluation: 03/21/17 Time of Evaluation: 16:30 - Subjective Subjective: Seen and examined at the bed side. No Complaint. Waiting the daughter to provide documents required to process her Insurance for [facility] placement. Patient is dependent for ADL/IADL and Fallls, and Unsafe to discharge home without continued supervision at home by a family member or alternative person. Objective - Vital Signs/Intake and Output Vital Signs (last 24 hours): Temp Pulse Resp BP Pulse Ox 98.5 F 90 18 106/60 99 03/21/17 16:45 03/21/17 16:45 03/21/17 16:45 03/21/17 16:45 03/21/17 16:45 - Medications Medications: Current Medications Acetaminophen (Tylenol 325mg Tab) 650 mg PO Q6 PRN PRN Reason: Pain, moderate (4-7) Last Admin: 01/23/17 09:13 Dose: 650 mg Aspirin (Ecotrin) 81 mg PO DAILY [facility] Last Admin: 03/21/17 09:41 Dose: 81 mg Atorvastatin Calcium (Lipitor) 20 mg PO HS [facility] Last Admin: 03/20/17 21:25 Dose: 20 mg Calcium/Vitamin D (Oscal-D 250 Mg-125 Units Tab) 1 tab PO DAILY [facility] Last Admin: 03/21/17 09:39 Dose: 1 tab Carvedilol (Coreg) 3.125 mg PO DAILY [facility] Last Admin: 03/21/17 09:41 Dose: 3.125 mg Docusate Sodium (Colace) 100 mg PO BID [facility] Last Admin: 03/21/17 09:40 Dose: 100 mg Famotidine (Pepcid) 20 mg PO DAILY [facility] Last Admin: 03/21/17 09:41 Dose: 20 mg Ferrous Sulfate (Feosol) 325 mg PO BID [facility] Last Admin: 03/21/17 09:40 Dose: 325 mg Furosemide (Lasix) 20 mg PO DAILY [facility] Last Admin: 03/21/17 09:39 Dose: 20 mg Lisinopril (Zestril) 5 mg PO DAILY [facility] Last Admin: 03/21/17 09:40 Dose: 5 mg Loratadine (Claritin) 10 mg PO DAILY [facility] Last Admin: 03/21/17 09:40 Dose: 10 mg - Labs Labs: 03/13/17 06:10 03/13/17 06:10 PT 12.5 Seconds (9.8-13.1) 01/17/17 13:40 INR 1.2 (0.9-1.2) 01/17/17 13:40 APTT 27.7 Seconds (25.6-37.1) 01/17/17 13:40 Assessment and Plan (1) Unwitnessed fall Assessment & Plan: Back Pain Ambulation Problem Right Foot Droop Frail Elderly Wheelchair Dependent Continue Pain Management Continue PT/OT, and Out of bed to Chair daily Waiting Medicaid Application approval SW and her daughter with POA processing the Medicaid Application. 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 (5) DVT prophylaxis Status: Acute (6) Hypercholesterolemia Status: Chronic (7) Hypothyroid Status: Chronic (8) Pulmonary hypertension Status: Chronic (9) HTN (hypertension) Status: Resolved
[2017-03-22] MEDS: Calcium-Vit D 250 mg-125 Units Tab UD PO SCH (09:14)
--- NOTE | 2017-03-22 23:56 | CP.PCM.PN ---
Subjective - Date & Time of Evaluation Date of Evaluation: 03/22/17 Time of Evaluation: 18:25 - Subjective Subjective: Seen and examined at the bed side. No Complaint. Waiting the daughter to provide documents required to process her Insurance for senior care placement. Patient is dependent for ADL/IADL and Fallls, and Unsafe to discharge home without continued supervision at home by a family member or alternative person. Objective - Vital Signs/Intake and Output Vital Signs (last 24 hours): Temp Pulse Resp BP Pulse Ox 98.2 F 86 20 103/60 100 03/22/17 17:00 03/22/17 09:21 03/22/17 08:18 03/22/17 09:21 03/22/17 08:18 - Medications Medications: Current Medications Acetaminophen (Tylenol 325mg Tab) 650 mg PO Q6 PRN PRN Reason: Pain, moderate (4-7) Last Admin: 01/23/17 09:13 Dose: 650 mg Aspirin (Ecotrin) 81 mg PO DAILY [facility] Last Admin: 03/22/17 09:14 Dose: 81 mg Atorvastatin Calcium (Lipitor) 20 mg PO HS [facility] Last Admin: 03/22/17 22:06 Dose: 20 mg Calcium/Vitamin D (Oscal-D 250 Mg-125 Units Tab) 1 tab PO DAILY [facility] Last Admin: 03/22/17 09:14 Dose: 1 tab Carvedilol (Coreg) 3.125 mg PO DAILY [facility] Last Admin: 03/22/17 09:21 Dose: 3.125 mg Docusate Sodium (Colace) 100 mg PO BID [facility] Last Admin: 03/22/17 17:18 Dose: 100 mg Famotidine (Pepcid) 20 mg PO DAILY [facility] Last Admin: 03/22/17 09:14 Dose: 20 mg Ferrous Sulfate (Feosol) 325 mg PO BID [facility] Last Admin: 03/22/17 17:19 Dose: 325 mg Furosemide (Lasix) 20 mg PO DAILY [facility] Last Admin: 03/22/17 09:14 Dose: 20 mg Lisinopril (Zestril) 5 mg PO DAILY [facility] Last Admin: 03/22/17 09:14 Dose: 5 mg Loratadine (Claritin) 10 mg PO DAILY [facility] Last Admin: 03/22/17 09:13 Dose: 10 mg - Labs Labs: 03/13/17 06:10 03/13/17 06:10 PT 12.5 Seconds (9.8-13.1) 01/17/17 13:40 INR 1.2 (0.9-1.2) 01/17/17 13:40 APTT 27.7 Seconds (25.6-37.1) 01/17/17 13:40 Assessment and Plan (1) Unwitnessed fall Assessment & Plan: Back Pain Ambulation Problem Right Foot Droop Frail Elderly Wheelchair Dependent Continue Pain Management Continue PT/OT, and Out of bed to Chair daily Waiting Medicaid Application approval SW and her daughter with POA processing the Medicaid Application. 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 (5) DVT prophylaxis Status: Acute (6) Hypercholesterolemia Status: Chronic (7) Hypothyroid Status: Chronic (8) Pulmonary hypertension Status: Chronic (9) HTN (hypertension Status: Resolved
[2017-03-23] MEDS: Calcium-Vit D 250 mg-125 Units Tab UD PO SCH (09:35)
--- NOTE | 2017-03-24 00:01 | CP.PCM.PN ---
Subjective - Date & Time of Evaluation Date of Evaluation: 03/23/17 Time of Evaluation: 23:35 - Subjective Subjective: Seen and examined at the bed side. No Complaint. Waiting the daughter to provide documents required to process her Insurance for detention placement. Patient is dependent for ADL/IADL and Fallls, and Unsafe to discharge home without continued supervision at home by a family member or alternative person. Objective - Vital Signs/Intake and Output Vital Signs (last 24 hours): Temp Pulse Resp BP Pulse Ox 97.8 F 96 H 20 98/63 L 99 03/23/17 16:19 03/23/17 16:19 03/23/17 16:19 03/23/17 16:19 03/23/17 16:19 - Medications Medications: Current Medications Acetaminophen (Tylenol 325mg Tab) 650 mg PO Q6 PRN PRN Reason: Pain, moderate (4-7) Last Admin: 01/23/17 09:13 Dose: 650 mg Aspirin (Ecotrin) 81 mg PO DAILY [facility] Last Admin: 03/23/17 09:34 Dose: 81 mg Atorvastatin Calcium (Lipitor) 20 mg PO HS [facility] Last Admin: 03/23/17 21:29 Dose: 20 mg Calcium/Vitamin D (Oscal-D 250 Mg-125 Units Tab) 1 tab PO DAILY [facility] Last Admin: 03/23/17 09:35 Dose: 1 tab Carvedilol (Coreg) 3.125 mg PO DAILY [facility] Last Admin: 03/23/17 09:33 Dose: 3.125 mg Docusate Sodium (Colace) 100 mg PO BID [facility] Last Admin: 03/23/17 16:53 Dose: 100 mg Famotidine (Pepcid) 20 mg PO DAILY [facility] Last Admin: 03/23/17 09:34 Dose: 20 mg Ferrous Sulfate (Feosol) 325 mg PO BID [facility] Last Admin: 03/23/17 16:53 Dose: 325 mg Furosemide (Lasix) 20 mg PO DAILY [facility] Last Admin: 03/23/17 09:34 Dose: 20 mg Lisinopril (Zestril) 5 mg PO DAILY [facility] Last Admin: 03/23/17 09:35 Dose: 5 mg Loratadine (Claritin) 10 mg PO DAILY [facility] Last Admin: 03/23/17 09:32 Dose: 10 mg - Labs Labs: 03/13/17 06:10 03/13/17 06:10 PT 12.5 Seconds (9.8-13.1) 01/17/17 13:40 INR 1.2 (0.9-1.2) 01/17/17 13:40 APTT 27.7 Seconds (25.6-37.1) 01/17/17 13:40 Assessment and Plan (1) Unwitnessed fall Assessment & Plan: Back Pain Ambulation Problem Right Foot Droop Frail Elderly Wheelchair Dependent Continue Pain Management Continue PT/OT, and Out of bed to Chair daily Waiting Medicaid Application approval SW and her daughter with POA processing the Medicaid Application. 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 (5) DVT prophylaxis Status: Acute (6) Hypercholesterolemia Status: Chronic (7) Hypothyroid Status: Chronic (8) Pulmonary hypertension Status: Chronic (9) HTN (hypertension Status: Resolved
[2017-03-24] MEDS: Calcium-Vit D 250 mg-125 Units Tab UD PO SCH (09:43)
[2017-03-25] MEDS: Calcium-Vit D 250 mg-125 Units Tab UD PO SCH (08:37)
[2017-03-26] MEDS: Calcium-Vit D 250 mg-125 Units Tab UD PO SCH (08:30)
--- NOTE | 2017-03-26 22:02 | CP.PCM.PN ---
Subjective - Date & Time of Evaluation Date of Evaluation: 03/26/17 Time of Evaluation: 08:45 - Subjective Subjective: Seen and examined at the bed side. No Complaint. Waiting the daughter to provide documents required to process her Insurance for [facility] placement. Patient is dependent for ADL/IADL and Fallls, and Unsafe to discharge home without continued supervision at home by a family member or alternative person. Objective - Vital Signs/Intake and Output Vital Signs (last 24 hours): Temp Pulse Resp BP Pulse Ox 98.7 F 93 H 20 111/65 99 03/26/17 16:03 03/26/17 16:03 03/26/17 16:03 03/26/17 16:03 03/26/17 16:03 - Medications Medications: Current Medications Acetaminophen (Tylenol 325mg Tab) 650 mg PO Q6 PRN PRN Reason: Pain, moderate (4-7) Last Admin: 01/23/17 09:13 Dose: 650 mg Aspirin (Ecotrin) 81 mg PO DAILY [facility] Last Admin: 03/26/17 08:30 Dose: 81 mg Atorvastatin Calcium (Lipitor) 20 mg PO HS [facility] Last Admin: 03/25/17 21:35 Dose: 20 mg Calcium/Vitamin D (Oscal-D 250 Mg-125 Units Tab) 1 tab PO DAILY [facility] Last Admin: 03/26/17 08:30 Dose: 1 tab Carvedilol (Coreg) 3.125 mg PO DAILY [facility] Last Admin: 03/26/17 08:30 Dose: Not Given Docusate Sodium (Colace) 100 mg PO BID [facility] Last Admin: 03/26/17 16:21 Dose: 100 mg Famotidine (Pepcid) 20 mg PO DAILY [facility] Last Admin: 03/26/17 08:30 Dose: 20 mg Ferrous Sulfate (Feosol) 325 mg PO BID [facility] Last Admin: 03/26/17 16:22 Dose: 325 mg Furosemide (Lasix) 20 mg PO DAILY [facility] Last Admin: 03/26/17 08:34 Dose: Not Given Lisinopril (Zestril) 5 mg PO DAILY [facility] Last Admin: 03/26/17 08:31 Dose: Not Given Loratadine (Claritin) 10 mg PO DAILY [facility] Last Admin: 03/26/17 08:29 Dose: 10 mg - Labs Labs: 03/13/17 06:10 03/13/17 06:10 PT 12.5 Seconds (9.8-13.1) 01/17/17 13:40 INR 1.2 (0.9-1.2) 01/17/17 13:40 APTT 27.7 Seconds (25.6-37.1) 01/17/17 13:40 Assessment and Plan (1) Unwitnessed fall Assessment & Plan: Back Pain Ambulation Problem Right Foot Droop Frail Elderly Wheelchair Dependent Continue Pain Management Continue PT/OT, and Out of bed to Chair daily Waiting Medicaid Application approval SW and her daughter with POA processing the Medicaid Application. 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 (5) DVT prophylaxis Status: Acute (6) Hypercholesterolemia Status: Chronic (7) Hypothyroid Status: Chronic (8) Pulmonary hypertension Status: Chronic (9) HTN (hypertension Status: Resolved
[2017-03-27] MEDS: Calcium-Vit D 250 mg-125 Units Tab UD PO SCH (09:29)
[2017-03-28] MEDS: Calcium-Vit D 250 mg-125 Units Tab UD PO SCH (10:13)
[2017-03-29] MEDS: Calcium-Vit D 250 mg-125 Units Tab UD PO SCH (10:49)
[2017-03-29 17:33] LABS: HEMOGLOBIN 10.2 g/dL (12.0-16.0); MEAN CELL VOLUME 90.4 fl (81.0-99.0); MEAN CORPUSCULAR HEMOGLOBIN 28.4 pg (27.0-31.0); MEAN CORPUSCULAR HGB CONC 31.4 g/dL (33.0-37.0); RBC 3.59 Mil/uL (3.80-5.20); RED CELL DISTRIBUTION WIDTH 14.7 % (11.5-14.5); WHITE BLOOD COUNT 4.7 K/uL (4.8-10.8)
[2017-03-29 18:10] LABS: BLOOD UREA NITROGEN 30 mg/dl (7-17); CALCIUM 8.5 mg/dL (8.4-10.2); GFR AFRICAN-AMERICAN > 60; GFR NON-AFRICAN AMERICAN > 60
[2017-03-30] MEDS: Calcium-Vit D 250 mg-125 Units Tab UD PO SCH (08:54)
[2017-03-30] MEDS: Enoxaparin 30 mg Syringe SC SCH (09:21)
--- NOTE | 2017-03-31 00:08 | CP.PCM.PN ---
Subjective - Date & Time of Evaluation Date of Evaluation: 03/30/17 Time of Evaluation: 23:00 - Subjective Subjective: Seen and examined at the bed side. No Complaint. Waiting the daughter to provide documents required to process her Insurance for senior living placement. Patient is dependent for ADL/IADL and Fallls, and Unsafe to discharge home without continued supervision at home by a family member or alternative person. Objective - Vital Signs/Intake and Output Vital Signs (last 24 hours): Temp Pulse Resp BP Pulse Ox 98.4 F 84 20 91/50 L 99 03/30/17 15:44 03/30/17 15:44 03/30/17 15:44 03/30/17 15:44 03/30/17 15:44 - Medications Medications: Current Medications Acetaminophen (Tylenol 325mg Tab) 650 mg PO Q6 PRN PRN Reason: Pain, moderate (4-7) Last Admin: 01/23/17 09:13 Dose: 650 mg Aspirin (Ecotrin) 81 mg PO DAILY [facility] Last Admin: 03/30/17 08:54 Dose: 81 mg Atorvastatin Calcium (Lipitor) 20 mg PO HS [facility] Last Admin: 03/30/17 21:33 Dose: 20 mg Calcium/Vitamin D (Oscal-D 250 Mg-125 Units Tab) 1 tab PO DAILY [facility] Last Admin: 03/30/17 08:54 Dose: 1 tab Carvedilol (Coreg) 3.125 mg PO DAILY [facility] Last Admin: 03/30/17 08:53 Dose: 3.125 mg Docusate Sodium (Colace) 100 mg PO BID [facility] Last Admin: 03/30/17 16:58 Dose: 100 mg Enoxaparin Sodium (Lovenox) 30 mg SC DAILY [facility] PRN Reason: Protocol Last Admin: 03/30/17 09:21 Dose: 30 mg Famotidine (Pepcid) 20 mg PO DAILY [facility] Last Admin: 03/30/17 08:55 Dose: 20 mg Ferrous Sulfate (Feosol) 325 mg PO BID [facility] Last Admin: 03/30/17 16:58 Dose: 325 mg Furosemide (Lasix) 20 mg PO DAILY [facility] Last Admin: 03/30/17 08:54 Dose: 20 mg Lisinopril (Zestril) 5 mg PO DAILY [facility] Last Admin: 03/30/17 08:54 Dose: 5 mg Loratadine (Claritin) 10 mg PO DAILY [facility] Last Admin: 03/30/17 08:53 Dose: 10 mg - Labs Labs: 03/29/17 17:20 03/29/17 17:20 PT 12.5 Seconds (9.8-13.1) 01/17/17 13:40 INR 1.2 (0.9-1.2) 01/17/17 13:40 APTT 27.7 Seconds (25.6-37.1) 01/17/17 13:40 Assessment and Plan (1) Unwitnessed fall Assessment & Plan: Back Pain Ambulation Problem Right Foot Droop Frail Elderly Wheelchair Dependent Continue Pain Management Continue PT/OT, and Out of bed to Chair daily Waiting Medicaid Application approval SW and her daughter with POA processing the Medicaid Application. 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 (5) DVT prophylaxis Status: Acute (6) Hypercholesterolemia Status: Chronic (7) Hypothyroid Status: Chronic (8) Pulmonary hypertension Status: Chronic (9) HTN (hypertension Status: Resolved
--- NOTE | 2017-03-31 00:13 | CP.PCM.PN ---
Subjective - Date & Time of Evaluation Date of Evaluation: 03/26/17 Time of Evaluation: 23:55 - Subjective Subjective: Seen and examined at the bed side. No Complaint. Waiting the daughter to provide documents required to process her Insurance for [facility] placement. Patient is dependent for ADL/IADL and Fallls, and Unsafe to discharge home without continued supervision at home by a family member or alternative person. Objective - Vital Signs/Intake and Output Vital Signs (last 24 hours): Temp Pulse Resp BP Pulse Ox 98.4 F 84 20 91/50 L 99 03/30/17 15:44 03/30/17 15:44 03/30/17 15:44 03/30/17 15:44 03/30/17 15:44 - Medications Medications: Current Medications Acetaminophen (Tylenol 325mg Tab) 650 mg PO Q6 PRN PRN Reason: Pain, moderate (4-7) Last Admin: 01/23/17 09:13 Dose: 650 mg Aspirin (Ecotrin) 81 mg PO DAILY [facility] Last Admin: 03/30/17 08:54 Dose: 81 mg Atorvastatin Calcium (Lipitor) 20 mg PO HS [facility] Last Admin: 03/30/17 21:33 Dose: 20 mg Calcium/Vitamin D (Oscal-D 250 Mg-125 Units Tab) 1 tab PO DAILY [facility] Last Admin: 03/30/17 08:54 Dose: 1 tab Carvedilol (Coreg) 3.125 mg PO DAILY [facility] Last Admin: 03/30/17 08:53 Dose: 3.125 mg Docusate Sodium (Colace) 100 mg PO BID [facility] Last Admin: 03/30/17 16:58 Dose: 100 mg Enoxaparin Sodium (Lovenox) 30 mg SC DAILY [facility] PRN Reason: Protocol Last Admin: 03/30/17 09:21 Dose: 30 mg Famotidine (Pepcid) 20 mg PO DAILY [facility] Last Admin: 03/30/17 08:55 Dose: 20 mg Ferrous Sulfate (Feosol) 325 mg PO BID [facility] Last Admin: 03/30/17 16:58 Dose: 325 mg Furosemide (Lasix) 20 mg PO DAILY [facility] Last Admin: 03/30/17 08:54 Dose: 20 mg Lisinopril (Zestril) 5 mg PO DAILY [facility] Last Admin: 03/30/17 08:54 Dose: 5 mg Loratadine (Claritin) 10 mg PO DAILY [facility] Last Admin: 03/30/17 08:53 Dose: 10 mg - Labs Labs: 03/29/17 17:20 03/29/17 17:20 PT 12.5 Seconds (9.8-13.1) 01/17/17 13:40 INR 1.2 (0.9-1.2) 01/17/17 13:40 APTT 27.7 Seconds (25.6-37.1) 01/17/17 13:40 Assessment and Plan (1) Unwitnessed fall Assessment & Plan: Back Pain Ambulation Problem Right Foot Droop Frail Elderly Wheelchair Dependent Continue Pain Management Continue PT/OT, and Out of bed to Chair daily Waiting Medicaid Application approval SW and her daughter with POA processing the Medicaid Application. 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 (5) DVT prophylaxis Status: Acute (6) Hypercholesterolemia Status: Chronic (7) Hypothyroid Status: Chronic (8) Pulmonary hypertension Status: Chronic (9) HTN (hypertension) Status: Resolved
[2017-03-31] MEDS: Enoxaparin 30 mg Syringe SC SCH (10:58)
[2017-03-31] MEDS: Calcium-Vit D 250 mg-125 Units Tab UD PO SCH (10:59)
[2017-04-01] MEDS: Calcium-Vit D 250 mg-125 Units Tab UD PO SCH (10:29)
[2017-04-01] MEDS: Enoxaparin 30 mg Syringe SC SCH (10:30)
[2017-04-02] MEDS: Calcium-Vit D 250 mg-125 Units Tab UD PO SCH (11:37)
[2017-04-02] MEDS: Enoxaparin 30 mg Syringe SC SCH (11:38)
[2017-04-03] MEDS: Enoxaparin 30 mg Syringe SC SCH (10:40)
[2017-04-03] MEDS: Calcium-Vit D 250 mg-125 Units Tab UD PO SCH (10:42)
[2017-04-04] MEDS: Enoxaparin 30 mg Syringe SC SCH (09:35)
[2017-04-04] MEDS: Calcium-Vit D 250 mg-125 Units Tab UD PO SCH (09:36)
[2017-04-05] MEDS: Enoxaparin 30 mg Syringe SC SCH (09:03)
[2017-04-05] MEDS: Calcium-Vit D 250 mg-125 Units Tab UD PO SCH (17:13)
--- NOTE | 2017-04-06 07:44 | CP.PCM.PN ---
Subjective - Date & Time of Evaluation Date of Evaluation: 04/03/17 Time of Evaluation: 13:35 - Subjective Subjective: Seen and examined at the bed side. She states feeling better. Physical therapist walk her around with unsteady gait. Patient has been wheelchair Dependent. Objective - Vital Signs/Intake and Output Vital Signs (last 24 hours): Temp Pulse Resp BP Pulse Ox 98.9 F 85 19 94/59 L 100 04/06/17 00:09 04/06/17 00:09 04/06/17 00:09 04/06/17 00:09 04/06/17 00:09 - Medications Medications: Current Medications Acetaminophen (Tylenol 325mg Tab) 650 mg PO Q6 PRN PRN Reason: Pain, moderate (4-7) Last Admin: 01/23/17 09:13 Dose: 650 mg Aspirin (Ecotrin) 81 mg PO DAILY [facility] Last Admin: 04/05/17 08:57 Dose: 81 mg Atorvastatin Calcium (Lipitor) 20 mg PO HS [facility] Last Admin: 04/05/17 21:52 Dose: 20 mg Calcium/Vitamin D (Oscal-D 250 Mg-125 Units Tab) 1 tab PO DAILY [facility] Last Admin: 04/05/17 17:13 Dose: 1 tab Carvedilol (Coreg) 3.125 mg PO DAILY [facility] Last Admin: 04/05/17 08:57 Dose: 3.125 mg Docusate Sodium (Colace) 100 mg PO BID [facility] Last Admin: 04/05/17 17:13 Dose: 100 mg Enoxaparin Sodium (Lovenox) 30 mg SC DAILY [facility] PRN Reason: Protocol Last Admin: 04/05/17 09:03 Dose: 30 mg Famotidine (Pepcid) 20 mg PO DAILY [facility] Last Admin: 04/05/17 08:58 Dose: 20 mg Ferrous Sulfate (Feosol) 325 mg PO BID [facility] Last Admin: 04/05/17 17:13 Dose: 325 mg Furosemide (Lasix) 20 mg PO DAILY [facility] Last Admin: 04/05/17 08:56 Dose: 20 mg Lisinopril (Zestril) 5 mg PO DAILY [facility] Last Admin: 04/05/17 08:56 Dose: 5 mg Loratadine (Claritin) 10 mg PO DAILY [facility] Last Admin: 04/05/17 08:56 Dose: 10 mg - Labs Labs: 03/29/17 17:20 03/29/17 17:20 PT 12.5 Seconds (9.8-13.1) 01/17/17 13:40 INR 1.2 (0.9-1.2) 01/17/17 13:40 APTT 27.7 Seconds (25.6-37.1) 01/17/17 13:40 Assessment and Plan (1) Unwitnessed fall Assessment & Plan: Back Pain Ambulation Problem Right Foot Droop Frail Elderly Wheelchair Dependent Continue Pain Management Continue PT/OT, and Out of bed to Chair daily Waiting Medicaid Application approval SW and her daughter with POA processing the Medicaid Application. Continue all Current Medication and Care (2) Frail elderly Status: Chronic (3) Hip pain Status: Resolved (4) UTI due to extended-spectrum beta lactamase (ESBL) producing Escherichia coli Status: Resolved (5) Adult idiopathic generalized osteoporosis Status: Chronic (6) DVT prophylaxis Status: Acute (7) Hypercholesterolemia Status: Chronic (8) Hypothyroid Status: Chronic (9) Pulmonary hypertension Status: Chronic (10) HTN (hypertension) Status: Chronic (11) NSTEMI (non-ST elevated myocardial infarction) Status: Resolved
--- NOTE | 2017-04-06 07:45 | CP.PCM.PN ---
Subjective - Date & Time of Evaluation Date of Evaluation: 04/02/17 Time of Evaluation: 17:00 - Subjective Subjective: Seen and examined at the bed side. She states feeling better. Physical therapist walk her around with unsteady gait. RN (Marizol and jarett Wilson with me during the Interview and examination). Objective - Vital Signs/Intake and Output Vital Signs (last 24 hours): Temp Pulse Resp BP Pulse Ox 98.9 F 85 19 94/59 L 100 04/06/17 00:09 04/06/17 00:09 04/06/17 00:09 04/06/17 00:09 04/06/17 00:09 - Medications Medications: Current Medications Acetaminophen (Tylenol 325mg Tab) 650 mg PO Q6 PRN PRN Reason: Pain, moderate (4-7) Last Admin: 01/23/17 09:13 Dose: 650 mg Aspirin (Ecotrin) 81 mg PO DAILY [facility] Last Admin: 04/05/17 08:57 Dose: 81 mg Atorvastatin Calcium (Lipitor) 20 mg PO HS [facility] Last Admin: 04/05/17 21:52 Dose: 20 mg Calcium/Vitamin D (Oscal-D 250 Mg-125 Units Tab) 1 tab PO DAILY [facility] Last Admin: 04/05/17 17:13 Dose: 1 tab Carvedilol (Coreg) 3.125 mg PO DAILY [facility] Last Admin: 04/05/17 08:57 Dose: 3.125 mg Docusate Sodium (Colace) 100 mg PO BID [facility] Last Admin: 04/05/17 17:13 Dose: 100 mg Enoxaparin Sodium (Lovenox) 30 mg SC DAILY [facility] PRN Reason: Protocol Last Admin: 04/05/17 09:03 Dose: 30 mg Famotidine (Pepcid) 20 mg PO DAILY [facility] Last Admin: 04/05/17 08:58 Dose: 20 mg Ferrous Sulfate (Feosol) 325 mg PO BID [facility] Last Admin: 04/05/17 17:13 Dose: 325 mg Furosemide (Lasix) 20 mg PO DAILY [facility] Last Admin: 04/05/17 08:56 Dose: 20 mg Lisinopril (Zestril) 5 mg PO DAILY [facility] Last Admin: 04/05/17 08:56 Dose: 5 mg Loratadine (Claritin) 10 mg PO DAILY [facility] Last Admin: 04/05/17 08:56 Dose: 10 mg - Labs Labs: 03/29/17 17:20 03/29/17 17:20 PT 12.5 Seconds (9.8-13.1) 01/17/17 13:40 INR 1.2 (0.9-1.2) 01/17/17 13:40 APTT 27.7 Seconds (25.6-37.1) 01/17/17 13:40 Assessment and Plan (1) Unwitnessed fall Assessment & Plan: Back Pain Ambulation Problem Right Foot Droop Frail Elderly Wheelchair Dependent Continue Pain Management Continue PT/OT, and Out of bed to Chair daily Waiting Medicaid Application approval SW and her daughter with POA processing the Medicaid Application. Continue all Current Medication and Care (2) Frail elderly Status: Chronic (3) Hip pain Status: Resolved (4) UTI due to extended-spectrum beta lactamase (ESBL) producing Escherichia coli Status: Resolved (5) Adult idiopathic generalized osteoporosis Status: Chronic (6) DVT prophylaxis Status: Acute (7) Hypercholesterolemia Status: Chronic (8) Hypothyroid Status: Chronic (9) Pulmonary hypertension Status: Chronic (10) HTN (hypertension) Status: Chronic (11) NSTEMI (non-ST elevated myocardial infarction) Status: Resolved
[2017-04-06] MEDS: Calcium-Vit D 250 mg-125 Units Tab UD PO SCH (09:43)
[2017-04-06] MEDS: Enoxaparin 30 mg Syringe SC SCH (09:43)
[2017-04-07] MEDS: Enoxaparin 30 mg Syringe SC SCH (08:48)
[2017-04-07] MEDS: Calcium-Vit D 250 mg-125 Units Tab UD PO SCH (08:49)
[2017-04-08] MEDS: Calcium-Vit D 250 mg-125 Units Tab UD PO SCH (08:38)
[2017-04-08] MEDS: Enoxaparin 30 mg Syringe SC SCH (08:39)
--- NOTE | 2017-04-08 22:09 | CP.PCM.PN ---
Subjective - Date & Time of Evaluation Date of Evaluation: 04/08/17 Time of Evaluation: 10:45 - Subjective Subjective: Seen and examined at the bed side. No complaint. Still [facility] Objective - Vital Signs/Intake and Output Vital Signs (last 24 hours): Temp Pulse Resp BP Pulse Ox 98.4 F 75 20 111/60 100 04/08/17 17:40 04/08/17 17:40 04/08/17 17:40 04/08/17 17:40 04/08/17 17:40 - Medications Medications: Current Medications Acetaminophen (Tylenol 325mg Tab) 650 mg PO Q6 PRN PRN Reason: Pain, moderate (4-7) Last Admin: 01/23/17 09:13 Dose: 650 mg Aspirin (Ecotrin) 81 mg PO DAILY [facility] Last Admin: 04/08/17 08:38 Dose: 81 mg Atorvastatin Calcium (Lipitor) 20 mg PO HS [facility] Last Admin: 04/08/17 21:17 Dose: 20 mg Calcium/Vitamin D (Oscal-D 250 Mg-125 Units Tab) 1 tab PO DAILY [facility] Last Admin: 04/08/17 08:38 Dose: 1 tab Carvedilol (Coreg) 3.125 mg PO DAILY [facility] Last Admin: 04/08/17 08:44 Dose: 3.125 mg Docusate Sodium (Colace) 100 mg PO BID [facility] Last Admin: 04/08/17 17:20 Dose: 100 mg Famotidine (Pepcid) 20 mg PO DAILY [facility] Last Admin: 04/08/17 08:38 Dose: 20 mg Ferrous Sulfate (Feosol) 325 mg PO BID [facility] Last Admin: 04/08/17 17:21 Dose: 325 mg Furosemide (Lasix) 20 mg PO DAILY [facility] Last Admin: 04/08/17 08:37 Dose: 20 mg Lisinopril (Zestril) 5 mg PO DAILY [facility] Last Admin: 04/08/17 08:30 Dose: 5 mg Loratadine (Claritin) 10 mg PO DAILY [facility] Last Admin: 04/08/17 08:38 Dose: 10 mg - Labs Labs: 03/29/17 17:20 03/29/17 17:20 PT 12.5 Seconds (9.8-13.1) 01/17/17 13:40 INR 1.2 (0.9-1.2) 01/17/17 13:40 APTT 27.7 Seconds (25.6-37.1) 01/17/17 13:40 Assessment and Plan (1) Unwitnessed fall Assessment & Plan: Back Pain Ambulation Problem Right Foot Droop Frail Elderly Wheelchair Dependent Continue Pain Management Continue PT/OT, and Out of bed to Chair daily Waiting Medicaid Application approval SW and her daughter with POA processing the Medicaid Application. Continue all Current Medication and Care (2) Frail elderly Status: Chronic (3) Hip pain Status: Resolved (4) UTI due to extended-spectrum beta lactamase (ESBL) producing Escherichia coli Status: Resolved (5) Adult idiopathic generalized osteoporosis Status: Chronic (6) DVT prophylaxis Status: Acute (7) Hypercholesterolemia Status: Chronic (8) Hypothyroid Status: Chronic (9) Pulmonary hypertension Status: Chronic (10) HTN (hypertension) Status: Chronic (11) NSTEMI (non-ST elevated myocardial infarction) Status: Resolved
[2017-04-09] MEDS: Calcium-Vit D 250 mg-125 Units Tab UD PO SCH (08:25)
[2017-04-10] MEDS: Calcium-Vit D 250 mg-125 Units Tab UD PO SCH (08:34)
--- NOTE | 2017-04-10 18:30 | CP.PCM.PN ---
Subjective - Date & Time of Evaluation Date of Evaluation: 04/10/17 Time of Evaluation: 18:30 - Subjective Subjective: Seen and examined at the bed side. She states feeling better. Physical therapist walk her around with unsteady gait. Objective - Vital Signs/Intake and Output Vital Signs (last 24 hours): Temp Pulse Resp BP Pulse Ox 98.8 F 81 18 95/57 L 99 04/10/17 16:04 04/10/17 16:04 04/10/17 16:04 04/10/17 16:04 04/10/17 16:04 - Medications Medications: Current Medications Acetaminophen (Tylenol 325mg Tab) 650 mg PO Q6 PRN PRN Reason: Pain, moderate (4-7) Last Admin: 01/23/17 09:13 Dose: 650 mg Aspirin (Ecotrin) 81 mg PO DAILY [facility] Last Admin: 04/10/17 08:34 Dose: 81 mg Atorvastatin Calcium (Lipitor) 20 mg PO HS [facility] Last Admin: 04/09/17 21:06 Dose: 20 mg Calcium/Vitamin D (Oscal-D 250 Mg-125 Units Tab) 1 tab PO DAILY [facility] Last Admin: 04/10/17 08:34 Dose: 1 tab Carvedilol (Coreg) 3.125 mg PO DAILY [facility] Last Admin: 04/10/17 08:37 Dose: 3.125 mg Docusate Sodium (Colace) 100 mg PO BID [facility] Last Admin: 04/10/17 16:12 Dose: 100 mg Famotidine (Pepcid) 20 mg PO DAILY [facility] Last Admin: 04/10/17 08:34 Dose: 20 mg Ferrous Sulfate (Feosol) 325 mg PO BID [facility] Last Admin: 04/10/17 16:12 Dose: 325 mg Furosemide (Lasix) 20 mg PO DAILY [facility] Last Admin: 04/10/17 08:37 Dose: 20 mg Lisinopril (Zestril) 5 mg PO DAILY [facility] Last Admin: 04/10/17 08:37 Dose: 5 mg Loratadine (Claritin) 10 mg PO DAILY [facility] Last Admin: 04/10/17 08:34 Dose: 10 mg - Labs Labs: 03/29/17 17:20 03/29/17 17:20 PT 12.5 Seconds (9.8-13.1) 01/17/17 13:40 INR 1.2 (0.9-1.2) 01/17/17 13:40 APTT 27.7 Seconds (25.6-37.1) 01/17/17 13:40 Assessment and Plan (1) Unwitnessed fall Assessment & Plan: Back Pain Ambulation Problem Right Foot Droop Frail Elderly Wheelchair Dependent Continue Pain Management Continue PT/OT, and Out of bed to Chair daily Waiting Medicaid Application approval [place] and her daughter with POA processing the Medicaid Application. Continue all Current Medication and Care (2) Frail elderly Status: Chronic (3) Hip pain Status: Resolved (4) UTI due to extended-spectrum beta lactamase (ESBL) producing Escherichia coli Status: Resolved (5) Adult idiopathic generalized osteoporosis Status: Chronic (6) DVT prophylaxis Status: Acute (7) Hypercholesterolemia Status: Chronic (8) Hypothyroid Status: Chronic (9) Pulmonary hypertension Status: Chronic (10) HTN (hypertension) Status: Chronic (11) NSTEMI (non-ST elevated myocardial infarction) Status: Resolved
--- NOTE | 2017-04-11 07:45 | CP.PCM.PN ---
Subjective - Date & Time of Evaluation Date of Evaluation: 04/11/17 Time of Evaluation: 08:45 - Subjective Subjective: Seen and examined at the bed side. She states feeling better. Physical therapist walk her around with unsteady gait. Objective - Vital Signs/Intake and Output Vital Signs (last 24 hours): Temp Pulse Resp BP Pulse Ox 98.2 F 75 20 106/69 99 04/11/17 07:23 04/11/17 07:23 04/11/17 07:23 04/11/17 07:23 04/11/17 07:23 - Medications Medications: Current Medications Acetaminophen (Tylenol 325mg Tab) 650 mg PO Q6 PRN PRN Reason: Pain, moderate (4-7) Last Admin: 01/23/17 09:13 Dose: 650 mg Aspirin (Ecotrin) 81 mg PO DAILY [facility] Last Admin: 04/10/17 08:34 Dose: 81 mg Atorvastatin Calcium (Lipitor) 20 mg PO HS [facility] Last Admin: 04/10/17 22:15 Dose: 20 mg Calcium/Vitamin D (Oscal-D 250 Mg-125 Units Tab) 1 tab PO DAILY [facility] Last Admin: 04/10/17 08:34 Dose: 1 tab Carvedilol (Coreg) 3.125 mg PO DAILY [facility] Last Admin: 04/10/17 08:37 Dose: 3.125 mg Docusate Sodium (Colace) 100 mg PO BID [facility] Last Admin: 04/10/17 16:12 Dose: 100 mg Famotidine (Pepcid) 20 mg PO DAILY [facility] Last Admin: 04/10/17 08:34 Dose: 20 mg Ferrous Sulfate (Feosol) 325 mg PO BID [facility] Last Admin: 04/10/17 16:12 Dose: 325 mg Furosemide (Lasix) 20 mg PO DAILY [facility] Last Admin: 04/10/17 08:37 Dose: 20 mg Lisinopril (Zestril) 5 mg PO DAILY [facility] Last Admin: 04/10/17 08:37 Dose: 5 mg Loratadine (Claritin) 10 mg PO DAILY [facility] Last Admin: 04/10/17 08:34 Dose: 10 mg - Labs Labs: 03/29/17 17:20 03/29/17 17:20 PT 12.5 Seconds (9.8-13.1) 01/17/17 13:40 INR 1.2 (0.9-1.2) 01/17/17 13:40 APTT 27.7 Seconds (25.6-37.1) 01/17/17 13:40 Assessment and Plan (1) Unwitnessed fall Assessment & Plan: Back Pain Ambulation Problem Right Foot Droop Frail Elderly Wheelchair Dependent Continue Pain Management Continue PT/OT, and Out of bed to Chair daily Waiting Medicaid Application approval [place] and her daughter with POA processing the Medicaid Application. Continue all Current Medication and Care (2) Frail elderly Status: Chronic (3) Hip pain Status: Resolved (4) UTI due to extended-spectrum beta lactamase (ESBL) producing Escherichia coli Status: Resolved (5) Adult idiopathic generalized osteoporosis Status: Chronic (6) DVT prophylaxis Status: Acute (7) Hypercholesterolemia Status: Chronic (8) Hypothyroid Status: Chronic (9) Pulmonary hypertension Status: Chronic (10) HTN (hypertension) Status: Chronic (11) NSTEMI (non-ST elevated myocardial infarction) Status: Resolved
[2017-04-11] MEDS: Calcium-Vit D 250 mg-125 Units Tab UD PO SCH (09:41)
--- NOTE | 2017-04-11 12:43 | RAD ---
HISTORY: Abdominal distention COMPARISON: No prior. FINDINGS: BOWEL: Unremarkable bowel gas pattern. No evidence of obstruction or free air. BONES: Scoliosis, secondary degenerative change at multiple levels. OTHER FINDINGS: None. IMPRESSION: No acute findings related to/accounting for the clinical presentation.
[2017-04-12] MEDS: Calcium-Vit D 250 mg-125 Units Tab UD PO SCH (09:23)
[2017-04-12 13:13] LABS: HEMOGLOBIN 11.6 g/dL (12.0-16.0); MEAN CELL VOLUME 88.5 fl (81.0-99.0); MEAN CORPUSCULAR HEMOGLOBIN 28.9 pg (27.0-31.0); MEAN CORPUSCULAR HGB CONC 32.7 g/dL (33.0-37.0); RED CELL DISTRIBUTION WIDTH 14.7 % (11.5-14.5); WHITE BLOOD COUNT 4.2 K/uL (4.8-10.8)
[2017-04-12 13:23] LABS: BLOOD UREA NITROGEN 24 mg/dl (7-17); CALCIUM 8.6 mg/dL (8.4-10.2); GFR AFRICAN-AMERICAN > 60; GFR NON-AFRICAN AMERICAN > 60
[2017-04-12] MEDS: Enoxaparin 30 mg Syringe SC SCH (17:52)
--- NOTE | 2017-04-12 21:26 | CP.PCM.PN ---
Subjective - Date & Time of Evaluation Date of Evaluation: 04/12/17 Time of Evaluation: 14:45 - Subjective Subjective: Seen and examined at the bed side. She states feeling better. Physical therapist walk her around with unsteady gait. Objective - Vital Signs/Intake and Output Vital Signs (last 24 hours): Temp Pulse Resp BP Pulse Ox 98.6 F 86 20 93/56 L 98 04/12/17 16:33 04/12/17 16:33 04/12/17 16:33 04/12/17 16:33 04/12/17 16:33 - Medications Medications: Current Medications Acetaminophen (Tylenol 325mg Tab) 650 mg PO Q6 PRN PRN Reason: Pain, moderate (4-7) Last Admin: 01/23/17 09:13 Dose: 650 mg Aspirin (Ecotrin) 81 mg PO DAILY [facility] Last Admin: 04/12/17 09:22 Dose: 81 mg Atorvastatin Calcium (Lipitor) 20 mg PO HS [facility] Last Admin: 04/11/17 22:09 Dose: 20 mg Calcium/Vitamin D (Oscal-D 250 Mg-125 Units Tab) 1 tab PO DAILY [facility] Last Admin: 04/12/17 09:23 Dose: 1 tab Carvedilol (Coreg) 3.125 mg PO DAILY [facility] Last Admin: 04/12/17 09:22 Dose: 3.125 mg Ciprofloxacin (Cipro) 500 mg PO Q12 [facility] PRN Reason: Protocol Last Admin: 04/12/17 09:21 Dose: 500 mg Docusate Sodium (Colace) 100 mg PO BID [facility] Last Admin: 04/12/17 17:51 Dose: 100 mg Enoxaparin Sodium (Lovenox) 30 mg SC DAILY [facility] PRN Reason: Protocol Last Admin: 04/12/17 17:52 Dose: 30 mg Famotidine (Pepcid) 20 mg PO DAILY [facility] Last Admin: 04/12/17 09:23 Dose: 20 mg Ferrous Sulfate (Feosol) 325 mg PO BID [facility] Last Admin: 04/12/17 17:52 Dose: 325 mg Furosemide (Lasix) 20 mg PO DAILY [facility] Last Admin: 04/12/17 09:22 Dose: 20 mg Lisinopril (Zestril) 5 mg PO DAILY [facility] Last Admin: 04/12/17 09:23 Dose: 5 mg Loratadine (Claritin) 10 mg PO DAILY [facility] Last Admin: 04/12/17 09:21 Dose: 10 mg - Labs Labs: 04/12/17 12:45 04/12/17 12:45 PT 12.5 Seconds (9.8-13.1) 01/17/17 13:40 INR 1.2 (0.9-1.2) 01/17/17 13:40 APTT 27.7 Seconds (25.6-37.1) 01/17/17 13:40 Assessment and Plan (1) Unwitnessed fall Assessment & Plan: Back Pain Ambulation Problem Right Foot Droop Frail Elderly Wheelchair Dependent Continue Pain Management Continue PT/OT, and Out of bed to Chair daily Waiting Medicaid Application approval SW and her daughter with POA processing the Medicaid Application. Continue all Current Medication and Care (2) Frail elderly Status: Chronic (3) Hip pain Status: Resolved (4) UTI due to extended-spectrum beta lactamase (ESBL) producing Escherichia coli Status: Resolved (5) Adult idiopathic generalized osteoporosis Status: Chronic (6) DVT prophylaxis Status: Acute (7) Hypercholesterolemia Status: Chronic (8) Hypothyroid Status: Chronic (9) Pulmonary hypertension Status: Chronic (10) HTN (hypertension) Status: Chronic (11) NSTEMI (non-ST elevated myocardial infarction) Status: Resolved
[2017-04-13] MEDS: Enoxaparin 30 mg Syringe SC SCH (09:06)
[2017-04-13] MEDS: Calcium-Vit D 250 mg-125 Units Tab UD PO SCH (09:07)
--- NOTE | 2017-04-14 00:29 | CP.PCM.PN ---
Subjective - Date & Time of Evaluation Date of Evaluation: 04/13/17 Time of Evaluation: 12:00 - Subjective Subjective: Seen and examined at the bed side. She states feeling better. Physical therapist walk her around with unsteady gait. Objective - Vital Signs/Intake and Output Vital Signs (last 24 hours): Temp Pulse Resp BP Pulse Ox 98.7 F 81 19 137/81 99 04/14/17 00:19 04/14/17 00:19 04/14/17 00:19 04/14/17 00:19 04/14/17 00:19 - Medications Medications: Current Medications Acetaminophen (Tylenol 325mg Tab) 650 mg PO Q6 PRN PRN Reason: Pain, moderate (4-7) Last Admin: 01/23/17 09:13 Dose: 650 mg Aspirin (Ecotrin) 81 mg PO DAILY [facility] Last Admin: 04/13/17 09:07 Dose: 81 mg Atorvastatin Calcium (Lipitor) 20 mg PO HS [facility] Last Admin: 04/13/17 21:13 Dose: 20 mg Calcium/Vitamin D (Oscal-D 250 Mg-125 Units Tab) 1 tab PO DAILY [facility] Last Admin: 04/13/17 09:07 Dose: 1 tab Carvedilol (Coreg) 3.125 mg PO DAILY [facility] Last Admin: 04/13/17 09:06 Dose: 3.125 mg Ciprofloxacin (Cipro) 500 mg PO Q12 [facility] PRN Reason: Protocol Last Admin: 04/13/17 21:13 Dose: 500 mg Docusate Sodium (Colace) 100 mg PO BID [facility] Last Admin: 04/13/17 16:33 Dose: 100 mg Enoxaparin Sodium (Lovenox) 30 mg SC DAILY [facility] PRN Reason: Protocol Last Admin: 04/13/17 09:06 Dose: 30 mg Famotidine (Pepcid) 20 mg PO DAILY [facility] Last Admin: 04/13/17 09:11 Dose: 20 mg Ferrous Sulfate (Feosol) 325 mg PO BID [facility] Last Admin: 04/13/17 16:31 Dose: 325 mg Furosemide (Lasix) 20 mg PO DAILY [facility] Last Admin: 04/13/17 09:07 Dose: 20 mg Lisinopril (Zestril) 5 mg PO DAILY [facility] Last Admin: 04/13/17 09:07 Dose: 5 mg Loratadine (Claritin) 10 mg PO DAILY [facility] Last Admin: 04/13/17 09:08 Dose: 10 mg - Labs Labs: 04/12/17 12:45 04/12/17 12:45 PT 12.5 Seconds (9.8-13.1) 01/17/17 13:40 INR 1.2 (0.9-1.2) 01/17/17 13:40 APTT 27.7 Seconds (25.6-37.1) 01/17/17 13:40 Assessment and Plan (1) Unwitnessed fall Assessment & Plan: Back Pain Ambulation Problem Right Foot Droop Frail Elderly Wheelchair Dependent Continue Pain Management Continue PT/OT, and Out of bed to Chair daily Waiting Medicaid Application approval SW and her daughter with POA processing the Medicaid Application. Continue all Current Medication and Care (2) Frail elderly Status: Chronic (3) Hip pain Status: Resolved (4) UTI due to extended-spectrum beta lactamase (ESBL) producing Escherichia coli Status: Resolved (5) Adult idiopathic generalized osteoporosis Status: Chronic (6) DVT prophylaxis Status: Acute (7) Hypercholesterolemia Status: Chronic (8) Hypothyroid Status: Chronic (9) Pulmonary hypertension Status: Chronic (10) HTN (hypertension) Status: Chronic (11) NSTEMI (non-ST elevated myocardial infarction) Status: Resolved
[2017-04-14] MEDS: Enoxaparin 30 mg Syringe SC SCH (10:22)
[2017-04-14] MEDS: Calcium-Vit D 250 mg-125 Units Tab UD PO SCH (10:22)
--- NOTE | 2017-04-15 | CP.PCM.PN ---
Subjective - Date & Time of Evaluation Date of Evaluation: 04/14/17 Time of Evaluation: 23:00 - Subjective Subjective: Seen and examined at the bed side. She states feeling better. Physical therapist walk her around with unsteady gait. Objective - Vital Signs/Intake and Output Vital Signs (last 24 hours): Temp Pulse Resp BP Pulse Ox 98.5 F 81 17 98/58 L 99 04/14/17 15:45 04/14/17 15:45 04/14/17 15:45 04/14/17 15:45 04/14/17 15:45 - Medications Medications: Current Medications Acetaminophen (Tylenol 325mg Tab) 650 mg PO Q6 PRN PRN Reason: Pain, moderate (4-7) Last Admin: 01/23/17 09:13 Dose: 650 mg Aspirin (Ecotrin) 81 mg PO DAILY [facility] Last Admin: 04/14/17 10:24 Dose: 81 mg Atorvastatin Calcium (Lipitor) 20 mg PO HS [facility] Last Admin: 04/14/17 21:20 Dose: 20 mg Calcium/Vitamin D (Oscal-D 250 Mg-125 Units Tab) 1 tab PO DAILY [facility] Last Admin: 04/14/17 10:22 Dose: 1 tab Carvedilol (Coreg) 3.125 mg PO DAILY [facility] Last Admin: 04/14/17 10:26 Dose: 3.125 mg Ciprofloxacin (Cipro) 500 mg PO Q12 [facility] PRN Reason: Protocol Last Admin: 04/14/17 20:56 Dose: 500 mg Docusate Sodium (Colace) 100 mg PO BID [facility] Last Admin: 04/14/17 16:47 Dose: 100 mg Enoxaparin Sodium (Lovenox) 30 mg SC DAILY [facility] PRN Reason: Protocol Last Admin: 04/14/17 10:22 Dose: 30 mg Famotidine (Pepcid) 20 mg PO DAILY [facility] Last Admin: 04/14/17 10:21 Dose: 20 mg Ferrous Sulfate (Feosol) 325 mg PO BID [facility] Last Admin: 04/14/17 16:47 Dose: 325 mg Furosemide (Lasix) 20 mg PO DAILY [facility] Last Admin: 04/14/17 10:23 Dose: 20 mg Lisinopril (Zestril) 5 mg PO DAILY [facility] Last Admin: 04/14/17 10:22 Dose: 5 mg Loratadine (Claritin) 10 mg PO DAILY [facility] Last Admin: 04/14/17 10:21 Dose: 10 mg - Labs Labs: 04/12/17 12:45 04/12/17 12:45 PT 12.5 Seconds (9.8-13.1) 01/17/17 13:40 INR 1.2 (0.9-1.2) 01/17/17 13:40 APTT 27.7 Seconds (25.6-37.1) 01/17/17 13:40 Assessment and Plan (1) Unwitnessed fall Assessment & Plan: Back Pain Ambulation Problem Right Foot Droop Frail Elderly Wheelchair Dependent Continue Pain Management Continue PT/OT, and Out of bed to Chair daily Waiting Medicaid Application approval SW and her daughter with POA processing the Medicaid Application. Continue all Current Medication and Care (2) Frail elderly Status: Chronic (3) Hip pain Status: Resolved (4) UTI due to extended-spectrum beta lactamase (ESBL) producing Escherichia coli Status: Resolved (5) Adult idiopathic generalized osteoporosis Status: Chronic (6) DVT prophylaxis Status: Acute (7) Hypercholesterolemia Status: Chronic (8) Hypothyroid Status: Chronic (9) Pulmonary hypertension Status: Chronic (10) HTN (hypertension) Status: Chronic (11) NSTEMI (non-ST elevated myocardial infarction) Status: Resolved
[2017-04-15] MEDS: Enoxaparin 30 mg Syringe SC SCH (08:59)
[2017-04-15] MEDS: Calcium-Vit D 250 mg-125 Units Tab UD PO SCH (09:00)
--- NOTE | 2017-04-16 00:06 | CP.PCM.PN ---
Subjective - Date & Time of Evaluation Date of Evaluation: 04/15/17 Time of Evaluation: 14:00 - Subjective Subjective: Seen and examined at the bed side. No Complaint. she is eating well. Objective - Vital Signs/Intake and Output Vital Signs (last 24 hours): Temp Pulse Resp BP Pulse Ox 97.3 F L 80 18 100/62 99 04/15/17 15:23 04/15/17 15:23 04/15/17 15:23 04/15/17 15:23 04/15/17 15:23 - Medications Medications: Current Medications Acetaminophen (Tylenol 325mg Tab) 650 mg PO Q6 PRN PRN Reason: Pain, moderate (4-7) Last Admin: 01/23/17 09:13 Dose: 650 mg Aspirin (Ecotrin) 81 mg PO DAILY [facility] Last Admin: 04/15/17 08:59 Dose: 81 mg Atorvastatin Calcium (Lipitor) 20 mg PO HS [facility] Last Admin: 04/15/17 22:40 Dose: 20 mg Calcium/Vitamin D (Oscal-D 250 Mg-125 Units Tab) 1 tab PO DAILY [facility] Last Admin: 04/15/17 09:00 Dose: 1 tab Carvedilol (Coreg) 3.125 mg PO DAILY [facility] Last Admin: 04/15/17 08:58 Dose: 3.125 mg Ciprofloxacin (Cipro) 500 mg PO Q12 [facility] PRN Reason: Protocol Last Admin: 04/15/17 20:50 Dose: 500 mg Docusate Sodium (Colace) 100 mg PO BID [facility] Last Admin: 04/15/17 16:19 Dose: 100 mg Famotidine (Pepcid) 20 mg PO DAILY [facility] Last Admin: 04/15/17 09:00 Dose: 20 mg Ferrous Sulfate (Feosol) 325 mg PO BID [facility] Last Admin: 04/15/17 16:19 Dose: 325 mg Furosemide (Lasix) 20 mg PO DAILY [facility] Last Admin: 04/15/17 08:59 Dose: 20 mg Lisinopril (Zestril) 5 mg PO DAILY [facility] Last Admin: 04/15/17 09:00 Dose: 5 mg Loratadine (Claritin) 10 mg PO DAILY [facility] Last Admin: 04/15/17 08:57 Dose: 10 mg - Labs Labs: 04/12/17 12:45 04/12/17 12:45 PT 12.5 Seconds (9.8-13.1) 01/17/17 13:40 INR 1.2 (0.9-1.2) 01/17/17 13:40 APTT 27.7 Seconds (25.6-37.1) 01/17/17 13:40 Assessment and Plan (1) Unwitnessed fall Assessment & Plan: Back Pain Ambulation Problem Right Foot Droop Frail Elderly Wheelchair Dependent Continue Pain Management Continue PT/OT, and Out of bed to Chair daily Waiting Medicaid Application approval SW and her daughter with POA processing the Medicaid Application. Continue all Current Medication and Care (2) Frail elderly Status: Chronic (3) Hip pain Status: Resolved (4) UTI due to extended-spectrum beta lactamase (ESBL) producing Escherichia coli Status: Resolved (5) Adult idiopathic generalized osteoporosis Status: Chronic (6) DVT prophylaxis Status: Acute (7) Hypercholesterolemia Status: Chronic (8) Hypothyroid Status: Chronic (9) Pulmonary hypertension Status: Chronic (10) HTN (hypertension) Status: Chronic (11) NSTEMI (non-ST elevated myocardial infarction) Assessment & Plan: Status: Resolved
[2017-04-16] MEDS: Calcium-Vit D 250 mg-125 Units Tab UD PO SCH (09:12)
[2017-04-16] MEDS: Enoxaparin 40 mg Syringe SC SCH (17:12)
--- NOTE | 2017-04-16 23:09 | CP.PCM.PN ---
Subjective - Date & Time of Evaluation Date of Evaluation: 04/16/17 Time of Evaluation: 12:00 - Subjective Subjective: Seen and examined at the bed side. No complaint. Waiting Medicaid approval for fdc Placement Objective - Vital Signs/Intake and Output Vital Signs (last 24 hours): Temp Pulse Resp BP Pulse Ox 98.3 F 88 20 123/64 98 04/16/17 17:18 04/16/17 17:18 04/16/17 17:18 04/16/17 17:18 04/16/17 17:18 - Medications Medications: Current Medications Acetaminophen (Tylenol 325mg Tab) 650 mg PO Q6 PRN PRN Reason: Pain, moderate (4-7) Last Admin: 01/23/17 09:13 Dose: 650 mg Aspirin (Ecotrin) 81 mg PO DAILY [facility] [place] Last Admin: 04/16/17 09:12 Dose: 81 mg Atorvastatin Calcium (Lipitor) 20 mg PO HS [facility] [place] Last Admin: 04/15/17 22:40 Dose: 20 mg Calcium/Vitamin D (Oscal-D 250 Mg-125 Units Tab) 1 tab PO DAILY [facility] [place] Last Admin: 04/16/17 09:12 Dose: 1 tab Carvedilol (Coreg) 3.125 mg PO DAILY [facility] [place] Last Admin: 04/16/17 09:17 Dose: Not Given Ciprofloxacin (Cipro) 500 mg PO Q12 [facility] [place] PRN Reason: Protocol Last Admin: 04/16/17 09:13 Dose: 500 mg Docusate Sodium (Colace) 100 mg PO BID [facility] [place] Last Admin: 04/16/17 17:12 Dose: 100 mg Enoxaparin Sodium (Lovenox) 40 mg SC DAILY [facility] [place] PRN Reason: Protocol Last Admin: 04/16/17 17:12 Dose: 40 mg Famotidine (Pepcid) 20 mg PO DAILY [facility] [place] Last Admin: 04/16/17 09:12 Dose: 20 mg Ferrous Sulfate (Feosol) 325 mg PO BID [facility] [place] Last Admin: 04/16/17 17:12 Dose: 325 mg Furosemide (Lasix) 20 mg PO DAILY [facility] [place] Last Admin: 04/16/17 09:14 Dose: 20 mg Lisinopril (Zestril) 5 mg PO DAILY [facility] [place] Last Admin: 04/16/17 09:16 Dose: Not Given Loratadine (Claritin) 10 mg PO DAILY [facility] [place] Last Admin: 04/16/17 09:12 Dose: 10 mg - Labs Labs: 04/12/17 12:45 04/12/17 12:45 PT 12.5 Seconds (9.8-13.1) 01/17/17 13:40 INR 1.2 (0.9-1.2) 01/17/17 13:40 APTT 27.7 Seconds (25.6-37.1) 01/17/17 13:40 Assessment and Plan (1) Unwitnessed fall Assessment & Plan: Back Pain Ambulation Problem Right Foot Droop Frail Elderly Wheelchair Dependent Continue Pain Management Continue PT/OT, and Out of bed to Chair daily Waiting Medicaid Application approval SW and her daughter with POA processing the Medicaid Application. Continue all Current Medication and Care (2) Frail elderly Status: Chronic (3) Hip pain Status: Resolved (4) UTI due to extended-spectrum beta lactamase (ESBL) producing Escherichia coli Status: Resolved (5) Adult idiopathic generalized osteoporosis Status: Chronic (6) DVT prophylaxis Status: Acute (7) Hypercholesterolemia Status: Chronic (8) Hypothyroid Status: Chronic (9) Pulmonary hypertension Status: Chronic (10) HTN (hypertension) Status: Chronic (11) NSTEMI (non-ST elevated myocardial infarction) Assessment & Plan: Status: Resolved
[2017-04-17] MEDS: Enoxaparin 40 mg Syringe SC SCH (08:33)
[2017-04-17] MEDS: Calcium-Vit D 250 mg-125 Units Tab UD PO SCH (08:35)
[2017-04-18] MEDS: Enoxaparin 40 mg Syringe SC SCH (09:25)
[2017-04-18] MEDS: Calcium-Vit D 250 mg-125 Units Tab UD PO SCH (09:25)
--- NOTE | 2017-04-19 00:05 | CP.PCM.PN ---
Subjective - Date & Time of Evaluation Date of Evaluation: 04/17/17 Time of Evaluation: 22:30 - Subjective Subjective: Seen and examined at the bed side. No complaint. Waiting Medicaid approval for jail Placement Objective - Vital Signs/Intake and Output Vital Signs (last 24 hours): Temp Pulse Resp BP Pulse Ox 98.3 F 106 H 20 114/64 98 04/18/17 17:00 04/18/17 17:00 04/18/17 17:00 04/18/17 17:00 04/18/17 17:00 - Medications Medications: Current Medications Acetaminophen (Tylenol 325mg Tab) 650 mg PO Q6 PRN PRN Reason: Pain, moderate (4-7) Last Admin: 01/23/17 09:13 Dose: 650 mg Aspirin (Ecotrin) 81 mg PO DAILY [facility] [place] Last Admin: 04/18/17 09:26 Dose: 81 mg Atorvastatin Calcium (Lipitor) 20 mg PO HS [facility] [place] Last Admin: 04/18/17 21:33 Dose: 20 mg Calcium/Vitamin D (Oscal-D 250 Mg-125 Units Tab) 1 tab PO DAILY [facility] [place] Last Admin: 04/18/17 09:25 Dose: 1 tab Carvedilol (Coreg) 3.125 mg PO DAILY [facility] [place] Last Admin: 04/18/17 09:24 Dose: Not Given Ciprofloxacin (Cipro) 500 mg PO Q12 [facility] [place] PRN Reason: Protocol Last Admin: 04/18/17 21:30 Dose: 500 mg Docusate Sodium (Colace) 100 mg PO BID [facility] [place] Last Admin: 04/18/17 17:59 Dose: 100 mg Enoxaparin Sodium (Lovenox) 40 mg SC DAILY [facility] [place] PRN Reason: Protocol Last Admin: 04/18/17 09:25 Dose: 40 mg Famotidine (Pepcid) 20 mg PO DAILY [facility] [place] Last Admin: 04/18/17 09:25 Dose: 20 mg Ferrous Sulfate (Feosol) 325 mg PO BID [facility] [place] Last Admin: 04/18/17 17:59 Dose: 325 mg Furosemide (Lasix) 20 mg PO DAILY [facility] [place] Last Admin: 04/18/17 09:25 Dose: Not Given Lisinopril (Zestril) 5 mg PO DAILY [facility] [place] Last Admin: 04/18/17 09:25 Dose: Not Given Loratadine (Claritin) 10 mg PO DAILY [facility] [place] Last Admin: 04/18/17 09:24 Dose: 10 mg - Labs Labs: 04/12/17 12:45 04/12/17 12:45 PT 12.5 Seconds (9.8-13.1) 01/17/17 13:40 INR 1.2 (0.9-1.2) 01/17/17 13:40 APTT 27.7 Seconds (25.6-37.1) 01/17/17 13:40 Assessment and Plan (1) Unwitnessed fall Assessment & Plan: Back Pain Ambulation Problem Right Foot Droop Frail Elderly Wheelchair Dependent Continue Pain Management Continue PT/OT, and Out of bed to Chair daily Waiting Medicaid Application approval SW and her daughter with POA processing the Medicaid Application. Continue all Current Medication and Care (2) Frail elderly Status: Chronic (3) Hip pain Status: Resolved (4) UTI due to extended-spectrum beta lactamase (ESBL) producing Escherichia coli Status: Resolved (5) Adult idiopathic generalized osteoporosis Status: Chronic (6) DVT prophylaxis Status: Acute (7) Hypercholesterolemia Status: Chronic (8) Hypothyroid Status: Chronic (9) Pulmonary hypertension Status: Chronic (10) HTN (hypertension) Status: Chronic (11) NSTEMI (non-ST elevated myocardial infarction) Assessment & Plan: Status: Resolved
--- NOTE | 2017-04-19 00:06 | CP.PCM.PN ---
Subjective - Date & Time of Evaluation Date of Evaluation: 04/18/17 Time of Evaluation: 23:30 - Subjective Subjective: Seen and examined at the bed side. No complaint. Waiting Medicaid approval for assisted Placement Objective - Vital Signs/Intake and Output Vital Signs (last 24 hours): Temp Pulse Resp BP Pulse Ox 98.3 F 106 H 20 114/64 98 04/18/17 17:00 04/18/17 17:00 04/18/17 17:00 04/18/17 17:00 04/18/17 17:00 - Medications Medications: Current Medications Acetaminophen (Tylenol 325mg Tab) 650 mg PO Q6 PRN PRN Reason: Pain, moderate (4-7) Last Admin: 01/23/17 09:13 Dose: 650 mg Aspirin (Ecotrin) 81 mg PO DAILY [facility] Last Admin: 04/18/17 09:26 Dose: 81 mg Atorvastatin Calcium (Lipitor) 20 mg PO HS [facility] Last Admin: 04/18/17 21:33 Dose: 20 mg Calcium/Vitamin D (Oscal-D 250 Mg-125 Units Tab) 1 tab PO DAILY [facility] Last Admin: 04/18/17 09:25 Dose: 1 tab Carvedilol (Coreg) 3.125 mg PO DAILY [facility] Last Admin: 04/18/17 09:24 Dose: Not Given Ciprofloxacin (Cipro) 500 mg PO Q12 [facility] PRN Reason: Protocol Last Admin: 04/18/17 21:30 Dose: 500 mg Docusate Sodium (Colace) 100 mg PO BID [facility] Last Admin: 04/18/17 17:59 Dose: 100 mg Enoxaparin Sodium (Lovenox) 40 mg SC DAILY [facility] PRN Reason: Protocol Last Admin: 04/18/17 09:25 Dose: 40 mg Famotidine (Pepcid) 20 mg PO DAILY [facility] Last Admin: 04/18/17 09:25 Dose: 20 mg Ferrous Sulfate (Feosol) 325 mg PO BID [facility] Last Admin: 04/18/17 17:59 Dose: 325 mg Furosemide (Lasix) 20 mg PO DAILY [facility] Last Admin: 04/18/17 09:25 Dose: Not Given Lisinopril (Zestril) 5 mg PO DAILY [facility] Last Admin: 04/18/17 09:25 Dose: Not Given Loratadine (Claritin) 10 mg PO DAILY [facility] Last Admin: 04/18/17 09:24 Dose: 10 mg - Labs Labs: 04/12/17 12:45 04/12/17 12:45 PT 12.5 Seconds (9.8-13.1) 01/17/17 13:40 INR 1.2 (0.9-1.2) 01/17/17 13:40 APTT 27.7 Seconds (25.6-37.1) 01/17/17 13:40 Assessment and Plan (1) Unwitnessed fall Assessment & Plan: Back Pain Ambulation Problem Right Foot Droop Frail Elderly Wheelchair Dependent Continue Pain Management Continue PT/OT, and Out of bed to Chair daily Waiting Medicaid Application approval SW and her daughter with POA processing the Medicaid Application. Continue all Current Medication and Care (2) Frail elderly Status: Chronic (3) Hip pain Status: Resolved (4) UTI due to extended-spectrum beta lactamase (ESBL) producing Escherichia coli Status: Resolved (5) Adult idiopathic generalized osteoporosis Status: Chronic (6) DVT prophylaxis Status: Acute (7) Hypercholesterolemia Status: Chronic (8) Hypothyroid Status: Chronic (9) Pulmonary hypertension Status: Chronic (10) HTN (hypertension) Status: Chronic (11) NSTEMI (non-ST elevated myocardial infarction) Assessment & Plan: Status: Resolved
[2017-04-19 07:18] LABS: BASO % 0.3 % (0.0-2.0); EOS # 0.1 K/uL (0.0-0.7); EOS % 1.9 % (0.0-4.0); HEMOGLOBIN 10.2 g/dL (12.0-16.0); LYMPH # 1.3 K/uL (1.0-4.3); LYMPH % 33.6 % (20.0-40.0); MEAN CELL VOLUME 89.6 fl (81.0-99.0); MEAN CORPUSCULAR HEMOGLOBIN 28.4 pg (27.0-31.0); MEAN CORPUSCULAR HGB CONC 31.6 g/dL (33.0-37.0); MEAN PLATELET VOLUME 9.6 fl (7.2-11.7); MONO # 0.5 K/uL (0.0-0.8); MONO % 13.9 % (0.0-10.0); NEUT % 50.3 % (50.0-75.0); NRBC % 0.1 % (0.0-0.0); RBC 3.6 Mil/uL (3.80-5.20); RED CELL DISTRIBUTION WIDTH 14.5 % (11.5-14.5); WHITE BLOOD COUNT 3.9 K/uL (4.8-10.8)
[2017-04-19 07:38] LABS: ALB/GLOB RATIO 1.2 (1.0-2.1); ALBUMIN 3.3 g/dL (3.5-5.0); ALT/SGPT 37 U/L (9-52); AST/SGOT 29 U/L (14-36); BLOOD UREA NITROGEN 17 mg/dl (7-17); CALCIUM 8.5 mg/dL (8.4-10.2); GFR AFRICAN-AMERICAN > 60; GFR NON-AFRICAN AMERICAN > 60
[2017-04-19] MEDS: Calcium-Vit D 250 mg-125 Units Tab UD PO SCH (09:08)
[2017-04-19] MEDS: Enoxaparin 40 mg Syringe SC SCH (09:09)
--- NOTE | 2017-04-20 02:15 | CP.PCM.PN ---
Subjective - Date & Time of Evaluation Date of Evaluation: 04/19/17 Time of Evaluation: 23:45 - Subjective Subjective: Seen and examined at the bed side. No complaint. Waiting Medicaid approval for retirement Placement Objective - Vital Signs/Intake and Output Vital Signs (last 24 hours): Temp Pulse Resp BP Pulse Ox 98.3 F 89 19 115/60 99 04/20/17 00:00 04/20/17 00:00 04/20/17 00:00 04/20/17 00:00 04/20/17 00:00 - Medications Medications: Current Medications Acetaminophen (Tylenol 325mg Tab) 650 mg PO Q6 PRN PRN Reason: Pain, moderate (4-7) Last Admin: 01/23/17 09:13 Dose: 650 mg Aspirin (Ecotrin) 81 mg PO DAILY [facility] Last Admin: 04/19/17 09:11 Dose: 81 mg Atorvastatin Calcium (Lipitor) 20 mg PO HS [facility] Last Admin: 04/19/17 21:12 Dose: 20 mg Calcium/Vitamin D (Oscal-D 250 Mg-125 Units Tab) 1 tab PO DAILY [facility] Last Admin: 04/19/17 09:08 Dose: 1 tab Carvedilol (Coreg) 3.125 mg PO DAILY [facility] Last Admin: 04/19/17 09:07 Dose: Not Given Ciprofloxacin (Cipro) 500 mg PO Q12 [facility] PRN Reason: Protocol Last Admin: 04/19/17 21:12 Dose: 500 mg Docusate Sodium (Colace) 100 mg PO BID [facility] Last Admin: 04/19/17 16:56 Dose: 100 mg Famotidine (Pepcid) 20 mg PO DAILY [facility] Last Admin: 04/19/17 09:09 Dose: 20 mg Ferrous Sulfate (Feosol) 325 mg PO BID [facility] Last Admin: 04/19/17 16:56 Dose: 325 mg Furosemide (Lasix) 20 mg PO DAILY [facility] Last Admin: 04/19/17 09:08 Dose: Not Given Lisinopril (Zestril) 5 mg PO DAILY [facility] Last Admin: 04/19/17 09:09 Dose: Not Given Loratadine (Claritin) 10 mg PO DAILY [facility] Last Admin: 04/19/17 09:07 Dose: 10 mg - Labs Labs: 04/19/17 06:40 04/19/17 06:40 PT 12.5 Seconds (9.8-13.1) 01/17/17 13:40 INR 1.2 (0.9-1.2) 01/17/17 13:40 APTT 27.7 Seconds (25.6-37.1) 01/17/17 13:40 Assessment and Plan (1) Unwitnessed fall Assessment & Plan: Back Pain Ambulation Problem Right Foot Droop Frail Elderly Wheelchair Dependent Continue Pain Management Continue PT/OT, and Out of bed to Chair daily Waiting Medicaid Application approval SW and her daughter with POA processing the Medicaid Application. Continue all Current Medication and Care (2) Frail elderly Status: Chronic (3) Hip pain Status: Resolved (4) UTI due to extended-spectrum beta lactamase (ESBL) producing Escherichia coli Status: Resolved (5) Adult idiopathic generalized osteoporosis Status: Chronic (6) DVT prophylaxis Status: Acute (7) Hypercholesterolemia Status: Chronic (8) Hypothyroid Status: Chronic (9) Pulmonary hypertension Status: Chronic (10) HTN (hypertension) Status: Chronic (11) NSTEMI (non-ST elevated myocardial infarction) Assessment & Plan: Status: Resolved
[2017-04-20] MEDS: Calcium-Vit D 250 mg-125 Units Tab UD PO SCH (08:52)
--- NOTE | 2017-04-20 23:19 | CP.PCM.PN ---
Subjective - Date & Time of Evaluation Date of Evaluation: 04/20/17 Time of Evaluation: 18:00 - Subjective Subjective: Seen and examined at the bed side. No complaint. Waiting Medicaid approval for [facility]DC Placement Objective - Vital Signs/Intake and Output Vital Signs (last 24 hours): Temp Pulse Resp BP Pulse Ox 98.6 F 82 20 96/52 L 100 04/20/17 16:17 04/20/17 16:17 04/20/17 16:17 04/20/17 16:17 04/20/17 16:17 - Medications Medications: Current Medications Acetaminophen (Tylenol 325mg Tab) 650 mg PO Q6 PRN PRN Reason: Pain, moderate (4-7) Last Admin: 01/23/17 09:13 Dose: 650 mg Aspirin (Ecotrin) 81 mg PO DAILY [facility] Last Admin: 04/20/17 08:51 Dose: 81 mg Atorvastatin Calcium (Lipitor) 20 mg PO HS [facility] Last Admin: 04/20/17 21:07 Dose: 20 mg Calcium/Vitamin D (Oscal-D 250 Mg-125 Units Tab) 1 tab PO DAILY [facility] Last Admin: 04/20/17 08:52 Dose: 1 tab Carvedilol (Coreg) 3.125 mg PO DAILY [facility] Last Admin: 04/20/17 08:52 Dose: 3.125 mg Ciprofloxacin (Cipro) 500 mg PO Q12 [facility] PRN Reason: Protocol Last Admin: 04/20/17 21:08 Dose: 500 mg Docusate Sodium (Colace) 100 mg PO BID [facility] Last Admin: 04/20/17 16:05 Dose: 100 mg Famotidine (Pepcid) 20 mg PO DAILY [facility] Last Admin: 04/20/17 08:52 Dose: 20 mg Ferrous Sulfate (Feosol) 325 mg PO BID [facility] Last Admin: 04/20/17 16:04 Dose: 325 mg Furosemide (Lasix) 20 mg PO DAILY [facility] Last Admin: 04/20/17 08:51 Dose: 20 mg Lisinopril (Zestril) 5 mg PO DAILY [facility] Last Admin: 04/20/17 08:52 Dose: 5 mg Loratadine (Claritin) 10 mg PO DAILY [facility] Last Admin: 04/20/17 08:52 Dose: 10 mg - Labs Labs: 04/19/17 06:40 04/19/17 06:40 PT 12.5 Seconds (9.8-13.1) 01/17/17 13:40 INR 1.2 (0.9-1.2) 01/17/17 13:40 APTT 27.7 Seconds (25.6-37.1) 01/17/17 13:40 Assessment and Plan (1) Unwitnessed fall Assessment & Plan: Back Pain Ambulation Problem Right Foot Droop Frail Elderly Wheelchair Dependent Continue Pain Management Continue PT/OT, and Out of bed to Chair daily Waiting Medicaid Application approval SW and her daughter with POA processing the Medicaid Application. Continue all Current Medication and Care (2) Frail elderly Status: Chronic (3) Hip pain Status: Resolved (4) UTI due to extended-spectrum beta lactamase (ESBL) producing Escherichia coli Status: Resolved (5) Adult idiopathic generalized osteoporosis Status: Chronic (6) DVT prophylaxis Status: Acute (7) Hypercholesterolemia Status: Chronic (8) Hypothyroid Status: Chronic (9) Pulmonary hypertension Status: Chronic (10) HTN (hypertension) Status: Chronic (11) NSTEMI (non-ST elevated myocardial infarction) Assessment & Plan: Status: Resolved
[2017-04-21] MEDS: Calcium-Vit D 250 mg-125 Units Tab UD PO SCH (08:21)
--- NOTE | 2017-04-21 23:13 | CP.PCM.PN ---
Subjective - Date & Time of Evaluation Date of Evaluation: 04/21/17 Time of Evaluation: 08:40 - Subjective Subjective: Seen and examined at the bed side. No complaint. Waiting Medicaid approval for assisted Placement Objective - Vital Signs/Intake and Output Vital Signs (last 24 hours): Temp Pulse Resp BP Pulse Ox 98 F 81 20 102/60 98 04/21/17 16:23 04/21/17 16:23 04/21/17 16:23 04/21/17 16:23 04/21/17 16:23 - Medications Medications: Current Medications Acetaminophen (Tylenol 325mg Tab) 650 mg PO Q6 PRN PRN Reason: Pain, moderate (4-7) Last Admin: 01/23/17 09:13 Dose: 650 mg Aspirin (Ecotrin) 81 mg PO DAILY [facility] Last Admin: 04/21/17 08:20 Dose: 81 mg Atorvastatin Calcium (Lipitor) 20 mg PO HS [facility] Last Admin: 04/21/17 22:32 Dose: 20 mg Calcium/Vitamin D (Oscal-D 250 Mg-125 Units Tab) 1 tab PO DAILY [facility] Last Admin: 04/21/17 08:21 Dose: 1 tab Carvedilol (Coreg) 3.125 mg PO DAILY [facility] Last Admin: 04/21/17 08:20 Dose: 3.125 mg Ciprofloxacin (Cipro) 500 mg PO Q12 [facility] PRN Reason: Protocol Last Admin: 04/21/17 22:00 Dose: 500 mg Docusate Sodium (Colace) 100 mg PO BID [facility] Last Admin: 04/21/17 16:05 Dose: 100 mg Famotidine (Pepcid) 20 mg PO DAILY [facility] Last Admin: 04/21/17 08:19 Dose: 20 mg Ferrous Sulfate (Feosol) 325 mg PO BID [facility] Last Admin: 04/21/17 16:05 Dose: 325 mg Furosemide (Lasix) 20 mg PO DAILY [facility] Last Admin: 04/21/17 08:19 Dose: 20 mg Lisinopril (Zestril) 5 mg PO DAILY [facility] Last Admin: 04/21/17 08:20 Dose: 5 mg Loratadine (Claritin) 10 mg PO DAILY [facility] Last Admin: 04/21/17 08:20 Dose: 10 mg - Labs Labs: 04/19/17 06:40 04/19/17 06:40 PT 12.5 Seconds (9.8-13.1) 01/17/17 13:40 INR 1.2 (0.9-1.2) 01/17/17 13:40 APTT 27.7 Seconds (25.6-37.1) 01/17/17 13:40 Assessment and Plan (1) Unwitnessed fall Assessment & Plan: Back Pain Ambulation Problem Right Foot Droop Frail Elderly Wheelchair Dependent Continue Pain Management Continue PT/OT, and Out of bed to Chair daily Waiting Medicaid Application approval SW and her daughter with POA processing the Medicaid Application. Continue all Current Medication and Care (2) Frail elderly Status: Chronic (3) Hip pain Status: Resolved (4) UTI due to extended-spectrum beta lactamase (ESBL) producing Escherichia coli Status: Resolved (5) Adult idiopathic generalized osteoporosis Status: Chronic (6) DVT prophylaxis Status: Acute (7) Hypercholesterolemia Status: Chronic (8) Hypothyroid Status: Chronic (9) Pulmonary hypertension Status: Chronic (10) HTN (hypertension) Status: Chronic (11) NSTEMI (non-ST elevated myocardial infarction) Assessment & Plan: Status: Resolved
[2017-04-22] MEDS: Calcium-Vit D 250 mg-125 Units Tab UD PO SCH (09:15)
--- NOTE | 2017-04-22 23:20 | CP.PCM.PN ---
Subjective - Date & Time of Evaluation Date of Evaluation: 04/22/17 Time of Evaluation: 11:40 - Subjective Subjective: Seen and examined at the bed side. No complaint. Waiting Medicaid approval for correction Placement Objective - Vital Signs/Intake and Output Vital Signs (last 24 hours): Temp Pulse Resp BP Pulse Ox 98.2 F 77 20 107/64 100 04/22/17 16:12 04/22/17 16:12 04/22/17 16:12 04/22/17 16:12 04/22/17 16:12 - Medications Medications: Current Medications Acetaminophen (Tylenol 325mg Tab) 650 mg PO Q6 PRN PRN Reason: Pain, moderate (4-7) Last Admin: 01/23/17 09:13 Dose: 650 mg Aspirin (Ecotrin) 81 mg PO DAILY [facility] Last Admin: 04/22/17 09:15 Dose: 81 mg Atorvastatin Calcium (Lipitor) 20 mg PO HS [facility] Last Admin: 04/22/17 21:33 Dose: 20 mg Calcium/Vitamin D (Oscal-D 250 Mg-125 Units Tab) 1 tab PO DAILY [facility] Last Admin: 04/22/17 09:15 Dose: 1 tab Carvedilol (Coreg) 3.125 mg PO DAILY [facility] Last Admin: 04/22/17 09:14 Dose: 3.125 mg Docusate Sodium (Colace) 100 mg PO BID [facility] Last Admin: 04/22/17 16:27 Dose: 100 mg Famotidine (Pepcid) 20 mg PO DAILY [facility] Last Admin: 04/22/17 09:14 Dose: 20 mg Ferrous Sulfate (Feosol) 325 mg PO BID [facility] Last Admin: 04/22/17 16:27 Dose: 325 mg Furosemide (Lasix) 20 mg PO DAILY [facility] Last Admin: 04/22/17 09:14 Dose: 20 mg Lisinopril (Zestril) 5 mg PO DAILY [facility] Last Admin: 04/22/17 09:15 Dose: 5 mg Loratadine (Claritin) 10 mg PO DAILY [facility] Last Admin: 04/22/17 09:16 Dose: 10 mg - Labs Labs: 04/19/17 06:40 04/19/17 06:40 PT 12.5 Seconds (9.8-13.1) 01/17/17 13:40 INR 1.2 (0.9-1.2) 01/17/17 13:40 APTT 27.7 Seconds (25.6-37.1) 01/17/17 13:40 Assessment and Plan (1) Unwitnessed fall Assessment & Plan: Back Pain Ambulation Problem Right Foot Droop Frail Elderly Wheelchair Dependent Continue Pain Management Continue PT/OT, and Out of bed to Chair daily Waiting Medicaid Application approval SW and her daughter with POA processing the Medicaid Application. Continue all Current Medication and Care (2) Frail elderly Status: Chronic (3) Hip pain Status: Resolved (4) UTI due to extended-spectrum beta lactamase (ESBL) producing Escherichia coli Status: Resolved (5) Adult idiopathic generalized osteoporosis Status: Chronic (6) DVT prophylaxis Status: Acute (7) Hypercholesterolemia Status: Chronic (8) Hypothyroid Status: Chronic (9) Pulmonary hypertension Status: Chronic (10) HTN (hypertension) Status: Chronic (11) NSTEMI (non-ST elevated myocardial infarction) Assessment & Plan: Status: Resolved
[2017-04-23] MEDS: Calcium-Vit D 250 mg-125 Units Tab UD PO SCH (08:33)
--- NOTE | 2017-04-23 23:55 | CP.PCM.PN ---
Subjective - Date & Time of Evaluation Date of Evaluation: 04/23/17 Time of Evaluation: 09:30 - Subjective Subjective: Seen and examined at the bed side. No complaint. Waiting Medicaid approval for [facility] Placement Objective - Vital Signs/Intake and Output Vital Signs (last 24 hours): Temp Pulse Resp BP Pulse Ox 98.2 F 97 H 18 105/58 L 99 04/23/17 16:43 04/23/17 16:43 04/23/17 16:43 04/23/17 16:43 04/23/17 16:43 - Medications Medications: Current Medications Acetaminophen (Tylenol 325mg Tab) 650 mg PO Q6 PRN PRN Reason: Pain, moderate (4-7) Last Admin: 01/23/17 09:13 Dose: 650 mg Aspirin (Ecotrin) 81 mg PO DAILY [facility] Last Admin: 04/23/17 08:33 Dose: 81 mg Atorvastatin Calcium (Lipitor) 20 mg PO HS [facility] Last Admin: 04/23/17 21:03 Dose: 20 mg Calcium/Vitamin D (Oscal-D 250 Mg-125 Units Tab) 1 tab PO DAILY [facility] Last Admin: 04/23/17 08:33 Dose: 1 tab Carvedilol (Coreg) 3.125 mg PO DAILY [facility] Last Admin: 04/23/17 08:38 Dose: 3.125 mg Docusate Sodium (Colace) 100 mg PO BID [facility] Last Admin: 04/23/17 16:47 Dose: 100 mg Famotidine (Pepcid) 20 mg PO DAILY [facility] Last Admin: 04/23/17 08:33 Dose: 20 mg Ferrous Sulfate (Feosol) 325 mg PO BID [facility] Last Admin: 04/23/17 16:47 Dose: 325 mg Furosemide (Lasix) 20 mg PO DAILY [facility] Last Admin: 04/23/17 08:34 Dose: 20 mg Lisinopril (Zestril) 5 mg PO DAILY [facility] Last Admin: 04/23/17 08:35 Dose: 5 mg Loratadine (Claritin) 10 mg PO DAILY [facility] Last Admin: 04/23/17 08:34 Dose: 10 mg - Labs Labs: 04/19/17 06:40 04/19/17 06:40 PT 12.5 Seconds (9.8-13.1) 01/17/17 13:40 INR 1.2 (0.9-1.2) 01/17/17 13:40 APTT 27.7 Seconds (25.6-37.1) 01/17/17 13:40 Assessment and Plan (1) Unwitnessed fall Assessment & Plan: Back Pain Ambulation Problem Right Foot Droop Frail Elderly Wheelchair Dependent Continue Pain Management Continue PT/OT, and Out of bed to Chair daily Waiting Medicaid Application approval SW and her daughter with POA processing the Medicaid Application. Continue all Current Medication and Care (2) Frail elderly Status: Chronic (3) Hip pain Status: Resolved (4) UTI due to extended-spectrum beta lactamase (ESBL) producing Escherichia coli Status: Resolved (5) Adult idiopathic generalized osteoporosis Status: Chronic (6) DVT prophylaxis Status: Acute (7) Hypercholesterolemia Status: Chronic (8) Hypothyroid Status: Chronic (9) Pulmonary hypertension Status: Chronic (10) HTN (hypertension) Status: Chronic (11) NSTEMI (non-ST elevated myocardial infarction) Assessment & Plan: Status: Resolved
[2017-04-24] MEDS: Calcium-Vit D 250 mg-125 Units Tab UD PO SCH (08:37)
[2017-04-25] MEDS: Calcium-Vit D 250 mg-125 Units Tab UD PO SCH (08:39)
--- NOTE | 2017-04-25 22:17 | CP.PCM.PN ---
Subjective - Date & Time of Evaluation Date of Evaluation: 04/24/17 Time of Evaluation: 20:10 - Subjective Subjective: Seen and examined at the bed side. No complaint. Waiting Medicaid approval for shelter Placement Objective - Vital Signs/Intake and Output Vital Signs (last 24 hours): Temp Pulse Resp BP Pulse Ox 98.6 F 88 19 130/63 99 04/25/17 16:18 04/25/17 16:26 04/25/17 16:18 04/25/17 16:26 04/25/17 16:18 - Medications Medications: Current Medications Acetaminophen (Tylenol 325mg Tab) 650 mg PO Q6 PRN PRN Reason: Pain, moderate (4-7) Last Admin: 01/23/17 09:13 Dose: 650 mg Aspirin (Ecotrin) 81 mg PO DAILY [facility] Last Admin: 04/25/17 08:38 Dose: 81 mg Atorvastatin Calcium (Lipitor) 20 mg PO HS [facility] Last Admin: 04/25/17 21:47 Dose: 20 mg Calcium/Vitamin D (Oscal-D 250 Mg-125 Units Tab) 1 tab PO DAILY [facility] Last Admin: 04/25/17 08:39 Dose: 1 tab Carvedilol (Coreg) 3.125 mg PO DAILY [facility] Last Admin: 04/25/17 16:26 Dose: 3.125 mg Docusate Sodium (Colace) 100 mg PO BID [facility] Last Admin: 04/25/17 16:24 Dose: 100 mg Famotidine (Pepcid) 20 mg PO DAILY [facility] Last Admin: 04/25/17 08:39 Dose: 20 mg Ferrous Sulfate (Feosol) 325 mg PO BID [facility] Last Admin: 04/25/17 16:24 Dose: 325 mg Furosemide (Lasix) 20 mg PO DAILY [facility] Last Admin: 04/25/17 08:39 Dose: 20 mg Lisinopril (Zestril) 5 mg PO DAILY [facility] Last Admin: 04/25/17 08:39 Dose: 5 mg Loratadine (Claritin) 10 mg PO DAILY [facility] Last Admin: 04/25/17 08:37 Dose: 10 mg - Labs Labs: 04/19/17 06:40 04/19/17 06:40 PT 12.5 Seconds (9.8-13.1) 01/17/17 13:40 INR 1.2 (0.9-1.2) 01/17/17 13:40 APTT 27.7 Seconds (25.6-37.1) 01/17/17 13:40 Assessment and Plan (1) Unwitnessed fall Assessment & Plan: Back Pain Ambulation Problem Right Foot Droop Frail Elderly Wheelchair Dependent Continue Pain Management Continue PT/OT, and Out of bed to Chair daily Waiting Medicaid Application approval SW and her daughter with POA processing the Medicaid Application. Continue all Current Medication and Care (2) Frail elderly Status: Chronic (3) Hip pain Status: Resolved (4) UTI due to extended-spectrum beta lactamase (ESBL) producing Escherichia coli Status: Resolved (5) Adult idiopathic generalized osteoporosis Status: Chronic (6) DVT prophylaxis Status: Acute (7) Hypercholesterolemia Status: Chronic (8) Hypothyroid Status: Chronic (9) Pulmonary hypertension Status: Chronic (10) HTN (hypertension) Status: Chronic (11) NSTEMI (non-ST elevated myocardial infarction) Assessment & Plan: Status: Resolved
--- NOTE | 2017-04-25 22:17 | CP.PCM.PN ---
Subjective - Date & Time of Evaluation Date of Evaluation: 04/25/17 Time of Evaluation: 19:45 - Subjective Subjective: Seen and examined at the bed side. No complaint. Waiting Medicaid approval for residential Placement Objective - Vital Signs/Intake and Output Vital Signs (last 24 hours): Temp Pulse Resp BP Pulse Ox 98.6 F 88 19 130/63 99 04/25/17 16:18 04/25/17 16:26 04/25/17 16:18 04/25/17 16:26 04/25/17 16:18 - Medications Medications: Current Medications Acetaminophen (Tylenol 325mg Tab) 650 mg PO Q6 PRN PRN Reason: Pain, moderate (4-7) Last Admin: 01/23/17 09:13 Dose: 650 mg Aspirin (Ecotrin) 81 mg PO DAILY [facility] Last Admin: 04/25/17 08:38 Dose: 81 mg Atorvastatin Calcium (Lipitor) 20 mg PO HS [facility] Last Admin: 04/25/17 21:47 Dose: 20 mg Calcium/Vitamin D (Oscal-D 250 Mg-125 Units Tab) 1 tab PO DAILY [facility] Last Admin: 04/25/17 08:39 Dose: 1 tab Carvedilol (Coreg) 3.125 mg PO DAILY [facility] Last Admin: 04/25/17 16:26 Dose: 3.125 mg Docusate Sodium (Colace) 100 mg PO BID [facility] Last Admin: 04/25/17 16:24 Dose: 100 mg Famotidine (Pepcid) 20 mg PO DAILY [facility] Last Admin: 04/25/17 08:39 Dose: 20 mg Ferrous Sulfate (Feosol) 325 mg PO BID [facility] Last Admin: 04/25/17 16:24 Dose: 325 mg Furosemide (Lasix) 20 mg PO DAILY [facility] Last Admin: 04/25/17 08:39 Dose: 20 mg Lisinopril (Zestril) 5 mg PO DAILY [facility] Last Admin: 04/25/17 08:39 Dose: 5 mg Loratadine (Claritin) 10 mg PO DAILY [facility] Last Admin: 04/25/17 08:37 Dose: 10 mg - Labs Labs: 04/19/17 06:40 04/19/17 06:40 PT 12.5 Seconds (9.8-13.1) 01/17/17 13:40 INR 1.2 (0.9-1.2) 01/17/17 13:40 APTT 27.7 Seconds (25.6-37.1) 01/17/17 13:40 Assessment and Plan (1) Unwitnessed fall Assessment & Plan: Back Pain Ambulation Problem Right Foot Droop Frail Elderly Wheelchair Dependent Continue Pain Management Continue PT/OT, and Out of bed to Chair daily Waiting Medicaid Application approval SW and her daughter with POA processing the Medicaid Application. Continue all Current Medication and Care (2) Frail elderly Status: Chronic (3) Hip pain Status: Resolved (4) UTI due to extended-spectrum beta lactamase (ESBL) producing Escherichia coli Status: Resolved (5) Adult idiopathic generalized osteoporosis Status: Chronic (6) DVT prophylaxis Status: Acute (7) Hypercholesterolemia Status: Chronic (8) Hypothyroid Status: Chronic (9) Pulmonary hypertension Status: Chronic (10) HTN (hypertension) Status: Chronic (11) NSTEMI (non-ST elevated myocardial infarction) Assessment & Plan: Status: Resolved
[2017-04-26] MEDS: Calcium-Vit D 250 mg-125 Units Tab UD PO SCH (08:59)
--- NOTE | 2017-04-27 00:14 | CP.PCM.PN ---
Subjective - Date & Time of Evaluation Date of Evaluation: 04/26/17 Time of Evaluation: 11:00 - Subjective Subjective: Seen and examined at the bed side. No complaint. Waiting Medicaid approval for [facility] Objective - Vital Signs/Intake and Output Vital Signs (last 24 hours): Temp Pulse Resp BP Pulse Ox 98.4 F 79 20 105/62 99 04/26/17 16:12 04/26/17 16:12 04/26/17 16:12 04/26/17 16:12 04/26/17 16:12 - Medications Medications: Current Medications Acetaminophen (Tylenol 325mg Tab) 650 mg PO Q6 PRN PRN Reason: Pain, moderate (4-7) Last Admin: 01/23/17 09:13 Dose: 650 mg Aspirin (Ecotrin) 81 mg PO DAILY [facility] Last Admin: 04/26/17 08:58 Dose: 81 mg Atorvastatin Calcium (Lipitor) 20 mg PO HS [facility] Last Admin: 04/26/17 21:02 Dose: 20 mg Calcium/Vitamin D (Oscal-D 250 Mg-125 Units Tab) 1 tab PO DAILY [facility] Last Admin: 04/26/17 08:59 Dose: 1 tab Carvedilol (Coreg) 3.125 mg PO DAILY [facility] Last Admin: 04/26/17 08:58 Dose: 3.125 mg Docusate Sodium (Colace) 100 mg PO BID [facility] Last Admin: 04/26/17 16:57 Dose: 100 mg Famotidine (Pepcid) 20 mg PO DAILY [facility] Last Admin: 04/26/17 08:59 Dose: 20 mg Ferrous Sulfate (Feosol) 325 mg PO BID [facility] Last Admin: 04/26/17 16:57 Dose: 325 mg Furosemide (Lasix) 20 mg PO DAILY [facility] Last Admin: 04/26/17 08:59 Dose: 20 mg Lisinopril (Zestril) 5 mg PO DAILY [facility] Last Admin: 04/25/17 08:39 Dose: 5 mg Loratadine (Claritin) 10 mg PO DAILY [facility] Last Admin: 04/26/17 08:57 Dose: 10 mg - Labs Labs: 04/19/17 06:40 04/19/17 06:40 PT 12.5 Seconds (9.8-13.1) 01/17/17 13:40 INR 1.2 (0.9-1.2) 01/17/17 13:40 APTT 27.7 Seconds (25.6-37.1) 01/17/17 13:40 Assessment and Plan (1) Unwitnessed fall Assessment & Plan: Back Pain Ambulation Problem Right Foot Droop Frail Elderly Wheelchair Dependent Continue Pain Management Continue PT/OT, and Out of bed to Chair daily Waiting Medicaid Application approval SW and her daughter with POA processing the Medicaid Application. Continue all Current Medication and Care (2) Frail elderly Status: Chronic (3) Hip pain Status: Resolved (4) UTI due to extended-spectrum beta lactamase (ESBL) producing Escherichia coli Status: Resolved (5) Adult idiopathic generalized osteoporosis Status: Chronic (6) DVT prophylaxis Status: Acute (7) Hypercholesterolemia Status: Chronic (8) Hypothyroid Status: Chronic (9) Pulmonary hypertension Status: Chronic (10) HTN (hypertension) Status: Chronic (11) NSTEMI (non-ST elevated myocardial infarction) Assessment & Plan: Status: Resolved
[2017-04-27] MEDS: Calcium-Vit D 250 mg-125 Units Tab UD PO SCH (08:50)
[2017-04-27] MEDS: Enoxaparin 40 mg Syringe SC SCH (16:24)
--- NOTE | 2017-04-28 00:18 | CP.PCM.PN ---
Subjective - Date & Time of Evaluation Date of Evaluation: 04/27/17 Time of Evaluation: 20:05 - Subjective Subjective: Seen and examined at the bed side. No complaint. Waiting Medicaid approval for senior care Placement Objective - Vital Signs/Intake and Output Vital Signs (last 24 hours): Temp Pulse Resp BP Pulse Ox 99 F 89 20 98/59 L 98 04/27/17 15:53 04/27/17 15:53 04/27/17 15:53 04/27/17 15:53 04/27/17 15:53 - Medications Medications: Current Medications Acetaminophen (Tylenol 325mg Tab) 650 mg PO Q6 PRN PRN Reason: Pain, moderate (4-7) Last Admin: 01/23/17 09:13 Dose: 650 mg Aspirin (Ecotrin) 81 mg PO DAILY [facility] Last Admin: 04/27/17 08:46 Dose: 81 mg Atorvastatin Calcium (Lipitor) 20 mg PO HS [facility] Last Admin: 04/27/17 22:10 Dose: 20 mg Calcium/Vitamin D (Oscal-D 250 Mg-125 Units Tab) 1 tab PO DAILY [facility] Last Admin: 04/27/17 08:50 Dose: 1 tab Carvedilol (Coreg) 3.125 mg PO DAILY [facility] Last Admin: 04/27/17 08:47 Dose: 3.125 mg Docusate Sodium (Colace) 100 mg PO BID [facility] Last Admin: 04/27/17 16:24 Dose: 100 mg Enoxaparin Sodium (Lovenox) 40 mg SC DAILY [facility] PRN Reason: Protocol Last Admin: 04/27/17 16:24 Dose: 40 mg Famotidine (Pepcid) 20 mg PO DAILY [facility] Last Admin: 04/27/17 08:46 Dose: 20 mg Ferrous Sulfate (Feosol) 325 mg PO BID [facility] Last Admin: 04/27/17 16:24 Dose: 325 mg Furosemide (Lasix) 20 mg PO DAILY [facility] Last Admin: 04/27/17 08:46 Dose: 20 mg Lisinopril (Zestril) 5 mg PO DAILY [facility] Last Admin: 04/27/17 08:51 Dose: 5 mg Loratadine (Claritin) 10 mg PO DAILY [facility] Last Admin: 04/27/17 08:45 Dose: 10 mg - Labs Labs: 04/19/17 06:40 04/19/17 06:40 PT 12.5 Seconds (9.8-13.1) 01/17/17 13:40 INR 1.2 (0.9-1.2) 01/17/17 13:40 APTT 27.7 Seconds (25.6-37.1) 01/17/17 13:40 Assessment and Plan (1) Unwitnessed fall Assessment & Plan: Back Pain Ambulation Problem Right Foot Droop Frail Elderly Wheelchair Dependent Continue Pain Management Continue PT/OT, and Out of bed to Chair daily Waiting Medicaid Application approval SW and her daughter with POA processing the Medicaid Application. Continue all Current Medication and Care (2) Frail elderly Status: Chronic (3) Hip pain Status: Resolved (4) UTI due to extended-spectrum beta lactamase (ESBL) producing Escherichia coli Status: Resolved (5) Adult idiopathic generalized osteoporosis Status: Chronic (6) DVT prophylaxis Status: Acute (7) Hypercholesterolemia Status: Chronic (8) Hypothyroid Status: Chronic (9) Pulmonary hypertension Status: Chronic (10) HTN (hypertension) Status: Chronic (11) NSTEMI (non-ST elevated myocardial infarction) Assessment & Plan: Status: Resolved
[2017-04-28] MEDS: Calcium-Vit D 250 mg-125 Units Tab UD PO SCH (08:35)
[2017-04-28] MEDS: Enoxaparin 40 mg Syringe SC SCH (08:36)
--- NOTE | 2017-04-29 00:13 | CP.PCM.PN ---
Subjective - Date & Time of Evaluation Date of Evaluation: 04/28/17 Time of Evaluation: 17:00 - Subjective Subjective: Seen and examined at the bed side. No complaint. Waiting Medicaid approval for [facility] Placement Objective - Vital Signs/Intake and Output Vital Signs (last 24 hours): Temp Pulse Resp BP Pulse Ox 98.2 F 91 H 20 118/69 99 04/28/17 16:06 04/28/17 16:06 04/28/17 16:06 04/28/17 16:06 04/28/17 16:06 - Medications Medications: Current Medications Acetaminophen (Tylenol 325mg Tab) 650 mg PO Q6 PRN PRN Reason: Pain, moderate (4-7) Last Admin: 01/23/17 09:13 Dose: 650 mg Aspirin (Ecotrin) 81 mg PO DAILY [facility] Last Admin: 04/28/17 08:36 Dose: 81 mg Atorvastatin Calcium (Lipitor) 20 mg PO HS [facility] Last Admin: 04/28/17 21:42 Dose: 20 mg Calcium/Vitamin D (Oscal-D 250 Mg-125 Units Tab) 1 tab PO DAILY [facility] Last Admin: 04/28/17 08:35 Dose: 1 tab Carvedilol (Coreg) 3.125 mg PO DAILY [facility] Last Admin: 04/28/17 08:36 Dose: 3.125 mg Docusate Sodium (Colace) 100 mg PO BID [facility] Last Admin: 04/28/17 16:47 Dose: 100 mg Enoxaparin Sodium (Lovenox) 40 mg SC DAILY [facility] PRN Reason: Protocol Last Admin: 04/28/17 08:36 Dose: 40 mg Famotidine (Pepcid) 20 mg PO DAILY [facility] Last Admin: 04/28/17 08:36 Dose: 20 mg Ferrous Sulfate (Feosol) 325 mg PO BID [facility] Last Admin: 04/28/17 16:47 Dose: 325 mg Furosemide (Lasix) 20 mg PO DAILY [facility] Last Admin: 04/28/17 08:36 Dose: 20 mg Lisinopril (Zestril) 5 mg PO DAILY [facility] Last Admin: 04/28/17 08:36 Dose: 5 mg Loratadine (Claritin) 10 mg PO DAILY [facility] Last Admin: 04/28/17 08:36 Dose: 10 mg - Labs Labs: 04/19/17 06:40 04/19/17 06:40 PT 12.5 Seconds (9.8-13.1) 01/17/17 13:40 INR 1.2 (0.9-1.2) 01/17/17 13:40 APTT 27.7 Seconds (25.6-37.1) 01/17/17 13:40 Assessment and Plan (1) Unwitnessed fall Assessment & Plan: Back Pain Ambulation Problem Right Foot Droop Frail Elderly Wheelchair Dependent Continue Pain Management Continue PT/OT, and Out of bed to Chair daily Waiting Medicaid Application approval SW and her daughter with POA processing the Medicaid Application. Continue all Current Medication and Care (2) Frail elderly Status: Chronic (3) Hip pain Status: Resolved (4) UTI due to extended-spectrum beta lactamase (ESBL) producing Escherichia coli Status: Resolved (5) Adult idiopathic generalized osteoporosis Status: Chronic (6) DVT prophylaxis Status: Acute (7) Hypercholesterolemia Status: Chronic (8) Hypothyroid Status: Chronic (9) Pulmonary hypertension Status: Chronic (10) HTN (hypertension) Status: Chronic (11) NSTEMI (non-ST elevated myocardial infarction) Assessment & Plan: Status: Resolved
[2017-04-29] MEDS: Enoxaparin 40 mg Syringe SC SCH (09:08)
[2017-04-29] MEDS: Calcium-Vit D 250 mg-125 Units Tab UD PO SCH (09:08)
--- NOTE | 2017-04-29 10:58 | CP.PCM.PN ---
Subjective - Date & Time of Evaluation Date of Evaluation: 04/29/17 Time of Evaluation: 09:45 - Subjective Subjective: Seen and examined at the bed side. No complaint. Waiting Medicaid approval for intermediate Placement Objective - Vital Signs/Intake and Output Vital Signs (last 24 hours): Temp Pulse Resp BP Pulse Ox 97.8 F 77 18 117/70 100 04/29/17 08:05 04/29/17 09:15 04/29/17 08:05 04/29/17 09:15 04/29/17 08:05 - Medications Medications: Current Medications Acetaminophen (Tylenol 325mg Tab) 650 mg PO Q6 PRN PRN Reason: Pain, moderate (4-7) Last Admin: 01/23/17 09:13 Dose: 650 mg Aspirin (Ecotrin) 81 mg PO DAILY [facility] Last Admin: 04/29/17 09:09 Dose: 81 mg Atorvastatin Calcium (Lipitor) 20 mg PO HS [facility] Last Admin: 04/28/17 21:42 Dose: 20 mg Calcium/Vitamin D (Oscal-D 250 Mg-125 Units Tab) 1 tab PO DAILY [facility] Last Admin: 04/29/17 09:08 Dose: 1 tab Carvedilol (Coreg) 3.125 mg PO DAILY [facility] Last Admin: 04/29/17 09:15 Dose: 3.125 mg Docusate Sodium (Colace) 100 mg PO BID [facility] Last Admin: 04/29/17 09:08 Dose: 100 mg Enoxaparin Sodium (Lovenox) 40 mg SC DAILY [facility] PRN Reason: Protocol Last Admin: 04/29/17 09:08 Dose: 40 mg Famotidine (Pepcid) 20 mg PO DAILY [facility] Last Admin: 04/29/17 09:08 Dose: 20 mg Ferrous Sulfate (Feosol) 325 mg PO BID [facility] Last Admin: 04/29/17 09:07 Dose: 325 mg Furosemide (Lasix) 20 mg PO DAILY [facility] Last Admin: 04/29/17 09:07 Dose: 20 mg Lisinopril (Zestril) 5 mg PO DAILY [facility] Last Admin: 04/29/17 09:08 Dose: 5 mg Loratadine (Claritin) 10 mg PO DAILY [facility] Last Admin: 04/29/17 09:07 Dose: 10 mg - Labs Labs: 04/19/17 06:40 04/19/17 06:40 PT 12.5 Seconds (9.8-13.1) 01/17/17 13:40 INR 1.2 (0.9-1.2) 01/17/17 13:40 APTT 27.7 Seconds (25.6-37.1) 01/17/17 13:40 Assessment and Plan (1) Unwitnessed fall Assessment & Plan: Back Pain Ambulation Problem Right Foot Droop Frail Elderly Wheelchair Dependent Continue Pain Management Continue PT/OT, and Out of bed to Chair daily Waiting Medicaid Application approval SW and her daughter with POA processing the Medicaid Application. Continue all Current Medication and Care (2) Frail elderly Status: Chronic (3) Hip pain Status: Resolved (4) UTI due to extended-spectrum beta lactamase (ESBL) producing Escherichia coli Status: Resolved (5) Adult idiopathic generalized osteoporosis Status: Chronic (6) DVT prophylaxis Status: Acute (7) Hypercholesterolemia Status: Chronic (8) Hypothyroid Status: Chronic (9) Pulmonary hypertension Status: Chronic (10) HTN (hypertension) Status: Chronic (11) NSTEMI (non-ST elevated myocardial infarction) Assessment & Plan: Status: Resolved
[2017-04-30] MEDS: Calcium-Vit D 250 mg-125 Units Tab UD PO SCH (08:21)
[2017-04-30] MEDS: Enoxaparin 40 mg Syringe SC SCH (08:21)
--- NOTE | 2017-04-30 20:43 | CP.PCM.PN ---
Subjective - Date & Time of Evaluation Date of Evaluation: 04/30/17 Time of Evaluation: 16:30 - Subjective Subjective: Seen and examined at the bed side. No complaint. Waiting Medicaid approval for [facility] Placement Objective - Vital Signs/Intake and Output Vital Signs (last 24 hours): Temp Pulse Resp BP Pulse Ox 98.4 F 98 H 18 104/62 98 04/30/17 16:32 04/30/17 16:32 04/30/17 16:32 04/30/17 16:32 04/30/17 16:32 - Medications Medications: Current Medications Acetaminophen (Tylenol 325mg Tab) 650 mg PO Q6 PRN PRN Reason: Pain, moderate (4-7) Last Admin: 01/23/17 09:13 Dose: 650 mg Aspirin (Ecotrin) 81 mg PO DAILY [facility] Last Admin: 04/30/17 08:18 Dose: 81 mg Atorvastatin Calcium (Lipitor) 20 mg PO HS [facility] Last Admin: 04/29/17 21:08 Dose: 20 mg Calcium/Vitamin D (Oscal-D 250 Mg-125 Units Tab) 1 tab PO DAILY [facility] Last Admin: 04/30/17 08:21 Dose: 1 tab Carvedilol (Coreg) 3.125 mg PO DAILY [facility] Last Admin: 04/30/17 08:24 Dose: 3.125 mg Docusate Sodium (Colace) 100 mg PO BID [facility] Last Admin: 04/30/17 16:35 Dose: 100 mg Famotidine (Pepcid) 20 mg PO DAILY [facility] Last Admin: 04/30/17 08:21 Dose: 20 mg Ferrous Sulfate (Feosol) 325 mg PO BID [facility] Last Admin: 04/30/17 16:35 Dose: 325 mg Furosemide (Lasix) 20 mg PO DAILY [facility] Last Admin: 04/30/17 08:19 Dose: 20 mg Lisinopril (Zestril) 5 mg PO DAILY [facility] Last Admin: 04/30/17 08:20 Dose: 5 mg Loratadine (Claritin) 10 mg PO DAILY [facility] Last Admin: 04/30/17 08:19 Dose: 10 mg - Labs Labs: 04/19/17 06:40 04/19/17 06:40 PT 12.5 Seconds (9.8-13.1) 01/17/17 13:40 INR 1.2 (0.9-1.2) 01/17/17 13:40 APTT 27.7 Seconds (25.6-37.1) 01/17/17 13:40 Assessment and Plan (1) Unwitnessed fall Assessment & Plan: Back Pain Ambulation Problem Right Foot Droop Frail Elderly Wheelchair Dependent Continue Pain Management Continue PT/OT, and Out of bed to Chair daily Waiting Medicaid Application approval VANCE and her daughter with POA processing the Medicaid Application. Continue all Current Medication and Care (2) Frail elderly Status: Chronic (3) Hip pain Status: Resolved (4) UTI due to extended-spectrum beta lactamase (ESBL) producing Escherichia coli Status: Resolved (5) Adult idiopathic generalized osteoporosis Status: Chronic (6) DVT prophylaxis Status: Acute (7) Hypercholesterolemia Status: Chronic (8) Hypothyroid Status: Chronic (9) Pulmonary hypertension Status: Chronic (10) HTN (hypertension) Status: Chronic (11) NSTEMI (non-ST elevated myocardial infarction) Assessment & Plan: Status: Resolved
[2017-05-01] MEDS: Calcium-Vit D 250 mg-125 Units Tab UD PO SCH (09:08)
--- NOTE | 2017-05-01 23:54 | CP.PCM.PN ---
Subjective - Date & Time of Evaluation Date of Evaluation: 05/01/17 Time of Evaluation: 18:00 - Subjective Subjective: Seen and examined at the bed side. No complaint. Waiting Medicaid approval for prison Placement Objective - Vital Signs/Intake and Output Vital Signs (last 24 hours): Temp Pulse Resp BP Pulse Ox 99.1 F 88 20 105/59 L 99 05/01/17 17:00 05/01/17 16:26 05/01/17 16:26 05/01/17 16:26 05/01/17 16:26 - Medications Medications: Current Medications Acetaminophen (Tylenol 325mg Tab) 650 mg PO Q6 PRN PRN Reason: Pain, moderate (4-7) Last Admin: 01/23/17 09:13 Dose: 650 mg Aspirin (Ecotrin) 81 mg PO DAILY [facility] Last Admin: 05/01/17 09:09 Dose: 81 mg Atorvastatin Calcium (Lipitor) 20 mg PO HS [facility] Last Admin: 05/01/17 23:05 Dose: Not Given Calcium/Vitamin D (Oscal-D 250 Mg-125 Units Tab) 1 tab PO DAILY [facility] Last Admin: 05/01/17 09:08 Dose: 1 tab Carvedilol (Coreg) 3.125 mg PO DAILY [facility] Last Admin: 05/01/17 09:20 Dose: 3.125 mg Docusate Sodium (Colace) 100 mg PO BID [facility] Last Admin: 05/01/17 19:28 Dose: Not Given Famotidine (Pepcid) 20 mg PO DAILY [facility] Last Admin: 05/01/17 09:08 Dose: 20 mg Ferrous Sulfate (Feosol) 325 mg PO BID [facility] Last Admin: 05/01/17 19:29 Dose: Not Given Furosemide (Lasix) 20 mg PO DAILY [facility] Last Admin: 05/01/17 09:08 Dose: 20 mg Lisinopril (Zestril) 5 mg PO DAILY [facility] Last Admin: 05/01/17 09:08 Dose: 5 mg Loratadine (Claritin) 10 mg PO DAILY [facility] Last Admin: 05/01/17 09:07 Dose: 10 mg - Labs Labs: 04/19/17 06:40 04/19/17 06:40 PT 12.5 Seconds (9.8-13.1) 01/17/17 13:40 INR 1.2 (0.9-1.2) 01/17/17 13:40 APTT 27.7 Seconds (25.6-37.1) 01/17/17 13:40 Assessment and Plan (1) Unwitnessed fall Assessment & Plan: Back Pain Ambulation Problem Right Foot Droop Frail Elderly Wheelchair Dependent Continue Pain Management Continue PT/OT, and Out of bed to Chair daily Waiting Medicaid Application approval VANCE and her daughter with POA processing the Medicaid Application. Continue all Current Medication and Care (2) Frail elderly Status: Chronic (3) Hip pain Status: Resolved (4) UTI due to extended-spectrum beta lactamase (ESBL) producing Escherichia coli Status: Resolved (5) Adult idiopathic generalized osteoporosis Status: Chronic (6) DVT prophylaxis Status: Acute (7) Hypercholesterolemia Status: Chronic (8) Hypothyroid Status: Chronic (9) Pulmonary hypertension Status: Chronic (10) HTN (hypertension) Status: Chronic (11) NSTEMI (non-ST elevated myocardial infarction) Assessment & Plan: Status: Resolved
[2017-05-02] MEDS: Calcium-Vit D 250 mg-125 Units Tab UD PO SCH (08:56)
--- NOTE | 2017-05-03 00:48 | CP.PCM.PN ---
Subjective - Date & Time of Evaluation Date of Evaluation: 05/02/17 Time of Evaluation: 13:40 - Subjective Subjective: Seen and examined at the bed side. No complaint. Waiting Medicaid approval for [facility] Placement Objective - Vital Signs/Intake and Output Vital Signs (last 24 hours): Temp Pulse Resp BP Pulse Ox 97.2 F L 87 20 110/87 99 05/03/17 00:05 05/03/17 00:05 05/03/17 00:05 05/03/17 00:05 05/03/17 00:05 - Medications Medications: Current Medications Acetaminophen (Tylenol 325mg Tab) 650 mg PO Q6 PRN PRN Reason: Pain, moderate (4-7) Last Admin: 01/23/17 09:13 Dose: 650 mg Aspirin (Ecotrin) 81 mg PO DAILY [facility] Last Admin: 05/02/17 08:56 Dose: 81 mg Atorvastatin Calcium (Lipitor) 20 mg PO HS [facility] Last Admin: 05/02/17 21:31 Dose: Not Given Calcium/Vitamin D (Oscal-D 250 Mg-125 Units Tab) 1 tab PO DAILY [facility] Last Admin: 05/02/17 08:56 Dose: 1 tab Carvedilol (Coreg) 3.125 mg PO DAILY [facility] Last Admin: 05/02/17 08:56 Dose: 3.125 mg Docusate Sodium (Colace) 100 mg PO BID [facility] Last Admin: 05/02/17 16:06 Dose: 100 mg Famotidine (Pepcid) 20 mg PO DAILY [facility] Last Admin: 05/02/17 08:56 Dose: 20 mg Ferrous Sulfate (Feosol) 325 mg PO BID [facility] Last Admin: 05/02/17 16:07 Dose: 325 mg Furosemide (Lasix) 20 mg PO DAILY [facility] Last Admin: 05/02/17 08:56 Dose: 20 mg Lisinopril (Zestril) 5 mg PO DAILY [facility] Last Admin: 05/02/17 08:56 Dose: 5 mg Loratadine (Claritin) 10 mg PO DAILY [facility] Last Admin: 05/02/17 08:55 Dose: 10 mg - Labs Labs: 04/19/17 06:40 04/19/17 06:40 PT 12.5 Seconds (9.8-13.1) 01/17/17 13:40 INR 1.2 (0.9-1.2) 01/17/17 13:40 APTT 27.7 Seconds (25.6-37.1) 01/17/17 13:40 Assessment and Plan (1) Unwitnessed fall Assessment & Plan: Back Pain Ambulation Problem Right Foot Droop Frail Elderly Wheelchair Dependent Continue Pain Management Continue PT/OT, and Out of bed to Chair daily Waiting Medicaid Application approval VANCE and her daughter with POA processing the Medicaid Application. Continue all Current Medication and Care (2) Frail elderly Status: Chronic (3) Hip pain Status: Resolved (4) UTI due to extended-spectrum beta lactamase (ESBL) producing Escherichia coli Status: Resolved (5) Adult idiopathic generalized osteoporosis Status: Chronic (6) DVT prophylaxis Status: Acute (7) Hypercholesterolemia Status: Chronic (8) Hypothyroid Status: Chronic (9) Pulmonary hypertension Status: Chronic (10) HTN (hypertension) Status: Chronic (11) NSTEMI (non-ST elevated myocardial infarction) Assessment & Plan: Status: Resolved
[2017-05-03] MEDS: Calcium-Vit D 250 mg-125 Units Tab UD PO SCH (08:22)
--- NOTE | 2017-05-04 00:08 | CP.PCM.PN ---
Subjective - Date & Time of Evaluation Date of Evaluation: 06/02/17 Time of Evaluation: 15:00 - Subjective Subjective: Seen and examined at the bed side. No complaint. Waiting Medicaid approval for halfway Placement Objective - Vital Signs/Intake and Output Vital Signs (last 24 hours): Temp Pulse Resp BP Pulse Ox 98.5 F 99 H 20 110/68 98 05/03/17 16:34 05/03/17 16:34 05/03/17 16:34 05/03/17 16:34 05/03/17 16:34 - Medications Medications: Current Medications Acetaminophen (Tylenol 325mg Tab) 650 mg PO Q6 PRN PRN Reason: Pain, moderate (4-7) Last Admin: 01/23/17 09:13 Dose: 650 mg Aspirin (Ecotrin) 81 mg PO DAILY [facility] Last Admin: 05/03/17 08:22 Dose: 81 mg Atorvastatin Calcium (Lipitor) 20 mg PO HS [facility] Last Admin: 05/03/17 22:15 Dose: Not Given Calcium/Vitamin D (Oscal-D 250 Mg-125 Units Tab) 1 tab PO DAILY [facility] Last Admin: 05/03/17 08:22 Dose: 1 tab Carvedilol (Coreg) 3.125 mg PO DAILY [facility] Last Admin: 05/03/17 08:22 Dose: 3.125 mg Docusate Sodium (Colace) 100 mg PO BID [facility] Last Admin: 05/03/17 16:07 Dose: 100 mg Famotidine (Pepcid) 20 mg PO DAILY [facility] Last Admin: 05/03/17 08:22 Dose: 20 mg Ferrous Sulfate (Feosol) 325 mg PO BID [facility] Last Admin: 05/03/17 16:07 Dose: 325 mg Furosemide (Lasix) 20 mg PO DAILY [facility] Last Admin: 05/03/17 08:21 Dose: 20 mg Lisinopril (Zestril) 5 mg PO DAILY [facility] Last Admin: 05/03/17 08:22 Dose: 5 mg Loratadine (Claritin) 10 mg PO DAILY [facility] Last Admin: 05/03/17 08:22 Dose: 10 mg - Labs Labs: 04/19/17 06:40 04/19/17 06:40 PT 12.5 Seconds (9.8-13.1) 01/17/17 13:40 INR 1.2 (0.9-1.2) 01/17/17 13:40 APTT 27.7 Seconds (25.6-37.1) 01/17/17 13:40 Assessment and Plan (1) Unwitnessed fall Assessment & Plan: Back Pain Ambulation Problem Right Foot Droop Frail Elderly Wheelchair Dependent Continue Pain Management Continue PT/OT, and Out of bed to Chair daily Waiting Medicaid Application approval VANCE and her daughter with POA processing the Medicaid Application. Continue all Current Medication and Care (2) Frail elderly Status: Chronic (3) Hip pain Status: Resolved (4) UTI due to extended-spectrum beta lactamase (ESBL) producing Escherichia coli Status: Resolved (5) Adult idiopathic generalized osteoporosis Status: Chronic (6) DVT prophylaxis Status: Acute (7) Hypercholesterolemia Status: Chronic (8) Hypothyroid Status: Chronic (9) Pulmonary hypertension Status: Chronic (10) HTN (hypertension) Status: Chronic (11) NSTEMI (non-ST elevated myocardial infarction) Assessment & Plan: Status: Resolved
[2017-05-04] MEDS: Calcium-Vit D 250 mg-125 Units Tab UD PO SCH (09:23)
--- NOTE | 2017-05-05 00:14 | CP.PCM.PN ---
Subjective - Date & Time of Evaluation Date of Evaluation: 05/04/17 Time of Evaluation: 22:15 - Subjective Subjective: Seen and examined at the bed side. No complaint. Waiting Medicaid approval for [facility] Placement Objective - Vital Signs/Intake and Output Vital Signs (last 24 hours): Temp Pulse Resp BP Pulse Ox 98.6 F 79 20 133/63 100 05/04/17 23:09 05/04/17 23:09 05/04/17 23:09 05/04/17 23:09 05/04/17 23:09 - Medications Medications: Current Medications Acetaminophen (Tylenol 325mg Tab) 650 mg PO Q6 PRN PRN Reason: Pain, moderate (4-7) Last Admin: 01/23/17 09:13 Dose: 650 mg Aspirin (Ecotrin) 81 mg PO DAILY [facility] Last Admin: 05/04/17 09:25 Dose: 81 mg Atorvastatin Calcium (Lipitor) 20 mg PO HS [facility] Last Admin: 05/04/17 21:50 Dose: Not Given Calcium/Vitamin D (Oscal-D 250 Mg-125 Units Tab) 1 tab PO DAILY [facility] Last Admin: 05/04/17 09:23 Dose: 1 tab Carvedilol (Coreg) 3.125 mg PO DAILY [facility] Last Admin: 05/04/17 09:25 Dose: 3.125 mg Docusate Sodium (Colace) 100 mg PO BID [facility] Last Admin: 05/04/17 18:00 Dose: 100 mg Enoxaparin Sodium (Lovenox) 40 mg SC DAILY [facility] PRN Reason: Protocol Famotidine (Pepcid) 20 mg PO DAILY [facility] Last Admin: 05/04/17 09:25 Dose: 20 mg Ferrous Sulfate (Feosol) 325 mg PO BID [facility] Last Admin: 05/04/17 18:01 Dose: 325 mg Furosemide (Lasix) 20 mg PO DAILY [facility] Last Admin: 05/04/17 09:24 Dose: 20 mg Lisinopril (Zestril) 5 mg PO DAILY [facility] Last Admin: 05/04/17 09:24 Dose: 5 mg Loratadine (Claritin) 10 mg PO DAILY [facility] Last Admin: 05/04/17 09:23 Dose: 10 mg - Labs Labs: 04/19/17 06:40 04/19/17 06:40 PT 12.5 Seconds (9.8-13.1) 01/17/17 13:40 INR 1.2 (0.9-1.2) 01/17/17 13:40 APTT 27.7 Seconds (25.6-37.1) 01/17/17 13:40 Assessment and Plan (1) Unwitnessed fall Assessment & Plan: Assessment & Plan: Back Pain Ambulation Problem Right Foot Droop Frail Elderly Wheelchair Dependent Continue Pain Management Continue PT/OT, and Out of bed to Chair daily Waiting Medicaid Application approval SW and her daughter with POA processing the Medicaid Application. Continue all Current Medication and Care (2) Frail elderly Status: Chronic (3) Hip pain Status: Resolved (4) UTI due to extended-spectrum beta lactamase (ESBL) producing Escherichia coli Status: Resolved (5) Adult idiopathic generalized osteoporosis Status: Chronic (6) DVT prophylaxis Status: Acute (7) Hypercholesterolemia Status: Chronic (8) Hypothyroid Status: Chronic (9) Pulmonary hypertension Status: Chronic (10) HTN (hypertension) Status: Chronic (11) NSTEMI (non-ST elevated myocardial infarction) Assessment & Plan: Status: Resolved
[2017-05-05] MEDS: Enoxaparin 40 mg Syringe SC SCH (09:50)
[2017-05-05] MEDS: Calcium-Vit D 250 mg-125 Units Tab UD PO SCH (09:51)
--- NOTE | 2017-05-05 23:58 | CP.PCM.PN ---
Subjective - Date & Time of Evaluation Date of Evaluation: 05/05/17 Time of Evaluation: 15:35 - Subjective Subjective: Seen and examined at the bed side. No complaint. Waiting Medicaid approval for halfway Placement Objective - Vital Signs/Intake and Output Vital Signs (last 24 hours): Temp Pulse Resp BP Pulse Ox 98.9 F 79 20 92/53 L 99 05/05/17 17:00 05/05/17 17:00 05/05/17 17:00 05/05/17 17:00 05/05/17 17:00 - Medications Medications: Current Medications Acetaminophen (Tylenol 325mg Tab) 650 mg PO Q6 PRN PRN Reason: Pain, moderate (4-7) Last Admin: 01/23/17 09:13 Dose: 650 mg Aspirin (Ecotrin) 81 mg PO DAILY [facility] Last Admin: 05/05/17 09:49 Dose: 81 mg Atorvastatin Calcium (Lipitor) 20 mg PO HS [facility] Last Admin: 05/05/17 22:34 Dose: Not Given Calcium/Vitamin D (Oscal-D 250 Mg-125 Units Tab) 1 tab PO DAILY [facility] Last Admin: 05/05/17 09:51 Dose: 1 tab Carvedilol (Coreg) 3.125 mg PO DAILY [facility] Last Admin: 05/05/17 09:49 Dose: 3.125 mg Docusate Sodium (Colace) 100 mg PO BID [facility] Last Admin: 05/05/17 16:43 Dose: 100 mg Enoxaparin Sodium (Lovenox) 40 mg SC DAILY [facility] PRN Reason: Protocol Last Admin: 05/05/17 09:50 Dose: 40 mg Famotidine (Pepcid) 20 mg PO DAILY [facility] Last Admin: 05/05/17 09:51 Dose: 20 mg Ferrous Sulfate (Feosol) 325 mg PO BID [facility] Last Admin: 05/05/17 16:43 Dose: 325 mg Furosemide (Lasix) 20 mg PO DAILY [facility] Last Admin: 05/05/17 09:50 Dose: 20 mg Lisinopril (Zestril) 5 mg PO DAILY [facility] Last Admin: 05/05/17 09:51 Dose: 5 mg Loratadine (Claritin) 10 mg PO DAILY [facility] Last Admin: 05/05/17 09:49 Dose: 10 mg - Labs Labs: 04/19/17 06:40 04/19/17 06:40 PT 12.5 Seconds (9.8-13.1) 01/17/17 13:40 INR 1.2 (0.9-1.2) 01/17/17 13:40 APTT 27.7 Seconds (25.6-37.1) 01/17/17 13:40 Assessment and Plan (1) Unwitnessed fall Assessment & Plan: Back Pain Ambulation Problem Right Foot Droop Frail Elderly Wheelchair Dependent Continue Pain Management Continue PT/OT, and Out of bed to Chair daily Waiting Medicaid Application approval SW and her daughter with POA processing the Medicaid Application. Continue all Current Medication and CareStatus: Acute (2) Frail elderly Status: Chronic (3) Hip pain Status: Resolved (4) UTI due to extended-spectrum beta lactamase (ESBL) producing Escherichia coli Status: Resolved (5) Adult idiopathic generalized osteoporosis Status: Chronic (6) DVT prophylaxis Status: Acute (7) Hypercholesterolemia Status: Chronic (8) Hypothyroid Status: Chronic (9) Pulmonary hypertension Status: Chronic (10) HTN (hypertension) Status: Chronic (11) NSTEMI (non-ST elevated myocardial infarction) Assessment & Plan: Status: Acute
[2017-05-06] MEDS: Calcium-Vit D 250 mg-125 Units Tab UD PO SCH (09:28)
[2017-05-06] MEDS: Enoxaparin 40 mg Syringe SC SCH (09:28)
[2017-05-07] MEDS: Enoxaparin 40 mg Syringe SC SCH (09:25)
[2017-05-07] MEDS: Calcium-Vit D 250 mg-125 Units Tab UD PO SCH (09:25)
--- NOTE | 2017-05-07 23:37 | CP.PCM.PN ---
Subjective - Date & Time of Evaluation Date of Evaluation: 05/07/17 Time of Evaluation: 18:40 - Subjective Subjective: Seen and examined at the bed side. No complaint. She does not want to stay on the chair for a prolonged period, and would like to go back to 1-2hrs instead of 2-4hrs. Still waiting the family to work with the SW, and complete the Insurance process for Custodial placement. Objective - Vital Signs/Intake and Output Vital Signs (last 24 hours): Temp Pulse Resp BP Pulse Ox 98.5 F 109 H 20 134/73 99 05/07/17 16:37 05/07/17 16:37 05/07/17 16:37 05/07/17 16:37 05/07/17 16:37 - Medications Medications: Current Medications Acetaminophen (Tylenol 325mg Tab) 650 mg PO Q6 PRN PRN Reason: Pain, moderate (4-7) Last Admin: 01/23/17 09:13 Dose: 650 mg Aspirin (Ecotrin) 81 mg PO DAILY [facility] Last Admin: 05/07/17 09:24 Dose: 81 mg Atorvastatin Calcium (Lipitor) 20 mg PO [facility] Last Admin: 05/07/17 21:06 Dose: 20 mg Calcium/Vitamin D (Oscal-D 250 Mg-125 Units Tab) 1 tab PO DAILY [facility] Last Admin: 05/07/17 09:25 Dose: 1 tab Carvedilol (Coreg) 3.125 mg PO DAILY [facility] Last Admin: 05/07/17 09:23 Dose: 3.125 mg Docusate Sodium (Colace) 100 mg PO BID [facility] Last Admin: 05/07/17 18:03 Dose: 100 mg Enoxaparin Sodium (Lovenox) 40 mg SC DAILY [facility] PRN Reason: Protocol Last Admin: 05/07/17 09:25 Dose: 40 mg Famotidine (Pepcid) 20 mg PO DAILY [facility] Last Admin: 05/07/17 09:25 Dose: 20 mg Ferrous Sulfate (Feosol) 325 mg PO BID [facility] Last Admin: 05/07/17 18:03 Dose: 325 mg Furosemide (Lasix) 20 mg PO DAILY [facility] Last Admin: 05/07/17 09:25 Dose: 20 mg Lisinopril (Zestril) 5 mg PO DAILY [facility] Last Admin: 05/07/17 09:26 Dose: 5 mg Loratadine (Claritin) 10 mg PO DAILY [facility] Last Admin: 05/07/17 09:23 Dose: 10 mg - Labs Labs: 04/19/17 06:40 04/19/17 06:40 PT 12.5 Seconds (9.8-13.1) 01/17/17 13:40 INR 1.2 (0.9-1.2) 01/17/17 13:40 APTT 27.7 Seconds (25.6-37.1) 01/17/17 13:40 - Constitutional Appears: Well, No Acute Distress - Head Exam Head Exam: ATRAUMATIC, NORMAL INSPECTION, NORMOCEPHALIC - Eye Exam Eye Exam: EOMI, Normal appearance, PERRL Pupil Exam: NORMAL ACCOMODATION, PERRL - ENT Exam ENT Exam: Mucous Membranes Moist, Normal Exam - Neck Exam Neck Exam: Full ROM, Normal Inspection. absent: Lymphadenopathy - Respiratory Exam Respiratory Exam: Clear to Ausculation Bilateral, NORMAL BREATHING PATTERN - Cardiovascular Exam Cardiovascular Exam: REGULAR RHYTHM, +S1, +S2. absent: Murmur - GI/Abdominal Exam GI & Abdominal Exam: Soft, Normal Bowel Sounds. absent: Tenderness - Extremities Exam Extremities Exam: Normal Capillary Refill, Normal Inspection. absent: Joint Swelling, Pedal Edema - Back Exam Back Exam: NORMAL INSPECTION - Neurological Exam Neurological Exam: Abnormal Gait, Alert, Awake, CN II-XII Intact, Oriented x3 Additional comments: Right Foot drop - Psychiatric Exam Psychiatric exam: Normal Affect, Normal Mood - Skin Skin Exam: Dry, Intact, Normal Color, Warm Assessment and Plan (1) Unwitnessed fall Status: Inactive (2) Frail elderly Status: Chronic (3) Hip pain Status: Acute (4) UTI due to extended-spectrum beta lactamase (ESBL) producing Escherichia coli Status: Resolved (5) Adult idiopathic generalized osteoporosis Status: Acute (6) DVT prophylaxis Status: Acute (7) Hypercholesterolemia Status: Acute (8) Hypothyroid Status: Chronic (9) Pulmonary hypertension Status: Chronic (10) HTN (hypertension) Status: Chronic (11) NSTEMI (non-ST elevated myocardial infarction) Status: Suspected
[2017-05-08 06:14] LABS: BASO % 0.4 % (0.0-2.0); EOS # 0.1 K/uL (0.0-0.7); EOS % 2.2 % (0.0-4.0); HEMOGLOBIN 10.5 g/dL (12.0-16.0); LYMPH # 1.4 K/uL (1.0-4.3); LYMPH % 36.7 % (20.0-40.0); MEAN CELL VOLUME 90.2 fl (81.0-99.0); MEAN CORPUSCULAR HEMOGLOBIN 28.8 pg (27.0-31.0); MEAN CORPUSCULAR HGB CONC 31.9 g/dL (33.0-37.0); MEAN PLATELET VOLUME 9.5 fl (7.2-11.7); MONO # 0.5 K/uL (0.0-0.8); MONO % 14.3 % (0.0-10.0); NEUT # 1.8 K/uL (1.8-7.0); NEUT % 46.4 % (50.0-75.0); NRBC % 0.1 % (0.0-0.0); RBC 3.63 Mil/uL (3.80-5.20); RED CELL DISTRIBUTION WIDTH 13.9 % (11.5-14.5); WHITE BLOOD COUNT 3.8 K/uL (4.8-10.8)
[2017-05-08 06:41] LABS: ALB/GLOB RATIO 1.3 (1.0-2.1); ALBUMIN 3.6 g/dL (3.5-5.0); ALT/SGPT 36 U/L (9-52); AST/SGOT 25 U/L (14-36); BLOOD UREA NITROGEN 25 mg/dl (7-17); CALCIUM 8.6 mg/dL (8.4-10.2); GFR AFRICAN-AMERICAN > 60; GFR NON-AFRICAN AMERICAN > 60; MAGNESIUM 1.8 MG/DL (1.6-2.3)
[2017-05-08] MEDS: Enoxaparin 40 mg Syringe SC SCH (09:39)
[2017-05-08] MEDS: Calcium-Vit D 250 mg-125 Units Tab UD PO SCH (09:40)
--- NOTE | 2017-05-08 23:46 | CP.PCM.PN ---
Subjective - Date & Time of Evaluation Date of Evaluation: 05/08/17 Time of Evaluation: 16:45 - Subjective Subjective: Seen and examined at the bed side. No complaint. Objective - Vital Signs/Intake and Output Vital Signs (last 24 hours): Temp Pulse Resp BP Pulse Ox 98.1 F 88 14 104/60 98 05/08/17 17:00 05/08/17 17:00 05/08/17 17:00 05/08/17 17:00 05/08/17 17:00 - Medications Medications: Current Medications Acetaminophen (Tylenol 325mg Tab) 650 mg PO Q6 PRN PRN Reason: Pain, moderate (4-7) Last Admin: 01/23/17 09:13 Dose: 650 mg Aspirin (Ecotrin) 81 mg PO DAILY [facility] Last Admin: 05/08/17 15:36 Dose: 81 mg Atorvastatin Calcium (Lipitor) 20 mg PO HS [facility] Last Admin: 05/08/17 22:31 Dose: Not Given Calcium/Vitamin D (Oscal-D 250 Mg-125 Units Tab) 1 tab PO DAILY [facility] Last Admin: 05/08/17 09:40 Dose: 1 tab Carvedilol (Coreg) 3.125 mg PO DAILY [facility] Last Admin: 05/08/17 09:36 Dose: 3.125 mg Docusate Sodium (Colace) 100 mg PO BID [facility] Last Admin: 05/08/17 18:32 Dose: 100 mg Enoxaparin Sodium (Lovenox) 40 mg SC DAILY [facility] PRN Reason: Protocol Last Admin: 05/08/17 09:39 Dose: 40 mg Famotidine (Pepcid) 20 mg PO DAILY [facility] Last Admin: 05/08/17 09:40 Dose: 20 mg Ferrous Sulfate (Feosol) 325 mg PO BID [facility] Last Admin: 05/08/17 18:32 Dose: 325 mg Furosemide (Lasix) 20 mg PO DAILY [facility] Last Admin: 05/08/17 09:39 Dose: 20 mg Lisinopril (Zestril) 5 mg PO DAILY [facility] Last Admin: 05/08/17 09:40 Dose: 5 mg Loratadine (Claritin) 10 mg PO DAILY [facility] Last Admin: 05/08/17 09:37 Dose: 10 mg - Labs Labs: 05/08/17 05:55 05/08/17 05:55 PT 12.5 Seconds (9.8-13.1) 01/17/17 13:40 INR 1.2 (0.9-1.2) 01/17/17 13:40 APTT 27.7 Seconds (25.6-37.1) 01/17/17 13:40 Assessment and Plan (1) Unwitnessed fall Status: Acute (2) Frail elderly Status: Chronic (3) Hip pain Status: Resolved (4) UTI due to extended-spectrum beta lactamase (ESBL) producing Escherichia coli Status: Resolved (5) Adult idiopathic generalized osteoporosis Status: Chronic (6) DVT prophylaxis Status: Acute (7) Hypercholesterolemia Status: Chronic (8) Hypothyroid Status: Chronic (9) Pulmonary hypertension Status: Chronic (10) HTN (hypertension) Status: Chronic (11) NSTEMI (non-ST elevated myocardial infarction) Assessment & Plan: Back Pain Ambulation Problem Right Foot Droop Frail Elderly Wheelchair Dependent Continue Pain Management Continue PT/OT, and Out of bed to Chair daily Waiting Medicaid Application approval SW and her daughter with POA processing the Medicaid Application. Continue all Current Medication and Care Status: Ruled-out
[2017-05-09] MEDS: Calcium-Vit D 250 mg-125 Units Tab UD PO SCH (09:35)
[2017-05-09] MEDS: Enoxaparin 40 mg Syringe SC SCH (09:39)
[2017-05-10] MEDS: Enoxaparin 40 mg Syringe SC SCH (08:26)
[2017-05-10] MEDS: Calcium-Vit D 250 mg-125 Units Tab UD PO SCH (08:27)
--- NOTE | 2017-05-10 23:52 | CP.PCM.PN ---
Subjective - Date & Time of Evaluation Date of Evaluation: 05/09/17 Time of Evaluation: 17:15 - Subjective Subjective: Seen and examined at the bed side. No complaint. Objective - Vital Signs/Intake and Output Vital Signs (last 24 hours): Temp Pulse Resp BP Pulse Ox 98.4 F 83 20 104/60 98 05/10/17 16:16 05/10/17 16:16 05/10/17 16:16 05/10/17 16:16 05/10/17 16:16 - Medications Medications: Current Medications Acetaminophen (Tylenol 325mg Tab) 650 mg PO Q6 PRN PRN Reason: Pain, moderate (4-7) Last Admin: 01/23/17 09:13 Dose: 650 mg Aspirin (Ecotrin) 81 mg PO DAILY [facility] Last Admin: 05/10/17 08:27 Dose: 81 mg Atorvastatin Calcium (Lipitor) 20 mg PO HS [facility] Last Admin: 05/10/17 21:36 Dose: 20 mg Calcium/Vitamin D (Oscal-D 250 Mg-125 Units Tab) 1 tab PO DAILY [facility] Last Admin: 05/10/17 08:27 Dose: 1 tab Carvedilol (Coreg) 3.125 mg PO DAILY [facility] Last Admin: 05/10/17 08:25 Dose: 3.125 mg Docusate Sodium (Colace) 100 mg PO BID [facility] Last Admin: 05/10/17 16:22 Dose: 100 mg Famotidine (Pepcid) 20 mg PO DAILY [facility] Last Admin: 05/10/17 08:27 Dose: 20 mg Ferrous Sulfate (Feosol) 325 mg PO BID [facility] Last Admin: 05/10/17 16:22 Dose: 325 mg Furosemide (Lasix) 20 mg PO DAILY [facility] Last Admin: 05/10/17 08:26 Dose: 20 mg Lisinopril (Zestril) 5 mg PO DAILY [facility] Last Admin: 05/09/17 09:36 Dose: 5 mg Loratadine (Claritin) 10 mg PO DAILY [facility] Last Admin: 05/10/17 08:24 Dose: 10 mg - Labs Labs: 05/08/17 05:55 05/08/17 05:55 PT 12.5 Seconds (9.8-13.1) 01/17/17 13:40 INR 1.2 (0.9-1.2) 01/17/17 13:40 APTT 27.7 Seconds (25.6-37.1) 01/17/17 13:40 Assessment and Plan (1) Unwitnessed fall Status: Acute (2) Frail elderly Status: Chronic (3) Hip pain Status: Resolved (4) UTI due to extended-spectrum beta lactamase (ESBL) producing Escherichia coli Status: Resolved (5) Adult idiopathic generalized osteoporosis Status: Chronic (6) DVT prophylaxis Status: Acute (7) Hypercholesterolemia Status: Chronic (8) Hypothyroid Status: Chronic (9) Pulmonary hypertension Status: Chronic (10) HTN (hypertension) Status: Chronic (11) NSTEMI (non-ST elevated myocardial infarction) Assessment & Plan: Back Pain Ambulation Problem Right Foot Droop Frail Elderly Wheelchair Dependent Continue Pain Management Continue PT/OT, and Out of bed to Chair daily Waiting Medicaid Application approval SW and her daughter with POA processing the Medicaid Application. Continue all Current Medication and Care Status: Ruled-out
--- NOTE | 2017-05-10 23:53 | CP.PCM.PN ---
Subjective - Date & Time of Evaluation Date of Evaluation: 05/10/17 Time of Evaluation: 23:00 - Subjective Subjective: Seen and examined at the bed side. No complaint. Waiting Medicaid approval for shelter Placement. Objective - Vital Signs/Intake and Output Vital Signs (last 24 hours): Temp Pulse Resp BP Pulse Ox 98.4 F 83 20 104/60 98 05/10/17 16:16 05/10/17 16:16 05/10/17 16:16 05/10/17 16:16 05/10/17 16:16 - Medications Medications: Current Medications Acetaminophen (Tylenol 325mg Tab) 650 mg PO Q6 PRN PRN Reason: Pain, moderate (4-7) Last Admin: 01/23/17 09:13 Dose: 650 mg Aspirin (Ecotrin) 81 mg PO DAILY [facility] Last Admin: 05/10/17 08:27 Dose: 81 mg Atorvastatin Calcium (Lipitor) 20 mg PO HS [facility] Last Admin: 05/10/17 21:36 Dose: 20 mg Calcium/Vitamin D (Oscal-D 250 Mg-125 Units Tab) 1 tab PO DAILY [facility] Last Admin: 05/10/17 08:27 Dose: 1 tab Carvedilol (Coreg) 3.125 mg PO DAILY [facility] Last Admin: 05/10/17 08:25 Dose: 3.125 mg Docusate Sodium (Colace) 100 mg PO BID [facility] Last Admin: 05/10/17 16:22 Dose: 100 mg Famotidine (Pepcid) 20 mg PO DAILY [facility] Last Admin: 05/10/17 08:27 Dose: 20 mg Ferrous Sulfate (Feosol) 325 mg PO BID [facility] Last Admin: 05/10/17 16:22 Dose: 325 mg Furosemide (Lasix) 20 mg PO DAILY [facility] Last Admin: 05/10/17 08:26 Dose: 20 mg Lisinopril (Zestril) 5 mg PO DAILY [facility] Last Admin: 05/09/17 09:36 Dose: 5 mg Loratadine (Claritin) 10 mg PO DAILY [facility] Last Admin: 05/10/17 08:24 Dose: 10 mg - Labs Labs: 05/08/17 05:55 05/08/17 05:55 PT 12.5 Seconds (9.8-13.1) 01/17/17 13:40 INR 1.2 (0.9-1.2) 01/17/17 13:40 APTT 27.7 Seconds (25.6-37.1) 01/17/17 13:40 Assessment and Plan (1) Unwitnessed fall Status: Acute (2) Frail elderly Status: Chronic (3) Hip pain Status: Resolved (4) UTI due to extended-spectrum beta lactamase (ESBL) producing Escherichia coli Status: Resolved (5) Adult idiopathic generalized osteoporosis Status: Chronic (6) DVT prophylaxis Status: Acute (7) Hypercholesterolemia Status: Chronic (8) Hypothyroid Status: Chronic (9) Pulmonary hypertension Status: Chronic (10) HTN (hypertension) Status: Chronic (11) NSTEMI (non-ST elevated myocardial infarction) Assessment & Plan: Back Pain Ambulation Problem Right Foot Droop Frail Elderly Wheelchair Dependent Continue Pain Management Continue PT/OT, and Out of bed to Chair daily Waiting Medicaid Application approval SW and her daughter with POA processing the Medicaid Application. Continue all Current Medication and Care Status: Ruled-out
[2017-05-11] MEDS: Calcium-Vit D 250 mg-125 Units Tab UD PO SCH (08:42)
--- NOTE | 2017-05-11 23:41 | CP.PCM.PN ---
Subjective - Date & Time of Evaluation Date of Evaluation: 05/11/17 Time of Evaluation: 12:00 - Subjective Subjective: Seen and examined at the bed side. No complaint. Waiting Medicaid approval for alf Placement Objective - Vital Signs/Intake and Output Vital Signs (last 24 hours): Temp Pulse Resp BP Pulse Ox 98.7 F 87 20 114/64 99 05/11/17 16:25 05/11/17 16:25 05/11/17 16:25 05/11/17 16:25 05/11/17 16:25 - Medications Medications: Current Medications Acetaminophen (Tylenol 325mg Tab) 650 mg PO Q6 PRN PRN Reason: Pain, moderate (4-7) Last Admin: 01/23/17 09:13 Dose: 650 mg Aspirin (Ecotrin) 81 mg PO DAILY [facility] Last Admin: 05/11/17 08:42 Dose: 81 mg Atorvastatin Calcium (Lipitor) 20 mg PO HS [facility] Last Admin: 05/11/17 21:13 Dose: 20 mg Calcium/Vitamin D (Oscal-D 250 Mg-125 Units Tab) 1 tab PO DAILY [facility] Last Admin: 05/11/17 08:42 Dose: 1 tab Carvedilol (Coreg) 3.125 mg PO DAILY [facility] Last Admin: 05/11/17 08:43 Dose: 3.125 mg Docusate Sodium (Colace) 100 mg PO BID [facility] Last Admin: 05/11/17 16:10 Dose: 100 mg Famotidine (Pepcid) 20 mg PO DAILY [facility] Last Admin: 05/11/17 08:42 Dose: 20 mg Ferrous Sulfate (Feosol) 325 mg PO BID [facility] Last Admin: 05/11/17 16:10 Dose: 325 mg Furosemide (Lasix) 20 mg PO DAILY [facility] Last Admin: 05/11/17 08:43 Dose: Not Given Lisinopril (Zestril) 5 mg PO DAILY [facility] Last Admin: 05/11/17 08:43 Dose: Not Given Loratadine (Claritin) 10 mg PO DAILY [facility] Last Admin: 05/11/17 08:42 Dose: 10 mg - Labs Labs: 05/08/17 05:55 05/08/17 05:55 PT 12.5 Seconds (9.8-13.1) 01/17/17 13:40 INR 1.2 (0.9-1.2) 01/17/17 13:40 APTT 27.7 Seconds (25.6-37.1) 01/17/17 13:40 Assessment and Plan (1) Unwitnessed fall Status: Acute (2) Frail elderly Status: Chronic (3) Hip pain Status: Resolved (4) UTI due to extended-spectrum beta lactamase (ESBL) producing Escherichia coli Status: Resolved (5) Adult idiopathic generalized osteoporosis Status: Chronic (6) DVT prophylaxis Status: Acute (7) Hypercholesterolemia Status: Chronic (8) Hypothyroid Status: Chronic (9) Pulmonary hypertension Status: Chronic (10) HTN (hypertension) Status: Chronic (11) NSTEMI (non-ST elevated myocardial infarction) Assessment & Plan: Back Pain Ambulation Problem Right Foot Droop Frail Elderly Wheelchair Dependent Continue Pain Management Continue PT/OT, and Out of bed to Chair daily Waiting Medicaid Application approval SW and her daughter with POA processing the Medicaid Application. Continue all Current Medication and Care Status: Ruled-out
[2017-05-12] MEDS: Calcium-Vit D 250 mg-125 Units Tab UD PO SCH (08:58)
--- NOTE | 2017-05-13 00:59 | CP.PCM.PN ---
Subjective - Date & Time of Evaluation Date of Evaluation: 05/12/17 Time of Evaluation: 17:30 - Subjective Subjective: Seen and examined at the bed side. No complaint. Waiting Medicaid approval for [facility] Placement Objective - Vital Signs/Intake and Output Vital Signs (last 24 hours): Temp Pulse Resp BP Pulse Ox 98.9 F 79 19 120/66 99 05/13/17 00:17 05/13/17 00:17 05/13/17 00:17 05/13/17 00:17 05/13/17 00:17 - Medications Medications: Current Medications Acetaminophen (Tylenol 325mg Tab) 650 mg PO Q6 PRN PRN Reason: Pain, moderate (4-7) Last Admin: 01/23/17 09:13 Dose: 650 mg Aspirin (Ecotrin) 81 mg PO DAILY [facility] Last Admin: 05/12/17 08:58 Dose: 81 mg Atorvastatin Calcium (Lipitor) 20 mg PO HS [facility] Last Admin: 05/12/17 21:16 Dose: 20 mg Calcium/Vitamin D (Oscal-D 250 Mg-125 Units Tab) 1 tab PO DAILY [facility] Last Admin: 05/12/17 08:58 Dose: 1 tab Carvedilol (Coreg) 3.125 mg PO DAILY [facility] Last Admin: 05/12/17 08:59 Dose: 3.125 mg Docusate Sodium (Colace) 100 mg PO BID [facility] Last Admin: 05/12/17 17:30 Dose: 100 mg Famotidine (Pepcid) 20 mg PO DAILY [facility] Last Admin: 05/12/17 08:59 Dose: 20 mg Ferrous Sulfate (Feosol) 325 mg PO BID [facility] Last Admin: 05/12/17 17:30 Dose: 325 mg Furosemide (Lasix) 20 mg PO DAILY [facility] Last Admin: 05/12/17 08:59 Dose: 20 mg Lisinopril (Zestril) 5 mg PO DAILY [facility] Last Admin: 05/12/17 09:05 Dose: 5 mg Loratadine (Claritin) 10 mg PO DAILY [facility] Last Admin: 05/12/17 08:59 Dose: 10 mg - Labs Labs: 05/08/17 05:55 05/08/17 05:55 PT 12.5 Seconds (9.8-13.1) 01/17/17 13:40 INR 1.2 (0.9-1.2) 01/17/17 13:40 APTT 27.7 Seconds (25.6-37.1) 01/17/17 13:40 Assessment and Plan (1) Unwitnessed fall Status: Acute (2) Frail elderly Status: Chronic (3) Hip pain Status: Resolved (4) UTI due to extended-spectrum beta lactamase (ESBL) producing Escherichia coli Status: Resolved (5) Adult idiopathic generalized osteoporosis Status: Chronic (6) DVT prophylaxis Status: Acute (7) Hypercholesterolemia Status: Chronic (8) Hypothyroid Status: Chronic (9) Pulmonary hypertension Status: Chronic (10) HTN (hypertension) Status: Chronic (11) NSTEMI (non-ST elevated myocardial infarction) Assessment & Plan: Back Pain Ambulation Problem Right Foot Droop Frail Elderly Wheelchair Dependent Continue Pain Management Continue PT/OT, and Out of bed to Chair daily Waiting Medicaid Application approval SW and her daughter with POA processing the Medicaid Application. Continue all Current Medication and Care Status: Ruled-out
[2017-05-13] MEDS: Calcium-Vit D 250 mg-125 Units Tab UD PO SCH (08:10)
--- NOTE | 2017-05-13 14:17 | CP.PCM.PN ---
Subjective - Date & Time of Evaluation Date of Evaluation: 05/13/17 Time of Evaluation: 13:30 - Subjective Subjective: Seen and examined at the bed side. No complaint. Waiting Medicaid approval for alf Placement Objective - Vital Signs/Intake and Output Vital Signs (last 24 hours): Temp Pulse Resp BP Pulse Ox 98.2 F 71 20 113/67 99 05/13/17 08:31 05/13/17 08:31 05/13/17 08:31 05/13/17 08:31 05/13/17 08:31 - Medications Medications: Current Medications Acetaminophen (Tylenol 325mg Tab) 650 mg PO Q6 PRN PRN Reason: Pain, moderate (4-7) Last Admin: 01/23/17 09:13 Dose: 650 mg Aspirin (Ecotrin) 81 mg PO DAILY [facility] Last Admin: 05/13/17 08:09 Dose: 81 mg Atorvastatin Calcium (Lipitor) 20 mg PO HS [facility] Last Admin: 05/12/17 21:16 Dose: 20 mg Calcium/Vitamin D (Oscal-D 250 Mg-125 Units Tab) 1 tab PO DAILY [facility] Last Admin: 05/13/17 08:10 Dose: 1 tab Carvedilol (Coreg) 3.125 mg PO DAILY [facility] Last Admin: 05/13/17 08:19 Dose: 3.125 mg Docusate Sodium (Colace) 100 mg PO BID [facility] Last Admin: 05/13/17 08:09 Dose: 100 mg Famotidine (Pepcid) 20 mg PO DAILY [facility] Last Admin: 05/13/17 08:10 Dose: 20 mg Ferrous Sulfate (Feosol) 325 mg PO BID [facility] Last Admin: 05/13/17 08:09 Dose: 325 mg Furosemide (Lasix) 20 mg PO DAILY [facility] Last Admin: 05/13/17 08:17 Dose: 20 mg Lisinopril (Zestril) 5 mg PO DAILY [facility] Last Admin: 05/13/17 08:18 Dose: 5 mg Loratadine (Claritin) 10 mg PO DAILY [facility] Last Admin: 05/13/17 08:09 Dose: 10 mg - Labs Labs: 05/08/17 05:55 05/08/17 05:55 PT 12.5 Seconds (9.8-13.1) 01/17/17 13:40 INR 1.2 (0.9-1.2) 01/17/17 13:40 APTT 27.7 Seconds (25.6-37.1) 01/17/17 13:40 Assessment and Plan (1) Unwitnessed fall Status: Acute (2) Frail elderly Status: Chronic (3) Hip pain Status: Resolved (4) UTI due to extended-spectrum beta lactamase (ESBL) producing Escherichia coli Status: Resolved (5) Adult idiopathic generalized osteoporosis Status: Chronic (6) DVT prophylaxis Status: Acute (7) Hypercholesterolemia Status: Chronic (8) Hypothyroid Status: Chronic (9) Pulmonary hypertension Status: Chronic (10) HTN (hypertension) Status: Chronic (11) NSTEMI (non-ST elevated myocardial infarction) Assessment & Plan: Back Pain Ambulation Problem Right Foot Droop Frail Elderly Wheelchair Dependent Continue Pain Management Continue PT/OT, and Out of bed to Chair daily Waiting Medicaid Application approval SW and her daughter with POA processing the Medicaid Application. Continue all Current Medication and Care Status: Ruled-out
[2017-05-14] MEDS: Calcium-Vit D 250 mg-125 Units Tab UD PO SCH (08:41)
--- NOTE | 2017-05-15 01:29 | CP.PCM.PN ---
Subjective - Date & Time of Evaluation Date of Evaluation: 05/14/17 Time of Evaluation: 18:35 - Subjective Subjective: Seen and examined at the bed side. No complaint. Waiting Medicaid approval for shelter Placement Objective - Vital Signs/Intake and Output Vital Signs (last 24 hours): Temp Pulse Resp BP Pulse Ox 98.5 F 83 20 108/71 99 05/15/17 00:44 05/15/17 00:44 05/15/17 00:44 05/15/17 00:44 05/15/17 00:44 - Medications Medications: Current Medications Acetaminophen (Tylenol 325mg Tab) 650 mg PO Q6 PRN PRN Reason: Pain, moderate (4-7) Last Admin: 01/23/17 09:13 Dose: 650 mg Aspirin (Ecotrin) 81 mg PO DAILY [facility] Last Admin: 05/14/17 08:42 Dose: 81 mg Atorvastatin Calcium (Lipitor) 20 mg PO HS [facility] Last Admin: 05/14/17 21:09 Dose: 20 mg Calcium/Vitamin D (Oscal-D 250 Mg-125 Units Tab) 1 tab PO DAILY [facility] Last Admin: 05/14/17 08:41 Dose: 1 tab Carvedilol (Coreg) 3.125 mg PO DAILY [facility] Last Admin: 05/14/17 08:41 Dose: 3.125 mg Docusate Sodium (Colace) 100 mg PO BID [facility] Last Admin: 05/14/17 15:59 Dose: 100 mg Famotidine (Pepcid) 20 mg PO DAILY [facility] Last Admin: 05/14/17 08:42 Dose: 20 mg Ferrous Sulfate (Feosol) 325 mg PO BID [facility] Last Admin: 05/14/17 16:00 Dose: 325 mg Furosemide (Lasix) 20 mg PO DAILY [facility] Last Admin: 05/14/17 08:41 Dose: 20 mg Lisinopril (Zestril) 5 mg PO DAILY [facility] Last Admin: 05/14/17 08:41 Dose: 5 mg Loratadine (Claritin) 10 mg PO DAILY [facility] Last Admin: 05/14/17 08:42 Dose: 10 mg - Labs Labs: 05/08/17 05:55 05/08/17 05:55 PT 12.5 Seconds (9.8-13.1) 01/17/17 13:40 INR 1.2 (0.9-1.2) 01/17/17 13:40 APTT 27.7 Seconds (25.6-37.1) 01/17/17 13:40 Assessment and Plan (1) Unwitnessed fall Status: Acute (2) Frail elderly Status: Chronic (3) Hip pain Status: Resolved (4) UTI due to extended-spectrum beta lactamase (ESBL) producing Escherichia coli Status: Resolved (5) Adult idiopathic generalized osteoporosis Status: Chronic (6) DVT prophylaxis Status: Acute (7) Hypercholesterolemia Status: Chronic (8) Hypothyroid Status: Chronic (9) Pulmonary hypertension Status: Chronic (10) HTN (hypertension) Status: Chronic (11) NSTEMI (non-ST elevated myocardial infarction) Assessment & Plan: Back Pain Ambulation Problem Right Foot Droop Frail Elderly Wheelchair Dependent Continue Pain Management Continue PT/OT, and Out of bed to Chair daily Waiting Medicaid Application approval SW and her daughter with POA processing the Medicaid Application. Continue all Current Medication and Care Status: Ruled-out
[2017-05-15] MEDS: Calcium-Vit D 250 mg-125 Units Tab UD PO SCH (09:34)
--- NOTE | 2017-05-15 18:14 | CP.PCM.PN ---
Subjective - Date & Time of Evaluation Date of Evaluation: 05/15/17 Time of Evaluation: 23:50 - Subjective Subjective: Seen and examined at the bed side. No complaint. Waiting Medicaid approval for detention Placement Objective - Vital Signs/Intake and Output Vital Signs (last 24 hours): Temp Pulse Resp BP Pulse Ox 98.9 F 89 20 98/55 L 98 05/15/17 16:21 05/15/17 16:21 05/15/17 16:21 05/15/17 16:21 05/15/17 16:21 - Medications Medications: Current Medications Acetaminophen (Tylenol 325mg Tab) 650 mg PO Q6 PRN PRN Reason: Pain, moderate (4-7) Last Admin: 01/23/17 09:13 Dose: 650 mg Aspirin (Ecotrin) 81 mg PO DAILY [facility] Last Admin: 05/15/17 09:34 Dose: 81 mg Atorvastatin Calcium (Lipitor) 20 mg PO HS [facility] Last Admin: 05/14/17 21:09 Dose: 20 mg Calcium/Vitamin D (Oscal-D 250 Mg-125 Units Tab) 1 tab PO DAILY [facility] Last Admin: 05/15/17 09:34 Dose: 1 tab Carvedilol (Coreg) 3.125 mg PO DAILY [facility] Last Admin: 05/15/17 09:33 Dose: 3.125 mg Docusate Sodium (Colace) 100 mg PO BID [facility] Last Admin: 05/15/17 17:05 Dose: 100 mg Famotidine (Pepcid) 20 mg PO DAILY [facility] Last Admin: 05/15/17 09:34 Dose: 20 mg Ferrous Sulfate (Feosol) 325 mg PO BID [facility] Last Admin: 05/15/17 17:05 Dose: 325 mg Furosemide (Lasix) 20 mg PO DAILY [facility] Last Admin: 05/15/17 09:34 Dose: 20 mg Lisinopril (Zestril) 5 mg PO DAILY [facility] Last Admin: 05/15/17 09:35 Dose: 5 mg Loratadine (Claritin) 10 mg PO DAILY [facility] Last Admin: 05/15/17 09:33 Dose: 10 mg - Labs Labs: 05/08/17 05:55 05/08/17 05:55 PT 12.5 Seconds (9.8-13.1) 01/17/17 13:40 INR 1.2 (0.9-1.2) 01/17/17 13:40 APTT 27.7 Seconds (25.6-37.1) 01/17/17 13:40 Assessment and Plan (1) Unwitnessed fall Status: Acute (2) Frail elderly Status: Chronic (3) Hip pain Status: Resolved (4) UTI due to extended-spectrum beta lactamase (ESBL) producing Escherichia coli Status: Resolved (5) Adult idiopathic generalized osteoporosis Status: Chronic (6) DVT prophylaxis Status: Acute (7) Hypercholesterolemia Status: Chronic (8) Hypothyroid Status: Chronic (9) Pulmonary hypertension Status: Chronic (10) HTN (hypertension) Status: Chronic (11) NSTEMI (non-ST elevated myocardial infarction) Assessment & Plan: Back Pain Ambulation Problem Right Foot Droop Frail Elderly Wheelchair Dependent Continue Pain Management Continue PT/OT, and Out of bed to Chair daily Waiting Medicaid Application approval SW and her daughter with POA processing the Medicaid Application. Continue all Current Medication and Care Status: Ruled-out
[2017-05-16] MEDS: Calcium-Vit D 250 mg-125 Units Tab UD PO SCH (09:17)
[2017-05-17] MEDS: Enoxaparin 40 mg Syringe SC SCH (08:46)
[2017-05-17] MEDS: Calcium-Vit D 250 mg-125 Units Tab UD PO SCH (08:47)
--- NOTE | 2017-05-18 02:10 | CP.PCM.PN ---
Subjective - Date & Time of Evaluation Date of Evaluation: 05/16/17 Time of Evaluation: 18:00 - Subjective Subjective: Seen and examined at the bed side. No complaint. Waiting Medicaid approval for [facility] Placement Objective - Vital Signs/Intake and Output Vital Signs (last 24 hours): Temp Pulse Resp BP Pulse Ox 98.6 F 88 19 104/65 99 05/18/17 00:42 05/18/17 00:42 05/18/17 00:42 05/18/17 00:42 05/18/17 00:42 - Medications Medications: Current Medications Acetaminophen (Tylenol 325mg Tab) 650 mg PO Q6 PRN PRN Reason: Pain, moderate (4-7) Last Admin: 01/23/17 09:13 Dose: 650 mg Aspirin (Ecotrin) 81 mg PO DAILY [facility] Last Admin: 05/17/17 08:47 Dose: 81 mg Atorvastatin Calcium (Lipitor) 20 mg PO HS [facility] Last Admin: 05/17/17 21:03 Dose: 20 mg Calcium/Vitamin D (Oscal-D 250 Mg-125 Units Tab) 1 tab PO DAILY [facility] Last Admin: 05/17/17 08:47 Dose: 1 tab Carvedilol (Coreg) 3.125 mg PO DAILY [facility] Last Admin: 05/17/17 16:13 Dose: 3.125 mg Docusate Sodium (Colace) 100 mg PO BID [facility] Last Admin: 05/17/17 16:09 Dose: 100 mg Enoxaparin Sodium (Lovenox) 40 mg SC DAILY [facility] PRN Reason: Protocol Last Admin: 05/17/17 08:46 Dose: 40 mg Famotidine (Pepcid) 20 mg PO DAILY [facility] Last Admin: 05/17/17 08:47 Dose: 20 mg Ferrous Sulfate (Feosol) 325 mg PO BID [facility] Last Admin: 05/17/17 16:11 Dose: 325 mg Furosemide (Lasix) 20 mg PO DAILY [facility] Last Admin: 05/17/17 16:11 Dose: 20 mg Lisinopril (Zestril) 5 mg PO DAILY [facility] Last Admin: 05/17/17 16:12 Dose: 5 mg Loratadine (Claritin) 10 mg PO DAILY [facility] Last Admin: 05/17/17 08:47 Dose: 10 mg - Labs Labs: 05/08/17 05:55 12/05/17 05:55 PT 12.5 Seconds (9.8-13.1) 01/17/17 13:40 INR 1.2 (0.9-1.2) 01/17/17 13:40 APTT 27.7 Seconds (25.6-37.1) 01/17/17 13:40 Assessment and Plan (1) Unwitnessed fall Status: Acute (2) Frail elderly Status: Chronic (3) Hip pain Status: Resolved (4) UTI due to extended-spectrum beta lactamase (ESBL) producing Escherichia coli Status: Resolved (5) Adult idiopathic generalized osteoporosis Status: Chronic (6) DVT prophylaxis Status: Acute (7) Hypercholesterolemia Status: Chronic (8) Hypothyroid Status: Chronic (9) Pulmonary hypertension Status: Chronic (10) HTN (hypertension) Status: Chronic (11) NSTEMI (non-ST elevated myocardial infarction) Status: Ruled-out - Assessment and Plan (Free Text) Assessment: Back Pain Ambulation Problem Right Foot Droop Frail Elderly Wheelchair Dependent Continue Pain Management Continue PT/OT, and Out of bed to Chair daily Waiting Medicaid Application approval SW and her daughter with POA processing the Medicaid Application. Continue all Current Medication and Care Status: Chronic
--- NOTE | 2017-05-18 02:10 | CP.PCM.PN ---
Subjective - Date & Time of Evaluation Date of Evaluation: 05/17/17 Time of Evaluation: 18:45 - Subjective Subjective: Seen and examined at the bed side. No complaint. Waiting Medicaid approval for residential Placement Objective - Vital Signs/Intake and Output Vital Signs (last 24 hours): Temp Pulse Resp BP Pulse Ox 98.6 F 88 19 104/65 99 05/18/17 00:42 05/18/17 00:42 05/18/17 00:42 05/18/17 00:42 05/18/17 00:42 - Medications Medications: Current Medications Acetaminophen (Tylenol 325mg Tab) 650 mg PO Q6 PRN PRN Reason: Pain, moderate (4-7) Last Admin: 01/23/17 09:13 Dose: 650 mg Aspirin (Ecotrin) 81 mg PO DAILY [facility]S [facility]CLUDE 234 BEDS AT [facility] Last Admin: 05/17/17 08:47 Dose: 81 mg Atorvastatin Calcium (Lipitor) 20 mg PO HS [facility]S [facility]CLUDE 234 BEDS AT [facility] Last Admin: 05/17/17 21:03 Dose: 20 mg Calcium/Vitamin D (Oscal-D 250 Mg-125 Units Tab) 1 tab PO DAILY [facility]S [facility]CLUDE 234 BEDS AT THE [facility] Last Admin: 05/17/17 08:47 Dose: 1 tab Carvedilol (Coreg) 3.125 mg PO DAILY [facility]S [facility]CLUDE 234 BEDS AT THE [facility] Last Admin: 05/17/17 16:13 Dose: 3.125 mg Docusate Sodium (Colace) 100 mg PO BID [facility]S [facility]CLUDE 234 BEDS AT [facility] Last Admin: 05/17/17 16:09 Dose: 100 mg Enoxaparin Sodium (Lovenox) 40 mg SC DAILY [facility]S [facility]CLUDE 234 BEDS AT THE [facility] PRN Reason: Protocol Last Admin: 05/17/17 08:46 Dose: 40 mg Famotidine (Pepcid) 20 mg PO DAILY [facility]S [facility]CLUDE 234 BEDS AT [facility] Last Admin: 05/17/17 08:47 Dose: 20 mg Ferrous Sulfate (Feosol) 325 mg PO BID [facility]S [facility]CLUDE 234 BEDS AT [facility] Last Admin: 05/17/17 16:11 Dose: 325 mg Furosemide (Lasix) 20 mg PO DAILY [facility]CLUDE 234 BEDS AT [facility] Last Admin: 05/17/17 16:11 Dose: 20 mg Lisinopril (Zestril) 5 mg PO DAILY [facility]CLUDE 234 BEDS AT [facility] Last Admin: 05/17/17 16:12 Dose: 5 mg Loratadine (Claritin) 10 mg PO DAILY [facility]CLUDE 234 BEDS AT [facility] Last Admin: 05/17/17 08:47 Dose: 10 mg - Labs Labs: 05/08/17 05:55 05/08/17 05:55 PT 12.5 Seconds (9.8-13.1) 01/17/17 13:40 INR 1.2 (0.9-1.2) 01/17/17 13:40 APTT 27.7 Seconds (25.6-37.1) 01/17/17 13:40 Assessment and Plan (1) Unwitnessed fall Status: Acute (2) Frail elderly Status: Chronic (3) UTI due to extended-spectrum beta lactamase (ESBL) producing Escherichia coli Status: Resolved (4) Adult idiopathic generalized osteoporosis Status: Chronic (5) DVT prophylaxis Status: Acute (6) Hypercholesterolemia Status: Chronic (7) Hypothyroid Status: Chronic (8) Pulmonary hypertension Status: Chronic (9) HTN (hypertension) Assessment & Plan: Back Pain Ambulation Problem Right Foot Droop Frail Elderly Wheelchair Dependent Continue Pain Management Continue PT/OT, and Out of bed to Chair daily Waiting Medicaid Application approval SW and her daughter with POA processing the Medicaid Application.\ Continue Current Care Status: Chronic
[2017-05-18] MEDS: Calcium-Vit D 250 mg-125 Units Tab UD PO SCH (08:25)
[2017-05-18] MEDS: Enoxaparin 40 mg Syringe SC SCH (08:28)
--- NOTE | 2017-05-18 18:58 | CP.PCM.PN ---
Subjective - Date & Time of Evaluation Date of Evaluation: 05/18/17 Time of Evaluation: 18:20 - Subjective Subjective: Seen and examined at the bed side. No complaint. Waiting Medicaid approval for [facility] Placement. currently getting physical Therapy. Objective - Vital Signs/Intake and Output Vital Signs (last 24 hours): Temp Pulse Resp BP Pulse Ox 97.9 F 87 20 115/72 100 05/18/17 16:03 05/18/17 16:03 05/18/17 16:03 05/18/17 16:03 05/18/17 16:03 - Medications Medications: Current Medications Acetaminophen (Tylenol 325mg Tab) 650 mg PO Q6 PRN PRN Reason: Pain, moderate (4-7) Last Admin: 01/23/17 09:13 Dose: 650 mg Aspirin (Ecotrin) 81 mg PO DAILY [facility] Last Admin: 05/18/17 08:25 Dose: 81 mg Atorvastatin Calcium (Lipitor) 20 mg PO HS [facility] Last Admin: 05/17/17 21:03 Dose: 20 mg Calcium/Vitamin D (Oscal-D 250 Mg-125 Units Tab) 1 tab PO DAILY [facility] Last Admin: 05/18/17 08:25 Dose: 1 tab Carvedilol (Coreg) 3.125 mg PO DAILY [facility] Last Admin: 05/18/17 08:27 Dose: Not Given Docusate Sodium (Colace) 100 mg PO BID [facility] Last Admin: 05/18/17 16:00 Dose: 100 mg Enoxaparin Sodium (Lovenox) 40 mg SC DAILY [facility] PRN Reason: Protocol Last Admin: 05/18/17 08:28 Dose: 40 mg Famotidine (Pepcid) 20 mg PO DAILY [facility] Last Admin: 05/18/17 08:26 Dose: 20 mg Ferrous Sulfate (Feosol) 325 mg PO BID [facility] Last Admin: 05/18/17 16:00 Dose: 325 mg Furosemide (Lasix) 20 mg PO DAILY [facility] Last Admin: 05/18/17 08:27 Dose: 20 mg Lisinopril (Zestril) 5 mg PO DAILY [facility] Last Admin: 05/18/17 08:26 Dose: Not Given Loratadine (Claritin) 10 mg PO DAILY [facility] Last Admin: 05/18/17 08:26 Dose: 10 mg - Labs Labs: 05/08/17 05:55 05/08/17 05:55 PT 12.5 Seconds (9.8-13.1) 01/17/17 13:40 INR 1.2 (0.9-1.2) 01/17/17 13:40 APTT 27.7 Seconds (25.6-37.1) 01/17/17 13:40 Assessment and Plan (1) Unwitnessed fall Assessment & Plan: Back Pain Ambulation Problem Right Foot Droop Frail Elderly Wheelchair Dependent Continue Pain Management Continue PT/OT, and Out of bed to Chair daily Waiting Medicaid Application approval SW and her daughter with POA processing the Medicaid Application. Status: Acute (2) Frail elderly Status: Chronic (3) Hip pain Status: Resolved (4) UTI due to extended-spectrum beta lactamase (ESBL) producing Escherichia coli Status: Resolved (5) Adult idiopathic generalized osteoporosis Status: Chronic (6) DVT prophylaxis Status: Acute (7) Hypercholesterolemia Status: Chronic (8) Hypothyroid Status: Chronic (9) Pulmonary hypertension Status: Chronic (10) HTN (hypertension) Status: Chronic
[2017-05-19] MEDS: Calcium-Vit D 250 mg-125 Units Tab UD PO SCH (09:18)
[2017-05-19] MEDS: Enoxaparin 40 mg Syringe SC SCH (09:18)
--- NOTE | 2017-05-20 00:17 | CP.PCM.PN ---
Subjective - Date & Time of Evaluation Date of Evaluation: 05/19/17 Time of Evaluation: 23:00 - Subjective Subjective: Seen and examined at the bed side. No complaint. Waiting Medicaid approval for [facility] Placement. currently getting physical Therapy. Objective - Vital Signs/Intake and Output Vital Signs (last 24 hours): Temp Pulse Resp BP Pulse Ox 98.6 F 83 20 90/47 L 99 05/19/17 17:16 05/19/17 17:16 05/19/17 17:16 05/19/17 17:16 05/19/17 17:16 - Medications Medications: Current Medications Acetaminophen (Tylenol 325mg Tab) 650 mg PO Q6 PRN PRN Reason: Pain, moderate (4-7) Last Admin: 01/23/17 09:13 Dose: 650 mg Aspirin (Ecotrin) 81 mg PO DAILY [facility] Last Admin: 05/19/17 09:18 Dose: 81 mg Atorvastatin Calcium (Lipitor) 20 mg PO HS [facility] Last Admin: 05/19/17 22:13 Dose: Not Given Calcium/Vitamin D (Oscal-D 250 Mg-125 Units Tab) 1 tab PO DAILY [facility] Last Admin: 05/19/17 09:18 Dose: 1 tab Carvedilol (Coreg) 3.125 mg PO DAILY [facility] Last Admin: 05/19/17 09:18 Dose: 3.125 mg Docusate Sodium (Colace) 100 mg PO BID [facility] Last Admin: 05/19/17 17:04 Dose: 100 mg Enoxaparin Sodium (Lovenox) 40 mg SC DAILY [facility] PRN Reason: Protocol Last Admin: 05/19/17 09:18 Dose: 40 mg Famotidine (Pepcid) 20 mg PO DAILY [facility] Last Admin: 05/19/17 09:17 Dose: 20 mg Ferrous Sulfate (Feosol) 325 mg PO BID [facility] Last Admin: 05/19/17 17:04 Dose: 325 mg Furosemide (Lasix) 20 mg PO DAILY [facility] Last Admin: 05/19/17 09:17 Dose: 20 mg Lisinopril (Zestril) 5 mg PO DAILY [facility] Last Admin: 05/19/17 09:17 Dose: 5 mg Loratadine (Claritin) 10 mg PO DAILY [facility] Last Admin: 05/19/17 09:17 Dose: 10 mg - Labs Labs: 05/08/17 05:55 05/08/17 05:55 PT 12.5 Seconds (9.8-13.1) 01/17/17 13:40 INR 1.2 (0.9-1.2) 01/17/17 13:40 APTT 27.7 Seconds (25.6-37.1) 01/17/17 13:40 - Eye Exam Eye Exam: EOMI, Normal appearance, PERRL Pupil Exam: NORMAL ACCOMODATION, PERRL - Neck Exam Neck Exam: Full ROM, Normal Inspection. absent: Lymphadenopathy - Respiratory Exam Respiratory Exam: Clear to Ausculation Bilateral, NORMAL BREATHING PATTERN - Cardiovascular Exam Cardiovascular Exam: REGULAR RHYTHM, +S1, +S2 - Neurological Exam Neurological Exam: Abnormal Gait, Alert, Awake Assessment and Plan (1) Unwitnessed fall Assessment & Plan: Assessment and Plan: Back Pain Ambulation Problem Right Foot Droop Frail Elderly Wheelchair Dependent Continue Pain Management MRI of L-SPine Status: Acute Priority: High (2) DVT prophylaxis Status: Acute (3) Hypercholesterolemia Status: Acute (4) Anemia Assessment and Plan: Normocytic Status: Chronic (5) HTN (hypertension) Status: Chronic (6) Hypothyroid Status: Chronic Priority: Low (7) CAD (coronary artery disease) Status: Acute
[2017-05-20] MEDS: Calcium-Vit D 250 mg-125 Units Tab UD PO SCH (08:35)
[2017-05-20] MEDS: Enoxaparin 40 mg Syringe SC SCH (08:37)
--- NOTE | 2017-05-20 23:03 | CP.PCM.PN ---
Subjective - Date & Time of Evaluation Date of Evaluation: 05/20/17 Time of Evaluation: 23:20 - Subjective Subjective: Seen and examined at the bed side. No complaint. Waiting Medicaid approval for prison Placement. currently getting physical Therapy. Objective - Vital Signs/Intake and Output Vital Signs (last 24 hours): Temp Pulse Resp BP Pulse Ox 98.6 F 86 20 96/60 L 99 05/20/17 15:58 05/20/17 15:58 05/20/17 15:58 05/20/17 15:58 05/20/17 15:58 - Medications Medications: Current Medications Acetaminophen (Tylenol 325mg Tab) 650 mg PO Q6 PRN PRN Reason: Pain, moderate (4-7) Last Admin: 01/23/17 09:13 Dose: 650 mg Aspirin (Ecotrin) 81 mg PO DAILY [facility]PL[facility]ED [facility] Last Admin: 05/20/17 08:36 Dose: 81 mg Atorvastatin Calcium (Lipitor) 20 mg PO HS [facility]PL[facility] Last Admin: 05/20/17 17:39 Dose: 20 mg Calcium/Vitamin D (Oscal-D 250 Mg-125 Units Tab) 1 tab PO DAILY [facility] Last Admin: 05/20/17 08:35 Dose: 1 tab Carvedilol (Coreg) 3.125 mg PO DAILY [facility] Last Admin: 05/20/17 08:36 Dose: 3.125 mg Docusate Sodium (Colace) 100 mg PO BID [facility] Last Admin: 05/20/17 17:39 Dose: 100 mg Famotidine (Pepcid) 20 mg PO DAILY [facility] Last Admin: 05/20/17 08:36 Dose: 20 mg Ferrous Sulfate (Feosol) 325 mg PO BID [facility] Last Admin: 05/20/17 17:39 Dose: 325 mg Furosemide (Lasix) 20 mg PO DAILY [facility] Last Admin: 05/20/17 08:35 Dose: 20 mg Lisinopril (Zestril) 5 mg PO DAILY [facility] Last Admin: 05/20/17 08:36 Dose: 5 mg Loratadine (Claritin) 10 mg PO DAILY [facility] Last Admin: 05/20/17 08:36 Dose: 10 mg - Labs Labs: 05/08/17 05:55 05/08/17 05:55 PT 12.5 Seconds (9.8-13.1) 01/17/17 13:40 INR 1.2 (0.9-1.2) 01/17/17 13:40 APTT 27.7 Seconds (25.6-37.1) 01/17/17 13:40 - Constitutional Appears: No Acute Distress - Head Exam Head Exam: ATRAUMATIC, NORMAL INSPECTION, NORMOCEPHALIC - Eye Exam Eye Exam: EOMI, Normal appearance Pupil Exam: PERRL - ENT Exam ENT Exam: Mucous Membranes Moist - Respiratory Exam Respiratory Exam: Clear to Ausculation Bilateral - Cardiovascular Exam Cardiovascular Exam: REGULAR RHYTHM, +S1, +S2 - Neurological Exam Neurological Exam: Alert, Awake, CN II-XII Intact Assessment and Plan (1) Unwitnessed fall Assessment & Plan: Back Pain Ambulation Problem Right Foot Droop Frail Elderly Wheelchair Dependent Continue Pain Management MRI of L-SPine Status: Acute Priority: High (2) DVT prophylaxis Status: Acute (3) Hypercholesterolemia Status: Acute (4) Anemia Assessment and Plan: Normocytic Status: Chronic (5) HTN (hypertension) Status: Chronic (6) Hypothyroid Status: Chronic Priority: Low (7) CAD (coronary artery disease) Status: Resolved
[2017-05-21] MEDS: Calcium-Vit D 250 mg-125 Units Tab UD PO SCH (08:37)
[2017-05-21] MEDS: Enoxaparin 40 mg Syringe SC SCH (09:42)
--- NOTE | 2017-05-21 23:28 | CP.PCM.PN ---
Subjective - Date & Time of Evaluation Date of Evaluation: 05/21/17 Time of Evaluation: 20:00 - Subjective Subjective: Seen and examined at the bed side. No complaint. Waiting Medicaid approval for long-term Placement. currently getting physical Therapy. Objective - Vital Signs/Intake and Output Vital Signs (last 24 hours): Temp Pulse Resp BP Pulse Ox 98.4 F 93 H 20 126/75 97 05/21/17 17:04 05/21/17 17:04 05/21/17 17:04 05/21/17 17:04 05/21/17 17:04 - Medications Medications: Current Medications Acetaminophen (Tylenol 325mg Tab) 650 mg PO Q6 PRN PRN Reason: Pain, moderate (4-7) Last Admin: 01/23/17 09:13 Dose: 650 mg Aspirin (Ecotrin) 81 mg PO DAILY [facility] Last Admin: 05/21/17 08:36 Dose: 81 mg Atorvastatin Calcium (Lipitor) 20 mg PO QPM [facility] Last Admin: 05/21/17 17:18 Dose: 20 mg Calcium/Vitamin D (Oscal-D 250 Mg-125 Units Tab) 1 tab PO DAILY [facility] Last Admin: 05/21/17 08:37 Dose: 1 tab Carvedilol (Coreg) 3.125 mg PO DAILY [facility] Last Admin: 05/21/17 08:40 Dose: 3.125 mg Docusate Sodium (Colace) 100 mg PO BID [facility] Last Admin: 05/21/17 16:38 Dose: 100 mg Enoxaparin Sodium (Lovenox) 40 mg SC DAILY [facility] PRN Reason: Protocol Last Admin: 05/21/17 09:42 Dose: 40 mg Famotidine (Pepcid) 20 mg PO DAILY [facility] Last Admin: 05/21/17 08:36 Dose: 20 mg Ferrous Sulfate (Feosol) 325 mg PO BID [facility] Last Admin: 05/21/17 16:38 Dose: 325 mg Furosemide (Lasix) 20 mg PO DAILY [facility] Last Admin: 05/21/17 08:36 Dose: 20 mg Lisinopril (Zestril) 5 mg PO DAILY [facility] Last Admin: 05/21/17 08:36 Dose: 5 mg Loratadine (Claritin) 10 mg PO DAILY [facility] Last Admin: 05/21/17 08:35 Dose: 10 mg - Labs Labs: 05/08/17 05:55 05/08/17 05:55 PT 12.5 Seconds (9.8-13.1) 01/17/17 13:40 INR 1.2 (0.9-1.2) 01/17/17 13:40 APTT 27.7 Seconds (25.6-37.1) 01/17/17 13:40 Assessment and Plan (1) Unwitnessed fall Assessment & Plan: Back Pain Ambulation Problem Right Foot Droop Frail Elderly Wheelchair Dependent Continue Pain Management Continue PT/OT SW 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 Awaiting her daughter's getting the necessary document for the application process. Status: Acute Priority: High (2) DVT prophylaxis Status: Acute (3) Hypercholesterolemia Status: Acute (4) Anemia Assessment and Plan: Normocytic Status: Chronic (5) HTN (hypertension) Status: Chronic (6) Hypothyroid Status: Chronic Priority: Low (7) CAD (coronary artery disease) Status: Resolved Status: Resolved
[2017-05-22] MEDS: Calcium-Vit D 250 mg-125 Units Tab UD PO SCH (08:21)
[2017-05-22] MEDS: Enoxaparin 40 mg Syringe SC SCH (08:21)
--- NOTE | 2017-05-22 15:40 | CP.PCM.PN ---
Subjective - Date & Time of Evaluation Date of Evaluation: 05/22/17 Time of Evaluation: 15:40 - Subjective Subjective: Seen and examined at the bed side. No complaint. Waiting Medicaid approval for senior care Placement. currently getting physical Therapy. Objective - Vital Signs/Intake and Output Vital Signs (last 24 hours): Temp Pulse Resp BP Pulse Ox 97.7 F 87 20 105/67 95 05/22/17 08:00 05/22/17 08:22 05/22/17 08:00 05/22/17 08:22 05/22/17 08:00 - Medications Medications: Current Medications Acetaminophen (Tylenol 325mg Tab) 650 mg PO Q6 PRN PRN Reason: Pain, moderate (4-7) Last Admin: 01/23/17 09:13 Dose: 650 mg Aspirin (Ecotrin) 81 mg PO DAILY [facility] Last Admin: 05/22/17 08:21 Dose: 81 mg Atorvastatin Calcium (Lipitor) 20 mg PO QPM [facility] Last Admin: 05/21/17 17:18 Dose: 20 mg Calcium/Vitamin D (Oscal-D 250 Mg-125 Units Tab) 1 tab PO DAILY [facility] Last Admin: 05/22/17 08:21 Dose: 1 tab Carvedilol (Coreg) 3.125 mg PO DAILY [facility] Last Admin: 05/22/17 08:22 Dose: 3.125 mg Docusate Sodium (Colace) 100 mg PO BID [facility] Last Admin: 05/22/17 08:21 Dose: 100 mg Enoxaparin Sodium (Lovenox) 40 mg SC DAILY [facility] PRN Reason: Protocol Last Admin: 05/22/17 08:21 Dose: 40 mg Famotidine (Pepcid) 20 mg PO DAILY [facility] Last Admin: 05/22/17 08:22 Dose: 20 mg Ferrous Sulfate (Feosol) 325 mg PO BID [facility] Last Admin: 05/22/17 08:22 Dose: 325 mg Furosemide (Lasix) 20 mg PO DAILY [facility] Last Admin: 05/22/17 08:22 Dose: 20 mg Lisinopril (Zestril) 5 mg PO DAILY [facility] Last Admin: 05/22/17 08:21 Dose: 5 mg Loratadine (Claritin) 10 mg PO DAILY [facility] Last Admin: 05/22/17 08:21 Dose: 10 mg - Labs Labs: 05/08/17 05:55 05/08/17 05:55 PT 12.5 Seconds (9.8-13.1) 01/17/17 13:40 INR 1.2 (0.9-1.2) 01/17/17 13:40 APTT 27.7 Seconds (25.6-37.1) 01/17/17 13:40 Assessment and Plan (1) Unwitnessed fall Assessment & Plan: Back Pain Ambulation Problem Right Foot Droop Frail Elderly Wheelchair Dependent Continue Pain Management Continue PT/OT SW working for Medicaid application for correction placement. Status: Acute Priority: High (2) DVT prophylaxis Status: Acute (3) Hypercholesterolemia Status: Acute (4) Anemia Assessment and Plan: Normocytic Status: Chronic (5) HTN (hypertension) Status: Chronic (6) Hypothyroid Status: Chronic Priority: Low (7) CAD (coronary artery disease) Status: Resolved
--- NOTE | 2017-05-23 08:35 | CP.PCM.PN ---
Subjective - Date & Time of Evaluation Date of Evaluation: 05/23/17 Time of Evaluation: 08:05 - Subjective Subjective: Seen and examined at the bed side. No complaint. Waiting Medicaid approval for detention Placement. currently getting physical Therapy. Objective - Vital Signs/Intake and Output Vital Signs (last 24 hours): Temp Pulse Resp BP Pulse Ox 98.1 F 89 20 129/74 99 05/23/17 08:07 05/23/17 08:07 05/23/17 08:07 05/23/17 08:07 05/23/17 08:07 - Medications Medications: Current Medications Acetaminophen (Tylenol 325mg Tab) 650 mg PO Q6 PRN PRN Reason: Pain, moderate (4-7) Last Admin: 01/23/17 09:13 Dose: 650 mg Aspirin (Ecotrin) 81 mg PO DAILY [facility] Last Admin: 05/22/17 08:21 Dose: 81 mg Atorvastatin Calcium (Lipitor) 20 mg PO QPM [facility] Last Admin: 05/22/17 18:09 Dose: 20 mg Calcium/Vitamin D (Oscal-D 250 Mg-125 Units Tab) 1 tab PO DAILY [facility] Last Admin: 05/22/17 08:21 Dose: 1 tab Carvedilol (Coreg) 3.125 mg PO DAILY [facility] Last Admin: 05/22/17 08:22 Dose: 3.125 mg Docusate Sodium (Colace) 100 mg PO BID [facility] Last Admin: 05/22/17 16:19 Dose: 100 mg Enoxaparin Sodium (Lovenox) 40 mg SC DAILY [facility] PRN Reason: Protocol Last Admin: 05/22/17 08:21 Dose: 40 mg Famotidine (Pepcid) 20 mg PO DAILY [facility] Last Admin: 05/22/17 08:22 Dose: 20 mg Ferrous Sulfate (Feosol) 325 mg PO BID [facility] Last Admin: 05/22/17 16:19 Dose: 325 mg Furosemide (Lasix) 20 mg PO DAILY [facility] Last Admin: 05/22/17 08:22 Dose: 20 mg Lisinopril (Zestril) 5 mg PO DAILY [facility] Last Admin: 05/22/17 08:21 Dose: 5 mg Loratadine (Claritin) 10 mg PO DAILY [facility] Last Admin: 05/22/17 08:21 Dose: 10 mg - Labs Labs: 05/08/17 05:55 05/08/17 05:55 PT 12.5 Seconds (9.8-13.1) 01/17/17 13:40 INR 1.2 (0.9-1.2) 01/17/17 13:40 APTT 27.7 Seconds (25.6-37.1) 01/17/17 13:40 - Constitutional Appears: No Acute Distress - Head Exam Head Exam: ATRAUMATIC, NORMAL INSPECTION, NORMOCEPHALIC - ENT Exam ENT Exam: Mucous Membranes Moist - Neck Exam Neck Exam: Full ROM - Cardiovascular Exam Cardiovascular Exam: +S1, +S2 - Neurological Exam Neurological Exam: Alert, Awake - Psychiatric Exam Psychiatric exam: Anxious Assessment and Plan (1) Unwitnessed fall Assessment & Plan: Back Pain Ambulation Problem Right Foot Droop Frail Elderly Wheelchair Dependent Continue Pain Management Continue PT/OT SW working for Medicaid application for senior living placement. Status: Acute Priority: High (2) DVT prophylaxis Status: Acute (3) Hypercholesterolemia Status: Acute (4) Anemia Assessment and Plan: Normocytic Status: Chronic (5) HTN (hypertension) Status: Chronic (6) Hypothyroid Status: Chronic Priority: Low (7) CAD (coronary artery disease) Status: Resolved
[2017-05-23] MEDS: Calcium-Vit D 250 mg-125 Units Tab UD PO SCH (09:36)
[2017-05-23] MEDS: Enoxaparin 40 mg Syringe SC SCH (09:36)
[2017-05-24] MEDS: Calcium-Vit D 250 mg-125 Units Tab UD PO SCH (09:26)
[2017-05-24] MEDS: Enoxaparin 40 mg Syringe SC SCH (09:26)
--- NOTE | 2017-05-24 23:07 | CP.PCM.PN ---
Subjective - Date & Time of Evaluation Date of Evaluation: 05/24/17 Time of Evaluation: 17:05 - Subjective Subjective: Seen and examined at the bed side. No complaint. Waiting Medicaid approval for mcc Placement. currently getting physical Therapy. Objective - Vital Signs/Intake and Output Vital Signs (last 24 hours): Temp Pulse Resp BP Pulse Ox 98.4 F 105 H 18 117/68 98 05/24/17 16:11 05/24/17 16:11 05/24/17 16:11 05/24/17 16:11 05/24/17 16:11 - Medications Medications: Current Medications Acetaminophen (Tylenol 325mg Tab) 650 mg PO Q6 PRN PRN Reason: Pain, moderate (4-7) Last Admin: 01/23/17 09:13 Dose: 650 mg Aspirin (Ecotrin) 81 mg PO DAILY [facility] Last Admin: 05/24/17 09:26 Dose: 81 mg Atorvastatin Calcium (Lipitor) 20 mg PO QPM [facility] Last Admin: 05/24/17 17:37 Dose: 20 mg Calcium/Vitamin D (Oscal-D 250 Mg-125 Units Tab) 1 tab PO DAILY [facility] Last Admin: 05/24/17 09:26 Dose: 1 tab Carvedilol (Coreg) 3.125 mg PO DAILY [facility] Last Admin: 05/24/17 09:38 Dose: Not Given Docusate Sodium (Colace) 100 mg PO BID [facility] Last Admin: 05/24/17 17:37 Dose: 100 mg Enoxaparin Sodium (Lovenox) 40 mg SC DAILY [facility] PRN Reason: Protocol Last Admin: 05/24/17 09:26 Dose: 40 mg Famotidine (Pepcid) 20 mg PO DAILY [facility] Last Admin: 05/24/17 09:25 Dose: 20 mg Ferrous Sulfate (Feosol) 325 mg PO BID [facility] Last Admin: 05/24/17 17:37 Dose: 325 mg Furosemide (Lasix) 20 mg PO DAILY [facility] Last Admin: 05/24/17 09:38 Dose: Not Given Lisinopril (Zestril) 5 mg PO DAILY [facility] Last Admin: 05/24/17 09:38 Dose: Not Given Loratadine (Claritin) 10 mg PO DAILY [facility] Last Admin: 05/24/17 09:26 Dose: 10 mg - Labs Labs: 05/08/17 05:55 05/08/17 05:55 PT 12.5 Seconds (9.8-13.1) 01/17/17 13:40 INR 1.2 (0.9-1.2) 01/17/17 13:40 APTT 27.7 Seconds (25.6-37.1) 01/17/17 13:40 Assessment and Plan (1) Unwitnessed fall Assessment & Plan: Back Pain Ambulation Problem Right Foot Droop Frail Elderly Wheelchair Dependent Continue Pain Management Continue PT/OT SW working for Medicaid application for [facility] placement. Status: Acute Priority: High (2) DVT prophylaxis Status: Acute (3) Hypercholesterolemia Status: Acute (4) Anemia Assessment and Plan: Normocytic Status: Chronic (5) HTN (hypertension) Status: Chronic (6) Hypothyroid Status: Chronic Priority: Low (7) CAD (coronary artery disease) Status: Resolved
[2017-05-25 05:54] LABS: BASO % 0.5 % (0.0-2.0); EOS # 0.1 K/uL (0.0-0.7); EOS % 1.6 % (0.0-4.0); HEMOGLOBIN 10.4 g/dL (12.0-16.0); LYMPH # 1.5 K/uL (1.0-4.3); LYMPH % 34.3 % (20.0-40.0); MEAN CELL VOLUME 89.3 fl (81.0-99.0); MEAN CORPUSCULAR HEMOGLOBIN 28.8 pg (27.0-31.0); MEAN CORPUSCULAR HGB CONC 32.3 g/dL (33.0-37.0); MEAN PLATELET VOLUME 10.1 fl (7.2-11.7); MONO # 0.6 K/uL (0.0-0.8); MONO % 13.7 % (0.0-10.0); NEUT # 2.2 K/uL (1.8-7.0); NEUT % 49.9 % (50.0-75.0); NRBC % 0.1 % (0.0-0.0); RBC 3.61 Mil/uL (3.80-5.20); RED CELL DISTRIBUTION WIDTH 13.7 % (11.5-14.5); WHITE BLOOD COUNT 4.4 K/uL (4.8-10.8)
[2017-05-25 06:58] LABS: ALBUMIN 3.4 g/dL (3.5-5.0); ALT/SGPT 31 U/L (9-52); AST/SGOT 29 U/L (14-36); BLOOD UREA NITROGEN 21 mg/dl (7-17); CALCIUM 8.9 mg/dL (8.4-10.2); GFR AFRICAN-AMERICAN > 60; GFR NON-AFRICAN AMERICAN > 60; MAGNESIUM 1.9 MG/DL (1.6-2.3)
[2017-05-25 07:41] LABS: ALB/GLOB RATIO 1.1 (1.0-2.1)
[2017-05-25] MEDS: Enoxaparin 40 mg Syringe SC SCH ×2 (09:14→09:34)
[2017-05-25] MEDS: Calcium-Vit D 250 mg-125 Units Tab UD PO SCH ×2 (09:15→09:35)
--- NOTE | 2017-05-25 17:56 | CP.PCM.PN ---
Subjective - Date & Time of Evaluation Date of Evaluation: 05/25/17 Time of Evaluation: 17:40 - Subjective Subjective: No Complaint. Objective - Vital Signs/Intake and Output Vital Signs (last 24 hours): Temp Pulse Resp BP Pulse Ox 98.7 F 87 16 127/68 98 05/25/17 17:00 05/25/17 17:00 05/25/17 17:00 05/25/17 17:00 05/25/17 17:00 - Medications Medications: Current Medications Acetaminophen (Tylenol 325mg Tab) 650 mg PO Q6 PRN PRN Reason: Pain, moderate (4-7) Last Admin: 01/23/17 09:13 Dose: 650 mg Aspirin (Ecotrin) 81 mg PO DAILY [facility] Last Admin: 05/25/17 09:34 Dose: Not Given Atorvastatin Calcium (Lipitor) 20 mg PO QPM [facility] Last Admin: 05/25/17 17:47 Dose: 20 mg Calcium/Vitamin D (Oscal-D 250 Mg-125 Units Tab) 1 tab PO DAILY [facility] Last Admin: 05/25/17 09:35 Dose: Not Given Carvedilol (Coreg) 3.125 mg PO DAILY [facility] Last Admin: 05/25/17 09:34 Dose: Not Given Docusate Sodium (Colace) 100 mg PO BID [facility] Last Admin: 05/25/17 17:47 Dose: 100 mg Enoxaparin Sodium (Lovenox) 40 mg SC DAILY [facility] PRN Reason: Protocol Last Admin: 05/25/17 09:34 Dose: Not Given Famotidine (Pepcid) 20 mg PO DAILY [facility] Last Admin: 05/25/17 09:35 Dose: Not Given Ferrous Sulfate (Feosol) 325 mg PO BID [facility] Last Admin: 05/25/17 17:47 Dose: 325 mg Furosemide (Lasix) 20 mg PO DAILY [facility] Last Admin: 05/25/17 09:34 Dose: Not Given Lisinopril (Zestril) 5 mg PO DAILY [facility] Last Admin: 05/25/17 09:35 Dose: Not Given Loratadine (Claritin) 10 mg PO DAILY [facility] Last Admin: 05/25/17 09:32 Dose: Not Given - Labs Labs: 05/25/17 05:40 05/25/17 05:40 PT 12.5 Seconds (9.8-13.1) 01/17/17 13:40 INR 1.2 (0.9-1.2) 01/17/17 13:40 APTT 27.7 Seconds (25.6-37.1) 01/17/17 13:40 Assessment and Plan (1) Unwitnessed fall Assessment & Plan: Back Pain Ambulation Problem Right Foot Droop Frail Elderly Wheelchair Dependent Continue Pain Management Continue PT/OT 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 Status: Acute Priority: High (2) DVT prophylaxis Status: Acute (3) Hypercholesterolemia Status: Acute (4) Anemia Assessment and Plan: Normocytic Status: Chronic (5) HTN (hypertension) Status: Chronic (6) Hypothyroid Status: Chronic Priority: Low (7) CAD (coronary artery disease) Status: Resolved
[2017-05-26] MEDS: Enoxaparin 40 mg Syringe SC SCH (09:21)
[2017-05-26] MEDS: Calcium-Vit D 250 mg-125 Units Tab UD PO SCH (09:22)
[2017-05-27] MEDS: Calcium-Vit D 250 mg-125 Units Tab UD PO SCH (08:52)
--- NOTE | 2017-05-28 00:19 | CP.PCM.PN ---
Subjective - Date & Time of Evaluation Date of Evaluation: 05/26/17 Time of Evaluation: 19:00 - Subjective Subjective: she states fine and she wants to go home. I have told her it is unsafe. Objective - Vital Signs/Intake and Output Vital Signs (last 24 hours): Temp Pulse Resp BP Pulse Ox 98.1 F 84 20 96/62 L 98 05/27/17 15:29 05/27/17 15:29 05/27/17 15:29 05/27/17 15:29 05/27/17 15:29 - Medications Medications: Current Medications Acetaminophen (Tylenol 325mg Tab) 650 mg PO Q6 PRN PRN Reason: Pain, moderate (4-7) Last Admin: 01/23/17 09:13 Dose: 650 mg Aspirin (Ecotrin) 81 mg PO DAILY [facility] Last Admin: 05/27/17 08:51 Dose: 81 mg Atorvastatin Calcium (Lipitor) 20 mg PO QPM [facility] Last Admin: 05/27/17 16:59 Dose: 20 mg Calcium/Vitamin D (Oscal-D 250 Mg-125 Units Tab) 1 tab PO DAILY [facility] Last Admin: 05/27/17 08:52 Dose: 1 tab Carvedilol (Coreg) 3.125 mg PO DAILY [facility] Last Admin: 05/27/17 08:51 Dose: 3.125 mg Docusate Sodium (Colace) 100 mg PO BID [facility] Last Admin: 05/27/17 16:46 Dose: 100 mg Famotidine (Pepcid) 20 mg PO DAILY [facility] Last Admin: 05/27/17 08:51 Dose: 20 mg Ferrous Sulfate (Feosol) 325 mg PO BID [facility] Last Admin: 05/27/17 16:46 Dose: 325 mg Furosemide (Lasix) 20 mg PO DAILY [facility] Last Admin: 05/27/17 08:51 Dose: 20 mg Lisinopril (Zestril) 5 mg PO DAILY [facility] Last Admin: 05/27/17 08:51 Dose: 5 mg Loratadine (Claritin) 10 mg PO DAILY [facility] Last Admin: 05/27/17 08:52 Dose: 10 mg - Labs Labs: 05/25/17 05:40 05/25/17 05:40 PT 12.5 Seconds (9.8-13.1) 01/17/17 13:40 INR 1.2 (0.9-1.2) 01/17/17 13:40 APTT 27.7 Seconds (25.6-37.1) 01/17/17 13:40 Assessment and Plan (1) Unwitnessed fall Assessment & Plan: Back Pain Ambulation Problem Right Foot Droop Frail Elderly Wheelchair Dependent Continue Pain Management Continue PT/OT SW working for Medicaid 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 Status: Acute Priority: High (2) DVT prophylaxis Status: Acute (3) Hypercholesterolemia Status: Acute (4) Anemia Assessment and Plan: Normocytic Status: Chronic (5) HTN (hypertension) Status: Chronic (6) Hypothyroid Status: Chronic Priority: Low (7) CAD (coronary artery disease) Status: Resolved
--- NOTE | 2017-05-28 00:20 | CP.PCM.PN ---
Subjective - Date & Time of Evaluation Date of Evaluation: 05/27/17 Time of Evaluation: 20:10 - Subjective Subjective: No new complaint. Objective - Vital Signs/Intake and Output Vital Signs (last 24 hours): Temp Pulse Resp BP Pulse Ox 98.1 F 84 20 96/62 L 98 05/27/17 15:29 05/27/17 15:29 05/27/17 15:29 05/27/17 15:29 05/27/17 15:29 - Medications Medications: Current Medications Acetaminophen (Tylenol 325mg Tab) 650 mg PO Q6 PRN PRN Reason: Pain, moderate (4-7) Last Admin: 01/23/17 09:13 Dose: 650 mg Aspirin (Ecotrin) 81 mg PO DAILY [facility] Last Admin: 05/27/17 08:51 Dose: 81 mg Atorvastatin Calcium (Lipitor) 20 mg PO QPM [facility] Last Admin: 05/27/17 16:59 Dose: 20 mg Calcium/Vitamin D (Oscal-D 250 Mg-125 Units Tab) 1 tab PO DAILY [facility] Last Admin: 05/27/17 08:52 Dose: 1 tab Carvedilol (Coreg) 3.125 mg PO DAILY [facility] Last Admin: 05/27/17 08:51 Dose: 3.125 mg Docusate Sodium (Colace) 100 mg PO BID [facility] Last Admin: 05/27/17 16:46 Dose: 100 mg Famotidine (Pepcid) 20 mg PO DAILY [facility] Last Admin: 05/27/17 08:51 Dose: 20 mg Ferrous Sulfate (Feosol) 325 mg PO BID [facility] Last Admin: 05/27/17 16:46 Dose: 325 mg Furosemide (Lasix) 20 mg PO DAILY [facility] Last Admin: 05/27/17 08:51 Dose: 20 mg Lisinopril (Zestril) 5 mg PO DAILY [facility] Last Admin: 05/27/17 08:51 Dose: 5 mg Loratadine (Claritin) 10 mg PO DAILY [facility] Last Admin: 05/27/17 08:52 Dose: 10 mg - Labs Labs: 05/25/17 05:40 05/25/17 05:40 PT 12.5 Seconds (9.8-13.1) 01/17/17 13:40 INR 1.2 (0.9-1.2) 01/17/17 13:40 APTT 27.7 Seconds (25.6-37.1) 01/17/17 13:40 Assessment and Plan (1) Unwitnessed fall Assessment & Plan: Back Pain Ambulation Problem Right Foot Droop Frail Elderly Wheelchair Dependent Continue Pain Management Continue PT/OT SW working for Medicaid application for bed bug 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 Status: Acute Priority: High (2) DVT prophylaxis Status: Acute (3) Hypercholesterolemia Status: Acute (4) Anemia Assessment and Plan: Normocytic Status: Chronic (5) HTN (hypertension) Status: Chronic (6) Hypothyroid Status: Chronic Priority: Low (7) CAD (coronary artery disease) Status: Resolved
[2017-05-28] MEDS: Calcium-Vit D 250 mg-125 Units Tab UD PO SCH (09:06)
--- NOTE | 2017-05-28 21:14 | CP.PCM.PN ---
Subjective - Date & Time of Evaluation Date of Evaluation: 05/28/17 Time of Evaluation: 19:45 - Subjective Subjective: No complaint. Tolerating PT/OT. Objective - Vital Signs/Intake and Output Vital Signs (last 24 hours): Temp Pulse Resp BP Pulse Ox 98.2 F 85 20 97/56 L 99 05/28/17 16:34 05/28/17 16:34 05/28/17 16:34 05/28/17 16:34 05/28/17 16:34 - Medications Medications: Current Medications Acetaminophen (Tylenol 325mg Tab) 650 mg PO Q6 PRN PRN Reason: Pain, moderate (4-7) Last Admin: 01/23/17 09:13 Dose: 650 mg Aspirin (Ecotrin) 81 mg PO DAILY [facility] Last Admin: 05/28/17 09:05 Dose: 81 mg Atorvastatin Calcium (Lipitor) 20 mg PO QPM [facility] Last Admin: 05/28/17 17:21 Dose: 20 mg Calcium/Vitamin D (Oscal-D 250 Mg-125 Units Tab) 1 tab PO DAILY [facility] Last Admin: 05/28/17 09:06 Dose: 1 tab Carvedilol (Coreg) 3.125 mg PO DAILY [facility] Last Admin: 05/28/17 09:05 Dose: 3.125 mg Docusate Sodium (Colace) 100 mg PO BID [facility] Last Admin: 05/28/17 17:20 Dose: 100 mg Famotidine (Pepcid) 20 mg PO DAILY [facility] Last Admin: 05/28/17 09:06 Dose: 20 mg Ferrous Sulfate (Feosol) 325 mg PO BID [facility] Last Admin: 05/28/17 17:20 Dose: 325 mg Furosemide (Lasix) 20 mg PO DAILY [facility] Last Admin: 05/28/17 09:06 Dose: 20 mg Lisinopril (Zestril) 5 mg PO DAILY [facility] Last Admin: 05/28/17 09:06 Dose: 5 mg Loratadine (Claritin) 10 mg PO DAILY [facility] Last Admin: 05/28/17 09:04 Dose: 10 mg - Labs Labs: 05/25/17 05:40 05/25/17 05:40 PT 12.5 Seconds (9.8-13.1) 01/17/17 13:40 INR 1.2 (0.9-1.2) 01/17/17 13:40 APTT 27.7 Seconds (25.6-37.1) 01/17/17 13:40 Assessment and Plan (1) Unwitnessed fall Assessment & Plan: Back Pain Ambulation Problem Right Foot Droop Frail Elderly Wheelchair Dependent Continue Pain Management Continue PT/OT SW working for Medicaid application for prison placement. Status: Acute Priority: High (2) DVT prophylaxis Status: Acute (3) Hypercholesterolemia Status: Acute (4) Anemia Assessment and Plan: Normocytic Status: Chronic (5) HTN (hypertension) Status: Chronic (6) Hypothyroid Status: Chronic Priority: Low (7) CAD (coronary artery disease) Status: Resolved
[2017-05-29] MEDS: Calcium-Vit D 250 mg-125 Units Tab UD PO SCH (09:03)
--- NOTE | 2017-05-30 01:37 | CP.PCM.PN ---
Subjective - Date & Time of Evaluation Date of Evaluation: 05/29/17 Time of Evaluation: 18:20 - Subjective Subjective: No Complaint. Objective - Vital Signs/Intake and Output Vital Signs (last 24 hours): Temp Pulse Resp BP Pulse Ox 98.8 F 81 19 120/66 99 05/30/17 00:00 05/30/17 00:00 05/30/17 00:00 05/30/17 00:00 05/30/17 00:00 - Medications Medications: Current Medications Acetaminophen (Tylenol 325mg Tab) 650 mg PO Q6 PRN PRN Reason: Pain, moderate (4-7) Last Admin: 01/23/17 09:13 Dose: 650 mg Aspirin (Ecotrin) 81 mg PO DAILY [facility] Last Admin: 05/29/17 09:04 Dose: Not Given Atorvastatin Calcium (Lipitor) 20 mg PO QPM [facility] Last Admin: 05/29/17 16:52 Dose: 20 mg Calcium/Vitamin D (Oscal-D 250 Mg-125 Units Tab) 1 tab PO DAILY [facility] Last Admin: 05/29/17 09:03 Dose: Not Given Carvedilol (Coreg) 3.125 mg PO DAILY [facility] Last Admin: 05/29/17 09:01 Dose: Not Given Docusate Sodium (Colace) 100 mg PO BID [facility] Last Admin: 05/29/17 16:52 Dose: 100 mg Famotidine (Pepcid) 20 mg PO DAILY [facility] Last Admin: 05/29/17 09:03 Dose: Not Given Ferrous Sulfate (Feosol) 325 mg PO BID [facility] Last Admin: 05/29/17 16:52 Dose: 325 mg Furosemide (Lasix) 20 mg PO DAILY [facility] Last Admin: 05/29/17 09:03 Dose: Not Given Lisinopril (Zestril) 5 mg PO DAILY [facility] Last Admin: 05/29/17 09:03 Dose: Not Given Loratadine (Claritin) 10 mg PO DAILY [facility] Last Admin: 05/29/17 09:01 Dose: Not Given - Labs Labs: 05/25/17 05:40 05/25/17 05:40 PT 12.5 Seconds (9.8-13.1) 01/17/17 13:40 INR 1.2 (0.9-1.2) 01/17/17 13:40 APTT 27.7 Seconds (25.6-37.1) 01/17/17 13:40 Assessment and Plan (1) Unwitnessed fall Assessment & Plan: Back Pain Ambulation Problem Right Foot Droop Frail Elderly Wheelchair Dependent Continue Pain Management Continue PT/OT SW working for Medicaid application for nursing home placement. Status: Acute Priority: High (2) DVT prophylaxis Status: Acute (3) Hypercholesterolemia Status: Acute (4) Anemia Assessment and Plan: Normocytic Status: Chronic (5) HTN (hypertension) Status: Chronic (6) Hypothyroid Status: Chronic Priority: Low (7) CAD (coronary artery disease) Status: Resolved
[2017-05-30] MEDS: Calcium-Vit D 250 mg-125 Units Tab UD PO SCH (10:03)
--- NOTE | 2017-05-30 23:45 | CP.PCM.PN ---
Subjective - Date & Time of Evaluation Date of Evaluation: 05/30/17 Time of Evaluation: 13:45 - Subjective Subjective: No complaint. Objective - Vital Signs/Intake and Output Vital Signs (last 24 hours): Temp Pulse Resp BP Pulse Ox 98.9 F 87 20 113/67 98 05/30/17 16:10 05/30/17 16:10 05/30/17 16:10 05/30/17 16:10 05/30/17 16:10 - Medications Medications: Current Medications Acetaminophen (Tylenol 325mg Tab) 650 mg PO Q6 PRN PRN Reason: Pain, moderate (4-7) Last Admin: 01/23/17 09:13 Dose: 650 mg Aspirin (Ecotrin) 81 mg PO DAILY [facility] Last Admin: 05/30/17 10:03 Dose: 81 mg Atorvastatin Calcium (Lipitor) 20 mg PO QPM [facility] Last Admin: 05/30/17 17:06 Dose: 20 mg Calcium/Vitamin D (Oscal-D 250 Mg-125 Units Tab) 1 tab PO DAILY [facility] Last Admin: 05/30/17 10:03 Dose: 1 tab Carvedilol (Coreg) 3.125 mg PO DAILY [facility] Last Admin: 05/30/17 10:03 Dose: 3.125 mg Docusate Sodium (Colace) 100 mg PO BID [facility] Last Admin: 05/30/17 17:06 Dose: 100 mg Famotidine (Pepcid) 20 mg PO DAILY [facility] Last Admin: 05/30/17 10:02 Dose: 20 mg Ferrous Sulfate (Feosol) 325 mg PO BID [facility] Last Admin: 05/30/17 17:06 Dose: 325 mg Furosemide (Lasix) 20 mg PO DAILY [facility] Last Admin: 05/30/17 10:03 Dose: 20 mg Lisinopril (Zestril) 5 mg PO DAILY [facility] Last Admin: 05/30/17 10:00 Dose: 5 mg Loratadine (Claritin) 10 mg PO DAILY [facility] Last Admin: 05/30/17 10:00 Dose: 10 mg - Labs Labs: 05/25/17 05:40 05/25/17 05:40 PT 12.5 Seconds (9.8-13.1) 01/17/17 13:40 INR 1.2 (0.9-1.2) 01/17/17 13:40 APTT 27.7 Seconds (25.6-37.1) 01/17/17 13:40 Assessment and Plan (1) Unwitnessed fall Assessment & Plan: Back Pain Ambulation Problem Right Foot Droop Frail Elderly Wheelchair Dependent Continue Pain Management Continue PT/OT SW working for Medicaid application for [facility] placement. Status: Acute Priority: High (2) DVT prophylaxis Status: Acute (3) Hypercholesterolemia Status: Acute (4) Anemia Assessment and Plan: Normocytic Status: Chronic (5) HTN (hypertension) Status: Chronic (6) Hypothyroid Status: Chronic Priority: Low (7) CAD (coronary artery disease) Status: Resolved
[2017-05-31] MEDS: Calcium-Vit D 250 mg-125 Units Tab UD PO SCH (08:42)
[2017-05-31] MEDS: Enoxaparin 40 mg Syringe SC SCH (10:32)
[2017-06-01] MEDS: Calcium-Vit D 250 mg-125 Units Tab UD PO SCH (09:39)
[2017-06-01] MEDS: Enoxaparin 40 mg Syringe SC SCH (09:40)
[2017-06-02] MEDS: Enoxaparin 40 mg Syringe SC SCH (08:18)
[2017-06-02] MEDS: Calcium-Vit D 250 mg-125 Units Tab UD PO SCH (08:19)
--- NOTE | 2017-06-02 23:22 | CP.PCM.PN ---
Subjective - Date & Time of Evaluation Date of Evaluation: 05/31/17 Time of Evaluation: 17:30 - Subjective Subjective: No new complaint. Objective - Vital Signs/Intake and Output Vital Signs (last 24 hours): Temp Pulse Resp BP Pulse Ox 98.2 F 81 18 102/61 99 06/02/17 16:18 06/02/17 16:18 06/02/17 16:18 06/02/17 16:18 06/02/17 16:18 - Medications Medications: Current Medications Acetaminophen (Tylenol 325mg Tab) 650 mg PO Q6 PRN PRN Reason: Pain, moderate (4-7) Last Admin: 01/23/17 09:13 Dose: 650 mg Aspirin (Ecotrin) 81 mg PO DAILY [facility] Last Admin: 06/02/17 08:19 Dose: 81 mg Atorvastatin Calcium (Lipitor) 20 mg PO QPM [facility] Last Admin: 06/02/17 17:01 Dose: Not Given Calcium/Vitamin D (Oscal-D 250 Mg-125 Units Tab) 1 tab PO DAILY [facility] Last Admin: 06/02/17 08:19 Dose: 1 tab Carvedilol (Coreg) 3.125 mg PO DAILY [facility] Last Admin: 06/02/17 08:18 Dose: 3.125 mg Docusate Sodium (Colace) 100 mg PO BID [facility] Last Admin: 06/02/17 16:06 Dose: 100 mg Enoxaparin Sodium (Lovenox) 40 mg SC DAILY [facility] PRN Reason: Protocol Last Admin: 06/02/17 08:18 Dose: 40 mg Famotidine (Pepcid) 20 mg PO DAILY [facility] Last Admin: 06/02/17 08:19 Dose: 20 mg Ferrous Sulfate (Feosol) 325 mg PO BID [facility] Last Admin: 06/02/17 16:06 Dose: 325 mg Furosemide (Lasix) 20 mg PO DAILY [facility] Last Admin: 06/02/17 08:19 Dose: 20 mg Lisinopril (Zestril) 5 mg PO DAILY [facility] Last Admin: 06/02/17 08:18 Dose: 5 mg Loratadine (Claritin) 10 mg PO DAILY [facility] Last Admin: 06/02/17 08:19 Dose: 10 mg - Labs Labs: 05/25/17 05:40 05/25/17 05:40 PT 12.5 Seconds (9.8-13.1) 01/17/17 13:40 INR 1.2 (0.9-1.2) 01/17/17 13:40 APTT 27.7 Seconds (25.6-37.1) 01/17/17 13:40 Assessment and Plan (1) Unwitnessed fall Assessment & Plan: Back Pain Ambulation Problem Right Foot Droop Frail Elderly Wheelchair Dependent Continue Pain Management Continue PT/OT SW working for Medicaid application for equipment 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 Status: Acute Priority: High (2) DVT prophylaxis Status: Acute (3) Hypercholesterolemia Status: Acute (4) Anemia Assessment and Plan: Normocytic Status: Chronic (5) HTN (hypertension) Status: Chronic (6) Hypothyroid Status: Chronic Priority: Low (7) CAD (coronary artery disease) Status: Resolved
--- NOTE | 2017-06-02 23:37 | CP.PCM.PN ---
Subjective - Date & Time of Evaluation Date of Evaluation: 06/01/17 Time of Evaluation: 16:45 - Subjective Subjective: No complaint. Objective - Vital Signs/Intake and Output Vital Signs (last 24 hours): Temp Pulse Resp BP Pulse Ox 98.2 F 81 18 102/61 99 06/02/17 16:18 06/02/17 16:18 06/02/17 16:18 06/02/17 16:18 06/02/17 16:18 - Medications Medications: Current Medications Acetaminophen (Tylenol 325mg Tab) 650 mg PO Q6 PRN PRN Reason: Pain, moderate (4-7) Last Admin: 01/23/17 09:13 Dose: 650 mg Aspirin (Ecotrin) 81 mg PO DAILY [facility] Last Admin: 06/02/17 08:19 Dose: 81 mg Atorvastatin Calcium (Lipitor) 20 mg PO QPM [facility] Last Admin: 06/02/17 17:01 Dose: Not Given Calcium/Vitamin D (Oscal-D 250 Mg-125 Units Tab) 1 tab PO DAILY [facility] Last Admin: 06/02/17 08:19 Dose: 1 tab Carvedilol (Coreg) 3.125 mg PO DAILY [facility] Last Admin: 06/02/17 08:18 Dose: 3.125 mg Docusate Sodium (Colace) 100 mg PO BID [facility] Last Admin: 06/02/17 16:06 Dose: 100 mg Enoxaparin Sodium (Lovenox) 40 mg SC DAILY [facility] PRN Reason: Protocol Last Admin: 06/02/17 08:18 Dose: 40 mg Famotidine (Pepcid) 20 mg PO DAILY [facility] Last Admin: 06/02/17 08:19 Dose: 20 mg Ferrous Sulfate (Feosol) 325 mg PO BID [facility] Last Admin: 06/02/17 16:06 Dose: 325 mg Furosemide (Lasix) 20 mg PO DAILY [facility] Last Admin: 06/02/17 08:19 Dose: 20 mg Lisinopril (Zestril) 5 mg PO DAILY [facility] Last Admin: 06/02/17 08:18 Dose: 5 mg Loratadine (Claritin) 10 mg PO DAILY [facility] Last Admin: 06/02/17 08:19 Dose: 10 mg - Labs Labs: 05/25/17 05:40 05/25/17 05:40 PT 12.5 Seconds (9.8-13.1) 01/17/17 13:40 INR 1.2 (0.9-1.2) 01/17/17 13:40 APTT 27.7 Seconds (25.6-37.1) 01/17/17 13:40 Assessment and Plan (1) Unwitnessed fall Assessment & Plan: Back Pain Ambulation Problem Right Foot Droop Frail Elderly Wheelchair Dependent Continue Pain Management Continue PT/OT SW working for Medicaid application for intermediate designer placement. Status: Acute Priority: High (2) DVT prophylaxis Status: Acute (3) Hypercholesterolemia Status: Acute (4) Anemia Assessment and Plan: Normocytic Status: Chronic (5) HTN (hypertension) Status: Chronic (6) Hypothyroid Status: Chronic Priority: Low (7) CAD (coronary artery disease) Status: Resolved
--- NOTE | 2017-06-02 23:39 | CP.PCM.PN ---
Subjective - Date & Time of Evaluation Date of Evaluation: 06/02/17 Time of Evaluation: 18:25 - Subjective Subjective: No Complaint. Objective - Vital Signs/Intake and Output Vital Signs (last 24 hours): Temp Pulse Resp BP Pulse Ox 98.2 F 81 18 102/61 99 06/02/17 16:18 06/02/17 16:18 06/02/17 16:18 06/02/17 16:18 06/02/17 16:18 - Medications Medications: Current Medications Acetaminophen (Tylenol 325mg Tab) 650 mg PO Q6 PRN PRN Reason: Pain, moderate (4-7) Last Admin: 01/23/17 09:13 Dose: 650 mg Aspirin (Ecotrin) 81 mg PO DAILY [facility] Last Admin: 06/02/17 08:19 Dose: 81 mg Atorvastatin Calcium (Lipitor) 20 mg PO QPM [facility] Last Admin: 06/02/17 17:01 Dose: Not Given Calcium/Vitamin D (Oscal-D 250 Mg-125 Units Tab) 1 tab PO DAILY [facility] Last Admin: 06/02/17 08:19 Dose: 1 tab Carvedilol (Coreg) 3.125 mg PO DAILY [facility] Last Admin: 06/02/17 08:18 Dose: 3.125 mg Docusate Sodium (Colace) 100 mg PO BID [facility] Last Admin: 06/02/17 16:06 Dose: 100 mg Enoxaparin Sodium (Lovenox) 40 mg SC DAILY [facility] PRN Reason: Protocol Last Admin: 06/02/17 08:18 Dose: 40 mg Famotidine (Pepcid) 20 mg PO DAILY [facility] Last Admin: 06/02/17 08:19 Dose: 20 mg Ferrous Sulfate (Feosol) 325 mg PO BID [facility] Last Admin: 06/02/17 16:06 Dose: 325 mg Furosemide (Lasix) 20 mg PO DAILY [facility] Last Admin: 06/02/17 08:19 Dose: 20 mg Lisinopril (Zestril) 5 mg PO DAILY [facility] Last Admin: 06/02/17 08:18 Dose: 5 mg Loratadine (Claritin) 10 mg PO DAILY [facility] Last Admin: 06/02/17 08:19 Dose: 10 mg - Labs Labs: 05/25/17 05:40 05/25/17 05:40 PT 12.5 Seconds (9.8-13.1) 01/17/17 13:40 INR 1.2 (0.9-1.2) 01/17/17 13:40 APTT 27.7 Seconds (25.6-37.1) 01/17/17 13:40 Assessment and Plan (1) Unwitnessed fall Assessment & Plan: Back Pain Ambulation Problem Right Foot Droop Frail Elderly Wheelchair Dependent Continue Pain Management Continue PT/OT SW working for Medicaid application for termite exterminator helper placement. Status: Acute Priority: High (2) DVT prophylaxis Status: Acute (3) Hypercholesterolemia Status: Acute (4) Anemia Assessment and Plan: Normocytic Status: Chronic (5) HTN (hypertension) Status: Chronic (6) Hypothyroid Status: Chronic Priority: Low (7) CAD (coronary artery disease) Status: Resolved
[2017-06-03] MEDS: Calcium-Vit D 250 mg-125 Units Tab UD PO SCH (09:19)
[2017-06-03] MEDS: Enoxaparin 40 mg Syringe SC SCH (09:20)
[2017-06-04] MEDS: Calcium-Vit D 250 mg-125 Units Tab UD PO SCH (09:53)
[2017-06-04 16:45] LABS: BLOOD UREA NITROGEN 25 mg/dl (7-17); GFR AFRICAN-AMERICAN > 60; GFR NON-AFRICAN AMERICAN > 60
[2017-06-04 16:46] LABS: ALB/GLOB RATIO 1.2 (1.0-2.1); ALBUMIN 3.6 g/dL (3.5-5.0); CALCIUM 9.3 mg/dL (8.4-10.2); MAGNESIUM 1.9 MG/DL (1.6-2.3)
[2017-06-04 16:47] LABS: ALT/SGPT 30 U/L (9-52); AST/SGOT 23 U/L (14-36)
--- NOTE | 2017-06-05 01:52 | CP.PCM.PN ---
Subjective - Date & Time of Evaluation Date of Evaluation: 06/03/17 Time of Evaluation: 17:15 - Subjective Subjective: No complaint. Objective - Vital Signs/Intake and Output Vital Signs (last 24 hours): Temp Pulse Resp BP Pulse Ox 99.1 F 72 18 109/63 98 06/05/17 00:10 06/05/17 00:10 06/05/17 00:10 06/05/17 00:10 06/05/17 00:10 - Medications Medications: Current Medications Acetaminophen (Tylenol 325mg Tab) 650 mg PO Q6 PRN PRN Reason: Pain, moderate (4-7) Last Admin: 01/23/17 09:13 Dose: 650 mg Aspirin (Ecotrin) 81 mg PO DAILY [facility] Last Admin: 06/04/17 09:53 Dose: 81 mg Atorvastatin Calcium (Lipitor) 20 mg PO QPM [facility] Last Admin: 06/04/17 17:30 Dose: 20 mg Calcium/Vitamin D (Oscal-D 250 Mg-125 Units Tab) 1 tab PO DAILY [facility] Last Admin: 06/04/17 09:53 Dose: 1 tab Carvedilol (Coreg) 3.125 mg PO DAILY [facility] Last Admin: 06/04/17 09:52 Dose: 3.125 mg Docusate Sodium (Colace) 100 mg PO BID [facility] Last Admin: 06/04/17 16:50 Dose: 100 mg Famotidine (Pepcid) 20 mg PO DAILY [facility] Last Admin: 06/04/17 09:53 Dose: 20 mg Ferrous Sulfate (Feosol) 325 mg PO BID [facility] Last Admin: 06/04/17 16:50 Dose: 325 mg Furosemide (Lasix) 20 mg PO DAILY [facility] Last Admin: 06/04/17 09:52 Dose: 20 mg Lisinopril (Zestril) 5 mg PO DAILY [facility] Last Admin: 06/04/17 09:53 Dose: 5 mg Loratadine (Claritin) 10 mg PO DAILY [facility] Last Admin: 06/04/17 09:53 Dose: 10 mg - Labs Labs: 05/25/17 05:40 06/04/17 06:30 PT 12.5 Seconds (9.8-13.1) 01/17/17 13:40 INR 1.2 (0.9-1.2) 01/17/17 13:40 APTT 27.7 Seconds (25.6-37.1) 01/17/17 13:40 Assessment and Plan (1) Unwitnessed fall Assessment & Plan: Back Pain Ambulation Problem Right Foot Droop Frail Elderly Wheelchair Dependent Continue Pain Management Continue PT/OT SW working for Medicaid application for half-way placement. Status: Acute Priority: High (2) DVT prophylaxis Status: Acute (3) Hypercholesterolemia Status: Acute (4) Anemia Assessment and Plan: Normocytic Status: Chronic (5) HTN (hypertension) Status: Chronic (6) Hypothyroid Status: Chronic Priority: Low (7) CAD (coronary artery disease) Status: Resolved
--- NOTE | 2017-06-05 01:54 | CP.PCM.PN ---
Subjective - Date & Time of Evaluation Date of Evaluation: 06/04/17 Time of Evaluation: 18:00 - Subjective Subjective: No complaint. Objective - Vital Signs/Intake and Output Vital Signs (last 24 hours): Temp Pulse Resp BP Pulse Ox 99.1 F 72 18 109/63 98 06/05/17 00:10 06/05/17 00:10 06/05/17 00:10 06/05/17 00:10 06/05/17 00:10 - Medications Medications: Current Medications Acetaminophen (Tylenol 325mg Tab) 650 mg PO Q6 PRN PRN Reason: Pain, moderate (4-7) Last Admin: 01/23/17 09:13 Dose: 650 mg Aspirin (Ecotrin) 81 mg PO DAILY [facility] Last Admin: 06/04/17 09:53 Dose: 81 mg Atorvastatin Calcium (Lipitor) 20 mg PO QPM [facility] Last Admin: 06/04/17 17:30 Dose: 20 mg Calcium/Vitamin D (Oscal-D 250 Mg-125 Units Tab) 1 tab PO DAILY [facility] Last Admin: 06/04/17 09:53 Dose: 1 tab Carvedilol (Coreg) 3.125 mg PO DAILY [facility] Last Admin: 06/04/17 09:52 Dose: 3.125 mg Docusate Sodium (Colace) 100 mg PO BID [facility] Last Admin: 06/04/17 16:50 Dose: 100 mg Famotidine (Pepcid) 20 mg PO DAILY [facility] Last Admin: 06/04/17 09:53 Dose: 20 mg Ferrous Sulfate (Feosol) 325 mg PO BID [facility] Last Admin: 06/04/17 16:50 Dose: 325 mg Furosemide (Lasix) 20 mg PO DAILY [facility] Last Admin: 06/04/17 09:52 Dose: 20 mg Lisinopril (Zestril) 5 mg PO DAILY [facility] Last Admin: 06/04/17 09:53 Dose: 5 mg Loratadine (Claritin) 10 mg PO DAILY [facility] Last Admin: 06/04/17 09:53 Dose: 10 mg - Labs Labs: 05/25/17 05:40 06/04/17 06:30 PT 12.5 Seconds (9.8-13.1) 01/17/17 13:40 INR 1.2 (0.9-1.2) 01/17/17 13:40 APTT 27.7 Seconds (25.6-37.1) 01/17/17 13:40 Assessment and Plan (1) Unwitnessed fall Assessment & Plan: Back Pain Ambulation Problem Right Foot Droop Frail Elderly Wheelchair Dependent Continue Pain Management Continue PT/OT SW working for Medicaid application for custodial placement. Status: Acute Priority: High (2) DVT prophylaxis Status: Acute (3) Hypercholesterolemia Status: Acute (4) Anemia Assessment and Plan: Normocytic Status: Chronic (5) HTN (hypertension) Status: Chronic (6) Hypothyroid Status: Chronic Priority: Low (7) CAD (coronary artery disease) Status: Resolved
[2017-06-05] MEDS: Calcium-Vit D 250 mg-125 Units Tab UD PO SCH (08:41)
[2017-06-05] MEDS: Enoxaparin 40 mg Syringe SC SCH (10:31)
--- NOTE | 2017-06-06 00:54 | CP.PCM.PN ---
Subjective - Date & Time of Evaluation Date of Evaluation: 06/05/17 Time of Evaluation: 18:00 - Subjective Subjective: No complaint. 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 SW and her daughters are working towards obtaining Medicaid. Unsafe to discharge home due to multiple falls and Fractures. Objective - Vital Signs/Intake and Output Vital Signs (last 24 hours): Temp Pulse Resp BP Pulse Ox 99.3 F 79 20 101/64 98 06/06/17 00:21 06/06/17 00:21 06/06/17 00:21 06/06/17 00:21 06/06/17 00:21 - Medications Medications: Current Medications Acetaminophen (Tylenol 325mg Tab) 650 mg PO Q6 PRN PRN Reason: Pain, moderate (4-7) Last Admin: 01/23/17 09:13 Dose: 650 mg Aspirin (Ecotrin) 81 mg PO DAILY [facility] Last Admin: 06/05/17 08:42 Dose: 81 mg Atorvastatin Calcium (Lipitor) 20 mg PO QPM [facility] Last Admin: 06/05/17 18:27 Dose: 20 mg Calcium/Vitamin D (Oscal-D 250 Mg-125 Units Tab) 1 tab PO DAILY [facility] Last Admin: 06/05/17 08:41 Dose: 1 tab Carvedilol (Coreg) 3.125 mg PO DAILY [facility] Last Admin: 06/05/17 08:43 Dose: 3.125 mg Docusate Sodium (Colace) 100 mg PO BID [facility] Last Admin: 06/05/17 16:27 Dose: 100 mg Enoxaparin Sodium (Lovenox) 40 mg SC DAILY [facility] PRN Reason: Protocol Last Admin: 06/05/17 10:31 Dose: 40 mg Famotidine (Pepcid) 20 mg PO DAILY [facility] Last Admin: 06/05/17 08:42 Dose: 20 mg Ferrous Sulfate (Feosol) 325 mg PO BID [facility] Last Admin: 06/05/17 16:27 Dose: 325 mg Furosemide (Lasix) 20 mg PO DAILY [facility] Last Admin: 06/05/17 08:42 Dose: 20 mg Lisinopril (Zestril) 5 mg PO DAILY [facility] Last Admin: 06/05/17 08:43 Dose: 5 mg Loratadine (Claritin) 10 mg PO DAILY [facility] Last Admin: 06/05/17 08:42 Dose: 10 mg - Labs Labs: 05/25/17 05:40 01/01/18 06:30 PT 12.5 Seconds (9.8-13.1) 01/17/17 13:40 INR 1.2 (0.9-1.2) 01/17/17 13:40 APTT 27.7 Seconds (25.6-37.1) 01/17/17 13:40 Assessment and Plan (1) Unwitnessed fall Assessment & Plan: Back Pain Ambulation Problem Right Foot Droop Frail Elderly Wheelchair Dependent Continue Pain Management Continue PT/OT SW working for 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 Status: Acute Priority: High (2) DVT prophylaxis Status: Acute (3) Hypercholesterolemia Status: Acute (4) Anemia Assessment and Plan: Normocytic Status: Chronic (5) HTN (hypertension) Status: Chronic (6) Hypothyroid Status: Chronic Priority: Low (7) CAD (coronary artery disease) Status: Resolved
[2017-06-06] MEDS: Enoxaparin 40 mg Syringe SC SCH (09:40)
[2017-06-06] MEDS: Calcium-Vit D 250 mg-125 Units Tab UD PO SCH (09:40)
[2017-06-06 15:16] VITALS: BMI 18.0
--- NOTE | 2017-06-06 22:32 | CP.PCM.PN ---
Subjective - Date & Time of Evaluation Date of Evaluation: 06/06/17 Time of Evaluation: 17:25 - Subjective Subjective: No complaint. 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 SW and her daughters are working towards obtaining Medicaid. Unsafe to discharge home due to multiple falls and Fractures. Objective - Vital Signs/Intake and Output Vital Signs (last 24 hours): Temp Pulse Resp BP Pulse Ox 98.5 F 78 20 91/63 L 97 06/06/17 16:23 06/06/17 16:23 06/06/17 16:23 06/06/17 16:23 06/06/17 16:23 - Medications Medications: Current Medications Acetaminophen (Tylenol 325mg Tab) 650 mg PO Q6 PRN PRN Reason: Pain, moderate (4-7) Last Admin: 01/23/17 09:13 Dose: 650 mg Aspirin (Ecotrin) 81 mg PO DAILY [facility] Last Admin: 06/06/17 09:39 Dose: 81 mg Atorvastatin Calcium (Lipitor) 20 mg PO QPM [facility] Last Admin: 06/06/17 17:27 Dose: 20 mg Calcium/Vitamin D (Oscal-D 250 Mg-125 Units Tab) 1 tab PO DAILY [facility] Last Admin: 06/06/17 09:40 Dose: 1 tab Carvedilol (Coreg) 3.125 mg PO DAILY [facility] Last Admin: 06/06/17 09:39 Dose: 3.125 mg Docusate Sodium (Colace) 100 mg PO BID [facility] Last Admin: 06/06/17 17:26 Dose: 100 mg Enoxaparin Sodium (Lovenox) 40 mg SC DAILY [facility] PRN Reason: Protocol Last Admin: 06/06/17 09:40 Dose: 40 mg Famotidine (Pepcid) 20 mg PO DAILY [facility] Last Admin: 06/06/17 09:41 Dose: 20 mg Ferrous Sulfate (Feosol) 325 mg PO BID [facility] Last Admin: 06/06/17 17:27 Dose: 325 mg Furosemide (Lasix) 20 mg PO DAILY [facility] Last Admin: 06/06/17 09:40 Dose: 20 mg Lisinopril (Zestril) 5 mg PO DAILY [facility] Last Admin: 06/06/17 09:41 Dose: 5 mg Loratadine (Claritin) 10 mg PO DAILY [facility] Last Admin: 06/06/17 09:38 Dose: 10 mg - Labs Labs: 05/25/17 05:40 06/04/17 06:30 PT 12.5 Seconds (9.8-13.1) 01/17/17 13:40 INR 1.2 (0.9-1.2) 01/17/17 13:40 APTT 27.7 Seconds (25.6-37.1) 01/17/17 13:40 Assessment and Plan (1) Unwitnessed fall Assessment & Plan: Back Pain Ambulation Problem Right Foot Droop Frail Elderly Wheelchair Dependent Continue Pain Management Continue PT/OT SW working for Medicaid application for jail placement. Status: Acute Priority: High (2) DVT prophylaxis Status: Acute (3) Hypercholesterolemia Status: Acute (4) Anemia Assessment and Plan: Normocytic Status: Chronic (5) HTN (hypertension) Status: Chronic (6) Hypothyroid Status: Chronic Priority: Low (7) CAD (coronary artery disease) Status: Resolved
[2017-06-07] MEDS: Calcium-Vit D 250 mg-125 Units Tab UD PO SCH (08:30)
[2017-06-07] MEDS: Enoxaparin 40 mg Syringe SC SCH (08:32)
[2017-06-08] MEDS: Enoxaparin 40 mg Syringe SC SCH (09:59)
[2017-06-08] MEDS: Calcium-Vit D 250 mg-125 Units Tab UD PO SCH (10:00)
[2017-06-09] MEDS: Calcium-Vit D 250 mg-125 Units Tab UD PO SCH (09:28)
--- NOTE | 2017-06-09 23:53 | CP.PCM.PN ---
Subjective - Date & Time of Evaluation Date of Evaluation: 06/07/17 Time of Evaluation: 15:40 - Subjective Subjective: No complaint. 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 SW and her daughters are working towards obtaining Medicaid. Unsafe to discharge home due to multiple falls and Fractures. Objective - Vital Signs/Intake and Output Vital Signs (last 24 hours): Temp Pulse Resp BP Pulse Ox 98.2 F 74 20 122/67 100 06/09/17 17:04 06/09/17 17:04 06/09/17 17:04 06/09/17 17:04 06/09/17 17:04 - Medications Medications: Current Medications Acetaminophen (Tylenol 325mg Tab) 650 mg PO Q6 PRN PRN Reason: Pain, moderate (4-7) Last Admin: 01/23/17 09:13 Dose: 650 mg Aspirin (Ecotrin) 81 mg PO DAILY [facility] Last Admin: 06/09/17 09:28 Dose: 81 mg Atorvastatin Calcium (Lipitor) 20 mg PO QPM [facility] Last Admin: 06/09/17 17:05 Dose: 20 mg Calcium/Vitamin D (Oscal-D 250 Mg-125 Units Tab) 1 tab PO DAILY [facility] Last Admin: 06/09/17 09:28 Dose: 1 tab Carvedilol (Coreg) 3.125 mg PO DAILY [facility] Last Admin: 06/09/17 09:28 Dose: 3.125 mg Docusate Sodium (Colace) 100 mg PO BID [facility] Last Admin: 06/09/17 17:05 Dose: 100 mg Famotidine (Pepcid) 20 mg PO DAILY [facility] Last Admin: 06/09/17 09:28 Dose: 20 mg Ferrous Sulfate (Feosol) 325 mg PO BID [facility] Last Admin: 06/09/17 17:05 Dose: 325 mg Furosemide (Lasix) 20 mg PO DAILY [facility] Last Admin: 06/09/17 09:29 Dose: 20 mg Lisinopril (Zestril) 5 mg PO DAILY [facility] Last Admin: 06/09/17 09:29 Dose: 5 mg Loratadine (Claritin) 10 mg PO DAILY [facility] Last Admin: 06/09/17 09:28 Dose: 10 mg - Labs Labs: 05/25/17 05:40 06/04/17 06:30 PT 12.5 Seconds (9.8-13.1) 01/17/17 13:40 INR 1.2 (0.9-1.2) 01/17/17 13:40 APTT 27.7 Seconds (25.6-37.1) 01/17/17 13:40 Assessment and Plan (1) Unwitnessed fall Assessment & Plan: Back Pain Ambulation Problem Right Foot Droop Frail Elderly Wheelchair Dependent Continue Pain Management Continue PT/OT SW working for Medicaid application for [facility] placement. Status: Acute Priority: High (2) DVT prophylaxis Status: Acute (3) Hypercholesterolemia Status: Acute (4) Anemia Assessment and Plan: Normocytic Status: Chronic (5) HTN (hypertension) Status: Chronic (6) Hypothyroid Status: Chronic Priority: Low (7) CAD (coronary artery disease) Status: Resolved
--- NOTE | 2017-06-09 23:55 | CP.PCM.PN ---
Subjective - Date & Time of Evaluation Date of Evaluation: 06/08/17 Time of Evaluation: 17:05 - Subjective Subjective: No complaint. Still waiting placement rn long term care. SW and her daughters are working towards obtaining Medicaid. Unsafe to discharge home due to multiple falls and Fractures. Objective - Vital Signs/Intake and Output Vital Signs (last 24 hours): Temp Pulse Resp BP Pulse Ox 98.2 F 74 20 122/67 100 06/09/17 17:04 06/09/17 17:04 06/09/17 17:04 06/09/17 17:04 06/09/17 17:04 - Medications Medications: Current Medications Acetaminophen (Tylenol 325mg Tab) 650 mg PO Q6 PRN PRN Reason: Pain, moderate (4-7) Last Admin: 01/23/17 09:13 Dose: 650 mg Aspirin (Ecotrin) [address] [facility] Last Admin: 06/09/17 09:28 Dose: 81 mg Atorvastatin Calcium (Lipitor) [address] [facility] Last Admin: 06/09/17 17:05 Dose: 20 mg Calcium/Vitamin D (Oscal-D 250 Mg-125 Units Tab) [address] [facility] Last Admin: 06/09/17 09:28 Dose: 1 tab Carvedilol (Coreg) 3.[address] [facility] Last Admin: 06/09/17 09:28 Dose: 3.125 mg Docusate Sodium (Colace) [address] [facility] Last Admin: 06/09/17 17:05 Dose: 100 mg Famotidine (Pepcid) [address] [facility] Last Admin: 06/09/17 09:28 Dose: 20 mg Ferrous Sulfate (Feosol) [address] [facility] Last Admin: 06/09/17 17:05 Dose: 325 mg Furosemide (Lasix) [address] [facility] Last Admin: 06/09/17 09:29 Dose: 20 mg Lisinopril (Zestril) [address] [facility] Last Admin: 06/09/17 09:29 Dose: 5 mg Loratadine (Claritin) [address] [facility] Last Admin: 06/09/17 09:28 Dose: 10 mg - Labs Labs: 05/25/17 05:40 06/04/17 06:30 PT 12.5 Seconds (9.8-13.1) 01/17/17 13:40 INR 1.2 (0.9-1.2) 01/17/17 13:40 APTT 27.7 Seconds (25.6-37.1) 01/17/17 13:40 Assessment and Plan (1) Unwitnessed fall Assessment & Plan: Back Pain Ambulation Problem Right Foot Droop Frail Elderly Wheelchair Dependent Continue Pain Management Continue PT/OT SW working for Medicaid application for alf placement. Status: Acute Priority: High (2) DVT prophylaxis Status: Acute (3) Hypercholesterolemia Status: Acute (4) Anemia Assessment and Plan: Normocytic Status: Chronic (5) HTN (hypertension) Status: Chronic (6) Hypothyroid Status: Chronic Priority: Low (7) CAD (coronary artery disease) Status: Resolved
--- NOTE | 2017-06-09 23:56 | CP.PCM.PN ---
Subjective - Date & Time of Evaluation Date of Evaluation: 06/09/17 Time of Evaluation: 17:05 - Subjective Subjective: No complaint. 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 SW and her daughters are working towards obtaining Medicaid. Unsafe to discharge home due to multiple falls and Fractures. Objective - Vital Signs/Intake and Output Vital Signs (last 24 hours): Temp Pulse Resp BP Pulse Ox 98.2 F 74 20 122/67 100 06/09/17 17:04 06/09/17 17:04 06/09/17 17:04 06/09/17 17:04 06/09/17 17:04 - Medications Medications: Current Medications Acetaminophen (Tylenol 325mg Tab) 650 mg PO Q6 PRN PRN Reason: Pain, moderate (4-7) Last Admin: 01/23/17 09:13 Dose: 650 mg Aspirin (Ecotrin) 81 mg PO DAILY [facility] Last Admin: 06/09/17 09:28 Dose: 81 mg Atorvastatin Calcium (Lipitor) 20 mg PO QPM [facility] Last Admin: 06/09/17 17:05 Dose: 20 mg Calcium/Vitamin D (Oscal-D 250 Mg-125 Units Tab) 1 tab PO DAILY [facility] Last Admin: 06/09/17 09:28 Dose: 1 tab Carvedilol (Coreg) 3.125 mg PO DAILY [facility] Last Admin: 06/09/17 09:28 Dose: 3.125 mg Docusate Sodium (Colace) 100 mg PO BID [facility] Last Admin: 06/09/17 17:05 Dose: 100 mg Famotidine (Pepcid) 20 mg PO DAILY [facility] Last Admin: 06/09/17 09:28 Dose: 20 mg Ferrous Sulfate (Feosol) 325 mg PO BID [facility] Last Admin: 06/09/17 17:05 Dose: 325 mg Furosemide (Lasix) 20 mg PO DAILY [facility] Last Admin: 06/09/17 09:29 Dose: 20 mg Lisinopril (Zestril) 5 mg PO DAILY [facility] Last Admin: 06/09/17 09:29 Dose: 5 mg Loratadine (Claritin) 10 mg PO DAILY [facility] Last Admin: 06/09/17 09:28 Dose: 10 mg - Labs Labs: 05/25/17 05:40 06/04/17 06:30 PT 12.5 Seconds (9.8-13.1) 01/17/17 13:40 INR 1.2 (0.9-1.2) 01/17/17 13:40 APTT 27.7 Seconds (25.6-37.1) 01/17/17 13:40 Assessment and Plan (1) Unwitnessed fall Assessment & Plan: Back Pain Ambulation Problem Right Foot Droop Frail Elderly Wheelchair Dependent Continue Pain Management Continue PT/OT SW working for Medicaid application for assisted placement. Status: Acute Priority: High (2) DVT prophylaxis Status: Acute (3) Hypercholesterolemia Status: Acute (4) Anemia Assessment and Plan: Normocytic Status: Chronic (5) HTN (hypertension) Status: Chronic (6) Hypothyroid Status: Chronic Priority: Low (7) CAD (coronary artery disease) Status: Resolved
[2017-06-10] MEDS: Calcium-Vit D 250 mg-125 Units Tab UD PO SCH (09:32)
[2017-06-11] MEDS: Calcium-Vit D 250 mg-125 Units Tab UD PO SCH (09:24)
[2017-06-11] MEDS: Enoxaparin 40 mg Syringe SC SCH (14:48)
--- NOTE | 2017-06-11 22:21 | CP.PCM.PN ---
Subjective - Date & Time of Evaluation Date of Evaluation: 06/10/17 Time of Evaluation: 17:25 - Subjective Subjective: No complaint. 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 SW and her daughters are working towards obtaining Medicaid. Unsafe to discharge home due to multiple falls and Fractures. Objective - Vital Signs/Intake and Output Vital Signs (last 24 hours): Temp Pulse Resp BP Pulse Ox 98.9 F 86 20 92/60 L 98 06/11/17 15:47 06/11/17 15:47 06/11/17 15:47 06/11/17 15:47 06/11/17 15:47 - Medications Medications: Current Medications Acetaminophen (Tylenol 325mg Tab) 650 mg PO Q6 PRN PRN Reason: Pain, moderate (4-7) Last Admin: 01/23/17 09:13 Dose: 650 mg Aspirin (Ecotrin) 81 mg PO DAILY [facility] Last Admin: 06/11/17 09:24 Dose: 81 mg Atorvastatin Calcium (Lipitor) 20 mg PO QPM [facility] Last Admin: 06/11/17 17:39 Dose: 20 mg Calcium/Vitamin D (Oscal-D 250 Mg-125 Units Tab) 1 tab PO DAILY [facility] Last Admin: 06/11/17 09:24 Dose: 1 tab Carvedilol (Coreg) 3.125 mg PO DAILY [facility] Last Admin: 06/11/17 09:23 Dose: 3.125 mg Docusate Sodium (Colace) 100 mg PO BID [facility] Last Admin: 06/11/17 16:23 Dose: 100 mg Enoxaparin Sodium (Lovenox) 40 mg SC DAILY [facility] PRN Reason: Protocol Last Admin: 06/11/17 14:48 Dose: 40 mg Famotidine (Pepcid) 20 mg PO DAILY [facility] Last Admin: 06/11/17 09:23 Dose: 20 mg Ferrous Sulfate (Feosol) 325 mg PO BID [facility] Last Admin: 06/11/17 16:23 Dose: 325 mg Furosemide (Lasix) 20 mg PO DAILY [facility] Last Admin: 06/11/17 09:25 Dose: 20 mg Lisinopril (Zestril) 5 mg PO DAILY [facility] Last Admin: 06/11/17 09:24 Dose: 5 mg Loratadine (Claritin) 10 mg PO DAILY [facility] Last Admin: 06/11/17 09:23 Dose: 10 mg - Labs Labs: 05/25/17 05:40 06/04/17 06:30 PT 12.5 Seconds (9.8-13.1) 01/17/17 13:40 INR 1.2 (0.9-1.2) 01/17/17 13:40 APTT 27.7 Seconds (25.6-37.1) 01/17/17 13:40 Assessment and Plan (1) Unwitnessed fall Assessment & Plan: Back Pain Ambulation Problem Right Foot Droop Frail Elderly Wheelchair Dependent Continue Pain Management Continue PT/OT SW working for Medicaid application for detention placement. Status: Acute Priority: High (2) DVT prophylaxis Status: Acute (3) Hypercholesterolemia Status: Acute (4) Anemia Assessment and Plan: Normocytic Status: Chronic (5) HTN (hypertension) Status: Chronic (6) Hypothyroid Status: Chronic Priority: Low (7) CAD (coronary artery disease) Status: Resolved
--- NOTE | 2017-06-11 22:22 | CP.PCM.PN ---
Subjective - Date & Time of Evaluation Date of Evaluation: 06/11/17 Time of Evaluation: 21:15 - Subjective Subjective: No complaint. 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 SW and her daughters are working towards obtaining Medicaid. Unsafe to discharge home due to multiple falls and Fractures. Objective - Vital Signs/Intake and Output Vital Signs (last 24 hours): Temp Pulse Resp BP Pulse Ox 98.9 F 86 20 92/60 L 98 06/11/17 15:47 06/11/17 15:47 06/11/17 15:47 06/11/17 15:47 06/11/17 15:47 - Medications Medications: Current Medications Acetaminophen (Tylenol 325mg Tab) 650 mg PO Q6 PRN PRN Reason: Pain, moderate (4-7) Last Admin: 01/23/17 09:13 Dose: 650 mg Aspirin (Ecotrin) 81 mg PO DAILY [facility] Last Admin: 06/11/17 09:24 Dose: 81 mg Atorvastatin Calcium (Lipitor) 20 mg PO QPM [facility] Last Admin: 06/11/17 17:39 Dose: 20 mg Calcium/Vitamin D (Oscal-D 250 Mg-125 Units Tab) 1 tab PO DAILY [facility] Last Admin: 06/11/17 09:24 Dose: 1 tab Carvedilol (Coreg) 3.125 mg PO DAILY [facility] Last Admin: 06/11/17 09:23 Dose: 3.125 mg Docusate Sodium (Colace) 100 mg PO BID [facility] Last Admin: 06/11/17 16:23 Dose: 100 mg Enoxaparin Sodium (Lovenox) 40 mg SC DAILY [facility] PRN Reason: Protocol Last Admin: 06/11/17 14:48 Dose: 40 mg Famotidine (Pepcid) 20 mg PO DAILY [facility] Last Admin: 06/11/17 09:23 Dose: 20 mg Ferrous Sulfate (Feosol) 325 mg PO BID [facility] Last Admin: 06/11/17 16:23 Dose: 325 mg Furosemide (Lasix) 20 mg PO DAILY [facility] Last Admin: 06/11/17 09:25 Dose: 20 mg Lisinopril (Zestril) 5 mg PO DAILY [facility] Last Admin: 06/11/17 09:24 Dose: 5 mg Loratadine (Claritin) 10 mg PO DAILY [facility] Last Admin: 06/11/17 09:23 Dose: 10 mg - Labs Labs: 05/25/17 05:40 06/04/17 06:30 PT 12.5 Seconds (9.8-13.1) 01/17/17 13:40 INR 1.2 (0.9-1.2) 01/17/17 13:40 APTT 27.7 Seconds (25.6-37.1) 01/17/17 13:40 Assessment and Plan (1) Unwitnessed fall Assessment & Plan: Back Pain Ambulation Problem Right Foot Droop Frail Elderly Wheelchair Dependent Continue Pain Management Continue PT/OT SW working for Medicaid application for senior care placement. Status: Acute Priority: High (2) DVT prophylaxis Status: Acute (3) Hypercholesterolemia Status: Acute (4) Anemia Assessment and Plan: Normocytic Status: Chronic (5) HTN (hypertension) Status: Chronic (6) Hypothyroid Status: Chronic Priority: Low (7) CAD (coronary artery disease) Status: Resolved
[2017-06-12] MEDS: Calcium-Vit D 250 mg-125 Units Tab UD PO SCH (09:09)
[2017-06-12] MEDS: Enoxaparin 40 mg Syringe SC SCH (09:09)
--- NOTE | 2017-06-12 18:43 | CP.PCM.PN ---
Subjective - Date & Time of Evaluation Date of Evaluation: 06/12/17 Time of Evaluation: 12:15 - Subjective Subjective: No new complaint. Objective - Vital Signs/Intake and Output Vital Signs (last 24 hours): Temp Pulse Resp BP Pulse Ox 98.9 F 87 18 96/57 L 99 06/12/17 15:54 06/12/17 15:54 06/12/17 15:54 06/12/17 15:54 06/12/17 15:54 - Medications Medications: Current Medications Acetaminophen (Tylenol 325mg Tab) 650 mg PO Q6 PRN PRN Reason: Pain, moderate (4-7) Last Admin: 01/23/17 09:13 Dose: 650 mg Aspirin (Ecotrin) 81 mg PO DAILY [facility] Last Admin: 06/12/17 09:08 Dose: 81 mg Atorvastatin Calcium (Lipitor) 20 mg PO QPM [facility] Last Admin: 06/12/17 17:32 Dose: 20 mg Calcium/Vitamin D (Oscal-D 250 Mg-125 Units Tab) 1 tab PO DAILY [facility] Last Admin: 06/12/17 09:09 Dose: 1 tab Carvedilol (Coreg) 3.125 mg PO DAILY [facility] Last Admin: 06/12/17 09:08 Dose: 3.125 mg Docusate Sodium (Colace) 100 mg PO BID [facility] Last Admin: 06/12/17 17:32 Dose: 100 mg Enoxaparin Sodium (Lovenox) 40 mg SC DAILY [facility] PRN Reason: Protocol Last Admin: 06/12/17 09:09 Dose: 40 mg Famotidine (Pepcid) 20 mg PO DAILY [facility] Last Admin: 06/12/17 09:09 Dose: 20 mg Ferrous Sulfate (Feosol) 325 mg PO BID [facility] Last Admin: 06/12/17 17:32 Dose: 325 mg Furosemide (Lasix) 20 mg PO DAILY [facility] Last Admin: 06/12/17 09:08 Dose: 20 mg Lisinopril (Zestril) 5 mg PO DAILY [facility] Last Admin: 06/12/17 09:09 Dose: 5 mg Loratadine (Claritin) 10 mg PO DAILY [facility] Last Admin: 06/12/17 09:07 Dose: 10 mg - Labs Labs: 05/25/17 05:40 06/04/17 06:30 PT 12.5 Seconds (9.8-13.1) 01/17/17 13:40 INR 1.2 (0.9-1.2) 01/17/17 13:40 APTT 27.7 Seconds (25.6-37.1) 01/17/17 13:40 Assessment and Plan (1) Unwitnessed fall Assessment & Plan: Back Pain Ambulation Problem Right Foot Droop Frail Elderly Wheelchair Dependent Continue Pain Management Continue PT/OT SW working for 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 Status: Acute Priority: High (2) DVT prophylaxis Status: Acute (3) Hypercholesterolemia Status: Acute (4) Anemia Assessment and Plan: Normocytic Status: Chronic (5) HTN (hypertension) Status: Chronic (6) Hypothyroid Status: Chronic Priority: Low (7) CAD (coronary artery disease) Status: Resolved
[2017-06-13] MEDS: Enoxaparin 40 mg Syringe SC SCH (09:27)
[2017-06-13] MEDS: Calcium-Vit D 250 mg-125 Units Tab UD PO SCH (09:28)
--- NOTE | 2017-06-13 22:58 | CP.PCM.PN ---
Subjective - Date & Time of Evaluation Date of Evaluation: 06/13/17 Time of Evaluation: 21:35 - Subjective Subjective: No new complaint. Objective - Vital Signs/Intake and Output Vital Signs (last 24 hours): Temp Pulse Resp BP Pulse Ox 98.6 F 88 20 105/64 99 06/13/17 16:04 06/13/17 16:04 06/13/17 16:04 06/13/17 16:04 06/13/17 16:04 - Medications Medications: Current Medications Acetaminophen (Tylenol 325mg Tab) 650 mg PO Q6 PRN PRN Reason: Pain, moderate (4-7) Last Admin: 01/23/17 09:13 Dose: 650 mg Aspirin (Ecotrin) 81 mg PO DAILY [facility] Last Admin: 06/13/17 09:26 Dose: 81 mg Atorvastatin Calcium (Lipitor) 20 mg PO QPM [facility] Last Admin: 06/13/17 17:21 Dose: 20 mg Calcium/Vitamin D (Oscal-D 250 Mg-125 Units Tab) 1 tab PO DAILY [facility] Last Admin: 06/13/17 09:28 Dose: 1 tab Carvedilol (Coreg) 3.125 mg PO DAILY [facility] Last Admin: 06/13/17 09:26 Dose: 3.125 mg Docusate Sodium (Colace) 100 mg PO BID [facility] Last Admin: 06/13/17 17:07 Dose: 100 mg Enoxaparin Sodium (Lovenox) 40 mg SC DAILY [facility] PRN Reason: Protocol Last Admin: 06/13/17 09:27 Dose: 40 mg Famotidine (Pepcid) 20 mg PO DAILY [facility] Last Admin: 06/13/17 09:27 Dose: 20 mg Ferrous Sulfate (Feosol) 325 mg PO BID [facility] Last Admin: 06/13/17 17:06 Dose: 325 mg Furosemide (Lasix) 20 mg PO DAILY [facility] Last Admin: 06/13/17 09:27 Dose: 20 mg Lisinopril (Zestril) 5 mg PO DAILY [facility] Last Admin: 06/13/17 09:28 Dose: 5 mg Loratadine (Claritin) 10 mg PO DAILY [facility] Last Admin: 06/13/17 09:26 Dose: 10 mg - Labs Labs: 05/25/17 05:40 06/04/17 06:30 PT 12.5 Seconds (9.8-13.1) 01/17/17 13:40 INR 1.2 (0.9-1.2) 01/17/17 13:40 APTT 27.7 Seconds (25.6-37.1) 01/17/17 13:40 Assessment and Plan (1) Unwitnessed fall Assessment & Plan: Back Pain Ambulation Problem Right Foot Droop Frail Elderly Wheelchair Dependent Continue Pain Management Continue PT/OT SW 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 Status: Acute Priority: High (2) DVT prophylaxis Status: Acute (3) Hypercholesterolemia Status: Acute (4) Anemia Assessment and Plan: Normocytic Status: Chronic (5) HTN (hypertension) Status: Chronic (6) Hypothyroid Status: Chronic Priority: Low (7) CAD (coronary artery disease) Status: Resolved
[2017-06-14] MEDS: Calcium-Vit D 250 mg-125 Units Tab UD PO SCH (08:32)
[2017-06-14] MEDS: Enoxaparin 40 mg Syringe SC SCH (08:35)
[2017-06-15] MEDS: Calcium-Vit D 250 mg-125 Units Tab UD PO SCH (08:36)
[2017-06-15] MEDS: Enoxaparin 40 mg Syringe SC SCH (17:38)
--- NOTE | 2017-06-16 01:05 | CP.PCM.PN ---
Subjective - Date & Time of Evaluation Date of Evaluation: 06/14/17 Time of Evaluation: 14:10 - Subjective Subjective: No new complaint. Objective - Vital Signs/Intake and Output Vital Signs (last 24 hours): Temp Pulse Resp BP Pulse Ox 98.4 F 89 19 107/60 99 06/16/17 00:00 06/16/17 00:00 06/16/17 00:00 06/16/17 00:00 06/16/17 00:00 - Medications Medications: Current Medications Acetaminophen (Tylenol 325mg Tab) 650 mg PO Q6 PRN PRN Reason: Pain, moderate (4-7) Last Admin: 01/23/17 09:13 Dose: 650 mg Aspirin (Ecotrin) 81 mg PO DAILY [facility] Last Admin: 06/15/17 08:36 Dose: 81 mg Atorvastatin Calcium (Lipitor) 20 mg PO QPM [facility] Last Admin: 06/15/17 17:40 Dose: Not Given Calcium/Vitamin D (Oscal-D 250 Mg-125 Units Tab) 1 tab PO DAILY [facility] Last Admin: 06/15/17 08:36 Dose: 1 tab Carvedilol (Coreg) 3.125 mg PO DAILY [facility] Last Admin: 06/15/17 08:37 Dose: 3.125 mg Docusate Sodium (Colace) 100 mg PO BID [facility] Last Admin: 06/15/17 17:40 Dose: Not Given Enoxaparin Sodium (Lovenox) 40 mg SC DAILY [facility] PRN Reason: Protocol Last Admin: 06/15/17 17:38 Dose: 40 mg Famotidine (Pepcid) 20 mg PO DAILY [facility] Last Admin: 06/15/17 08:35 Dose: 20 mg Ferrous Sulfate (Feosol) 325 mg PO BID [facility] Last Admin: 06/15/17 17:40 Dose: Not Given Furosemide (Lasix) 20 mg PO DAILY [facility] Last Admin: 06/15/17 08:37 Dose: 20 mg Lisinopril (Zestril) 5 mg PO DAILY [facility] Last Admin: 06/15/17 08:35 Dose: 5 mg Loratadine (Claritin) 10 mg PO DAILY [facility] Last Admin: 06/15/17 08:37 Dose: 10 mg - Labs Labs: 05/25/17 05:40 06/04/17 06:30 PT 12.5 Seconds (9.8-13.1) 01/17/17 13:40 INR 1.2 (0.9-1.2) 01/17/17 13:40 APTT 27.7 Seconds (25.6-37.1) 01/17/17 13:40 Assessment and Plan (1) Unwitnessed fall Assessment & Plan: Back Pain Ambulation Problem Right Foot Droop Frail Elderly Wheelchair Dependent Continue Pain Management Continue PT/OT SW working for Medicaid application for halfway placement. Status: Acute Priority: High (2) DVT prophylaxis Status: Acute (3) Hypercholesterolemia Status: Acute (4) Anemia Assessment and Plan: Normocytic Status: Chronic (5) HTN (hypertension) Status: Chronic (6) Hypothyroid Status: Chronic Priority: Low (7) CAD (coronary artery disease) Status: Resolved
--- NOTE | 2017-06-16 01:16 | CP.PCM.PN ---
Subjective - Date & Time of Evaluation Date of Evaluation: 06/15/17 Time of Evaluation: 16:00 - Subjective Subjective: No new complaint. Objective - Vital Signs/Intake and Output Vital Signs (last 24 hours): Temp Pulse Resp BP Pulse Ox 98.4 F 89 19 107/60 99 06/16/17 00:00 06/16/17 00:00 06/16/17 00:00 06/16/17 00:00 06/16/17 00:00 - Medications Medications: Current Medications Acetaminophen (Tylenol 325mg Tab) 650 mg PO Q6 PRN PRN Reason: Pain, moderate (4-7) Last Admin: 01/23/17 09:13 Dose: 650 mg Aspirin (Ecotrin) 81 mg PO DAILY [facility] Last Admin: 06/15/17 08:36 Dose: 81 mg Atorvastatin Calcium (Lipitor) 20 mg PO QPM [facility] Last Admin: 06/15/17 17:40 Dose: Not Given Calcium/Vitamin D (Oscal-D 250 Mg-125 Units Tab) 1 tab PO DAILY [facility] Last Admin: 06/15/17 08:36 Dose: 1 tab Carvedilol (Coreg) 3.125 mg PO DAILY [facility] Last Admin: 06/15/17 08:37 Dose: 3.125 mg Docusate Sodium (Colace) 100 mg PO BID [facility] Last Admin: 06/15/17 17:40 Dose: Not Given Enoxaparin Sodium (Lovenox) 40 mg SC DAILY [facility] PRN Reason: Protocol Last Admin: 06/15/17 17:38 Dose: 40 mg Famotidine (Pepcid) 20 mg PO DAILY [facility] Last Admin: 06/15/17 08:35 Dose: 20 mg Ferrous Sulfate (Feosol) 325 mg PO BID [facility] Last Admin: 06/15/17 17:40 Dose: Not Given Furosemide (Lasix) 20 mg PO DAILY [facility] Last Admin: 06/15/17 08:37 Dose: 20 mg Lisinopril (Zestril) 5 mg PO DAILY [facility] Last Admin: 06/15/17 08:35 Dose: 5 mg Loratadine (Claritin) 10 mg PO DAILY [facility] Last Admin: 06/15/17 08:37 Dose: 10 mg - Labs Labs: 05/25/17 05:40 06/04/17 06:30 PT 12.5 Seconds (9.8-13.1) 01/17/17 13:40 INR 1.2 (0.9-1.2) 01/17/17 13:40 APTT 27.7 Seconds (25.6-37.1) 01/17/17 13:40 Assessment and Plan (1) Unwitnessed fall Assessment & Plan: Back Pain Ambulation Problem Right Foot Droop Frail Elderly Wheelchair Dependent Continue Pain Management Continue PT/OT SW working for Medicaid application for long-term placement. Status: Acute Priority: High (2) DVT prophylaxis Status: Acute (3) Hypercholesterolemia Status: Acute (4) Anemia Assessment and Plan: Normocytic Status: Chronic (5) HTN (hypertension) Status: Chronic (6) Hypothyroid Status: Chronic Priority: Low (7) CAD (coronary artery disease) Status: Resolved
[2017-06-16] MEDS: Calcium-Vit D 250 mg-125 Units Tab UD PO SCH (08:45)
[2017-06-16] MEDS: Enoxaparin 40 mg Syringe SC SCH ×2 (08:46→09:00)
--- NOTE | 2017-06-16 20:47 | CP.PCM.PN ---
Subjective - Date & Time of Evaluation Date of Evaluation: 06/16/17 Time of Evaluation: 17:20 - Subjective Subjective: No new episode. Objective - Vital Signs/Intake and Output Vital Signs (last 24 hours): Temp Pulse Resp BP Pulse Ox 98.4 F 94 H 20 90/60 L 98 06/16/17 15:42 06/16/17 15:42 06/16/17 15:42 06/16/17 15:42 06/16/17 15:42 - Medications Medications: Current Medications Acetaminophen (Tylenol 325mg Tab) 650 mg PO Q6 PRN PRN Reason: Pain, moderate (4-7) Last Admin: 01/23/17 09:13 Dose: 650 mg Aspirin (Ecotrin) 81 mg PO DAILY [facility] Last Admin: 06/16/17 08:46 Dose: 81 mg Atorvastatin Calcium (Lipitor) 20 mg PO QPM [facility] Last Admin: 06/16/17 16:59 Dose: Not Given Calcium/Vitamin D (Oscal-D 250 Mg-125 Units Tab) 1 tab PO DAILY [facility] Last Admin: 06/16/17 08:45 Dose: 1 tab Carvedilol (Coreg) 3.125 mg PO DAILY [facility] Last Admin: 06/16/17 08:48 Dose: 3.125 mg Docusate Sodium (Colace) 100 mg PO BID [facility] Last Admin: 06/16/17 16:59 Dose: Not Given Enoxaparin Sodium (Lovenox) 40 mg SC DAILY [facility] PRN Reason: Protocol Last Admin: 06/16/17 09:00 Dose: Not Given Famotidine (Pepcid) 20 mg PO DAILY [facility] Last Admin: 06/16/17 08:46 Dose: 20 mg Ferrous Sulfate (Feosol) 325 mg PO BID [facility] Last Admin: 06/16/17 16:59 Dose: Not Given Furosemide (Lasix) 20 mg PO DAILY [facility] Last Admin: 06/16/17 08:48 Dose: 20 mg Lisinopril (Zestril) 5 mg PO DAILY [facility] Last Admin: 06/16/17 08:46 Dose: 5 mg Loratadine (Claritin) 10 mg PO DAILY [facility] Last Admin: 06/16/17 08:45 Dose: 10 mg - Labs Labs: 05/25/17 05:40 06/04/17 06:30 PT 12.5 Seconds (9.8-13.1) 01/17/17 13:40 INR 1.2 (0.9-1.2) 01/17/17 13:40 APTT 27.7 Seconds (25.6-37.1) 01/17/17 13:40 Assessment and Plan (1) Unwitnessed fall Assessment & Plan: Back Pain- Controlled with Tylenol Ambulation Problem Right Foot Droop Frail Elderly Wheelchair Dependent Continue Pain Management PRN Continue PT/OT Onboard SW 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 Status: Acute Priority: High (2) DVT prophylaxis Status: Acute (3) Hypercholesterolemia Status: Acute (4) Anemia Assessment and Plan: Normocytic Status: Chronic (5) HTN (hypertension) Status: Chronic (6) Hypothyroid Status: Chronic Priority: Low (7) CAD (coronary artery diseas Status: Resolved
[2017-06-17] MEDS: Calcium-Vit D 250 mg-125 Units Tab UD PO SCH (08:40)
[2017-06-17] MEDS: Enoxaparin 40 mg Syringe SC SCH (09:03)
--- NOTE | 2017-06-17 23:09 | CP.PCM.PN ---
Subjective - Date & Time of Evaluation Date of Evaluation: 06/17/17 Time of Evaluation: 11:55 - Subjective Subjective: No complaint. Objective - Vital Signs/Intake and Output Vital Signs (last 24 hours): Temp Pulse Resp BP Pulse Ox 98.3 F 84 20 96/55 L 99 06/17/17 16:16 06/17/17 16:16 06/17/17 16:16 06/17/17 16:16 06/17/17 16:16 - Medications Medications: Current Medications Acetaminophen (Tylenol 325mg Tab) 650 mg PO Q6 PRN PRN Reason: Pain, moderate (4-7) Last Admin: 01/23/17 09:13 Dose: 650 mg Aspirin (Ecotrin) 81 mg PO DAILY [facility] Last Admin: 06/17/17 08:40 Dose: 81 mg Atorvastatin Calcium (Lipitor) 20 mg PO QPM [facility] Last Admin: 06/17/17 18:08 Dose: 20 mg Calcium/Vitamin D (Oscal-D 250 Mg-125 Units Tab) 1 tab PO DAILY [facility] Last Admin: 06/17/17 08:40 Dose: 1 tab Carvedilol (Coreg) 3.125 mg PO DAILY [facility] Last Admin: 06/17/17 08:40 Dose: 3.125 mg Docusate Sodium (Colace) 100 mg PO BID [facility] Last Admin: 06/17/17 16:24 Dose: 100 mg Enoxaparin Sodium (Lovenox) 40 mg SC DAILY [facility] PRN Reason: Protocol Last Admin: 06/17/17 09:03 Dose: 40 mg Famotidine (Pepcid) 20 mg PO DAILY [facility] Last Admin: 06/17/17 08:41 Dose: 20 mg Ferrous Sulfate (Feosol) 325 mg PO BID [facility] Last Admin: 06/17/17 16:24 Dose: 325 mg Furosemide (Lasix) 20 mg PO DAILY [facility] Last Admin: 06/17/17 08:40 Dose: 20 mg Lisinopril (Zestril) 5 mg PO DAILY [facility] Last Admin: 06/17/17 08:41 Dose: 5 mg Loratadine (Claritin) 10 mg PO DAILY [facility] Last Admin: 06/17/17 08:40 Dose: 10 mg - Labs Labs: 05/25/17 05:40 06/04/17 06:30 PT 12.5 Seconds (9.8-13.1) 01/17/17 13:40 INR 1.2 (0.9-1.2) 01/17/17 13:40 APTT 27.7 Seconds (25.6-37.1) 01/17/17 13:40 Assessment and Plan (1) Unwitnessed fall Assessment & Plan: Back Pain- Controlled with Tylenol Ambulation Problem Right Foot Droop Frail Elderly Wheelchair Dependent Continue Pain Management PRN Continue PT/OT Onboard SW Working for Medicaid application for senior living placement. Status: Acute Priority: High (2) DVT prophylaxis Status: Acute (3) Hypercholesterolemia Status: Acute (4) Anemia Assessment and Plan: Normocytic Status: Chronic (5) HTN (hypertension) Status: Chronic (6) Hypothyroid Status: Chronic Priority: Low (7) CAD (coronary artery diseas Status: Resolved
[2017-06-18] MEDS: Enoxaparin 40 mg Syringe SC SCH (08:52)
[2017-06-18] MEDS: Calcium-Vit D 250 mg-125 Units Tab UD PO SCH (08:54)
[2017-06-19 06:19] LABS: BASO % 0.4 % (0.0-2.0); EOS # 0.1 K/uL (0.0-0.7); EOS % 1.6 % (0.0-4.0); LYMPH # 1.5 K/uL (1.0-4.3); MEAN CELL VOLUME 88.9 fl (81.0-99.0); MEAN CORPUSCULAR HEMOGLOBIN 28.6 pg (27.0-31.0); MEAN CORPUSCULAR HGB CONC 32.2 g/dL (33.0-37.0); MEAN PLATELET VOLUME 9.9 fl (7.2-11.7); MONO # 0.6 K/uL (0.0-0.8); MONO % 13.7 % (0.0-10.0); NEUT # 2.3 K/uL (1.8-7.0); NEUT % 51.3 % (50.0-75.0); NRBC % 0.1 % (0.0-0.0); RBC 3.84 Mil/uL (3.80-5.20); RED CELL DISTRIBUTION WIDTH 13.8 % (11.5-14.5); WHITE BLOOD COUNT 4.4 K/uL (4.8-10.8)
[2017-06-19 06:24] LABS: ALB/GLOB RATIO 1.1 (1.0-2.1); ALBUMIN 3.5 g/dL (3.5-5.0); ALT/SGPT 25 U/L (9-52); AST/SGOT 22 U/L (14-36); BLOOD UREA NITROGEN 22 mg/dl (7-17); GFR AFRICAN-AMERICAN > 60; GFR NON-AFRICAN AMERICAN > 60
[2017-06-19] MEDS: Calcium-Vit D 250 mg-125 Units Tab UD PO SCH (08:44)
[2017-06-19] MEDS: Enoxaparin 40 mg Syringe SC SCH (08:44)
--- NOTE | 2017-06-19 23:46 | CP.PCM.PN ---
Subjective - Date & Time of Evaluation Date of Evaluation: 06/18/17 Time of Evaluation: 18:00 - Subjective Subjective: No Complaint. she states sick and tired of being here for so long. Objective - Vital Signs/Intake and Output Vital Signs (last 24 hours): Temp Pulse Resp BP Pulse Ox 98.2 F 79 20 92/49 L 100 06/19/17 16:42 06/19/17 16:42 06/19/17 16:42 06/19/17 16:42 06/19/17 16:42 - Medications Medications: Current Medications Acetaminophen (Tylenol 325mg Tab) 650 mg PO Q6 PRN PRN Reason: Pain, moderate (4-7) Last Admin: 01/23/17 09:13 Dose: 650 mg Aspirin (Ecotrin) 81 mg PO DAILY [facility] Last Admin: 06/19/17 08:44 Dose: 81 mg Atorvastatin Calcium (Lipitor) 20 mg PO QPM [facility] Last Admin: 06/19/17 17:08 Dose: 20 mg Calcium/Vitamin D (Oscal-D 250 Mg-125 Units Tab) 1 tab PO DAILY [facility] Last Admin: 06/19/17 08:44 Dose: 1 tab Carvedilol (Coreg) 3.125 mg PO DAILY [facility] Last Admin: 06/19/17 08:44 Dose: 3.125 mg Docusate Sodium (Colace) 100 mg PO BID [facility] Last Admin: 06/19/17 17:08 Dose: 100 mg Enoxaparin Sodium (Lovenox) 40 mg SC DAILY [facility] PRN Reason: Protocol Last Admin: 06/19/17 08:44 Dose: 40 mg Famotidine (Pepcid) 20 mg PO DAILY [facility] Last Admin: 06/19/17 08:44 Dose: 20 mg Ferrous Sulfate (Feosol) 325 mg PO BID [facility] Last Admin: 06/19/17 17:08 Dose: 325 mg Furosemide (Lasix) 20 mg PO DAILY [facility] Last Admin: 06/19/17 08:44 Dose: 20 mg Lisinopril (Zestril) 5 mg PO DAILY [facility] Last Admin: 06/19/17 08:43 Dose: 5 mg Loratadine (Claritin) 10 mg PO DAILY [facility] Last Admin: 06/19/17 08:44 Dose: 10 mg - Labs Labs: 06/19/17 05:35 01/16/18 05:35 PT 12.5 Seconds (9.8-13.1) 01/17/17 13:40 INR 1.2 (0.9-1.2) 01/17/17 13:40 APTT 27.7 Seconds (25.6-37.1) 01/17/17 13:40 Assessment and Plan (1) Unwitnessed fall Assessment & Plan: Back Pain- Controlled with Tylenol Ambulation Problem Right Foot Droop Frail Elderly Wheelchair Dependent Continue Pain Management PRN Continue PT/OT Onboard SW Working for Medicaid application for prison placement. Status: Acute Priority: High (2) DVT prophylaxis Status: Acute (3) Hypercholesterolemia Status: Acute (4) Anemia Assessment and Plan: Normocytic Status: Chronic (5) HTN (hypertension) Status: Chronic (6) Hypothyroid Status: Chronic Priority: Low (7) CAD (coronary artery disease) Status: Resolved Status: Resolved
--- NOTE | 2017-06-20 00:06 | CP.PCM.PN ---
Subjective - Date & Time of Evaluation Date of Evaluation: 06/19/17 Time of Evaluation: 23:55 - Subjective Subjective: No Complaint. Objective - Vital Signs/Intake and Output Vital Signs (last 24 hours): Temp Pulse Resp BP Pulse Ox 98.2 F 79 20 92/49 L 100 06/19/17 16:42 06/19/17 16:42 06/19/17 16:42 06/19/17 16:42 06/19/17 16:42 - Medications Medications: Current Medications Acetaminophen (Tylenol 325mg Tab) 650 mg PO Q6 PRN PRN Reason: Pain, moderate (4-7) Last Admin: 01/23/17 09:13 Dose: 650 mg Aspirin (Ecotrin) 81 mg PO DAILY [facility] Last Admin: 06/19/17 08:44 Dose: 81 mg Atorvastatin Calcium (Lipitor) 20 mg PO QPM [facility] Last Admin: 06/19/17 17:08 Dose: 20 mg Calcium/Vitamin D (Oscal-D 250 Mg-125 Units Tab) 1 tab PO DAILY [facility] Last Admin: 06/19/17 08:44 Dose: 1 tab Carvedilol (Coreg) 3.125 mg PO DAILY [facility] Last Admin: 06/19/17 08:44 Dose: 3.125 mg Docusate Sodium (Colace) 100 mg PO BID [facility] Last Admin: 06/19/17 17:08 Dose: 100 mg Enoxaparin Sodium (Lovenox) 40 mg SC DAILY [facility] PRN Reason: Protocol Last Admin: 06/19/17 08:44 Dose: 40 mg Famotidine (Pepcid) 20 mg PO DAILY [facility] Last Admin: 06/19/17 08:44 Dose: 20 mg Ferrous Sulfate (Feosol) 325 mg PO BID [facility] Last Admin: 06/19/17 17:08 Dose: 325 mg Furosemide (Lasix) 20 mg PO DAILY [facility] Last Admin: 06/19/17 08:44 Dose: 20 mg Lisinopril (Zestril) 5 mg PO DAILY [facility] Last Admin: 06/19/17 08:43 Dose: 5 mg Loratadine (Claritin) 10 mg PO DAILY [facility] Last Admin: 06/19/17 08:44 Dose: 10 mg - Labs Labs: 06/19/17 05:35 06/19/17 05:35 PT 12.5 Seconds (9.8-13.1) 01/17/17 13:40 INR 1.2 (0.9-1.2) 01/17/17 13:40 APTT 27.7 Seconds (25.6-37.1) 01/17/17 13:40 Assessment and Plan (1) Unwitnessed fall Assessment & Plan: Back Pain- Controlled with Tylenol Ambulation Problem Right Foot Droop Frail Elderly Wheelchair Dependent Continue Pain Management PRN Continue PT/OT Onboard SW Working for Medicaid application for retirement placement. Status: Acute Priority: High (2) DVT prophylaxis Status: Acute (3) Hypercholesterolemia Status: Acute (4) Anemia Assessment and Plan: Normocytic Status: Chronic (5) HTN (hypertension) Status: Chronic (6) Hypothyroid Status: Chronic Priority: Low (7) CAD (coronary artery diseas Status: Resolved
[2017-06-20] MEDS: Enoxaparin 40 mg Syringe SC SCH (09:13)
[2017-06-20] MEDS: Calcium-Vit D 250 mg-125 Units Tab UD PO SCH (09:15)
--- NOTE | 2017-06-20 18:18 | CP.PCM.PN ---
Subjective - Date & Time of Evaluation Date of Evaluation: 06/20/17 Time of Evaluation: 14:15 - Subjective Subjective: No complaint. Objective - Vital Signs/Intake and Output Vital Signs (last 24 hours): Temp Pulse Resp BP Pulse Ox 97.7 F 77 18 116/74 100 06/20/17 07:53 06/20/17 09:15 06/20/17 07:53 06/20/17 09:15 06/20/17 07:53 - Medications Medications: Current Medications Acetaminophen (Tylenol 325mg Tab) 650 mg PO Q6 PRN PRN Reason: Pain, moderate (4-7) Last Admin: 01/23/17 09:13 Dose: 650 mg Aspirin (Ecotrin) 81 mg PO DAILY [facility] Last Admin: 06/20/17 09:14 Dose: 81 mg Atorvastatin Calcium (Lipitor) 20 mg PO QPM [facility] Last Admin: 06/20/17 17:07 Dose: 20 mg Calcium/Vitamin D (Oscal-D 250 Mg-125 Units Tab) 1 tab PO DAILY [facility] Last Admin: 06/20/17 09:15 Dose: 1 tab Carvedilol (Coreg) 3.125 mg PO DAILY [facility] Last Admin: 06/20/17 09:13 Dose: 3.125 mg Docusate Sodium (Colace) 100 mg PO BID [facility] Last Admin: 06/20/17 17:06 Dose: 100 mg Enoxaparin Sodium (Lovenox) 40 mg SC DAILY [facility] PRN Reason: Protocol Last Admin: 06/20/17 09:13 Dose: 40 mg Famotidine (Pepcid) 20 mg PO DAILY [facility] Last Admin: 06/20/17 09:15 Dose: 20 mg Ferrous Sulfate (Feosol) 325 mg PO BID [facility] Last Admin: 06/20/17 17:06 Dose: 325 mg Furosemide (Lasix) 20 mg PO DAILY [facility] Last Admin: 06/20/17 09:14 Dose: 20 mg Lisinopril (Zestril) 5 mg PO DAILY [facility] Last Admin: 06/20/17 09:15 Dose: 5 mg Loratadine (Claritin) 10 mg PO DAILY [facility] Last Admin: 06/20/17 09:13 Dose: 10 mg - Labs Labs: 06/19/17 05:35 06/19/17 05:35 PT 12.5 Seconds (9.8-13.1) 01/17/17 13:40 INR 1.2 (0.9-1.2) 01/17/17 13:40 APTT 27.7 Seconds (25.6-37.1) 01/17/17 13:40 Assessment and Plan (1) Unwitnessed fall Assessment & Plan: Back Pain- Controlled with Tylenol Ambulation Problem Right Foot Droop Frail Elderly Wheelchair Dependent Continue Pain Management PRN Continue PT/OT Onboard SW Working for Medicaid application for half-way placement. Status: Acute Priority: High (2) DVT prophylaxis Status: Acute (3) Hypercholesterolemia Status: Acute (4) Anemia Assessment and Plan: Normocytic Status: Chronic (5) HTN (hypertension) Status: Chronic (6) Hypothyroid Status: Chronic Priority: Low (7) CAD (coronary artery diseas Status: Chronic
[2017-06-21] MEDS: Calcium-Vit D 250 mg-125 Units Tab UD PO SCH (09:25)
[2017-06-21] MEDS: Enoxaparin 40 mg Syringe SC SCH (13:55)
[2017-06-22] MEDS: Calcium-Vit D 250 mg-125 Units Tab UD PO SCH (09:14)
[2017-06-22] MEDS: Enoxaparin 40 mg Syringe SC SCH (09:17)
--- NOTE | 2017-06-22 19:05 | CP.PCM.PN ---
Subjective - Date & Time of Evaluation Date of Evaluation: 06/21/17 Time of Evaluation: 18:25 - Subjective Subjective: No Impairment Objective - Vital Signs/Intake and Output Vital Signs (last 24 hours): Temp Pulse Resp BP Pulse Ox 98.7 F 88 18 98/54 L 99 06/22/17 16:01 06/22/17 16:01 06/22/17 16:01 06/22/17 16:01 06/22/17 16:01 - Medications Medications: Current Medications Acetaminophen (Tylenol 325mg Tab) 650 mg PO Q6 PRN PRN Reason: Pain, moderate (4-7) Last Admin: 01/23/17 09:13 Dose: 650 mg Aspirin (Ecotrin) 81 mg PO DAILY [facility] Last Admin: 06/22/17 09:16 Dose: 81 mg Atorvastatin Calcium (Lipitor) 20 mg PO QPM [facility] Last Admin: 06/22/17 17:16 Dose: 20 mg Calcium/Vitamin D (Oscal-D 250 Mg-125 Units Tab) 1 tab PO DAILY [facility] Last Admin: 06/22/17 09:14 Dose: 1 tab Carvedilol (Coreg) 3.125 mg PO DAILY [facility] Last Admin: 06/22/17 09:16 Dose: 3.125 mg Docusate Sodium (Colace) 100 mg PO BID [facility] Last Admin: 06/22/17 17:16 Dose: 100 mg Enoxaparin Sodium (Lovenox) 40 mg SC DAILY [facility] PRN Reason: Protocol Last Admin: 06/22/17 09:17 Dose: 40 mg Famotidine (Pepcid) 20 mg PO DAILY [facility] Last Admin: 06/22/17 09:16 Dose: 20 mg Ferrous Sulfate (Feosol) 325 mg PO BID [facility] Last Admin: 06/22/17 17:16 Dose: 325 mg Furosemide (Lasix) 20 mg PO DAILY [facility] Last Admin: 06/22/17 09:14 Dose: 20 mg Lisinopril (Zestril) 5 mg PO DAILY [facility] Last Admin: 06/22/17 09:15 Dose: 5 mg Loratadine (Claritin) 10 mg PO DAILY [facility] Last Admin: 06/22/17 09:16 Dose: 10 mg - Labs Labs: 06/19/17 05:35 06/19/17 05:35 PT 12.5 Seconds (9.8-13.1) 01/17/17 13:40 INR 1.2 (0.9-1.2) 01/17/17 13:40 APTT 27.7 Seconds (25.6-37.1) 01/17/17 13:40 Assessment and Plan (1) Unwitnessed fall Assessment & Plan: Back Pain- Controlled with Tylenol Ambulation Problem Right Foot Droop Frail Elderly Wheelchair Dependent Continue Pain Management PRN Continue PT/OT Onboard SW Working for Medicaid application for senior living placement. Status: Acute Priority: High (2) DVT prophylaxis Status: Acute (3) Hypercholesterolemia Status: Acute (4) Anemia Assessment and Plan: Normocytic Status: Chronic (5) HTN (hypertension) Status: Chronic (6) Hypothyroid Status: Chronic Priority: Low (7) CAD (coronary artery diseas Status: Chronic
--- NOTE | 2017-06-22 19:07 | CP.PCM.PN ---
Subjective - Date & Time of Evaluation Date of Evaluation: 06/22/17 Time of Evaluation: 18:00 - Subjective Subjective: No Complaint. 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 SW and her daughter working on her paper work. Objective - Vital Signs/Intake and Output Vital Signs (last 24 hours): Temp Pulse Resp BP Pulse Ox 98.7 F 88 18 98/54 L 99 06/22/17 16:01 06/22/17 16:01 06/22/17 16:01 06/22/17 16:01 06/22/17 16:01 - Medications Medications: Current Medications Acetaminophen (Tylenol 325mg Tab) 650 mg PO Q6 PRN PRN Reason: Pain, moderate (4-7) Last Admin: 01/23/17 09:13 Dose: 650 mg Aspirin (Ecotrin) 81 mg PO DAILY [facility] Last Admin: 06/22/17 09:16 Dose: 81 mg Atorvastatin Calcium (Lipitor) 20 mg PO QPM [facility] Last Admin: 06/22/17 17:16 Dose: 20 mg Calcium/Vitamin D (Oscal-D 250 Mg-125 Units Tab) 1 tab PO DAILY [facility] Last Admin: 06/22/17 09:14 Dose: 1 tab Carvedilol (Coreg) 3.125 mg PO DAILY [facility] Last Admin: 06/22/17 09:16 Dose: 3.125 mg Docusate Sodium (Colace) 100 mg PO BID [facility] Last Admin: 06/22/17 17:16 Dose: 100 mg Enoxaparin Sodium (Lovenox) 40 mg SC DAILY [facility] PRN Reason: Protocol Last Admin: 06/22/17 09:17 Dose: 40 mg Famotidine (Pepcid) 20 mg PO DAILY [facility] Last Admin: 06/22/17 09:16 Dose: 20 mg Ferrous Sulfate (Feosol) 325 mg PO BID [facility] Last Admin: 06/22/17 17:16 Dose: 325 mg Furosemide (Lasix) 20 mg PO DAILY [facility] Last Admin: 06/22/17 09:14 Dose: 20 mg Lisinopril (Zestril) 5 mg PO DAILY [facility] Last Admin: 06/22/17 09:15 Dose: 5 mg Loratadine (Claritin) 10 mg PO DAILY [facility] Last Admin: 06/22/17 09:16 Dose: 10 mg - Labs Labs: 06/19/17 05:35 06/19/17 05:35 PT 12.5 Seconds (9.8-13.1) 01/17/17 13:40 INR 1.2 (0.9-1.2) 01/17/17 13:40 APTT 27.7 Seconds (25.6-37.1) 01/17/17 13:40 Assessment and Plan (1) Unwitnessed fall Assessment & Plan: Back Pain- Controlled with Tylenol Ambulation Problem Right Foot Droop Frail Elderly Wheelchair Dependent Continue Pain Management PRN Continue PT/OT Onboard SW Working for 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 Status: Acute Priority: High (2) DVT prophylaxis Status: Acute (3) Hypercholesterolemia Status: Acute (4) Anemia Assessment and Plan: Normocytic Status: Chronic (5) HTN (hypertension) Status: Chronic (6) Hypothyroid Status: Chronic Priority: Low (7) CAD (coronary artery diseas Status: Chronic
[2017-06-23] MEDS: Enoxaparin 40 mg Syringe SC SCH (09:11)
[2017-06-23] MEDS: Calcium-Vit D 250 mg-125 Units Tab UD PO SCH (09:14)
--- NOTE | 2017-06-24 00:13 | CP.PCM.PN ---
Subjective - Date & Time of Evaluation Date of Evaluation: 06/23/17 Time of Evaluation: 13:15 - Subjective Subjective: No Complaint. 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 SW and her daughter working on her paper work. Objective - Vital Signs/Intake and Output Vital Signs (last 24 hours): Temp Pulse Resp BP Pulse Ox 98.5 F 88 20 115/68 99 06/23/17 07:46 06/23/17 07:46 06/23/17 07:46 06/23/17 09:12 06/23/17 07:46 - Medications Medications: Current Medications Acetaminophen (Tylenol 325mg Tab) 650 mg PO Q6 PRN PRN Reason: Pain, moderate (4-7) Last Admin: 01/23/17 09:13 Dose: 650 mg Aspirin (Ecotrin) 81 mg PO DAILY [facility] Last Admin: 06/23/17 09:13 Dose: 81 mg Atorvastatin Calcium (Lipitor) 20 mg PO QPM [facility] Last Admin: 06/23/17 17:23 Dose: 20 mg Calcium/Vitamin D (Oscal-D 250 Mg-125 Units Tab) 1 tab PO DAILY [facility] Last Admin: 06/23/17 09:14 Dose: 1 tab Carvedilol (Coreg) 3.125 mg PO DAILY [facility] Last Admin: 06/23/17 09:13 Dose: 3.125 mg Docusate Sodium (Colace) 100 mg PO BID [facility] Last Admin: 06/23/17 16:19 Dose: 100 mg Enoxaparin Sodium (Lovenox) 40 mg SC DAILY [facility] PRN Reason: Protocol Last Admin: 06/23/17 09:11 Dose: 40 mg Famotidine (Pepcid) 20 mg PO DAILY [facility] Last Admin: 06/23/17 09:12 Dose: 20 mg Ferrous Sulfate (Feosol) 325 mg PO BID [facility] Last Admin: 06/23/17 16:19 Dose: 325 mg Furosemide (Lasix) 20 mg PO DAILY [facility] Last Admin: 06/23/17 09:12 Dose: 20 mg Lisinopril (Zestril) 5 mg PO DAILY [facility] Last Admin: 06/23/17 09:13 Dose: 5 mg Loratadine (Claritin) 10 mg PO DAILY [facility] Last Admin: 06/23/17 09:13 Dose: 10 mg - Labs Labs: 06/19/17 05:35 06/19/17 05:35 PT 12.5 Seconds (9.8-13.1) 01/17/17 13:40 INR 1.2 (0.9-1.2) 01/17/17 13:40 APTT 27.7 Seconds (25.6-37.1) 01/17/17 13:40 Assessment and Plan (1) Unwitnessed fall Assessment & Plan: Back Pain- Controlled with Tylenol Ambulation Problem Right Foot Droop Frail Elderly Wheelchair Dependent Continue Pain Management PRN Continue PT/OT Onboard SW Working for Medicaid application for shelter placement. Status: Acute Priority: High (2) DVT prophylaxis Status: Acute (3) Hypercholesterolemia Status: Acute (4) Anemia Assessment and Plan: Normocytic Status: Chronic (5) HTN (hypertension) Status: Chronic (6) Hypothyroid Status: Chronic Priority: Low (7) CAD (coronary artery diseas Status: Chronic
[2017-06-24] MEDS: Enoxaparin 40 mg Syringe SC SCH (08:56)
[2017-06-24] MEDS: Calcium-Vit D 250 mg-125 Units Tab UD PO SCH (08:58)
--- NOTE | 2017-06-24 13:52 | CP.PCM.PN ---
Subjective - Date & Time of Evaluation Date of Evaluation: 06/24/17 Time of Evaluation: 13:50 - Subjective Subjective: No Complaint. 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 SW and her daughter working on her paper work. Objective - Vital Signs/Intake and Output Vital Signs (last 24 hours): Temp Pulse Resp BP Pulse Ox 98.5 F 75 20 121/65 97 06/24/17 08:26 06/24/17 08:26 06/24/17 08:26 06/24/17 08:57 06/24/17 08:26 - Medications Medications: Current Medications Acetaminophen (Tylenol 325mg Tab) 650 mg PO Q6 PRN PRN Reason: Pain, moderate (4-7) Last Admin: 01/23/17 09:13 Dose: 650 mg Aspirin (Ecotrin) 81 mg PO DAILY [facility] Last Admin: 06/24/17 08:56 Dose: 81 mg Atorvastatin Calcium (Lipitor) 20 mg PO QPM [facility] Last Admin: 06/23/17 17:23 Dose: 20 mg Calcium/Vitamin D (Oscal-D 250 Mg-125 Units Tab) 1 tab PO DAILY [facility] Last Admin: 06/24/17 08:58 Dose: 1 tab Carvedilol (Coreg) 3.125 mg PO DAILY [facility] Last Admin: 06/24/17 08:57 Dose: 3.125 mg Docusate Sodium (Colace) 100 mg PO BID [facility] Last Admin: 06/24/17 08:57 Dose: 100 mg Famotidine (Pepcid) 20 mg PO DAILY [facility] Last Admin: 06/24/17 08:57 Dose: 20 mg Ferrous Sulfate (Feosol) 325 mg PO BID [facility] Last Admin: 06/24/17 08:56 Dose: 325 mg Furosemide (Lasix) 20 mg PO DAILY [facility] Last Admin: 06/24/17 08:57 Dose: 20 mg Lisinopril (Zestril) 5 mg PO DAILY [facility] Last Admin: 06/24/17 08:58 Dose: 5 mg Loratadine (Claritin) 10 mg PO DAILY [facility] Last Admin: 06/24/17 08:57 Dose: 10 mg - Labs Labs: 06/19/17 05:35 06/19/17 05:35 PT 12.5 Seconds (9.8-13.1) 01/17/17 13:40 INR 1.2 (0.9-1.2) 01/17/17 13:40 APTT 27.7 Seconds (25.6-37.1) 01/17/17 13:40 Assessment and Plan (1) Unwitnessed fall Assessment & Plan: Back Pain- Controlled with Tylenol Ambulation Problem Right Foot Droop Frail Elderly Wheelchair Dependent Continue Pain Management PRN Continue PT/OT Onboard SW Working for Medicaid application for halfway placement. Status: Acute Priority: High (2) DVT prophylaxis Status: Acute (3) Hypercholesterolemia Status: Acute (4) Anemia Assessment and Plan: Normocytic Status: Chronic (5) HTN (hypertension) Status: Chronic (6) Hypothyroid Status: Chronic Priority: Low (7) CAD (coronary artery diseas Status: Chronic
[2017-06-25] MEDS: Calcium-Vit D 250 mg-125 Units Tab UD PO SCH (08:57)
--- NOTE | 2017-06-25 23:58 | CP.PCM.PN ---
Subjective - Date & Time of Evaluation Date of Evaluation: 06/25/17 Time of Evaluation: 15:15 - Subjective Subjective: No Complaint. 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 SW and her daughter working on her paper work. Objective - Vital Signs/Intake and Output Vital Signs (last 24 hours): Temp Pulse Resp BP Pulse Ox 98.7 F 87 19 106/61 99 06/25/17 23:44 06/25/17 23:44 06/25/17 23:44 06/25/17 23:44 06/25/17 23:44 - Medications Medications: Current Medications Acetaminophen (Tylenol 325mg Tab) 650 mg PO Q6 PRN PRN Reason: Pain, moderate (4-7) Last Admin: 01/23/17 09:13 Dose: 650 mg Aspirin (Ecotrin) 81 mg PO DAILY [facility] Last Admin: 06/25/17 08:57 Dose: 81 mg Atorvastatin Calcium (Lipitor) 20 mg PO QPM [facility] Last Admin: 06/25/17 18:50 Dose: 20 mg Calcium/Vitamin D (Oscal-D 250 Mg-125 Units Tab) 1 tab PO DAILY [facility] Last Admin: 06/25/17 08:57 Dose: 1 tab Carvedilol (Coreg) 3.125 mg PO DAILY [facility] Last Admin: 06/25/17 08:56 Dose: 3.125 mg Docusate Sodium (Colace) 100 mg PO BID [facility] Last Admin: 06/25/17 16:27 Dose: 100 mg Famotidine (Pepcid) 20 mg PO DAILY [facility] Last Admin: 06/25/17 08:55 Dose: 20 mg Ferrous Sulfate (Feosol) 325 mg PO BID [facility] Last Admin: 06/25/17 16:27 Dose: 325 mg Furosemide (Lasix) 20 mg PO DAILY [facility] Last Admin: 06/25/17 08:55 Dose: 20 mg Lactic Acid (Lac-Hydrin 12% Lotion (225 G)) 1 applic TOP DAILY [facility] Last Admin: 06/25/17 08:58 Dose: 1 appl Lisinopril (Zestril) 5 mg PO DAILY [facility] Last Admin: 06/25/17 08:57 Dose: 5 mg Loratadine (Claritin) 10 mg PO DAILY [facility] Last Admin: 06/25/17 08:56 Dose: 10 mg - Labs Labs: 06/19/17 05:35 06/19/17 05:35 PT 12.5 Seconds (9.8-13.1) 01/17/17 13:40 INR 1.2 (0.9-1.2) 01/17/17 13:40 APTT 27.7 Seconds (25.6-37.1) 01/17/17 13:40 Assessment and Plan (1) Unwitnessed fall Assessment & Plan: Back Pain- Controlled with Tylenol Ambulation Problem Right Foot Droop Frail Elderly Wheelchair Dependent Continue Pain Management PRN Continue PT/OT Onboard SW Working for Medicaid application for care home placement. Status: Acute Priority: High (2) DVT prophylaxis Status: Acute (3) Hypercholesterolemia Status: Acute (4) Anemia Assessment and Plan: Normocytic Status: Chronic (5) HTN (hypertension) Status: Chronic (6) Hypothyroid Status: Chronic Priority: Low (7) CAD (coronary artery diseas Status: Chronic
[2017-06-26] MEDS: Calcium-Vit D 250 mg-125 Units Tab UD PO SCH (09:00)
--- NOTE | 2017-06-27 01:23 | CP.PCM.PN ---
Subjective - Date & Time of Evaluation Date of Evaluation: 06/26/17 Time of Evaluation: 13:10 - Subjective Subjective: No Complaint. 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 SW and her daughter working on her paper work. Objective - Vital Signs/Intake and Output Vital Signs (last 24 hours): Temp Pulse Resp BP Pulse Ox 98.6 F 82 20 99/59 L 99 06/26/17 16:03 06/26/17 16:03 06/26/17 16:03 06/26/17 16:03 06/26/17 16:03 - Medications Medications: Current Medications Acetaminophen (Tylenol 325mg Tab) 650 mg PO Q6 PRN PRN Reason: Pain, moderate (4-7) Last Admin: 01/23/17 09:13 Dose: 650 mg Aspirin (Ecotrin) 81 mg PO DAILY [facility] Last Admin: 06/26/17 09:00 Dose: 81 mg Atorvastatin Calcium (Lipitor) 20 mg PO QPM [facility] Last Admin: 06/26/17 17:22 Dose: 20 mg Calcium/Vitamin D (Oscal-D 250 Mg-125 Units Tab) 1 tab PO DAILY [facility] Last Admin: 06/26/17 09:00 Dose: 1 tab Carvedilol (Coreg) 3.125 mg PO DAILY [facility] Last Admin: 06/26/17 09:00 Dose: 3.125 mg Docusate Sodium (Colace) 100 mg PO BID [facility] Last Admin: 06/26/17 17:22 Dose: 100 mg Famotidine (Pepcid) 20 mg PO DAILY [facility] Last Admin: 06/26/17 09:01 Dose: 20 mg Ferrous Sulfate (Feosol) 325 mg PO BID [facility] Last Admin: 06/26/17 17:22 Dose: 325 mg Furosemide (Lasix) 20 mg PO DAILY [facility] Last Admin: 06/26/17 09:00 Dose: 20 mg Lactic Acid (Lac-Hydrin 12% Lotion (225 G)) 1 applic TOP DAILY [facility] Last Admin: 06/26/17 09:00 Dose: 1 appl Lisinopril (Zestril) 5 mg PO DAILY [facility] Last Admin: 06/26/17 09:01 Dose: 5 mg Loratadine (Claritin) 10 mg PO DAILY [facility] Last Admin: 06/26/17 08:59 Dose: 10 mg - Labs Labs: 06/19/17 05:35 06/19/17 05:35 PT 12.5 Seconds (9.8-13.1) 01/17/17 13:40 INR 1.2 (0.9-1.2) 01/17/17 13:40 APTT 27.7 Seconds (25.6-37.1) 01/17/17 13:40 Assessment and Plan (1) Unwitnessed fall Assessment & Plan: Back Pain- Controlled with Tylenol Ambulation Problem Right Foot Droop Frail Elderly Wheelchair Dependent Continue Pain Management PRN Continue PT/OT Onboard SW 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 Status: Acute Priority: High (2) DVT prophylaxis Status: Acute (3) Hypercholesterolemia Status: Acute (4) Anemia Assessment and Plan: Normocytic Status: Chronic (5) HTN (hypertension) Status: Chronic (6) Hypothyroid Status: Chronic Priority: Low (7) CAD (coronary artery diseas Status: Chronic
[2017-06-27] MEDS: Calcium-Vit D 250 mg-125 Units Tab UD PO SCH (09:15)
--- NOTE | 2017-06-27 20:43 | CP.PCM.PN ---
Subjective - Date & Time of Evaluation Date of Evaluation: 06/27/17 Time of Evaluation: 12:00 - Subjective Subjective: No Complaint. 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 SW and her daughter working on her paper work. Objective - Vital Signs/Intake and Output Vital Signs (last 24 hours): Temp Pulse Resp BP Pulse Ox 98.4 F 85 18 106/64 100 06/27/17 16:31 06/27/17 16:31 06/27/17 16:31 06/27/17 16:31 06/27/17 16:31 - Medications Medications: Current Medications Acetaminophen (Tylenol 325mg Tab) 650 mg PO Q6 PRN PRN Reason: Pain, moderate (4-7) Last Admin: 01/23/17 09:13 Dose: 650 mg Aspirin (Ecotrin) 81 mg PO DAILY [facility] Last Admin: 06/27/17 09:16 Dose: 81 mg Atorvastatin Calcium (Lipitor) 20 mg PO QPM [facility] Last Admin: 06/27/17 17:07 Dose: 20 mg Calcium/Vitamin D (Oscal-D 250 Mg-125 Units Tab) 1 tab PO DAILY [facility] Last Admin: 06/27/17 09:15 Dose: 1 tab Carvedilol (Coreg) 3.125 mg PO DAILY [facility] Last Admin: 06/27/17 09:17 Dose: Not Given Docusate Sodium (Colace) 100 mg PO BID [facility] Last Admin: 06/27/17 17:06 Dose: 100 mg Famotidine (Pepcid) 20 mg PO DAILY [facility] Last Admin: 06/27/17 09:16 Dose: 20 mg Ferrous Sulfate (Feosol) 325 mg PO BID [facility] Last Admin: 06/27/17 17:07 Dose: 325 mg Furosemide (Lasix) 20 mg PO DAILY [facility] Last Admin: 06/27/17 09:15 Dose: Not Given Lactic Acid (Lac-Hydrin 12% Lotion (225 G)) 1 applic TOP DAILY [facility] Last Admin: 06/27/17 09:15 Dose: 1 appl Lisinopril (Zestril) 5 mg PO DAILY [facility] Last Admin: 06/27/17 09:17 Dose: Not Given Loratadine (Claritin) 10 mg PO DAILY [facility] Last Admin: 06/27/17 09:16 Dose: 10 mg - Labs Labs: 06/19/17 05:35 06/19/17 05:35 PT 12.5 Seconds (9.8-13.1) 01/17/17 13:40 INR 1.2 (0.9-1.2) 01/17/17 13:40 APTT 27.7 Seconds (25.6-37.1) 01/17/17 13:40 Assessment and Plan (1) Unwitnessed fall Assessment & Plan: Back Pain- Controlled with Tylenol Ambulation Problem Right Foot Droop Frail Elderly Wheelchair Dependent Continue Pain Management PRN Continue PT/OT Onboard SW Working for 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 Status: Acute Priority: High (2) DVT prophylaxis Status: Acute (3) Hypercholesterolemia Status: Acute (4) Anemia Assessment and Plan: Normocytic Status: Chronic (5) HTN (hypertension) Status: Chronic (6) Hypothyroid Status: Chronic Priority: Low (7) CAD (coronary artery diseas Status: Chronic
[2017-06-28] MEDS: Calcium-Vit D 250 mg-125 Units Tab UD PO SCH (08:40)
--- NOTE | 2017-06-28 22:46 | CP.PCM.PN ---
Subjective - Date & Time of Evaluation Date of Evaluation: 06/28/17 Time of Evaluation: 20:35 - Subjective Subjective: No New complaint. Objective - Vital Signs/Intake and Output Vital Signs (last 24 hours): Temp Pulse Resp BP Pulse Ox 98.5 F 82 20 93/54 L 98 06/28/17 16:24 06/28/17 16:24 06/28/17 16:24 06/28/17 16:24 06/28/17 16:24 - Medications Medications: Current Medications Acetaminophen (Tylenol 325mg Tab) 650 mg PO Q6 PRN PRN Reason: Pain, moderate (4-7) Last Admin: 01/23/17 09:13 Dose: 650 mg Aspirin (Ecotrin) 81 mg PO DAILY [facility] Last Admin: 06/28/17 08:39 Dose: 81 mg Atorvastatin Calcium (Lipitor) 20 mg PO QPM [facility] Last Admin: 06/28/17 17:30 Dose: 20 mg Calcium/Vitamin D (Oscal-D 250 Mg-125 Units Tab) 1 tab PO DAILY [facility] Last Admin: 06/28/17 08:40 Dose: 1 tab Carvedilol (Coreg) 3.125 mg PO DAILY [facility] Last Admin: 06/28/17 08:39 Dose: 3.125 mg Docusate Sodium (Colace) 100 mg PO BID [facility] Last Admin: 06/28/17 16:02 Dose: 100 mg Famotidine (Pepcid) 20 mg PO DAILY [facility] Last Admin: 06/28/17 08:40 Dose: 20 mg Ferrous Sulfate (Feosol) 325 mg PO BID [facility] Last Admin: 06/28/17 16:03 Dose: 325 mg Furosemide (Lasix) 20 mg PO DAILY [facility] Last Admin: 06/28/17 08:40 Dose: 20 mg Lactic Acid (Lac-Hydrin 12% Lotion (225 G)) 1 applic TOP DAILY [facility] Last Admin: 06/28/17 08:40 Dose: 1 appl Lisinopril (Zestril) 5 mg PO DAILY [facility] Last Admin: 06/28/17 08:40 Dose: 5 mg Loratadine (Claritin) 10 mg PO DAILY [facility] Last Admin: 06/28/17 08:40 Dose: 10 mg - Labs Labs: 06/19/17 05:35 06/19/17 05:35 PT 12.5 Seconds (9.8-13.1) 01/17/17 13:40 INR 1.2 (0.9-1.2) 01/17/17 13:40 APTT 27.7 Seconds (25.6-37.1) 01/17/17 13:40 Assessment and Plan (1) Unwitnessed fall Assessment & Plan: Back Pain- Controlled with Tylenol Ambulation Problem Right Foot Droop Frail Elderly Wheelchair Dependent Continue Pain Management PRN Continue PT/OT Onboard SW Working for Medicaid application for termite renewal inspector placement. Status: Acute Priority: High (2) DVT prophylaxis Status: Acute (3) Hypercholesterolemia Status: Acute (4) Anemia Assessment and Plan: Normocytic Status: Chronic (5) HTN (hypertension) Status: Chronic (6) Hypothyroid Status: Chronic Priority: Low (7) CAD (coronary artery diseas Status: Chronic
[2017-06-29] MEDS: Calcium-Vit D 250 mg-125 Units Tab UD PO SCH (08:25)
[2017-06-30] MEDS: Calcium-Vit D 250 mg-125 Units Tab UD PO SCH (09:26)
--- NOTE | 2017-06-30 16:55 | CP.PCM.PN ---
Subjective - Date & Time of Evaluation Date of Evaluation: 06/29/17 Time of Evaluation: 18:00 - Subjective Subjective: No new complaint. eating well. Normal BMV. Objective - Vital Signs/Intake and Output Vital Signs (last 24 hours): Temp Pulse Resp BP Pulse Ox 98.4 F 83 18 112/72 99 06/30/17 08:26 06/30/17 08:26 06/30/17 08:26 06/30/17 09:26 06/30/17 08:26 - Medications Medications: Current Medications Acetaminophen (Tylenol 325mg Tab) 650 mg PO Q6 PRN PRN Reason: Pain, moderate (4-7) Last Admin: 01/23/17 09:13 Dose: 650 mg Aspirin (Ecotrin) 81 mg PO DAILY [facility] Last Admin: 06/30/17 09:26 Dose: 81 mg Atorvastatin Calcium (Lipitor) 20 mg PO QPM [facility] Last Admin: 06/29/17 17:56 Dose: 20 mg Calcium/Vitamin D (Oscal-D 250 Mg-125 Units Tab) 1 tab PO DAILY [facility] Last Admin: 06/30/17 09:26 Dose: 1 tab Carvedilol (Coreg) 3.125 mg PO DAILY [facility] Last Admin: 06/30/17 09:27 Dose: 3.125 mg Docusate Sodium (Colace) 100 mg PO BID [facility] Last Admin: 06/30/17 09:26 Dose: 100 mg Famotidine (Pepcid) 20 mg PO DAILY [facility] Last Admin: 06/30/17 09:25 Dose: 20 mg Ferrous Sulfate (Feosol) 325 mg PO BID [facility] Last Admin: 06/30/17 09:26 Dose: 325 mg Furosemide (Lasix) 20 mg PO DAILY [facility] Last Admin: 06/30/17 09:26 Dose: 20 mg Lactic Acid (Lac-Hydrin 12% Lotion (225 G)) 1 applic TOP DAILY [facility] Last Admin: 06/30/17 09:26 Dose: 1 appl Lisinopril (Zestril) 5 mg PO DAILY [facility] Last Admin: 06/30/17 09:26 Dose: 5 mg Loratadine (Claritin) 10 mg PO DAILY [facility] Last Admin: 06/30/17 09:25 Dose: 10 mg - Labs Labs: 06/19/17 05:35 06/19/17 05:35 PT 12.5 Seconds (9.8-13.1) 01/17/17 13:40 INR 1.2 (0.9-1.2) 01/17/17 13:40 APTT 27.7 Seconds (25.6-37.1) 01/17/17 13:40 Assessment and Plan (1) Unwitnessed fall Assessment & Plan: Back Pain- Controlled with Tylenol Ambulation Problem Right Foot Droop Frail Elderly Wheelchair Dependent Continue Pain Management PRN Continue PT/OT Onboard SW Working for Medicaid application for longterm placement. Status: Acute Priority: High (2) DVT prophylaxis Status: Acute (3) Hypercholesterolemia Status: Acute (4) Anemia Assessment and Plan: Normocytic Status: Chronic (5) HTN (hypertension) Status: Chronic (6) Hypothyroid Status: Chronic Priority: Low (7) CAD (coronary artery diseas Status: Chronic
[2017-07-01] MEDS: Calcium-Vit D 250 mg-125 Units Tab UD PO SCH (08:38)
--- NOTE | 2017-07-01 22:43 | CP.PCM.PN ---
Subjective - Date & Time of Evaluation Date of Evaluation: 06/30/17 Time of Evaluation: 14:00 - Subjective Subjective: No complaint. Objective - Vital Signs/Intake and Output Vital Signs (last 24 hours): Temp Pulse Resp BP Pulse Ox 98.6 F 88 20 131/70 99 07/01/17 15:44 07/01/17 15:44 07/01/17 15:44 07/01/17 15:44 07/01/17 15:44 - Medications Medications: Current Medications Acetaminophen (Tylenol 325mg Tab) 650 mg PO Q6 PRN PRN Reason: Pain, moderate (4-7) Last Admin: 01/23/17 09:13 Dose: 650 mg Aspirin (Ecotrin) 81 mg PO DAILY [facility] Last Admin: 07/01/17 08:38 Dose: 81 mg Atorvastatin Calcium (Lipitor) 20 mg PO QPM [facility] Last Admin: 07/01/17 17:44 Dose: 20 mg Calcium/Vitamin D (Oscal-D 250 Mg-125 Units Tab) 1 tab PO DAILY [facility] Last Admin: 07/01/17 08:38 Dose: 1 tab Carvedilol (Coreg) 3.125 mg PO DAILY [facility] Last Admin: 07/01/17 08:37 Dose: 3.125 mg Docusate Sodium (Colace) 100 mg PO BID [facility] Last Admin: 07/01/17 17:44 Dose: 100 mg Famotidine (Pepcid) 20 mg PO DAILY [facility] Last Admin: 07/01/17 08:38 Dose: 20 mg Ferrous Sulfate (Feosol) 325 mg PO BID [facility] Last Admin: 07/01/17 17:44 Dose: 325 mg Furosemide (Lasix) 20 mg PO DAILY [facility] Last Admin: 07/01/17 08:38 Dose: 20 mg Lactic Acid (Lac-Hydrin 12% Lotion (225 G)) 1 applic TOP DAILY [facility] Last Admin: 07/01/17 08:38 Dose: 1 appl Lisinopril (Zestril) 5 mg PO DAILY [facility] Last Admin: 07/01/17 08:37 Dose: 5 mg Loratadine (Claritin) 10 mg PO DAILY [facility] Last Admin: 07/01/17 08:38 Dose: 10 mg - Labs Labs: 06/19/17 05:35 06/19/17 05:35 PT 12.5 Seconds (9.8-13.1) 01/17/17 13:40 INR 1.2 (0.9-1.2) 01/17/17 13:40 APTT 27.7 Seconds (25.6-37.1) 01/17/17 13:40 Assessment and Plan (1) Unwitnessed fall Assessment & Plan: Back Pain- Controlled with Tylenol Ambulation Problem Right Foot Droop Frail Elderly Wheelchair Dependent Continue Pain Management PRN Continue PT/OT Onboard SW Working for Medicaid application for tank terminal gauger placement. Status: Acute Priority: High (2) DVT prophylaxis Status: Acute (3) Hypercholesterolemia Status: Acute (4) Anemia Assessment and Plan: Normocytic Status: Chronic (5) HTN (hypertension) Status: Chronic (6) Hypothyroid Status: Chronic Priority: Low (7) CAD (coronary artery diseas Status: Chronic
--- NOTE | 2017-07-01 22:44 | CP.PCM.PN ---
Subjective - Date & Time of Evaluation Date of Evaluation: 07/01/17 Time of Evaluation: 13:45 - Subjective Subjective: No Complaint. Objective - Vital Signs/Intake and Output Vital Signs (last 24 hours): Temp Pulse Resp BP Pulse Ox 98.6 F 88 20 131/70 99 07/01/17 15:44 07/01/17 15:44 07/01/17 15:44 07/01/17 15:44 07/01/17 15:44 - Medications Medications: Current Medications Acetaminophen (Tylenol 325mg Tab) 650 mg PO Q6 PRN PRN Reason: Pain, moderate (4-7) Last Admin: 01/23/17 09:13 Dose: 650 mg Aspirin (Ecotrin) 81 mg PO DAILY [facility] Last Admin: 07/01/17 08:38 Dose: 81 mg Atorvastatin Calcium (Lipitor) 20 mg PO QPM [facility] Last Admin: 07/01/17 17:44 Dose: 20 mg Calcium/Vitamin D (Oscal-D 250 Mg-125 Units Tab) 1 tab PO DAILY [facility] Last Admin: 07/01/17 08:38 Dose: 1 tab Carvedilol (Coreg) 3.125 mg PO DAILY [facility] Last Admin: 07/01/17 08:37 Dose: 3.125 mg Docusate Sodium (Colace) 100 mg PO BID [facility] Last Admin: 07/01/17 17:44 Dose: 100 mg Famotidine (Pepcid) 20 mg PO DAILY [facility] Last Admin: 07/01/17 08:38 Dose: 20 mg Ferrous Sulfate (Feosol) 325 mg PO BID [facility] Last Admin: 07/01/17 17:44 Dose: 325 mg Furosemide (Lasix) 20 mg PO DAILY [facility] Last Admin: 07/01/17 08:38 Dose: 20 mg Lactic Acid (Lac-Hydrin 12% Lotion (225 G)) 1 applic TOP DAILY [facility] Last Admin: 07/01/17 08:38 Dose: 1 appl Lisinopril (Zestril) 5 mg PO DAILY [facility] Last Admin: 07/01/17 08:37 Dose: 5 mg Loratadine (Claritin) 10 mg PO DAILY [facility] Last Admin: 07/01/17 08:38 Dose: 10 mg - Labs Labs: 06/19/17 05:35 06/19/17 05:35 PT 12.5 Seconds (9.8-13.1) 01/17/17 13:40 INR 1.2 (0.9-1.2) 01/17/17 13:40 APTT 27.7 Seconds (25.6-37.1) 01/17/17 13:40 Assessment and Plan (1) Unwitnessed fall Assessment & Plan: Back Pain- Controlled with Tylenol Ambulation Problem Right Foot Droop Frail Elderly Wheelchair Dependent Continue Pain Management PRN Continue PT/OT Onboard SW Working for Medicaid application for business banking representative placement. Status: Acute Priority: High (2) DVT prophylaxis Status: Acute (3) Hypercholesterolemia Status: Acute (4) Anemia Assessment and Plan: Normocytic Status: Chronic (5) HTN (hypertension) Status: Chronic (6) Hypothyroid Status: Chronic Priority: Low (7) CAD (coronary artery diseas Status: Chronic
[2017-07-02] MEDS: Calcium-Vit D 250 mg-125 Units Tab UD PO SCH (08:50)
[2017-07-03] MEDS: Calcium-Vit D 250 mg-125 Units Tab UD PO SCH (09:30)
--- NOTE | 2017-07-03 23:55 | CP.PCM.PN ---
Subjective - Date & Time of Evaluation Date of Evaluation: 07/02/17 Time of Evaluation: 20:35 - Subjective Subjective: No Complaint. Objective - Vital Signs/Intake and Output Vital Signs (last 24 hours): Temp Pulse Resp BP Pulse Ox 98.9 F 92 H 20 96/60 L 98 07/03/17 16:11 07/03/17 16:11 07/03/17 16:11 07/03/17 16:11 07/03/17 16:11 - Medications Medications: Current Medications Acetaminophen (Tylenol 325mg Tab) 650 mg PO Q6 PRN PRN Reason: Pain, moderate (4-7) Last Admin: 01/23/17 09:13 Dose: 650 mg Aspirin (Ecotrin) 81 mg PO DAILY [facility] Last Admin: 07/03/17 09:30 Dose: 81 mg Atorvastatin Calcium (Lipitor) 20 mg PO QPM [facility] Last Admin: 07/03/17 18:08 Dose: 20 mg Calcium/Vitamin D (Oscal-D 250 Mg-125 Units Tab) 1 tab PO DAILY [facility] Last Admin: 07/03/17 09:30 Dose: 1 tab Carvedilol (Coreg) 3.125 mg PO DAILY [facility] Last Admin: 07/03/17 09:31 Dose: 3.125 mg Docusate Sodium (Colace) 100 mg PO BID [facility] Last Admin: 07/03/17 18:07 Dose: 100 mg Famotidine (Pepcid) 20 mg PO DAILY [facility] Last Admin: 07/03/17 09:31 Dose: 20 mg Ferrous Sulfate (Feosol) 325 mg PO BID [facility] Last Admin: 07/03/17 18:07 Dose: 325 mg Furosemide (Lasix) 20 mg PO DAILY [facility] Last Admin: 07/03/17 09:24 Dose: 20 mg Lactic Acid (Lac-Hydrin 12% Lotion (225 G)) 1 applic TOP DAILY [facility] Last Admin: 07/03/17 09:30 Dose: 1 appl Lisinopril (Zestril) 5 mg PO DAILY [facility] Last Admin: 07/03/17 09:25 Dose: 5 mg Loratadine (Claritin) 10 mg PO DAILY [facility] Last Admin: 07/03/17 09:31 Dose: 10 mg - Labs Labs: 06/19/17 05:35 06/19/17 05:35 PT 12.5 Seconds (9.8-13.1) 01/17/17 13:40 INR 1.2 (0.9-1.2) 01/17/17 13:40 APTT 27.7 Seconds (25.6-37.1) 01/17/17 13:40 Assessment and Plan (1) Unwitnessed fall Assessment & Plan: Back Pain- Controlled with Tylenol Ambulation Problem Right Foot Droop Frail Elderly Wheelchair Dependent Continue Pain Management PRN Continue PT/OT Onboard SW Working for Medicaid application for retirement placement. Status: Acute Priority: High (2) DVT prophylaxis Status: Acute (3) Hypercholesterolemia Status: Acute (4) Anemia Assessment and Plan: Normocytic Status: Chronic (5) HTN (hypertension) Status: Chronic (6) Hypothyroid Status: Chronic Priority: Low (7) CAD (coronary artery diseas Status: Chronic
--- NOTE | 2017-07-03 23:56 | CP.PCM.PN ---
Subjective - Date & Time of Evaluation Date of Evaluation: 07/03/17 Time of Evaluation: 18:40 - Subjective Subjective: No Complaint.Social hold due to unsafe discharge due to multiple falls and spinal fracture. Beena WOODARD working to get Medicaid for placement. Objective - Vital Signs/Intake and Output Vital Signs (last 24 hours): Temp Pulse Resp BP Pulse Ox 98.9 F 92 H 20 96/60 L 98 07/03/17 16:11 07/03/17 16:11 07/03/17 16:11 07/03/17 16:11 07/03/17 16:11 - Medications Medications: Current Medications Acetaminophen (Tylenol 325mg Tab) 650 mg PO Q6 PRN PRN Reason: Pain, moderate (4-7) Last Admin: 01/23/17 09:13 Dose: 650 mg Aspirin (Ecotrin) 81 mg PO DAILY [facility] Last Admin: 07/03/17 09:30 Dose: 81 mg Atorvastatin Calcium (Lipitor) 20 mg PO QPM [facility] Last Admin: 07/03/17 18:08 Dose: 20 mg Calcium/Vitamin D (Oscal-D 250 Mg-125 Units Tab) 1 tab PO DAILY [facility] Last Admin: 07/03/17 09:30 Dose: 1 tab Carvedilol (Coreg) 3.125 mg PO DAILY [facility] Last Admin: 07/03/17 09:31 Dose: 3.125 mg Docusate Sodium (Colace) 100 mg PO BID [facility] Last Admin: 07/03/17 18:07 Dose: 100 mg Famotidine (Pepcid) 20 mg PO DAILY [facility] Last Admin: 07/03/17 09:31 Dose: 20 mg Ferrous Sulfate (Feosol) 325 mg PO BID [facility] Last Admin: 07/03/17 18:07 Dose: 325 mg Furosemide (Lasix) 20 mg PO DAILY [facility] Last Admin: 07/03/17 09:24 Dose: 20 mg Lactic Acid (Lac-Hydrin 12% Lotion (225 G)) 1 applic TOP DAILY [facility] Last Admin: 07/03/17 09:30 Dose: 1 appl Lisinopril (Zestril) 5 mg PO DAILY [facility] Last Admin: 07/03/17 09:25 Dose: 5 mg Loratadine (Claritin) 10 mg PO DAILY [facility] Last Admin: 07/03/17 09:31 Dose: 10 mg - Labs Labs: 06/19/17 05:35 06/19/17 05:35 PT 12.5 Seconds (9.8-13.1) 01/17/17 13:40 INR 1.2 (0.9-1.2) 01/17/17 13:40 APTT 27.7 Seconds (25.6-37.1) 01/17/17 13:40 Assessment and Plan (1) Unwitnessed fall Assessment & Plan: Back Pain- Controlled with Tylenol Ambulation Problem Right Foot Droop Frail Elderly Wheelchair Dependent Continue Pain Management PRN Continue PT/OT Onboard SW Working for Medicaid application for intermediate placement. Status: Acute Priority: High (2) DVT prophylaxis Status: Acute (3) Hypercholesterolemia Status: Acute (4) Anemia Assessment and Plan: Normocytic Status: Chronic (5) HTN (hypertension) Status: Chronic (6) Hypothyroid Status: Chronic Priority: Low (7) CAD (coronary artery diseas Status: Chronic
[2017-07-04] MEDS: Calcium-Vit D 250 mg-125 Units Tab UD PO SCH (08:54)
--- NOTE | 2017-07-04 22:20 | CP.PCM.PN ---
Subjective - Date & Time of Evaluation Date of Evaluation: 07/04/17 Time of Evaluation: 14:45 - Subjective Subjective: Social hold due to unsafe discharge due to multiple falls and spinal fracture. Daughter and SW working to get Medicaid for placement. otherwise no complaint. Objective - Vital Signs/Intake and Output Vital Signs (last 24 hours): Temp Pulse Resp BP Pulse Ox 98.5 F 96 H 17 107/64 97 07/04/17 16:14 07/04/17 16:14 07/04/17 16:14 07/04/17 16:14 07/04/17 16:14 - Medications Medications: Current Medications Acetaminophen (Tylenol 325mg Tab) 650 mg PO Q6 PRN PRN Reason: Pain, moderate (4-7) Last Admin: 01/23/17 09:13 Dose: 650 mg Aspirin (Ecotrin) 81 mg PO DAILY [facility] Last Admin: 07/04/17 08:55 Dose: 81 mg Atorvastatin Calcium (Lipitor) 20 mg PO QPM [facility] Last Admin: 07/04/17 17:57 Dose: 20 mg Calcium/Vitamin D (Oscal-D 250 Mg-125 Units Tab) 1 tab PO DAILY [facility] Last Admin: 07/04/17 08:54 Dose: 1 tab Carvedilol (Coreg) 3.125 mg PO DAILY [facility] Last Admin: 07/04/17 08:54 Dose: 3.125 mg Docusate Sodium (Colace) 100 mg PO BID [facility] Last Admin: 07/04/17 17:57 Dose: 100 mg Famotidine (Pepcid) 20 mg PO DAILY [facility] Last Admin: 07/04/17 08:54 Dose: 20 mg Ferrous Sulfate (Feosol) 325 mg PO BID [facility] Last Admin: 07/04/17 17:57 Dose: 325 mg Furosemide (Lasix) 20 mg PO DAILY [facility] Last Admin: 07/04/17 08:55 Dose: 20 mg Lactic Acid (Lac-Hydrin 12% Lotion (225 G)) 1 applic TOP DAILY [facility] Last Admin: 07/04/17 08:55 Dose: 1 appl Lisinopril (Zestril) 5 mg PO DAILY [facility] Last Admin: 07/04/17 08:55 Dose: 5 mg Loratadine (Claritin) 10 mg PO DAILY [facility] Last Admin: 07/04/17 08:54 Dose: 10 mg - Labs Labs: 06/19/17 05:35 01/16/18 05:35 PT 12.5 Seconds (9.8-13.1) 01/17/17 13:40 INR 1.2 (0.9-1.2) 01/17/17 13:40 APTT 27.7 Seconds (25.6-37.1) 01/17/17 13:40 Assessment and Plan (1) Unwitnessed fall Assessment & Plan: Back Pain- Controlled with Tylenol Ambulation Problem Right Foot Droop Frail Elderly Wheelchair Dependent Continue Pain Management PRN Continue PT/OT Onboard SW 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 Status: Acute Priority: High (2) DVT prophylaxis Status: Acute (3) Hypercholesterolemia Status: Acute (4) Anemia Assessment and Plan: Normocytic Status: Chronic (5) HTN (hypertension) Status: Chronic (6) Hypothyroid Status: Chronic Priority: Low (7) CAD (coronary artery diseas Status: Chronic
[2017-07-05] MEDS: Calcium-Vit D 250 mg-125 Units Tab UD PO SCH (08:50)
--- NOTE | 2017-07-05 12:20 | CP.PCM.PN ---
Subjective - Date & Time of Evaluation Date of Evaluation: 07/05/17 Time of Evaluation: 11:35 - Subjective Subjective: Social hold due to unsafe discharge due to multiple falls and spinal fracture. Daughter and SW working to get Medicaid for placement. otherwise no complaint. Objective - Vital Signs/Intake and Output Vital Signs (last 24 hours): Temp Pulse Resp BP Pulse Ox 97.9 F 87 20 114/62 99 07/05/17 07:46 07/05/17 07:46 07/05/17 07:46 07/05/17 08:50 07/05/17 07:46 - Medications Medications: Current Medications Acetaminophen (Tylenol 325mg Tab) 650 mg PO Q6 PRN PRN Reason: Pain, moderate (4-7) Last Admin: 01/23/17 09:13 Dose: 650 mg Aspirin (Ecotrin) 81 mg PO DAILY [facility] Last Admin: 07/05/17 08:50 Dose: 81 mg Atorvastatin Calcium (Lipitor) 20 mg PO QPM [facility] Last Admin: 07/04/17 17:57 Dose: 20 mg Calcium/Vitamin D (Oscal-D 250 Mg-125 Units Tab) 1 tab PO DAILY [facility] Last Admin: 07/05/17 08:50 Dose: 1 tab Carvedilol (Coreg) 3.125 mg PO DAILY [facility] Last Admin: 07/05/17 08:50 Dose: 3.125 mg Docusate Sodium (Colace) 100 mg PO BID [facility] Last Admin: 07/05/17 08:50 Dose: 100 mg Famotidine (Pepcid) 20 mg PO DAILY [facility] Last Admin: 07/05/17 08:50 Dose: 20 mg Ferrous Sulfate (Feosol) 325 mg PO BID [facility] Last Admin: 07/05/17 08:49 Dose: 325 mg Furosemide (Lasix) 20 mg PO DAILY [facility] Last Admin: 07/05/17 08:50 Dose: 20 mg Lactic Acid (Lac-Hydrin 12% Lotion (225 G)) 1 applic TOP DAILY [facility] Last Admin: 07/05/17 08:50 Dose: 1 appl Lisinopril (Zestril) 5 mg PO DAILY [facility] Last Admin: 07/05/17 08:50 Dose: 5 mg Loratadine (Claritin) 10 mg PO DAILY [facility] Last Admin: 07/05/17 08:50 Dose: 10 mg - Labs Labs: 06/19/17 05:35 06/19/17 05:35 PT 12.5 Seconds (9.8-13.1) 01/17/17 13:40 INR 1.2 (0.9-1.2) 01/17/17 13:40 APTT 27.7 Seconds (25.6-37.1) 01/17/17 13:40 Assessment and Plan (1) Unwitnessed fall Assessment & Plan: Back Pain- Controlled with Tylenol Ambulation Problem Right Foot Droop Frail Elderly Wheelchair Dependent Continue Pain Management PRN Continue PT/OT Onboard SW Working for Medicaid application for [facility] placement. Status: Acute Priority: High (2) DVT prophylaxis Status: Acute (3) Hypercholesterolemia Status: Acute (4) Anemia Assessment and Plan: Normocytic Status: Chronic (5) HTN (hypertension) Status: Chronic (6) Hypothyroid Status: Chronic Priority: Low (7) CAD (coronary artery diseas Status: Chronic
[2017-07-06] MEDS: Calcium-Vit D 250 mg-125 Units Tab UD PO SCH (09:10)
--- NOTE | 2017-07-06 23:56 | CP.PCM.PN ---
Subjective - Date & Time of Evaluation Date of Evaluation: 07/06/17 Time of Evaluation: 15:10 - Subjective Subjective: Social hold due to unsafe discharge due to multiple falls and spinal fracture. Daughter and SW working to get Medicaid for placement. otherwise no complaint. Objective - Vital Signs/Intake and Output Vital Signs (last 24 hours): Temp Pulse Resp BP Pulse Ox 98.3 F 82 20 106/57 L 99 07/06/17 16:30 07/06/17 16:30 07/06/17 16:30 07/06/17 16:30 07/06/17 16:30 - Medications Medications: Current Medications Acetaminophen (Tylenol 325mg Tab) 650 mg PO Q6 PRN PRN Reason: Pain, moderate (4-7) Last Admin: 01/23/17 09:13 Dose: 650 mg Aspirin (Ecotrin) 81 mg PO DAILY [facility] Last Admin: 07/06/17 09:09 Dose: 81 mg Atorvastatin Calcium (Lipitor) 20 mg PO QPM [facility] Last Admin: 07/05/17 17:14 Dose: 20 mg Calcium/Vitamin D (Oscal-D 250 Mg-125 Units Tab) 1 tab PO DAILY [facility] Last Admin: 07/06/17 09:10 Dose: 1 tab Carvedilol (Coreg) 3.125 mg PO DAILY [facility] Last Admin: 07/06/17 09:12 Dose: 3.125 mg Docusate Sodium (Colace) 100 mg PO BID [facility] Last Admin: 07/06/17 16:38 Dose: 100 mg Famotidine (Pepcid) 20 mg PO DAILY [facility] Last Admin: 07/06/17 09:09 Dose: 20 mg Ferrous Sulfate (Feosol) 325 mg PO BID [facility] Last Admin: 07/06/17 16:39 Dose: 325 mg Furosemide (Lasix) 20 mg PO DAILY [facility] Last Admin: 07/06/17 09:10 Dose: 20 mg Lactic Acid (Lac-Hydrin 12% Lotion (225 G)) 1 applic TOP DAILY [facility] Last Admin: 07/06/17 09:11 Dose: 1 appl Lisinopril (Zestril) 5 mg PO DAILY [facility] Last Admin: 07/06/17 09:09 Dose: 5 mg Loratadine (Claritin) 10 mg PO DAILY [facility] Last Admin: 07/06/17 09:12 Dose: 10 mg - Labs Labs: 06/19/17 05:35 01/16/18 05:35 PT 12.5 Seconds (9.8-13.1) 01/17/17 13:40 INR 1.2 (0.9-1.2) 01/17/17 13:40 APTT 27.7 Seconds (25.6-37.1) 01/17/17 13:40 Assessment and Plan (1) Unwitnessed fall Assessment & Plan: Back Pain- Controlled with Tylenol Ambulation Problem Right Foot Droop Frail Elderly Wheelchair Dependent Continue Pain Management PRN Continue PT/OT Onboard SW 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 Status: Acute Priority: High (2) DVT prophylaxis Status: Acute (3) Hypercholesterolemia Status: Acute (4) Anemia Assessment and Plan: Normocytic Status: Chronic (5) HTN (hypertension) Status: Chronic (6) Hypothyroid Status: Chronic Priority: Low (7) CAD (coronary artery diseas Status: Chronic
[2017-07-07] MEDS: Calcium-Vit D 250 mg-125 Units Tab UD PO SCH (10:07)
[2017-07-08] MEDS: Calcium-Vit D 250 mg-125 Units Tab UD PO SCH (09:09)
[2017-07-09] MEDS: Calcium-Vit D 250 mg-125 Units Tab UD PO SCH (08:24)
[2017-07-10] MEDS: Calcium-Vit D 250 mg-125 Units Tab UD PO SCH (08:57)
[2017-07-11] MEDS: Calcium-Vit D 250 mg-125 Units Tab UD PO SCH (08:54)
[2017-07-12] MEDS: Calcium-Vit D 250 mg-125 Units Tab UD PO SCH (09:09)
--- NOTE | 2017-07-13 00:15 | CP.PCM.PN ---
Subjective - Date & Time of Evaluation Date of Evaluation: 07/07/17 Time of Evaluation: 17:00 - Subjective Subjective: Social hold due to unsafe discharge due to multiple falls and spinal fracture. Daughter and SW working to get Medicaid for placement. otherwise no complaint. Objective - Vital Signs/Intake and Output Vital Signs (last 24 hours): Temp Pulse Resp BP Pulse Ox 98.9 F 85 20 122/63 97 07/12/17 16:32 07/12/17 16:32 07/12/17 16:32 07/12/17 16:32 07/12/17 16:32 - Medications Medications: Current Medications Acetaminophen (Tylenol 325mg Tab) 650 mg PO Q6 PRN PRN Reason: Pain, moderate (4-7) Last Admin: 01/23/17 09:13 Dose: 650 mg Aspirin (Ecotrin) 81 mg PO DAILY [facility] Last Admin: 07/12/17 09:07 Dose: 81 mg Atorvastatin Calcium (Lipitor) 20 mg PO QPM [facility] Last Admin: 07/12/17 17:33 Dose: 20 mg Calcium/Vitamin D (Oscal-D 250 Mg-125 Units Tab) 1 tab PO DAILY [facility] Last Admin: 07/12/17 09:09 Dose: 1 tab Carvedilol (Coreg) 3.125 mg PO DAILY [facility] Last Admin: 07/12/17 09:06 Dose: 3.125 mg Docusate Sodium (Colace) 100 mg PO BID [facility] Last Admin: 07/12/17 17:32 Dose: 100 mg Famotidine (Pepcid) 20 mg PO DAILY [facility] Last Admin: 07/12/17 09:09 Dose: 20 mg Ferrous Sulfate (Feosol) 325 mg PO BID [facility] Last Admin: 07/12/17 17:32 Dose: 325 mg Furosemide (Lasix) 20 mg PO DAILY [facility] Last Admin: 07/12/17 09:08 Dose: 20 mg Lisinopril (Zestril) 5 mg PO DAILY [facility] Last Admin: 07/12/17 09:09 Dose: 5 mg Loratadine (Claritin) 10 mg PO DAILY [facility] Last Admin: 07/12/17 09:05 Dose: 10 mg - Labs Labs: 06/19/17 05:35 06/19/17 05:35 PT 12.5 Seconds (9.8-13.1) 01/17/17 13:40 INR 1.2 (0.9-1.2) 01/17/17 13:40 APTT 27.7 Seconds (25.6-37.1) 01/17/17 13:40 Assessment and Plan (1) Unwitnessed fall Assessment & Plan: Back Pain- Controlled with Tylenol Ambulation Problem Right Foot Droop Frail Elderly Wheelchair Dependent Continue Pain Management PRN Continue PT/OT Onboard SW 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 Status: Acute Priority: High (2) DVT prophylaxis Status: Acute (3) Hypercholesterolemia Status: Acute (4) Anemia Assessment and Plan: Normocytic Status: Chronic (5) HTN (hypertension) Status: Chronic (6) Hypothyroid Status: Chronic Priority: Low (7) CAD (coronary artery diseas Status: Chronic
--- NOTE | 2017-07-13 00:15 | CP.PCM.PN ---
Subjective - Date & Time of Evaluation Date of Evaluation: 07/08/17 Time of Evaluation: 17:05 - Subjective Subjective: Social hold due to unsafe discharge due to multiple falls and spinal fracture. Daughter and SW working to get Medicaid for placement. otherwise no complaint. Objective - Vital Signs/Intake and Output Vital Signs (last 24 hours): Temp Pulse Resp BP Pulse Ox 98.9 F 85 20 122/63 97 07/12/17 16:32 07/12/17 16:32 07/12/17 16:32 07/12/17 16:32 07/12/17 16:32 - Medications Medications: Current Medications Acetaminophen (Tylenol 325mg Tab) 650 mg PO Q6 PRN PRN Reason: Pain, moderate (4-7) Last Admin: 01/23/17 09:13 Dose: 650 mg Aspirin (Ecotrin) 81 mg PO DAILY [facility] Last Admin: 07/12/17 09:07 Dose: 81 mg Atorvastatin Calcium (Lipitor) 20 mg PO QPM [facility] Last Admin: 07/12/17 17:33 Dose: 20 mg Calcium/Vitamin D (Oscal-D 250 Mg-125 Units Tab) 1 tab PO DAILY [facility] Last Admin: 07/12/17 09:09 Dose: 1 tab Carvedilol (Coreg) 3.125 mg PO DAILY [facility] Last Admin: 07/12/17 09:06 Dose: 3.125 mg Docusate Sodium (Colace) 100 mg PO BID [facility] Last Admin: 07/12/17 17:32 Dose: 100 mg Famotidine (Pepcid) 20 mg PO DAILY [facility] Last Admin: 07/12/17 09:09 Dose: 20 mg Ferrous Sulfate (Feosol) 325 mg PO BID [facility] Last Admin: 07/12/17 17:32 Dose: 325 mg Furosemide (Lasix) 20 mg PO DAILY [facility] Last Admin: 07/12/17 09:08 Dose: 20 mg Lisinopril (Zestril) 5 mg PO DAILY [facility] Last Admin: 07/12/17 09:09 Dose: 5 mg Loratadine (Claritin) 10 mg PO DAILY [facility] Last Admin: 07/12/17 09:05 Dose: 10 mg - Labs Labs: 06/19/17 05:35 06/19/17 05:35 PT 12.5 Seconds (9.8-13.1) 01/17/17 13:40 INR 1.2 (0.9-1.2) 01/17/17 13:40 APTT 27.7 Seconds (25.6-37.1) 01/17/17 13:40 Assessment and Plan (1) Unwitnessed fall Assessment & Plan: Back Pain- Controlled with Tylenol Ambulation Problem Right Foot Droop Frail Elderly Wheelchair Dependent Continue Pain Management PRN Continue PT/OT Onboard SW Working for 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 Status: Acute Priority: High (2) DVT prophylaxis Status: Acute (3) Hypercholesterolemia Status: Acute (4) Anemia Assessment and Plan: Normocytic Status: Chronic (5) HTN (hypertension) Status: Chronic (6) Hypothyroid Status: Chronic Priority: Low (7) CAD (coronary artery diseas Status: Chronic
--- NOTE | 2017-07-13 00:18 | CP.PCM.PN ---
Subjective - Date & Time of Evaluation Date of Evaluation: 07/09/17 Time of Evaluation: 20:10 - Subjective Subjective: Social hold due to unsafe discharge due to multiple falls and spinal fracture. Daughter and SW working to get Medicaid for placement. otherwise no complaint. Objective - Vital Signs/Intake and Output Vital Signs (last 24 hours): Temp Pulse Resp BP Pulse Ox 98.9 F 85 20 122/63 97 07/12/17 16:32 07/12/17 16:32 07/12/17 16:32 07/12/17 16:32 07/12/17 16:32 - Medications Medications: Current Medications Acetaminophen (Tylenol 325mg Tab) 650 mg PO Q6 PRN PRN Reason: Pain, moderate (4-7) Last Admin: 01/23/17 09:13 Dose: 650 mg Aspirin (Ecotrin) 81 mg PO DAILY [facility] Last Admin: 07/12/17 09:07 Dose: 81 mg Atorvastatin Calcium (Lipitor) 20 mg PO QPM [facility] Last Admin: 07/12/17 17:33 Dose: 20 mg Calcium/Vitamin D (Oscal-D 250 Mg-125 Units Tab) 1 tab PO DAILY [facility] Last Admin: 07/12/17 09:09 Dose: 1 tab Carvedilol (Coreg) 3.125 mg PO DAILY [facility] Last Admin: 07/12/17 09:06 Dose: 3.125 mg Docusate Sodium (Colace) 100 mg PO BID [facility] Last Admin: 07/12/17 17:32 Dose: 100 mg Famotidine (Pepcid) 20 mg PO DAILY [facility] Last Admin: 07/12/17 09:09 Dose: 20 mg Ferrous Sulfate (Feosol) 325 mg PO BID [facility] Last Admin: 07/12/17 17:32 Dose: 325 mg Furosemide (Lasix) 20 mg PO DAILY [facility] Last Admin: 07/12/17 09:08 Dose: 20 mg Lisinopril (Zestril) 5 mg PO DAILY [facility] Last Admin: 07/12/17 09:09 Dose: 5 mg Loratadine (Claritin) 10 mg PO DAILY [facility] Last Admin: 07/12/17 09:05 Dose: 10 mg - Labs Labs: 06/19/17 05:35 06/19/17 05:35 PT 12.5 Seconds (9.8-13.1) 01/17/17 13:40 INR 1.2 (0.9-1.2) 01/17/17 13:40 APTT 27.7 Seconds (25.6-37.1) 01/17/17 13:40 Assessment and Plan (1) Unwitnessed fall Assessment & Plan: Back Pain- Controlled with Tylenol Ambulation Problem Right Foot Droop Frail Elderly Wheelchair Dependent Continue Pain Management PRN Continue PT/OT Onboard SW 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 Status: Acute Priority: High (2) DVT prophylaxis Status: Acute (3) Hypercholesterolemia Status: Acute (4) Anemia Assessment and Plan: Normocytic Status: Chronic (5) HTN (hypertension) Status: Chronic (6) Hypothyroid Status: Chronic Priority: Low (7) CAD (coronary artery diseas Status: Chronic
--- NOTE | 2017-07-13 00:19 | CP.PCM.PN ---
Subjective - Date & Time of Evaluation Date of Evaluation: 07/10/17 Time of Evaluation: 21:15 - Subjective Subjective: Social hold due to unsafe discharge due to multiple falls and spinal fracture. Daughter and SW working to get Medicaid for placement. otherwise no complaint. Objective - Vital Signs/Intake and Output Vital Signs (last 24 hours): Temp Pulse Resp BP Pulse Ox 98.9 F 85 20 122/63 97 07/12/17 16:32 07/12/17 16:32 07/12/17 16:32 07/12/17 16:32 07/12/17 16:32 - Medications Medications: Current Medications Acetaminophen (Tylenol 325mg Tab) 650 mg PO Q6 PRN PRN Reason: Pain, moderate (4-7) Last Admin: 01/23/17 09:13 Dose: 650 mg Aspirin (Ecotrin) 81 mg PO DAILY [facility] Last Admin: 07/12/17 09:07 Dose: 81 mg Atorvastatin Calcium (Lipitor) 20 mg PO QPM [facility] Last Admin: 07/12/17 17:33 Dose: 20 mg Calcium/Vitamin D (Oscal-D 250 Mg-125 Units Tab) 1 tab PO DAILY [facility] Last Admin: 07/12/17 09:09 Dose: 1 tab Carvedilol (Coreg) 3.125 mg PO DAILY [facility] Last Admin: 07/12/17 09:06 Dose: 3.125 mg Docusate Sodium (Colace) 100 mg PO BID [facility] Last Admin: 07/12/17 17:32 Dose: 100 mg Famotidine (Pepcid) 20 mg PO DAILY [facility] Last Admin: 07/12/17 09:09 Dose: 20 mg Ferrous Sulfate (Feosol) 325 mg PO BID [facility] Last Admin: 07/12/17 17:32 Dose: 325 mg Furosemide (Lasix) 20 mg PO DAILY [facility] Last Admin: 07/12/17 09:08 Dose: 20 mg Lisinopril (Zestril) 5 mg PO DAILY [facility] Last Admin: 07/12/17 09:09 Dose: 5 mg Loratadine (Claritin) 10 mg PO DAILY [facility] Last Admin: 07/12/17 09:05 Dose: 10 mg - Labs Labs: 06/19/17 05:35 06/19/17 05:35 PT 12.5 Seconds (9.8-13.1) 01/17/17 13:40 INR 1.2 (0.9-1.2) 01/17/17 13:40 APTT 27.7 Seconds (25.6-37.1) 01/17/17 13:40 Assessment and Plan (1) Unwitnessed fall Assessment & Plan: Back Pain- Controlled with Tylenol Ambulation Problem Right Foot Droop Frail Elderly Wheelchair Dependent Continue Pain Management PRN Continue PT/OT Onboard SW 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 Status: Acute Priority: High (2) DVT prophylaxis Status: Acute (3) Hypercholesterolemia Status: Acute (4) Anemia Assessment and Plan: Normocytic Status: Chronic (5) HTN (hypertension) Status: Chronic (6) Hypothyroid Status: Chronic Priority: Low (7) CAD (coronary artery diseas Status: Chronic
--- NOTE | 2017-07-13 00:20 | CP.PCM.PN ---
Subjective - Date & Time of Evaluation Date of Evaluation: 07/11/17 Time of Evaluation: 20:20 - Subjective Subjective: Social hold due to unsafe discharge due to multiple falls and spinal fracture. Daughter and SW working to get Medicaid for placement. otherwise no complaint. Objective - Vital Signs/Intake and Output Vital Signs (last 24 hours): Temp Pulse Resp BP Pulse Ox 98.9 F 85 20 122/63 97 07/12/17 16:32 07/12/17 16:32 07/12/17 16:32 07/12/17 16:32 07/12/17 16:32 - Medications Medications: Current Medications Acetaminophen (Tylenol 325mg Tab) 650 mg PO Q6 PRN PRN Reason: Pain, moderate (4-7) Last Admin: 01/23/17 09:13 Dose: 650 mg Aspirin (Ecotrin) 81 mg PO DAILY [facility] Last Admin: 07/12/17 09:07 Dose: 81 mg Atorvastatin Calcium (Lipitor) 20 mg PO QPM [facility] Last Admin: 07/12/17 17:33 Dose: 20 mg Calcium/Vitamin D (Oscal-D 250 Mg-125 Units Tab) 1 tab PO DAILY [facility] Last Admin: 07/12/17 09:09 Dose: 1 tab Carvedilol (Coreg) 3.125 mg PO DAILY [facility] Last Admin: 07/12/17 09:06 Dose: 3.125 mg Docusate Sodium (Colace) 100 mg PO BID [facility] Last Admin: 07/12/17 17:32 Dose: 100 mg Famotidine (Pepcid) 20 mg PO DAILY [facility] Last Admin: 07/12/17 09:09 Dose: 20 mg Ferrous Sulfate (Feosol) 325 mg PO BID [facility] Last Admin: 07/12/17 17:32 Dose: 325 mg Furosemide (Lasix) 20 mg PO DAILY [facility] Last Admin: 07/12/17 09:08 Dose: 20 mg Lisinopril (Zestril) 5 mg PO DAILY [facility] Last Admin: 07/12/17 09:09 Dose: 5 mg Loratadine (Claritin) 10 mg PO DAILY [facility] Last Admin: 07/12/17 09:05 Dose: 10 mg - Labs Labs: 06/19/17 05:35 06/19/17 05:35 PT 12.5 Seconds (9.8-13.1) 01/17/17 13:40 INR 1.2 (0.9-1.2) 01/17/17 13:40 APTT 27.7 Seconds (25.6-37.1) 01/17/17 13:40 Assessment and Plan (1) Unwitnessed fall Assessment & Plan: Back Pain- Controlled with Tylenol Ambulation Problem Right Foot Droop Frail Elderly Wheelchair Dependent Continue Pain Management PRN Continue PT/OT Onboard SW 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 Status: Acute Priority: High (2) DVT prophylaxis Status: Acute (3) Hypercholesterolemia Status: Acute (4) Anemia Assessment and Plan: Normocytic Status: Chronic (5) HTN (hypertension) Status: Chronic (6) Hypothyroid Status: Chronic Priority: Low (7) CAD (coronary artery diseas Status: Chronic
--- NOTE | 2017-07-13 00:21 | CP.PCM.PN ---
Subjective - Date & Time of Evaluation Date of Evaluation: 07/12/17 Time of Evaluation: 20:20 - Subjective Subjective: Social hold due to unsafe discharge due to multiple falls and spinal fracture. Daughter and SW working to get Medicaid for placement. otherwise no complaint. Objective - Vital Signs/Intake and Output Vital Signs (last 24 hours): Temp Pulse Resp BP Pulse Ox 98.9 F 85 20 122/63 97 07/12/17 16:32 07/12/17 16:32 07/12/17 16:32 07/12/17 16:32 07/12/17 16:32 - Medications Medications: Current Medications Acetaminophen (Tylenol 325mg Tab) 650 mg PO Q6 PRN PRN Reason: Pain, moderate (4-7) Last Admin: 01/23/17 09:13 Dose: 650 mg Aspirin (Ecotrin) 81 mg PO DAILY [facility] Last Admin: 07/12/17 09:07 Dose: 81 mg Atorvastatin Calcium (Lipitor) 20 mg PO QPM [facility] Last Admin: 07/12/17 17:33 Dose: 20 mg Calcium/Vitamin D (Oscal-D 250 Mg-125 Units Tab) 1 tab PO DAILY [facility] Last Admin: 07/12/17 09:09 Dose: 1 tab Carvedilol (Coreg) 3.125 mg PO DAILY [facility] Last Admin: 07/12/17 09:06 Dose: 3.125 mg Docusate Sodium (Colace) 100 mg PO BID [facility] Last Admin: 07/12/17 17:32 Dose: 100 mg Famotidine (Pepcid) 20 mg PO DAILY [facility] Last Admin: 07/12/17 09:09 Dose: 20 mg Ferrous Sulfate (Feosol) 325 mg PO BID [facility] Last Admin: 07/12/17 17:32 Dose: 325 mg Furosemide (Lasix) 20 mg PO DAILY [facility] Last Admin: 07/12/17 09:08 Dose: 20 mg Lisinopril (Zestril) 5 mg PO DAILY [facility] Last Admin: 07/12/17 09:09 Dose: 5 mg Loratadine (Claritin) 10 mg PO DAILY [facility] Last Admin: 07/12/17 09:05 Dose: 10 mg - Labs Labs: 06/19/17 05:35 06/19/17 05:35 PT 12.5 Seconds (9.8-13.1) 01/17/17 13:40 INR 1.2 (0.9-1.2) 01/17/17 13:40 APTT 27.7 Seconds (25.6-37.1) 01/17/17 13:40 Assessment and Plan (1) Unwitnessed fall Assessment & Plan: Back Pain- Controlled with Tylenol Ambulation Problem Right Foot Droop Frail Elderly Wheelchair Dependent Continue Pain Management PRN Continue PT/OT Onboard SW 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 Status: Acute Priority: High (2) DVT prophylaxis Status: Acute (3) Hypercholesterolemia Status: Acute (4) Anemia Assessment and Plan: Normocytic Status: Chronic (5) HTN (hypertension) Status: Chronic (6) Hypothyroid Status: Chronic Priority: Low (7) CAD (coronary artery diseas Status: Chronic
[2017-07-13 06:41] LABS: BASO % 0.4 % (0.0-2.0); EOS # 0.1 K/uL (0.0-0.7); EOS % 2.4 % (0.0-4.0); HEMOGLOBIN 11.2 g/dL (12.0-16.0); LYMPH # 1.5 K/uL (1.0-4.3); LYMPH % 32.9 % (20.0-40.0); MEAN CELL VOLUME 88.3 fl (81.0-99.0); MEAN CORPUSCULAR HEMOGLOBIN 28.4 pg (27.0-31.0); MEAN CORPUSCULAR HGB CONC 32.2 g/dL (33.0-37.0); MEAN PLATELET VOLUME 9.5 fl (7.2-11.7); MONO # 0.5 K/uL (0.0-0.8); MONO % 11.1 % (0.0-10.0); NEUT # 2.5 K/uL (1.8-7.0); NEUT % 53.2 % (50.0-75.0); NRBC % 0.1 % (0.0-0.0); RBC 3.92 Mil/uL (3.80-5.20); RED CELL DISTRIBUTION WIDTH 13.8 % (11.5-14.5); WHITE BLOOD COUNT 4.7 K/uL (4.8-10.8)
[2017-07-13 06:46] LABS: ALB/GLOB RATIO 1.2 (1.0-2.1); ALBUMIN 3.6 g/dL (3.5-5.0); ALT/SGPT 28 U/L (9-52); AST/SGOT 22 U/L (14-36); BLOOD UREA NITROGEN 21 mg/dl (7-17); CALCIUM 9.3 mg/dL (8.4-10.2); GFR AFRICAN-AMERICAN > 60; GFR NON-AFRICAN AMERICAN > 60; MAGNESIUM 1.9 MG/DL (1.6-2.3)
[2017-07-13] MEDS: Calcium-Vit D 250 mg-125 Units Tab UD PO SCH (09:16)
[2017-07-14] MEDS: Calcium-Vit D 250 mg-125 Units Tab UD PO SCH (10:22)
--- NOTE | 2017-07-15 00:15 | CP.PCM.PN ---
Subjective - Date & Time of Evaluation Date of Evaluation: 07/13/17 Time of Evaluation: 17:00 - Subjective Subjective: Eating and drinking well. Refused rehab and out of bed to chair daily. Objective - Vital Signs/Intake and Output Vital Signs (last 24 hours): Temp Pulse Resp BP Pulse Ox 99 F 100 H 20 127/72 99 07/14/17 15:59 07/14/17 15:59 07/14/17 15:59 07/14/17 15:59 07/14/17 15:59 - Medications Medications: Current Medications Acetaminophen (Tylenol 325mg Tab) 650 mg PO Q6 PRN PRN Reason: Pain, moderate (4-7) Last Admin: 01/23/17 09:13 Dose: 650 mg Aspirin (Ecotrin) 81 mg PO DAILY [facility] Last Admin: 07/14/17 10:22 Dose: 81 mg Atorvastatin Calcium (Lipitor) 20 mg PO QPM [facility] Last Admin: 07/14/17 18:12 Dose: 20 mg Calcium/Vitamin D (Oscal-D 250 Mg-125 Units Tab) 1 tab PO DAILY [facility] Last Admin: 07/14/17 10:22 Dose: 1 tab Carvedilol (Coreg) 3.125 mg PO DAILY [facility] Last Admin: 07/14/17 10:21 Dose: 3.125 mg Docusate Sodium (Colace) 100 mg PO BID [facility] Last Admin: 07/14/17 18:12 Dose: 100 mg Famotidine (Pepcid) 20 mg PO DAILY [facility] Last Admin: 07/14/17 10:22 Dose: 20 mg Ferrous Sulfate (Feosol) 325 mg PO BID [facility] Last Admin: 07/14/17 18:12 Dose: 325 mg Furosemide (Lasix) 20 mg PO DAILY [facility] Last Admin: 07/14/17 10:22 Dose: 20 mg Lisinopril (Zestril) 5 mg PO DAILY [facility] Last Admin: 07/14/17 10:23 Dose: 5 mg Loratadine (Claritin) 10 mg PO DAILY [facility] Last Admin: 07/14/17 10:23 Dose: 10 mg - Labs Labs: 07/13/17 05:45 07/13/17 05:45 PT 12.5 Seconds (9.8-13.1) 01/17/17 13:40 INR 1.2 (0.9-1.2) 01/17/17 13:40 APTT 27.7 Seconds (25.6-37.1) 01/17/17 13:40 Assessment and Plan (1) Unwitnessed fall Assessment & Plan: Back Pain- Controlled with Tylenol Ambulation Problem Right Foot Droop Frail Elderly Wheelchair Dependent Continue Pain Management PRN Continue PT/OT Onboard SW 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 Status: Acute Priority: High (2) DVT prophylaxis Status: Acute (3) Hypercholesterolemia Status: Acute (4) Anemia Assessment and Plan: Normocytic Status: Chronic (5) HTN (hypertension) Status: Chronic (6) Hypothyroid Status: Chronic Priority: Low (7) CAD (coronary artery diseas Status: Chronic
--- NOTE | 2017-07-15 00:15 | CP.PCM.PN ---
Subjective - Date & Time of Evaluation Date of Evaluation: 07/14/17 Time of Evaluation: 16:55 - Subjective Subjective: No complaint. Objective - Vital Signs/Intake and Output Vital Signs (last 24 hours): Temp Pulse Resp BP Pulse Ox 99 F 100 H 20 127/72 99 07/14/17 15:59 07/14/17 15:59 07/14/17 15:59 07/14/17 15:59 07/14/17 15:59 - Medications Medications: Current Medications Acetaminophen (Tylenol 325mg Tab) 650 mg PO Q6 PRN PRN Reason: Pain, moderate (4-7) Last Admin: 01/23/17 09:13 Dose: 650 mg Aspirin (Ecotrin) 81 mg PO DAILY [facility] Last Admin: 07/14/17 10:22 Dose: 81 mg Atorvastatin Calcium (Lipitor) 20 mg PO QPM [facility] Last Admin: 07/14/17 18:12 Dose: 20 mg Calcium/Vitamin D (Oscal-D 250 Mg-125 Units Tab) 1 tab PO DAILY [facility] Last Admin: 07/14/17 10:22 Dose: 1 tab Carvedilol (Coreg) 3.125 mg PO DAILY [facility] Last Admin: 07/14/17 10:21 Dose: 3.125 mg Docusate Sodium (Colace) 100 mg PO BID [facility] Last Admin: 07/14/17 18:12 Dose: 100 mg Famotidine (Pepcid) 20 mg PO DAILY [facility] Last Admin: 07/14/17 10:22 Dose: 20 mg Ferrous Sulfate (Feosol) 325 mg PO BID [facility] Last Admin: 07/14/17 18:12 Dose: 325 mg Furosemide (Lasix) 20 mg PO DAILY [facility] Last Admin: 07/14/17 10:22 Dose: 20 mg Lisinopril (Zestril) 5 mg PO DAILY [facility] Last Admin: 07/14/17 10:23 Dose: 5 mg Loratadine (Claritin) 10 mg PO DAILY [facility] Last Admin: 07/14/17 10:23 Dose: 10 mg - Labs Labs: 07/13/17 05:45 07/13/17 05:45 PT 12.5 Seconds (9.8-13.1) 01/17/17 13:40 INR 1.2 (0.9-1.2) 01/17/17 13:40 APTT 27.7 Seconds (25.6-37.1) 01/17/17 13:40 Assessment and Plan (1) Unwitnessed fall Assessment & Plan: Back Pain- Controlled with Tylenol Ambulation Problem Right Foot Droop Frail Elderly Wheelchair Dependent Continue Pain Management PRN Continue PT/OT Onboard SW 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 Status: Acute Priority: High (2) DVT prophylaxis Status: Acute (3) Hypercholesterolemia Status: Acute (4) Anemia Assessment and Plan: Normocytic Status: Chronic (5) HTN (hypertension) Status: Chronic (6) Hypothyroid Status: Chronic Priority: Low (7) CAD (coronary artery diseas Status: Chronic
[2017-07-15] MEDS: Calcium-Vit D 250 mg-125 Units Tab UD PO SCH (08:30)
--- NOTE | 2017-07-15 16:37 | CP.PCM.PN ---
Subjective - Date & Time of Evaluation Date of Evaluation: 07/15/17 Time of Evaluation: 13:50 - Subjective Subjective: Social hold due to unsafe discharge due to multiple falls and spinal fracture. Daughter and SW working to get Medicaid for placement. otherwise no complaint. Objective - Vital Signs/Intake and Output Vital Signs (last 24 hours): Temp Pulse Resp BP Pulse Ox 98.5 F 76 20 110/66 98 07/15/17 08:01 07/15/17 08:32 07/15/17 08:01 07/15/17 08:32 07/15/17 08:01 - Medications Medications: Current Medications Acetaminophen (Tylenol 325mg Tab) 650 mg PO Q6 PRN PRN Reason: Pain, moderate (4-7) Last Admin: 01/23/17 09:13 Dose: 650 mg Aspirin (Ecotrin) 81 mg PO DAILY [facility] Last Admin: 07/15/17 08:32 Dose: 81 mg Atorvastatin Calcium (Lipitor) 20 mg PO QPM [facility] Last Admin: 07/14/17 18:12 Dose: 20 mg Calcium/Vitamin D (Oscal-D 250 Mg-125 Units Tab) 1 tab PO DAILY [facility] Last Admin: 07/15/17 08:30 Dose: 1 tab Carvedilol (Coreg) 3.125 mg PO DAILY [facility] Last Admin: 07/15/17 08:32 Dose: 3.125 mg Docusate Sodium (Colace) 100 mg PO BID [facility] Last Admin: 07/15/17 16:02 Dose: 100 mg Famotidine (Pepcid) 20 mg PO DAILY [facility] Last Admin: 07/15/17 08:31 Dose: 20 mg Ferrous Sulfate (Feosol) 325 mg PO BID [facility] Last Admin: 07/15/17 16:02 Dose: 325 mg Furosemide (Lasix) 20 mg PO DAILY [facility] Last Admin: 07/15/17 08:31 Dose: 20 mg Lisinopril (Zestril) 5 mg PO DAILY [facility] Last Admin: 07/15/17 08:31 Dose: 5 mg Loratadine (Claritin) 10 mg PO DAILY [facility] Last Admin: 07/15/17 08:31 Dose: 10 mg - Labs Labs: 07/13/17 05:45 07/13/17 05:45 PT 12.5 Seconds (9.8-13.1) 01/17/17 13:40 INR 1.2 (0.9-1.2) 01/17/17 13:40 APTT 27.7 Seconds (25.6-37.1) 01/17/17 13:40 Assessment and Plan (1) Unwitnessed fall Assessment & Plan: Back Pain- Controlled with Tylenol Ambulation Problem Right Foot Droop Frail Elderly Wheelchair Dependent Continue Pain Management PRN Continue PT/OT Onboard SW Working for Medicaid application for long term care social worker placement. Status: Acute Priority: High (2) DVT prophylaxis Status: Acute (3) Hypercholesterolemia Status: Acute (4) Anemia Assessment and Plan: Normocytic Status: Chronic (5) HTN (hypertension) Status: Chronic (6) Hypothyroid Status: Chronic Priority: Low (7) CAD (coronary artery diseas Status: Chronic
[2017-07-16] MEDS: Calcium-Vit D 250 mg-125 Units Tab UD PO SCH (08:54)
--- NOTE | 2017-07-16 23:37 | CP.PCM.PN ---
Subjective - Date & Time of Evaluation Date of Evaluation: 07/16/17 Time of Evaluation: 19:25 - Subjective Subjective: No New complaint. Objective - Vital Signs/Intake and Output Vital Signs (last 24 hours): Temp Pulse Resp BP Pulse Ox 98.6 F 91 H 20 108/63 98 07/16/17 16:02 07/16/17 16:02 07/16/17 16:02 07/16/17 16:02 07/16/17 16:02 - Medications Medications: Current Medications Acetaminophen (Tylenol 325mg Tab) 650 mg PO Q6 PRN PRN Reason: Pain, moderate (4-7) Last Admin: 01/23/17 09:13 Dose: 650 mg Aspirin (Ecotrin) 81 mg PO DAILY [facility] Last Admin: 07/16/17 08:53 Dose: 81 mg Atorvastatin Calcium (Lipitor) 20 mg PO QPM [facility] Last Admin: 07/16/17 17:47 Dose: 20 mg Calcium/Vitamin D (Oscal-D 250 Mg-125 Units Tab) 1 tab PO DAILY [facility] Last Admin: 07/16/17 08:54 Dose: 1 tab Carvedilol (Coreg) 3.125 mg PO DAILY [facility] Last Admin: 07/16/17 08:54 Dose: 3.125 mg Docusate Sodium (Colace) 100 mg PO BID [facility] Last Admin: 07/16/17 17:47 Dose: 100 mg Famotidine (Pepcid) 20 mg PO DAILY [facility] Last Admin: 07/16/17 08:54 Dose: 20 mg Ferrous Sulfate (Feosol) 325 mg PO BID [facility] Last Admin: 07/16/17 17:47 Dose: 325 mg Furosemide (Lasix) 20 mg PO DAILY [facility] Last Admin: 07/16/17 08:54 Dose: 20 mg Lisinopril (Zestril) 5 mg PO DAILY [facility] Last Admin: 07/16/17 08:55 Dose: 5 mg Loratadine (Claritin) 10 mg PO DAILY [facility] Last Admin: 07/16/17 08:53 Dose: 10 mg - Labs Labs: 07/13/17 05:45 07/13/17 05:45 PT 12.5 Seconds (9.8-13.1) 01/17/17 13:40 INR 1.2 (0.9-1.2) 01/17/17 13:40 APTT 27.7 Seconds (25.6-37.1) 01/17/17 13:40 Assessment and Plan (1) Unwitnessed fall Assessment & Plan: Back Pain- Controlled with Tylenol Ambulation Problem Right Foot Droop Frail Elderly Wheelchair Dependent Continue Pain Management PRN Continue PT/OT Onboard SW Working for Medicaid application for senior care placement. Status: Acute Priority: High (2) DVT prophylaxis Status: Acute (3) Hypercholesterolemia Status: Acute (4) Anemia Assessment and Plan: Normocytic Status: Chronic (5) HTN (hypertension) Status: Chronic (6) Hypothyroid Status: Chronic Priority: Low (7) CAD (coronary artery diseas Status: Chronic
[2017-07-17] MEDS: Calcium-Vit D 250 mg-125 Units Tab UD PO SCH (09:34)
[2017-07-18] MEDS: Calcium-Vit D 250 mg-125 Units Tab UD PO SCH (10:08)
--- NOTE | 2017-07-18 22:09 | CP.PCM.PN ---
Subjective - Date & Time of Evaluation Date of Evaluation: 07/17/17 Time of Evaluation: 11:05 - Subjective Subjective: No complaint. Normal appetite and BMV. Objective - Vital Signs/Intake and Output Vital Signs (last 24 hours): Temp Pulse Resp BP Pulse Ox 98.4 F 80 20 106/67 100 07/18/17 07:59 07/18/17 07:59 07/18/17 07:59 07/18/17 10:00 07/18/17 07:59 - Medications Medications: Current Medications Acetaminophen (Tylenol 325mg Tab) 650 mg PO Q6 PRN PRN Reason: Pain, moderate (4-7) Last Admin: 01/23/17 09:13 Dose: 650 mg Aspirin (Ecotrin) 81 mg PO DAILY [facility] Last Admin: 07/18/17 10:00 Dose: 81 mg Atorvastatin Calcium (Lipitor) 20 mg PO QPM [facility] Last Admin: 07/18/17 18:07 Dose: 20 mg Calcium/Vitamin D (Oscal-D 250 Mg-125 Units Tab) 1 tab PO DAILY [facility] Last Admin: 07/18/17 10:08 Dose: 1 tab Carvedilol (Coreg) 3.125 mg PO DAILY [facility] Last Admin: 07/18/17 10:00 Dose: 3.125 mg Docusate Sodium (Colace) 100 mg PO BID [facility] Last Admin: 07/18/17 18:07 Dose: 100 mg Famotidine (Pepcid) 20 mg PO DAILY [facility] Last Admin: 07/18/17 10:00 Dose: 20 mg Ferrous Sulfate (Feosol) 325 mg PO BID [facility] Last Admin: 07/18/17 18:07 Dose: 325 mg Furosemide (Lasix) 20 mg PO DAILY [facility] Last Admin: 07/18/17 10:00 Dose: 20 mg Lisinopril (Zestril) 5 mg PO DAILY [facility] Last Admin: 07/18/17 09:59 Dose: 5 mg Loratadine (Claritin) 10 mg PO DAILY [facility] Last Admin: 07/18/17 10:00 Dose: 10 mg - Labs Labs: 07/13/17 05:45 07/13/17 05:45 PT 12.5 Seconds (9.8-13.1) 01/17/17 13:40 INR 1.2 (0.9-1.2) 08/16/17 13:40 APTT 27.7 Seconds (25.6-37.1) 01/17/17 13:40 Assessment and Plan (1) Unwitnessed fall Assessment & Plan: Back Pain- Controlled with Tylenol Ambulation Problem Right Foot Droop Frail Elderly Wheelchair Dependent Continue Pain Management PRN Continue PT/OT Onboard SW 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 Status: Acute Priority: High (2) DVT prophylaxis Status: Acute (3) Hypercholesterolemia Status: Acute (4) Anemia Assessment and Plan: Normocytic Status: Chronic (5) HTN (hypertension) Status: Chronic (6) Hypothyroid Status: Chronic Priority: Low (7) CAD (coronary artery diseas Status: Chronic
--- NOTE | 2017-07-18 22:10 | CP.PCM.PN ---
Subjective - Date & Time of Evaluation Date of Evaluation: 07/18/17 Time of Evaluation: 10:45 - Subjective Subjective: No new complaint. Does not want to sit on the chair because she feel cold and tired. Objective - Vital Signs/Intake and Output Vital Signs (last 24 hours): Temp Pulse Resp BP Pulse Ox 98.4 F 80 20 106/67 100 07/18/17 07:59 07/18/17 07:59 07/18/17 07:59 07/18/17 10:00 07/18/17 07:59 - Medications Medications: Current Medications Acetaminophen (Tylenol 325mg Tab) 650 mg PO Q6 PRN PRN Reason: Pain, moderate (4-7) Last Admin: 01/23/17 09:13 Dose: 650 mg Aspirin (Ecotrin) 81 mg PO DAILY [facility] Last Admin: 07/18/17 10:00 Dose: 81 mg Atorvastatin Calcium (Lipitor) 20 mg PO QPM [facility] Last Admin: 07/18/17 18:07 Dose: 20 mg Calcium/Vitamin D (Oscal-D 250 Mg-125 Units Tab) 1 tab PO DAILY [facility] Last Admin: 07/18/17 10:08 Dose: 1 tab Carvedilol (Coreg) 3.125 mg PO DAILY [facility] Last Admin: 07/18/17 10:00 Dose: 3.125 mg Docusate Sodium (Colace) 100 mg PO BID [facility] Last Admin: 07/18/17 18:07 Dose: 100 mg Famotidine (Pepcid) 20 mg PO DAILY [facility] Last Admin: 07/18/17 10:00 Dose: 20 mg Ferrous Sulfate (Feosol) 325 mg PO BID [facility] Last Admin: 07/18/17 18:07 Dose: 325 mg Furosemide (Lasix) 20 mg PO DAILY [facility] Last Admin: 07/18/17 10:00 Dose: 20 mg Lisinopril (Zestril) 5 mg PO DAILY [facility] Last Admin: 07/18/17 09:59 Dose: 5 mg Loratadine (Claritin) 10 mg PO DAILY [facility] Last Admin: 07/18/17 10:00 Dose: 10 mg - Labs Labs: 07/13/17 05:45 07/13/17 05:45 PT 12.5 Seconds (9.8-13.1) 01/17/17 13:40 INR 1.2 (0.9-1.2) 01/17/17 13:40 APTT 27.7 Seconds (25.6-37.1) 01/17/17 13:40 Assessment and Plan (1) Unwitnessed fall Assessment & Plan: Back Pain- Controlled with Tylenol Ambulation Problem Right Foot Droop Frail Elderly Wheelchair Dependent Continue Pain Management PRN Continue PT/OT Onboard SW Working for Medicaid application for prison placement. Status: Acute Priority: High (2) DVT prophylaxis Status: Acute (3) Hypercholesterolemia Status: Acute (4) Anemia Assessment and Plan: Normocytic Status: Chronic (5) HTN (hypertension) Status: Chronic (6) Hypothyroid Status: Chronic Priority: Low (7) CAD (coronary artery diseas Status: Chronic
[2017-07-19] MEDS: Calcium-Vit D 250 mg-125 Units Tab UD PO SCH (09:06)
[2017-07-20] MEDS: Enoxaparin 40 mg Syringe SC SCH (09:35)
[2017-07-20] MEDS: Calcium-Vit D 250 mg-125 Units Tab UD PO SCH (09:35)
--- NOTE | 2017-07-20 20:14 | CP.PCM.PN ---
Subjective - Date & Time of Evaluation Date of Evaluation: 07/20/17 Time of Evaluation: 15:10 - Subjective Subjective: No new complaint. Eating well. Objective - Vital Signs/Intake and Output Vital Signs (last 24 hours): Temp Pulse Resp BP Pulse Ox 98.1 F 79 20 121/71 99 07/20/17 08:12 07/20/17 09:35 07/20/17 08:12 07/20/17 09:35 07/20/17 08:12 - Medications Medications: Current Medications Acetaminophen (Tylenol 325mg Tab) 650 mg PO Q6 PRN PRN Reason: Pain, moderate (4-7) Last Admin: 01/23/17 09:13 Dose: 650 mg Aspirin (Ecotrin) 81 mg PO DAILY [facility] Last Admin: 07/20/17 09:34 Dose: 81 mg Atorvastatin Calcium (Lipitor) 20 mg PO QPM [facility] Last Admin: 07/20/17 18:00 Dose: 20 mg Calcium/Vitamin D (Oscal-D 250 Mg-125 Units Tab) 1 tab PO DAILY [facility] Last Admin: 07/20/17 09:35 Dose: 1 tab Carvedilol (Coreg) 3.125 mg PO DAILY [facility] Last Admin: 07/20/17 09:34 Dose: 3.125 mg Docusate Sodium (Colace) 100 mg PO BID [facility] Last Admin: 07/20/17 17:58 Dose: 100 mg Enoxaparin Sodium (Lovenox) 40 mg SC DAILY [facility] PRN Reason: Protocol Last Admin: 07/20/17 09:35 Dose: 40 mg Famotidine (Pepcid) 20 mg PO DAILY [facility] Last Admin: 07/20/17 09:35 Dose: 20 mg Ferrous Sulfate (Feosol) 325 mg PO BID [facility] Last Admin: 07/20/17 17:58 Dose: 325 mg Furosemide (Lasix) 20 mg PO DAILY [facility] Last Admin: 07/20/17 09:35 Dose: 20 mg Lisinopril (Zestril) 5 mg PO DAILY [facility] Last Admin: 07/20/17 09:35 Dose: 5 mg Loratadine (Claritin) 10 mg PO DAILY [facility] Last Admin: 07/20/17 09:33 Dose: 10 mg - Labs Labs: 07/13/17 05:45 07/13/17 05:45 PT 12.5 Seconds (9.8-13.1) 01/17/17 13:40 INR 1.2 (0.9-1.2) 01/17/17 13:40 APTT 27.7 Seconds (25.6-37.1) 01/17/17 13:40 Assessment and Plan (1) Unwitnessed fall Assessment & Plan: Back Pain- Controlled with Tylenol Ambulation Problem Right Foot Droop Frail Elderly Wheelchair Dependent Continue Pain Management PRN Continue PT/OT Onboard SW 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 Status: Acute Priority: High (2) DVT prophylaxis Status: Acute (3) Hypercholesterolemia Status: Acute (4) Anemia Assessment and Plan: Normocytic Status: Chronic (5) HTN (hypertension) Status: Chronic (6) Hypothyroid Status: Chronic Priority: Low (7) CAD (coronary artery diseas Status: Chronic
--- NOTE | 2017-07-21 01:32 | CP.PCM.PN ---
Subjective - Date & Time of Evaluation Date of Evaluation: 07/19/17 Time of Evaluation: 17:15 - Subjective Subjective: No complaint. Objective - Vital Signs/Intake and Output Vital Signs (last 24 hours): Temp Pulse Resp BP Pulse Ox 98.1 F 84 20 116/71 98 07/20/17 23:52 07/20/17 23:52 07/20/17 23:52 07/20/17 23:52 07/20/17 23:52 - Medications Medications: Current Medications Acetaminophen (Tylenol 325mg Tab) 650 mg PO Q6 PRN PRN Reason: Pain, moderate (4-7) Last Admin: 01/23/17 09:13 Dose: 650 mg Aspirin (Ecotrin) 81 mg PO DAILY [facility] Last Admin: 07/20/17 09:34 Dose: 81 mg Atorvastatin Calcium (Lipitor) 20 mg PO QPM [facility] Last Admin: 07/20/17 18:00 Dose: 20 mg Calcium/Vitamin D (Oscal-D 250 Mg-125 Units Tab) 1 tab PO DAILY [facility] Last Admin: 07/20/17 09:35 Dose: 1 tab Carvedilol (Coreg) 3.125 mg PO DAILY [facility] Last Admin: 07/20/17 09:34 Dose: 3.125 mg Docusate Sodium (Colace) 100 mg PO BID [facility] Last Admin: 07/20/17 17:58 Dose: 100 mg Enoxaparin Sodium (Lovenox) 40 mg SC DAILY [facility] PRN Reason: Protocol Last Admin: 07/20/17 09:35 Dose: 40 mg Famotidine (Pepcid) 20 mg PO DAILY [facility] Last Admin: 07/20/17 09:35 Dose: 20 mg Ferrous Sulfate (Feosol) 325 mg PO BID [facility] Last Admin: 07/20/17 17:58 Dose: 325 mg Furosemide (Lasix) 20 mg PO DAILY [facility] Last Admin: 07/20/17 09:35 Dose: 20 mg Lisinopril (Zestril) 5 mg PO DAILY [facility] Last Admin: 07/20/17 09:35 Dose: 5 mg Loratadine (Claritin) 10 mg PO DAILY [facility] Last Admin: 07/20/17 09:33 Dose: 10 mg - Labs Labs: 07/13/17 05:45 07/13/17 05:45 PT 12.5 Seconds (9.8-13.1) 01/17/17 13:40 INR 1.2 (0.9-1.2) 01/17/17 13:40 APTT 27.7 Seconds (25.6-37.1) 01/17/17 13:40 Assessment and Plan (1) Unwitnessed fall Assessment & Plan: Back Pain- Controlled with Tylenol Ambulation Problem Right Foot Droop Frail Elderly Wheelchair Dependent Continue Pain Management PRN Continue PT/OT Onboard SW 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 Status: Acute Priority: High (2) DVT prophylaxis Status: Acute (3) Hypercholesterolemia Status: Acute (4) Anemia Assessment and Plan: Normocytic Status: Chronic (5) HTN (hypertension) Status: Chronic (6) Hypothyroid Status: Chronic Priority: Low (7) CAD (coronary artery diseas Status: Chronic
[2017-07-21] MEDS: Enoxaparin 40 mg Syringe SC SCH (08:57)
[2017-07-21] MEDS: Calcium-Vit D 250 mg-125 Units Tab UD PO SCH (08:58)
--- NOTE | 2017-07-21 22:08 | CP.PCM.PN ---
Subjective - Date & Time of Evaluation Date of Evaluation: 07/21/17 Time of Evaluation: 18:40 - Subjective Subjective: Social hold due to unsafe discharge due to multiple falls and spinal fracture. Daughter and SW working to get Medicaid for placement. otherwise no complaint Objective - Vital Signs/Intake and Output Vital Signs (last 24 hours): Temp Pulse Resp BP Pulse Ox 98.3 F 73 18 94/54 L 99 07/21/17 16:06 07/21/17 16:06 07/21/17 16:06 07/21/17 16:06 07/21/17 16:06 - Medications Medications: Current Medications Acetaminophen (Tylenol 325mg Tab) 650 mg PO Q6 PRN PRN Reason: Pain, moderate (4-7) Last Admin: 01/23/17 09:13 Dose: 650 mg Aspirin (Ecotrin) 81 mg PO DAILY [facility] Last Admin: 07/21/17 08:58 Dose: 81 mg Atorvastatin Calcium (Lipitor) 20 mg PO QPM [facility] Last Admin: 07/21/17 17:45 Dose: 20 mg Calcium/Vitamin D (Oscal-D 250 Mg-125 Units Tab) 1 tab PO DAILY [facility] Last Admin: 07/21/17 08:58 Dose: 1 tab Carvedilol (Coreg) 3.125 mg PO DAILY [facility] Last Admin: 07/21/17 08:58 Dose: 3.125 mg Docusate Sodium (Colace) 100 mg PO BID [facility] Last Admin: 07/21/17 16:29 Dose: 100 mg Enoxaparin Sodium (Lovenox) 40 mg SC DAILY [facility] PRN Reason: Protocol Last Admin: 07/21/17 08:57 Dose: 40 mg Famotidine (Pepcid) 20 mg PO DAILY [facility] Last Admin: 07/21/17 08:58 Dose: 20 mg Ferrous Sulfate (Feosol) 325 mg PO BID [facility] Last Admin: 07/21/17 16:29 Dose: 325 mg Furosemide (Lasix) 20 mg PO DAILY [facility] Last Admin: 07/21/17 08:58 Dose: 20 mg Lisinopril (Zestril) 5 mg PO DAILY [facility] Last Admin: 07/21/17 08:58 Dose: 5 mg Loratadine (Claritin) 10 mg PO DAILY [facility] Last Admin: 07/21/17 08:59 Dose: 10 mg - Labs Labs: 07/13/17 05:45 07/13/17 05:45 PT 12.5 Seconds (9.8-13.1) 01/17/17 13:40 INR 1.2 (0.9-1.2) 01/17/17 13:40 APTT 27.7 Seconds (25.6-37.1) 01/17/17 13:40 Assessment and Plan (1) Unwitnessed fall Assessment & Plan: Back Pain- Controlled with Tylenol Ambulation Problem Right Foot Droop Frail Elderly Wheelchair Dependent Continue Pain Management PRN Continue PT/OT Onboard SW Working for Medicaid application for assisted placement. Status: Acute Priority: High (2) DVT prophylaxis Status: Acute (3) Hypercholesterolemia Status: Acute (4) Anemia Assessment and Plan: Normocytic Status: Chronic (5) HTN (hypertension) Status: Chronic (6) Hypothyroid Status: Chronic Priority: Low (7) CAD (coronary artery diseas Status: Chronic
[2017-07-22] MEDS: Enoxaparin 40 mg Syringe SC SCH (10:12)
[2017-07-22] MEDS: Calcium-Vit D 250 mg-125 Units Tab UD PO SCH (10:12)
--- NOTE | 2017-07-22 22:30 | CP.PCM.PN ---
Subjective - Date & Time of Evaluation Date of Evaluation: 07/22/17 Time of Evaluation: 18:25 - Subjective Subjective: Social hold due to unsafe discharge due to multiple falls and spinal fracture. Daughter and SW working to get Medicaid for placement. otherwise no complaint Objective - Vital Signs/Intake and Output Vital Signs (last 24 hours): Temp Pulse Resp BP Pulse Ox 98 F 81 20 123/66 99 07/22/17 16:17 07/22/17 16:17 07/22/17 16:17 07/22/17 16:17 07/22/17 16:17 - Medications Medications: Current Medications Acetaminophen (Tylenol 325mg Tab) 650 mg PO Q6 PRN PRN Reason: Pain, moderate (4-7) Last Admin: 01/23/17 09:13 Dose: 650 mg Aspirin (Ecotrin) 81 mg PO DAILY [facility] Last Admin: 07/22/17 10:12 Dose: 81 mg Atorvastatin Calcium (Lipitor) 20 mg PO QPM [facility] Last Admin: 07/22/17 17:48 Dose: 20 mg Calcium/Vitamin D (Oscal-D 250 Mg-125 Units Tab) 1 tab PO DAILY [facility] Last Admin: 07/22/17 10:12 Dose: 1 tab Carvedilol (Coreg) 3.125 mg PO DAILY [facility] Last Admin: 07/22/17 10:11 Dose: 3.125 mg Docusate Sodium (Colace) 100 mg PO BID [facility] Last Admin: 07/22/17 17:47 Dose: 100 mg Enoxaparin Sodium (Lovenox) 40 mg SC DAILY [facility] PRN Reason: Protocol Last Admin: 07/22/17 10:12 Dose: 40 mg Famotidine (Pepcid) 20 mg PO DAILY [facility] Last Admin: 07/22/17 10:13 Dose: 20 mg Ferrous Sulfate (Feosol) 325 mg PO BID [facility] Last Admin: 07/22/17 17:48 Dose: 325 mg Furosemide (Lasix) 20 mg PO DAILY [facility] Last Admin: 07/22/17 10:12 Dose: 20 mg Lisinopril (Zestril) 5 mg PO DAILY [facility] Last Admin: 07/22/17 10:13 Dose: 5 mg Loratadine (Claritin) 10 mg PO DAILY [facility] Last Admin: 07/22/17 10:11 Dose: 10 mg - Labs Labs: 07/13/17 05:45 07/13/17 05:45 PT 12.5 Seconds (9.8-13.1) 01/17/17 13:40 INR 1.2 (0.9-1.2) 01/17/17 13:40 APTT 27.7 Seconds (25.6-37.1) 01/17/17 13:40 Assessment and Plan (1) Unwitnessed fall Status: Chronic
[2017-07-23] MEDS: Enoxaparin 40 mg Syringe SC SCH (10:00)
[2017-07-23] MEDS: Calcium-Vit D 250 mg-125 Units Tab UD PO SCH (10:01)
--- NOTE | 2017-07-23 20:37 | CP.PCM.PN ---
Subjective - Date & Time of Evaluation Date of Evaluation: 07/23/17 Time of Evaluation: 15:30 - Subjective Subjective: No new complaint Objective - Vital Signs/Intake and Output Vital Signs (last 24 hours): Temp Pulse Resp BP Pulse Ox 98.8 F 84 20 90/60 L 96 07/23/17 17:00 07/23/17 17:00 07/23/17 17:00 07/23/17 17:00 07/23/17 17:00 - Medications Medications: Current Medications Acetaminophen (Tylenol 325mg Tab) 650 mg PO Q6 PRN PRN Reason: Pain, moderate (4-7) Last Admin: 01/23/17 09:13 Dose: 650 mg Aspirin (Ecotrin) 81 mg PO DAILY [facility] Last Admin: 07/23/17 09:59 Dose: 81 mg Atorvastatin Calcium (Lipitor) 20 mg PO QPM [facility] Last Admin: 07/23/17 17:53 Dose: 20 mg Calcium/Vitamin D (Oscal-D 250 Mg-125 Units Tab) 1 tab PO DAILY [facility] Last Admin: 07/23/17 10:01 Dose: 1 tab Carvedilol (Coreg) 3.125 mg PO DAILY [facility] Last Admin: 07/23/17 10:01 Dose: 3.125 mg Docusate Sodium (Colace) 100 mg PO BID [facility] Last Admin: 07/23/17 17:50 Dose: 100 mg Famotidine (Pepcid) 20 mg PO DAILY [facility] Last Admin: 07/23/17 10:01 Dose: 20 mg Ferrous Sulfate (Feosol) 325 mg PO BID [facility] Last Admin: 07/23/17 17:51 Dose: 325 mg Furosemide (Lasix) 20 mg PO DAILY [facility] Last Admin: 07/23/17 10:00 Dose: 20 mg Lisinopril (Zestril) 5 mg PO DAILY [facility] Last Admin: 07/23/17 10:01 Dose: 5 mg Loratadine (Claritin) 10 mg PO DAILY [facility] Last Admin: 07/23/17 09:59 Dose: 10 mg - Labs Labs: 07/13/17 05:45 07/13/17 05:45 PT 12.5 Seconds (9.8-13.1) 01/17/17 13:40 INR 1.2 (0.9-1.2) 01/17/17 13:40 APTT 27.7 Seconds (25.6-37.1) 01/17/17 13:40 Assessment and Plan (1) Unwitnessed fall Assessment & Plan: Back Pain- Controlled with Tylenol Ambulation Problem Right Foot Droop Frail Elderly Wheelchair Dependent Continue Pain Management PRN Continue PT/OT Onboard SW Working for Medicaid application for skilled nursing placement. Status: Acute Priority: High (2) DVT prophylaxis Status: Acute (3) Hypercholesterolemia Status: Acute (4) Anemia Assessment and Plan: Normocytic Status: Chronic (5) HTN (hypertension) Status: Chronic (6) Hypothyroid Status: Chronic Priority: Low (7) CAD (coronary artery diseas Status: Chronic
[2017-07-24] MEDS: Calcium-Vit D 250 mg-125 Units Tab UD PO SCH (09:31)
--- NOTE | 2017-07-24 20:49 | CP.PCM.PN ---
Subjective - Date & Time of Evaluation Date of Evaluation: 07/24/17 Time of Evaluation: 13:15 - Subjective Subjective: Denies any complaint. Would like to go home.Unsafe to go home due to multiple falls and unable to care for self. Objective - Vital Signs/Intake and Output Vital Signs (last 24 hours): Temp Pulse Resp BP Pulse Ox 97.8 F 66 20 129/72 100 07/24/17 08:54 07/24/17 09:31 07/24/17 08:54 07/24/17 09:31 07/24/17 08:54 - Medications Medications: Current Medications Acetaminophen (Tylenol 325mg Tab) 650 mg PO Q6 PRN PRN Reason: Pain, moderate (4-7) Last Admin: 01/23/17 09:13 Dose: 650 mg Aspirin (Ecotrin) 81 mg PO DAILY [facility] Last Admin: 07/24/17 09:29 Dose: 81 mg Atorvastatin Calcium (Lipitor) 20 mg PO QPM [facility] Last Admin: 07/23/17 17:53 Dose: 20 mg Calcium/Vitamin D (Oscal-D 250 Mg-125 Units Tab) 1 tab PO DAILY [facility] Last Admin: 07/24/17 09:31 Dose: 1 tab Carvedilol (Coreg) 3.125 mg PO DAILY [facility] Last Admin: 07/24/17 09:29 Dose: 3.125 mg Docusate Sodium (Colace) 100 mg PO BID [facility] Last Admin: 07/24/17 16:08 Dose: 100 mg Famotidine (Pepcid) 20 mg PO DAILY [facility] Last Admin: 07/24/17 09:31 Dose: 20 mg Ferrous Sulfate (Feosol) 325 mg PO BID [facility] Last Admin: 07/24/17 16:08 Dose: 325 mg Furosemide (Lasix) 20 mg PO DAILY [facility] Last Admin: 07/24/17 09:30 Dose: 20 mg Lisinopril (Zestril) 5 mg PO DAILY [facility] Last Admin: 07/24/17 09:31 Dose: 5 mg Loratadine (Claritin) 10 mg PO DAILY [facility] Last Admin: 07/24/17 09:24 Dose: 10 mg - Labs Labs: 07/13/17 05:45 07/13/17 05:45 PT 12.5 Seconds (9.8-13.1) 01/17/17 13:40 INR 1.2 (0.9-1.2) 01/17/17 13:40 APTT 27.7 Seconds (25.6-37.1) 01/17/17 13:40 Assessment and Plan (1) Unwitnessed fall Assessment & Plan: Back Pain- Controlled with Tylenol Ambulation Problem Right Foot Droop Frail Elderly Wheelchair Dependent Continue Pain Management PRN Continue PT/OT Onboard SW 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 Status: Acute Priority: High (2) DVT prophylaxis Status: Acute (3) Hypercholesterolemia Status: Acute (4) Anemia Assessment and Plan: Normocytic Status: Chronic (5) HTN (hypertension) Status: Chronic (6) Hypothyroid Status: Chronic Priority: Low (7) CAD (coronary artery diseas Status: Chronic
[2017-07-25] MEDS: Calcium-Vit D 250 mg-125 Units Tab UD PO SCH (10:03)
--- NOTE | 2017-07-25 22:28 | CP.PCM.PN ---
Subjective - Date & Time of Evaluation Date of Evaluation: 07/25/17 Time of Evaluation: 13:00 - Subjective Subjective: Social hold due to unsafe discharge due to multiple falls and spinal fracture. Daughter and SW working to get Medicaid for placement. otherwise no complaint. Objective - Vital Signs/Intake and Output Vital Signs (last 24 hours): Temp Pulse Resp BP Pulse Ox 98.7 F 92 H 20 103/62 99 07/25/17 17:00 07/25/17 17:00 07/25/17 17:00 07/25/17 17:00 07/25/17 17:00 - Medications Medications: Current Medications Acetaminophen (Tylenol 325mg Tab) 650 mg PO Q6 PRN PRN Reason: Pain, moderate (4-7) Last Admin: 01/23/17 09:13 Dose: 650 mg Aspirin (Ecotrin) 81 mg PO DAILY [facility] Last Admin: 07/25/17 10:02 Dose: 81 mg Atorvastatin Calcium (Lipitor) 20 mg PO QPM [facility] Last Admin: 07/23/17 17:53 Dose: 20 mg Calcium/Vitamin D (Oscal-D 250 Mg-125 Units Tab) 1 tab PO DAILY [facility] Last Admin: 07/25/17 10:03 Dose: 1 tab Carvedilol (Coreg) 3.125 mg PO DAILY [facility] Last Admin: 07/25/17 10:01 Dose: 3.125 mg Docusate Sodium (Colace) 100 mg PO BID [facility] Last Admin: 07/25/17 16:29 Dose: 100 mg Famotidine (Pepcid) 20 mg PO DAILY [facility] Last Admin: 07/25/17 10:02 Dose: 20 mg Ferrous Sulfate (Feosol) 325 mg PO BID [facility] Last Admin: 07/25/17 16:30 Dose: 325 mg Furosemide (Lasix) 20 mg PO DAILY [facility] Last Admin: 07/25/17 10:02 Dose: 20 mg Lisinopril (Zestril) 5 mg PO DAILY [facility] Last Admin: 07/25/17 10:01 Dose: 5 mg Loratadine (Claritin) 10 mg PO DAILY [facility] Last Admin: 07/25/17 10:03 Dose: 10 mg - Labs Labs: 07/13/17 05:45 07/13/17 05:45 PT 12.5 Seconds (9.8-13.1) 01/17/17 13:40 INR 1.2 (0.9-1.2) 01/17/17 13:40 APTT 27.7 Seconds (25.6-37.1) 01/17/17 13:40 Assessment and Plan (1) Unwitnessed fall Assessment & Plan: Back Pain- Controlled with Tylenol Ambulation Problem Right Foot Droop Frail Elderly Wheelchair Dependent Continue Pain Management PRN Continue PT/OT Onboard SW Working for Medicaid application for terminal press operator placement. Status: Acute Priority: High (2) DVT prophylaxis Status: Acute (3) Hypercholesterolemia Status: Acute (4) Anemia Assessment and Plan: Normocytic Status: Chronic (5) HTN (hypertension) Status: Chronic (6) Hypothyroid Status: Chronic Priority: Low (7) CAD (coronary artery diseas Status: Chronic
[2017-07-26] MEDS: Calcium-Vit D 250 mg-125 Units Tab UD PO SCH (10:04)
--- NOTE | 2017-07-26 22:34 | CP.PCM.PN ---
Subjective - Date & Time of Evaluation Date of Evaluation: 07/26/17 Time of Evaluation: 16:00 - Subjective Subjective: Social hold due to unsafe discharge due to multiple falls and spinal fracture. Daughter and SW working to get Medicaid for placement. otherwise no complaint Objective - Vital Signs/Intake and Output Vital Signs (last 24 hours): Temp Pulse Resp BP Pulse Ox 97.7 F 92 H 18 105/79 97 07/26/17 16:35 07/26/17 16:35 07/26/17 16:35 07/26/17 16:35 07/26/17 16:35 - Medications Medications: Current Medications Acetaminophen (Tylenol 325mg Tab) 650 mg PO Q6 PRN PRN Reason: Pain, moderate (4-7) Last Admin: 01/23/17 09:13 Dose: 650 mg Aspirin (Ecotrin) 81 mg PO DAILY [facility] Last Admin: 07/26/17 10:04 Dose: 81 mg Atorvastatin Calcium (Lipitor) 20 mg PO QPM [facility] Last Admin: 07/26/17 17:57 Dose: 20 mg Calcium/Vitamin D (Oscal-D 250 Mg-125 Units Tab) 1 tab PO DAILY [facility] Last Admin: 07/26/17 10:04 Dose: 1 tab Carvedilol (Coreg) 3.125 mg PO DAILY [facility] Last Admin: 07/26/17 10:05 Dose: 3.125 mg Docusate Sodium (Colace) 100 mg PO BID [facility] Last Admin: 07/26/17 17:57 Dose: 100 mg Famotidine (Pepcid) 20 mg PO DAILY [facility] Last Admin: 07/26/17 10:05 Dose: 20 mg Ferrous Sulfate (Feosol) 325 mg PO BID [facility] Last Admin: 07/26/17 17:57 Dose: 325 mg Furosemide (Lasix) 20 mg PO DAILY [facility] Last Admin: 07/26/17 10:05 Dose: 20 mg Lisinopril (Zestril) 5 mg PO DAILY [facility] Last Admin: 07/26/17 10:05 Dose: 5 mg Loratadine (Claritin) 10 mg PO DAILY [facility] Last Admin: 07/26/17 10:06 Dose: 10 mg - Labs Labs: 07/13/17 05:45 07/13/17 05:45 PT 12.5 Seconds (9.8-13.1) 01/17/17 13:40 INR 1.2 (0.9-1.2) 01/17/17 13:40 APTT 27.7 Seconds (25.6-37.1) 01/17/17 13:40 Assessment and Plan (1) Unwitnessed fall Assessment & Plan: Back Pain- Controlled with Tylenol Ambulation Problem Right Foot Droop Frail Elderly Wheelchair Dependent Continue Pain Management PRN Continue PT/OT Onboard SW Working for Medicaid application for half-way placement. Status: Acute Priority: High (2) DVT prophylaxis Status: Acute (3) Hypercholesterolemia Status: Acute (4) Anemia Assessment and Plan: Normocytic Status: Chronic (5) HTN (hypertension) Status: Chronic (6) Hypothyroid Status: Chronic Priority: Low (7) CAD (coronary artery diseas Status: Chronic
[2017-07-27] MEDS: Calcium-Vit D 250 mg-125 Units Tab UD PO SCH (09:28)
--- NOTE | 2017-07-27 21:34 | CP.PCM.PN ---
Subjective - Date & Time of Evaluation Date of Evaluation: 07/27/17 Time of Evaluation: 17:00 - Subjective Subjective: Social hold due to unsafe discharge due to multiple falls and spinal fracture. Daughter and SW working to get Medicaid for placement. otherwise no complaint Objective - Vital Signs/Intake and Output Vital Signs (last 24 hours): Temp Pulse Resp BP Pulse Ox 98.7 F 86 20 112/65 99 07/27/17 15:57 07/27/17 15:57 07/27/17 15:57 07/27/17 15:57 07/27/17 15:57 - Medications Medications: Current Medications Acetaminophen (Tylenol 325mg Tab) 650 mg PO Q6 PRN PRN Reason: Pain, moderate (4-7) Last Admin: 01/23/17 09:13 Dose: 650 mg Aspirin (Ecotrin) 81 mg PO DAILY [facility] Last Admin: 07/27/17 09:27 Dose: 81 mg Atorvastatin Calcium (Lipitor) 20 mg PO QPM [facility] Last Admin: 07/27/17 17:08 Dose: 20 mg Calcium/Vitamin D (Oscal-D 250 Mg-125 Units Tab) 1 tab PO DAILY [facility] Last Admin: 07/27/17 09:28 Dose: 1 tab Carvedilol (Coreg) 3.125 mg PO DAILY [facility] Last Admin: 07/27/17 09:27 Dose: 3.125 mg Docusate Sodium (Colace) 100 mg PO BID [facility] Last Admin: 07/27/17 17:07 Dose: 100 mg Famotidine (Pepcid) 20 mg PO DAILY [facility] Last Admin: 07/27/17 09:28 Dose: 20 mg Ferrous Sulfate (Feosol) 325 mg PO BID [facility] Last Admin: 07/27/17 17:08 Dose: 325 mg Furosemide (Lasix) 20 mg PO DAILY [facility] Last Admin: 07/27/17 09:28 Dose: 20 mg Lisinopril (Zestril) 5 mg PO DAILY [facility] Last Admin: 07/27/17 09:28 Dose: 5 mg Loratadine (Claritin) 10 mg PO DAILY [facility] Last Admin: 07/27/17 09:26 Dose: 10 mg - Labs Labs: 07/13/17 05:45 07/13/17 05:45 PT 12.5 Seconds (9.8-13.1) 01/17/17 13:40 INR 1.2 (0.9-1.2) 01/17/17 13:40 APTT 27.7 Seconds (25.6-37.1) 01/17/17 13:40 Assessment and Plan (1) Unwitnessed fall Assessment & Plan: Back Pain- Controlled with Tylenol Ambulation Problem Right Foot Droop Frail Elderly Wheelchair Dependent Continue Pain Management PRN Continue PT/OT Onboard SW Working for 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 Status: Acute Priority: High (2) DVT prophylaxis Status: Acute (3) Hypercholesterolemia Status: Acute (4) Anemia Assessment and Plan: Normocytic Status: Chronic (5) HTN (hypertension) Status: Chronic (6) Hypothyroid Status: Chronic Priority: Low (7) CAD (coronary artery diseas Status: Chronic
[2017-07-28] MEDS: Calcium-Vit D 250 mg-125 Units Tab UD PO SCH (09:14)
--- NOTE | 2017-07-28 22:11 | CP.PCM.PN ---
Subjective - Date & Time of Evaluation Date of Evaluation: 07/28/17 Time of Evaluation: 17:15 - Subjective Subjective: Social hold due to unsafe discharge due to multiple falls and spinal fracture. Daughter and SW working to get Medicaid for placement. otherwise no complaint Objective - Vital Signs/Intake and Output Vital Signs (last 24 hours): Temp Pulse Resp BP Pulse Ox 99.3 F 84 20 123/69 97 07/28/17 16:25 07/28/17 16:25 07/28/17 16:25 07/28/17 16:25 07/28/17 16:25 - Medications Medications: Current Medications Acetaminophen (Tylenol 325mg Tab) 650 mg PO Q6 PRN PRN Reason: Pain, moderate (4-7) Last Admin: 01/23/17 09:13 Dose: 650 mg Aspirin (Ecotrin) 81 mg PO DAILY [facility] Last Admin: 07/28/17 09:13 Dose: 81 mg Atorvastatin Calcium (Lipitor) 20 mg PO QPM [facility] Last Admin: 07/28/17 17:15 Dose: 20 mg Calcium/Vitamin D (Oscal-D 250 Mg-125 Units Tab) 1 tab PO DAILY [facility] Last Admin: 07/28/17 09:14 Dose: 1 tab Carvedilol (Coreg) 3.125 mg PO DAILY [facility] Last Admin: 07/28/17 09:13 Dose: 3.125 mg Docusate Sodium (Colace) 100 mg PO BID [facility] Last Admin: 07/28/17 17:14 Dose: 100 mg Famotidine (Pepcid) 20 mg PO DAILY [facility] Last Admin: 07/28/17 09:15 Dose: 20 mg Ferrous Sulfate (Feosol) 325 mg PO BID [facility] Last Admin: 07/28/17 17:15 Dose: 325 mg Furosemide (Lasix) 20 mg PO DAILY [facility] Last Admin: 07/28/17 09:14 Dose: 20 mg Lisinopril (Zestril) 5 mg PO DAILY [facility] Last Admin: 07/28/17 09:14 Dose: 5 mg Loratadine (Claritin) 10 mg PO DAILY [facility] Last Admin: 07/28/17 09:11 Dose: 10 mg - Labs Labs: 07/13/17 05:45 07/13/17 05:45 PT 12.5 Seconds (9.8-13.1) 01/17/17 13:40 INR 1.2 (0.9-1.2) 01/17/17 13:40 APTT 27.7 Seconds (25.6-37.1) 01/17/17 13:40 Assessment and Plan (1) Unwitnessed fall Assessment & Plan: Back Pain- Controlled with Tylenol Ambulation Problem Right Foot Droop Frail Elderly Wheelchair Dependent Continue Pain Management PRN Continue PT/OT Onboard SW Working for Medicaid 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 Status: Acute Priority: High (2) DVT prophylaxis Status: Acute (3) Hypercholesterolemia Status: Acute (4) Anemia Assessment and Plan: Normocytic Status: Chronic (5) HTN (hypertension) Status: Chronic (6) Hypothyroid Status: Chronic Priority: Low (7) CAD (coronary artery diseas Status: Chronic
[2017-07-29] MEDS: Calcium-Vit D 250 mg-125 Units Tab UD PO SCH (09:32)
--- NOTE | 2017-07-29 13:35 | CP.PCM.PN ---
Subjective - Date & Time of Evaluation Date of Evaluation: 07/29/17 Time of Evaluation: 20:30 - Subjective Subjective: Social hold due to unsafe discharge due to multiple falls and spinal fracture. Daughter and SW working to get Medicaid for placement. otherwise no complaint Objective - Vital Signs/Intake and Output Vital Signs (last 24 hours): Temp Pulse Resp BP Pulse Ox 98.4 F 67 20 112/69 97 07/29/17 08:16 07/29/17 09:34 07/29/17 08:16 07/29/17 09:34 07/29/17 08:16 - Medications Medications: Current Medications Acetaminophen (Tylenol 325mg Tab) 650 mg PO Q6 PRN PRN Reason: Pain, moderate (4-7) Last Admin: 01/23/17 09:13 Dose: 650 mg Aspirin (Ecotrin) 81 mg PO DAILY [facility] Last Admin: 07/29/17 09:33 Dose: 81 mg Atorvastatin Calcium (Lipitor) 20 mg PO QPM [facility] Last Admin: 07/28/17 17:15 Dose: 20 mg Calcium/Vitamin D (Oscal-D 250 Mg-125 Units Tab) 1 tab PO DAILY [facility] Last Admin: 07/29/17 09:32 Dose: 1 tab Carvedilol (Coreg) 3.125 mg PO DAILY [facility] Last Admin: 07/29/17 09:33 Dose: 3.125 mg Docusate Sodium (Colace) 100 mg PO BID [facility] Last Admin: 07/29/17 09:33 Dose: 100 mg Famotidine (Pepcid) 20 mg PO DAILY [facility] Last Admin: 07/29/17 09:33 Dose: 20 mg Ferrous Sulfate (Feosol) 325 mg PO BID [facility] Last Admin: 07/29/17 09:34 Dose: 325 mg Furosemide (Lasix) 20 mg PO DAILY [facility] Last Admin: 07/29/17 09:34 Dose: 20 mg Lisinopril (Zestril) 5 mg PO DAILY [facility] Last Admin: 07/29/17 09:34 Dose: 5 mg Loratadine (Claritin) 10 mg PO DAILY [facility] Last Admin: 07/29/17 09:34 Dose: 10 mg - Labs Labs: 07/13/17 05:45 07/13/17 05:45 PT 12.5 Seconds (9.8-13.1) 01/17/17 13:40 INR 1.2 (0.9-1.2) 01/17/17 13:40 APTT 27.7 Seconds (25.6-37.1) 01/17/17 13:40 Assessment and Plan (1) Unwitnessed fall Assessment & Plan: Back Pain- Controlled with Tylenol Ambulation Problem Right Foot Droop Frail Elderly Wheelchair Dependent Continue Pain Management PRN Continue PT/OT Onboard SW Working for Medicaid application for moth 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 Status: Acute Priority: High (2) DVT prophylaxis Status: Acute (3) Hypercholesterolemia Status: Acute (4) Anemia Assessment and Plan: Normocytic Status: Chronic (5) HTN (hypertension) Status: Chronic (6) Hypothyroid Status: Chronic Priority: Low (7) CAD (coronary artery diseas Status: Chronic
[2017-07-30] MEDS: Calcium-Vit D 250 mg-125 Units Tab UD PO SCH (09:47)
--- NOTE | 2017-07-30 23:30 | CP.PCM.PN ---
Subjective - Date & Time of Evaluation Date of Evaluation: 07/30/17 Time of Evaluation: 17:20 - Subjective Subjective: Social hold due to unsafe discharge due to multiple falls and spinal fracture. Daughter and SW working to get Medicaid for placement. otherwise no complaint Objective - Vital Signs/Intake and Output Vital Signs (last 24 hours): Temp Pulse Resp BP Pulse Ox 98 F 92 H 20 122/69 99 07/30/17 16:20 07/30/17 16:20 07/30/17 16:20 07/30/17 16:20 07/30/17 16:20 - Medications Medications: Current Medications Acetaminophen (Tylenol 325mg Tab) 650 mg PO Q6 PRN PRN Reason: Pain, moderate (4-7) Last Admin: 01/23/17 09:13 Dose: 650 mg Aspirin (Ecotrin) 81 mg PO DAILY [facility] Last Admin: 07/30/17 09:47 Dose: 81 mg Atorvastatin Calcium (Lipitor) 20 mg PO QPM [facility] Last Admin: 07/30/17 18:34 Dose: 20 mg Calcium/Vitamin D (Oscal-D 250 Mg-125 Units Tab) 1 tab PO DAILY [facility] Last Admin: 07/30/17 09:47 Dose: 1 tab Carvedilol (Coreg) 3.125 mg PO DAILY [facility] Last Admin: 07/30/17 09:47 Dose: 3.125 mg Docusate Sodium (Colace) 100 mg PO BID [facility] Last Admin: 07/30/17 16:30 Dose: 100 mg Famotidine (Pepcid) 20 mg PO DAILY [facility] Last Admin: 07/30/17 09:49 Dose: 20 mg Ferrous Sulfate (Feosol) 325 mg PO BID [facility] Last Admin: 07/30/17 16:31 Dose: 325 mg Furosemide (Lasix) 20 mg PO DAILY [facility] Last Admin: 07/30/17 09:48 Dose: 20 mg Lisinopril (Zestril) 5 mg PO DAILY [facility] Last Admin: 07/30/17 09:49 Dose: 5 mg Loratadine (Claritin) 10 mg PO DAILY [facility] Last Admin: 07/30/17 09:47 Dose: 10 mg - Labs Labs: 07/13/17 05:45 07/13/17 05:45 PT 12.5 Seconds (9.8-13.1) 01/17/17 13:40 INR 1.2 (0.9-1.2) 01/17/17 13:40 APTT 27.7 Seconds (25.6-37.1) 01/17/17 13:40 Assessment and Plan (1) Unwitnessed fall Assessment & Plan: Back Pain- Controlled with Tylenol Ambulation Problem Right Foot Droop Frail Elderly Wheelchair Dependent Continue Pain Management PRN Continue PT/OT Onboard SW Working for Medicaid application for 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 Status: Acute Priority: High (2) DVT prophylaxis Status: Acute (3) Hypercholesterolemia Status: Acute (4) Anemia Assessment and Plan: Normocytic Status: Chronic (5) HTN (hypertension) Status: Chronic (6) Hypothyroid Status: Chronic Priority: Low (7) CAD (coronary artery diseas Status: Chronic
[2017-07-31] MEDS: Calcium-Vit D 250 mg-125 Units Tab UD PO SCH (09:34)
--- NOTE | 2017-07-31 21:20 | CP.PCM.PN ---
Subjective - Date & Time of Evaluation Date of Evaluation: 07/31/17 Time of Evaluation: 16:00 - Subjective Subjective: Social hold due to unsafe discharge due to multiple falls and spinal fracture. Daughter and SW working to get Medicaid for placement. otherwise no complaint Objective - Vital Signs/Intake and Output Vital Signs (last 24 hours): Temp Pulse Resp BP Pulse Ox 98.4 F 87 20 125/68 98 07/31/17 08:05 07/31/17 08:05 07/31/17 08:05 07/31/17 09:34 07/31/17 08:05 - Medications Medications: Current Medications Acetaminophen (Tylenol 325mg Tab) 650 mg PO Q6 PRN PRN Reason: Pain, moderate (4-7) Last Admin: 01/23/17 09:13 Dose: 650 mg Aspirin (Ecotrin) 81 mg PO DAILY [facility] Last Admin: 07/31/17 09:34 Dose: 81 mg Atorvastatin Calcium (Lipitor) 20 mg PO QPM [facility] Last Admin: 07/31/17 18:02 Dose: 20 mg Calcium/Vitamin D (Oscal-D 250 Mg-125 Units Tab) 1 tab PO DAILY [facility] Last Admin: 07/31/17 09:34 Dose: 1 tab Carvedilol (Coreg) 3.125 mg PO DAILY [facility] Last Admin: 07/31/17 09:35 Dose: 3.125 mg Docusate Sodium (Colace) 100 mg PO BID [facility] Last Admin: 07/31/17 17:16 Dose: 100 mg Famotidine (Pepcid) 20 mg PO DAILY [facility] Last Admin: 07/31/17 09:34 Dose: 20 mg Ferrous Sulfate (Feosol) 325 mg PO BID [facility] Last Admin: 07/31/17 17:17 Dose: 325 mg Furosemide (Lasix) 20 mg PO DAILY [facility] Last Admin: 07/31/17 09:34 Dose: 20 mg Lisinopril (Zestril) 5 mg PO DAILY [facility] Last Admin: 07/31/17 09:34 Dose: 5 mg Loratadine (Claritin) 10 mg PO DAILY [facility] Last Admin: 07/31/17 09:35 Dose: 10 mg - Labs Labs: 07/13/17 05:45 07/13/17 05:45 PT 12.5 Seconds (9.8-13.1) 01/17/17 13:40 INR 1.2 (0.9-1.2) 01/17/17 13:40 APTT 27.7 Seconds (25.6-37.1) 01/17/17 13:40 Assessment and Plan (1) Unwitnessed fall Assessment & Plan: Back Pain- Controlled with Tylenol Ambulation Problem Right Foot Droop Frail Elderly Wheelchair Dependent Continue Pain Management PRN Continue PT/OT Onboard SW Working for 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 Status: Acute Priority: High (2) DVT prophylaxis Status: Acute (3) Hypercholesterolemia Status: Acute (4) Anemia Assessment and Plan: Normocytic Status: Chronic (5) HTN (hypertension) Status: Chronic (6) Hypothyroid Status: Chronic Priority: Low (7) CAD (coronary artery diseas Status: Chronic
[2017-08-01] MEDS: Calcium-Vit D 250 mg-125 Units Tab UD PO SCH (09:47)
--- NOTE | 2017-08-01 17:59 | CP.PCM.PN ---
Subjective - Date & Time of Evaluation Date of Evaluation: 08/01/17 Time of Evaluation: 17:00 - Subjective Subjective: Social hold due to unsafe discharge due to multiple falls and spinal fracture. Daughter and SW working to get Medicaid for placement. otherwise no complaint Objective - Vital Signs/Intake and Output Vital Signs (last 24 hours): Temp Pulse Resp BP Pulse Ox 98.5 F 90 20 114/62 100 08/01/17 17:00 08/01/17 17:00 08/01/17 17:00 08/01/17 17:00 08/01/17 17:00 - Medications Medications: Current Medications Acetaminophen (Tylenol 325mg Tab) 650 mg PO Q6 PRN PRN Reason: Pain, moderate (4-7) Last Admin: 01/23/17 09:13 Dose: 650 mg Aspirin (Ecotrin) 81 mg PO DAILY [facility] Last Admin: 08/01/17 09:46 Dose: 81 mg Atorvastatin Calcium (Lipitor) 20 mg PO QPM [facility] Last Admin: 08/01/17 17:29 Dose: 20 mg Calcium/Vitamin D (Oscal-D 250 Mg-125 Units Tab) 1 tab PO DAILY [facility] Last Admin: 08/01/17 09:47 Dose: 1 tab Carvedilol (Coreg) 3.125 mg PO DAILY [facility] Last Admin: 08/01/17 09:46 Dose: 3.125 mg Docusate Sodium (Colace) 100 mg PO BID [facility] Last Admin: 08/01/17 17:28 Dose: 100 mg Famotidine (Pepcid) 20 mg PO DAILY [facility] Last Admin: 08/01/17 09:46 Dose: 20 mg Ferrous Sulfate (Feosol) 325 mg PO BID [facility] Last Admin: 08/01/17 17:29 Dose: 325 mg Furosemide (Lasix) 20 mg PO DAILY [facility] Last Admin: 08/01/17 09:47 Dose: 20 mg Lisinopril (Zestril) 5 mg PO DAILY [facility] Last Admin: 08/01/17 09:47 Dose: 5 mg Loratadine (Claritin) 10 mg PO DAILY [facility] Last Admin: 08/01/17 09:46 Dose: 10 mg - Labs Labs: 07/13/17 05:45 07/13/17 05:45 PT 12.5 Seconds (9.8-13.1) 01/17/17 13:40 INR 1.2 (0.9-1.2) 01/17/17 13:40 APTT 27.7 Seconds (25.6-37.1) 01/17/17 13:40 Assessment and Plan (1) Unwitnessed fall Assessment & Plan: Back Pain- Controlled with Tylenol Ambulation Problem Right Foot Droop Frail Elderly Wheelchair Dependent Continue Pain Management PRN Continue PT/OT Onboard SW Working for Medicaid application for ad terminal makeup operator placement. Status: Acute Priority: High (2) DVT prophylaxis Status: Acute (3) Hypercholesterolemia Status: Acute (4) Anemia Assessment and Plan: Normocytic Status: Chronic (5) HTN (hypertension) Status: Chronic (6) Hypothyroid Status: Chronic Priority: Low (7) CAD (coronary artery diseas Status: Chronic
[2017-08-02] MEDS: Calcium-Vit D 250 mg-125 Units Tab UD PO SCH (08:47)
--- NOTE | 2017-08-02 15:13 | CP.PCM.PCO ---
Assessment/Plan - Assessment/Plan Assessment (Free Text): Pt stable, in no distress. Per SW, pt has been accepted into [facility] today. Pt's daughter and pt aware. Dr. Quintana made aware. Pt will be d/c'd today to LTC facility. - Problems Patient Problems: Problem List (Active/Current) Problem Status Onset Code Unwitnessed fall Resolved R29.6
[2017-08-02 16:02] VITALS: BP 96/60; PULSE 90; RESP 20; TEMP 98.6; O2SAT 98
--- NOTE | 2017-08-02 22:11 | CP.PCM.DIS ---
Provider - Provider Date of Admission: 01/18/17 14:31 Attending physician: Dewayne Quintana MD Time Spent in preparation of Discharge (in minutes): 25 Diagnosis - Discharge Diagnosis (1) Unwitnessed fall Status: Chronic Hospital Course - Lab Results Lab Results: Micro Results 04/04/17 16:18 Urine,Catheterized Urine Culture - Final Proteus Mirabilis 01/30/17 15:00 Urine,Catheterized Urine Culture - Final Escherichia Coli Proteus Mirabilis 01/27/17 18:56 Urine,Catheterized Urine Culture - Final Escherichia Coli Most Recent Lab Values WBC 4.7 K/uL (4.8-10.8) L 07/13/17 05:45 RBC 3.92 Mil/uL (3.80-5.20) 07/13/17 05:45 Hgb 11.2 g/dL (12.0-16.0) L 07/13/17 05:45 Hct 34.6 % (34.0-47.0) 07/13/17 05:45 MCV 88.3 fl (81.0-99.0) 07/13/17 05:45 MCH 28.4 pg (27.0-31.0) 07/13/17 05:45 MCHC 32.2 g/dL (33.0-37.0) L 07/13/17 05:45 RDW 13.8 % (11.5-14.5) 07/13/17 05:45 Plt Count 142 K/uL (130-400) 07/13/17 05:45 MPV 9.5 fl (7.2-11.7) 07/13/17 05:45 Neut % (Auto) 53.2 % (50.0-75.0) 07/13/17 05:45 Lymph % (Auto) 32.9 % (20.0-40.0) 07/13/17 05:45 Slope % (Auto) 11.1 % (0.0-10.0) H 07/13/17 05:45 Eos % (Auto) 2.4 % (0.0-4.0) 07/13/17 05:45 Baso % (Auto) 0.4 % (0.0-2.0) 07/13/17 05:45 Neut # (Auto) 2.5 K/uL (1.8-7.0) 07/13/17 05:45 Lymph # (Auto) 1.5 K/uL (1.0-4.3) 07/13/17 05:45 Slope # (Auto) 0.5 K/uL (0.0-0.8) 07/13/17 05:45 Eos # (Auto) 0.1 K/uL (0.0-0.7) 07/13/17 05:45 Baso # (Auto) 0.0 K/uL (0.0-0.2) 07/13/17 05:45 Neutrophils % (Manual) 86 % (42-75) H 01/17/17 13:40 Lymphocytes % (Manual) 7 % (20-50) L 01/17/17 13:40 Monocytes % (Manual) 6 % (0-10) 01/17/17 13:40 Eosinophils % (Manual) 1 % (0-7) 01/17/17 13:40 Platelet Estimate Normal (NORMAL) 01/17/17 13:40 PT 12.5 Seconds (9.8-13.1) 01/17/17 13:40 INR 1.2 (0.9-1.2) 01/17/17 13:40 APTT 27.7 Seconds (25.6-37.1) 01/17/17 13:40 Sodium 146 mmol/l (132-148) 07/13/17 05:45 Potassium 3.9 MMOL/L (3.6-5.0) 07/13/17 05:45 Chloride 105 mmol/L (98-107) 07/13/17 05:45 Carbon Dioxide 31 mmol/L (22-30) H 07/13/17 05:45 Anion Gap 14 (10-20) 07/13/17 05:45 BUN 21 mg/dl (7-17) H 07/13/17 05:45 Creatinine 0.6 mg/dl (0.7-1.2) L 07/13/17 05:45 Est GFR ( Amer) > 60 07/13/17 05:45 Est GFR (Non-Af Amer) > 60 07/13/17 05:45 Random Glucose 91 mg/dL (65-105) 07/13/17 05:45 Calcium 9.3 mg/dL (8.4-10.2) 07/13/17 05:45 Magnesium 1.9 MG/DL (1.6-2.3) 07/13/17 05:45 Total Bilirubin 0.3 mg/dl (0.2-1.3) 07/13/17 05:45 AST 22 U/L (14-36) 07/13/17 05:45 ALT 28 U/L (9-52) 07/13/17 05:45 Alkaline Phosphatase 80 U/L (38-126) 07/13/17 05:45 Total Creatine Kinase 441 U/L (30-135) H 01/17/17 13:40 Troponin I 0.0360 ng/mL (0.00-0.120) 01/17/17 13:40 Total Protein 6.5 G/DL (6.3-8.2) 07/13/17 05:45 Albumin 3.6 g/dL (3.5-5.0) 07/13/17 05:45 Globulin 3.0 gm/dL (2.2-3.9) 07/13/17 05:45 Albumin/Globulin Ratio 1.2 (1.0-2.1) 07/13/17 05:45 TSH 3rd Generation 2.39 mIU/ML (0.46-4.68) 07/13/17 05:45 Urine Color Yellow (YELLOW) 01/30/17 15:00 Urine Clarity Slighty-cloudy (Clear) 01/30/17 15:00 Urine pH 6.0 (5.0-8.0) 01/30/17 15:00 Ur Specific [place] 1.010 (1.003-1.030) 01/30/17 15:00 Urine Protein Negative mg/dL (NEGATIVE) 01/30/17 15:00 Urine Glucose (UA) Neg mg/dL (Normal) 01/30/17 15:00 Urine Ketones Negative mg/dL (NEGATIVE) 01/30/17 15:00 Urine Blood Small (NEGATIVE) 01/30/17 15:00 Urine Nitrate Positive (NEGATIVE) H 01/30/17 15:00 Urine Bilirubin Negative (NEGATIVE) 01/30/17 15:00 Urine Urobilinogen 0.2-1.0 mg/dL (0.2-1.0) 01/30/17 15:00 Ur Leukocyte Esterase Small Debora/uL (Negative) 01/30/17 15:00 Urine RBC (Auto) 1 /hpf (0-3) 01/30/17 15:00 Urine Microscopic WBC 39 /hpf (0-5) H 01/30/17 15:00 Ur Squamous Epith Cells 3 /hpf (0-5) 01/30/17 15:00 Urine Bacteria Many (<OCC) H 01/30/17 15:00 Blood Type Cancelled 01/17/17 13:40 Antibody Screen Cancelled 01/17/17 13:40 BBK History Checked Cancelled 01/17/17 13:40 - Hospital Course Hospital Course: A 82yoF known to me from prior hospitalization presented with daughter to ED and states she fell down trying to get to her wheelchair. As per daughter pt. lives on her own and when she came to visit her yesterday morning at approximately 1130am she found pt. sitting up on the bathroom floor. She states pt. usually gets up from bed at approximately 1000am. Pt. currently c/o R knee pain and unable to move the right Lower extremities. Sue has been on social hold since 01/18/2017 due to insurance unavailability to discharge to the assisted, and unsafe to dischrge the patient home. Now Medicaid approved and patient will be going to [facility]. Today she has no complaint. Discharge Exam - Head Exam Head Exam: ATRAUMATIC, NORMAL INSPECTION, NORMOCEPHALIC Discharge Plan - Follow Up Plan Condition: FAIR [facility] Instructions: Vertebral Compression Fracture, Weakness (GEN), Urinary Tract Infection in Women (DC), Urinary Tract Infection in Men (DC), Dysuria (GEN)
== END 2017-08-02 17:50 | DRG 552 ==
LOC: H.ER 12:49 → H.EROBSV 13:19 → H.ERHOLD 19:14 → H.TEL 22:13 → OBSVTOIN 01-18 14:31 → H.MEDSURG1 01-25 15:56
PROVIDERS: ADMIT Internal Medicine; ATTEND Internal Medicine
PROC: F07Z9FZ Gait Training/Functional Ambulation Treatment using Assistive, Adaptive, Supportive or Protective Equipment (ICD-10-PCS; principal; 2017-01-21)
PROC: F08Z4FZ Home Management Treatment using Assistive, Adaptive, Supportive or Protective Equipment (ICD-10-PCS; 2017-01-23)
DX: S32.058A Other fracture of fifth lumbar vertebra, initial encounter for closed fracture (principal); M62.82 Rhabdomyolysis; N39.0 Urinary tract infection, site not specified; I27.20 Pulmonary hypertension, unspecified; M81.0 Age-related osteoporosis without current pathological fracture; M47.896 Other spondylosis, lumbar region; G89.29 Other chronic pain; Z75.1 Person awaiting admission to adequate facility elsewhere; W05.0XXA Fall from non-moving wheelchair, initial encounter; B96.20 Unspecified Escherichia coli [E. coli] as the cause of diseases classified elsewhere; B96.4 Proteus (mirabilis) (morganii) as the cause of diseases classified elsewhere; M25.551 Pain in right hip; D64.9 Anemia, unspecified; E03.9 Hypothyroidism, unspecified; E78.00 Pure hypercholesterolemia, unspecified; I10 Essential (primary) hypertension; I25.10 Atherosclerotic heart disease of native coronary artery without angina pectoris; R29.6 Repeated falls; M21.371 Foot drop, right foot; Z16.12 Extended spectrum beta lactamase (ESBL) resistance; M54.5 Low back pain; R26.81 Unsteadiness on feet; R54 Age-related physical debility; Z96.641 Presence of right artificial hip joint; Z87.311 Personal history of (healed) other pathological fracture; Z87.81 Personal history of (healed) traumatic fracture; Z99.3 Dependence on wheelchair; Z88.0 Allergy status to penicillin; Z79.82 Long term (current) use of aspirin; Y92.002 Bathroom of unspecified non-institutional (private) residence as the place of occurrence of the external cause